=== PATIENT | male | born 1975 | race Caucasian/White ===

== ENCOUNTER 2020-03-25 18:34 | Emergency (ER) | payer MEDICAID, SELFPAY ==
[2020-03-25 21:21] VITALS: BP 144/90; PULSE 66; RESP 18; TEMP 37.2; O2SAT 99; BMI 28.1
== END 2020-03-25 23:00 | disposition left against medical advice (07) ==
PROVIDERS: Emergency Provider Internal Medicine
DX: R21 Rash and other nonspecific skin eruption (principal)
CPT/HCPCS: 99282

== ENCOUNTER 2022-09-20 14:14 | Outpatient (REF) | payer MEDICAID, SELFPAY ==
[2022-09-20 17:44] LABS: Iron 95 mcg/dL (45-160); Percent Iron Saturation 45 % (15-50); Total Iron Binding Capacity 210 mcg/dL (228-428); Unsaturated Iron Binding 115 ug/dL
[2022-09-20 18:01] LABS: Ferritin 1024 ng/mL (20-250)
[2022-09-20 19:37] LABS: Hematocrit 44.3 % (42.0-52.0); Hemoglobin 14.7 g/dl (14.0-18.0); Mean Corpuscular HGB Conc 33.2 g/dl (31.0-36.0); Mean Corpuscular Hemoglobin 30.1 pg (27.0-33.0); Mean Corpuscular Volume 90.8 fL (80.0-98.0); Mean Platelet Volume 11.3 fL (9.4-12.4); Platelet Count 126 X10*3/uL (160-400); Red Blood Count 4.88 X10*6/uL (4.60-5.80); Red Cell Distribution Width 12.8 % (11.0-16.0); White Blood Count 4.8 X10*3/uL (4.8-10.8)
[2022-09-21 04:55] LABS: HBS Num1 6.45 mIU/mL (0-7.99); HBc Num1 9.58 S/CO (0.00-0.79); Hepatitis B Surface Antigen Negative (Negative); ~Hepatitis B Surface Antibody NONREACTIVE (Nonreactive)
[2022-09-21 05:04] LABS: Hepatitis A Antibody IgG REACTIVE (Nonreactive); ~Hepatitis A Antibody IgG 11.49 S/CO (0.00-0.99)
[2022-09-21 05:59] LABS: HBc Num2 9.53 S/CO; HBc Num3 9.76 S/CO; Hepatitis B Core Antibody Reactive (Nonreactive)
[2022-09-22 10:58] LABS: Hepatitis B Core Antibody IgM NON-REACTIVE (NON-REACTIVE)
[2022-09-22 16:24] LABS: Immunoglobulin A 208 mg/dL (47-310)
[2022-09-22 21:54] LABS: Transglutaminase IgA <1.0 U/mL
[2022-09-23 14:58] LABS: HCV Log PCR <1.18 NOT DETECTED Log IU/mL (NOT DETECTED); HepC Viral Load <15 NOT DETECTED IU/mL (NOT DETECTED)
== END 2022-09-20 14:15 | disposition home or self-care (01) ==
LOC: HO.LAB 14:14
PROVIDERS: PCP Internal Medicine Geriatric Medicine; Referring Provider Internal Medicine Geriatric Medicine; Visit Provider Internal Medicine
DX: D64.9 Anemia, unspecified (principal); R76.8 Other specified abnormal immunological findings in serum; R19.5 Other fecal abnormalities
CPT/HCPCS: 36415; 82728; 82784; 83540; 85027; 86364; 86704; 86705; 86706; 86708; 87340; 87522; 99202

== ENCOUNTER 2022-10-20 08:48 | Day surgery (SDC) | payer MEDICAID, SELFPAY ==
[2022-10-18 14:57] VITALS: BMI 28.5
[2022-10-18 15:34] VITALS: BMI 28.8
--- NOTE | 2022-10-19 14:10 | HO.ANESPROP2 ---
Documented by User: Anusha Hammond NP 10/19/22 14:13 HPI - Anesthesia Eval Consult details Narrative: 47yo M for Colonoscopy ESRD on dialysis AV fistula LUE *No IV/BP* Suboxone daily PMFSH Active Problems Active Problems: All Active Problems (Updated 10/18/22 @ 15:45 by Livier Montes, RN) Anemia (Acute) Hepatitis C antibody positive in blood (Acute) Positive colorectal cancer screening using Cologuard test (Acute) Elevated ferritin level (Acute) Past Medical History Medical History A-V fistula ESRD (end stage renal disease) on dialysis HIV (human immunodeficiency virus infection) Hypertension Kidney disease Secondary hyperparathyroidism Surgical History Surgical History (Updated 10/18/22 @ 15:31 by Livier Montes, GRADY) Hx of cardiac catheterization Social History Social History Are you a primary healthcare applications analyst to a significant other at home: No Do you presently have visiting nurse or other home services: Yes (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 If so, by whom?: No Are you DNR?: No Advance Directives: No Advance Directives Information Provided: Yes Advance Directives on File: No Recently lost weight without trying: No Poor oral hygiene: No Meds Allergies Allergy/AdvReac Type Severity Reaction Status Date / Time Penicillins [PENICILLINS] Allergy Severe SWELLING/RA Unverified 09/20/22 14:43 SH/ITCHING Home Medications Medication Instructions Recorded Confirmed Last Taken Type buprenorphine 2 mg-naloxone 0.5 mg 1 film buccal DAILY 09/20/22 10/18/22 Unknown History sublingual film (Suboxone) dolutegravir 50 mg-rilpivirine 25 1 tab PO DAILY 09/20/22 10/18/22 Unknown History mg tablet (Juluca) sevelamer carbonate 800 mg tablet 800 mg PO TID 09/20/22 10/18/22 Unknown History cinacalcet 30 mg tablet 30 mg PO BEDTIME 10/18/22 10/18/22 Unknown History Exam Exam Date and Time: October 19, 2022 1410 Height,Weight and Vital Signs: Height 5 ft 8 in Weight 86 kg Pertinent Lab Results Pertinent Lab Results: Laboratory Tests 09/20/22 15:51 WBC 4.8 Hgb 14.7 Hct 44.3 Plt Count 126 L Assessment and Plan Assessment Anesthesia Assessment: Chart Reviewed Documented by User: Isabella Montano MD 10/20/22 09:44 PMFSH Past Medical History Medical History A-V fistula ESRD (end stage renal disease) on dialysis HIV (human immunodeficiency virus infection) Hypertension Kidney disease Secondary hyperparathyroidism Surgical History Surgical History (Updated 10/18/22 @ 15:31 by Livier Montes RN) Hx of cardiac catheterization Social History Social History Are you a primary healthcare applications analyst to a significant other at home: No Do you presently have visiting nurse or other home services: Yes (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 If so, by whom?: No Are you DNR?: No Advance Directives: No Advance Directives Information Provided: Yes Advance Directives on File: No Recently lost weight without trying: No Poor oral hygiene: No Meds Allergies Allergy/AdvReac Type Severity Reaction Status Date / Time Penicillins [PENICILLINS] Allergy Severe SWELLING/RA Unverified 09/20/22 14:43 SH/ITCHING Home Medications Medication Instructions Recorded Confirmed Last Taken Type buprenorphine 2 mg-naloxone 0.5 mg 1 film buccal DAILY 09/20/22 10/18/22 Unknown History sublingual film (Suboxone) dolutegravir 50 mg-rilpivirine 25 1 tab PO DAILY 09/20/22 10/18/22 Unknown History mg tablet (Juluca) sevelamer carbonate 800 mg tablet 800 mg PO TID 09/20/22 10/18/22 Unknown History cinacalcet 30 mg tablet 30 mg PO BEDTIME 10/18/22 10/18/22 Unknown History Exam Airway Mallampati Class: I TM Dist: >3cm Neck ROM: Full Heart: rr Lungs: cta Other: av fistula left arm
[2022-10-20 08:55] VITALS: BP 112/80; PULSE 99; RESP 18; TEMP 36.9; O2SAT 96
[2022-10-20 09:08] VITALS: BP 112/80; PULSE 99; RESP 20; TEMP 36.9; O2SAT 96; BMI 28.8
[2022-10-20 10:17] LABS: Anion Gap 20 (12-20); Carbon Dioxide 32 mmol/L (22-29); Chloride 93 mmol/L (96-108); Sodium 141 mmol/L (135-145)
--- NOTE | 2022-10-20 10:24 | P.OP_ITS ---
Operative Note Operative Note Date of Service: 10/20/22 Narrative: Operative Information Procedure Description: Colonoscopy Indication: pos cologuard Anesthesia: MAC COLONOSCOPY Instrument: Olympus variable stiffness pediatric scope 190L Colonoscopy Monitoring: Vital signs and clinical assessment, continuous EKG monitoring, Pulse oximetry, Carbon Dioxide monitoring and blood pressure monitoring were done throughout the procedure. Colon withdrawal time was 21 minutes. Procedure: The patient was placed in the left lateral decubitis position and pre-procedure medications were administered. After a digital rectal examination of the ano-rectum, the video colonoscope was inserted into the rectum and advanced through the colon to the cecum/TI. The colonoscope was slowly withdrawn in a retrograde panoramic fashion and the colon mucosa was carefully examined including a retroflexed view of the rectum. Findings and interventions are described below. Procedure Difficulty: moderate due to looping -pressure applied Findings: Terminal Ileum-normal Cecum:normal Ascending Colon: normal Transverse Colon -normal Descending Colon:normal Sigmoid Colon: normal Rectum: Retroflexion with medium sized internal hemorrhoids, grade I, 6-7 mm sessile polyp removed with cold forceps, some erythema noted, bx taken Anorectum - normal Colon preparation: Bennett Bowel Preparation Scale Right colon; 1-2 Transverse colon: 2- Left colon; 1-2 (0 = Unprepared colon segment with mucosa not seen due to solid stool that cannot be cleared. 1 = Portion of mucosa of the colon segment seen, but other areas of the colon segment not well seen due to staining, residual stool and/or opaque liquid. 2 = Minor amount of residual staining, small fragments of stool and/or opaque liquid, but mucosa of colon segment seen well. 3 = Entire mucosa of colon segment seen well with no residual staining, small fragments of stool or opaque liquid) Impression and Post Procedure Diagnosis: rectal polyp internal hemorrhoids tortuous colon Plan: High fiber diet leaflet Avoid straining at stool, epsom salts and sitz bath, anusol supps or cream Repeat Colonoscopy in 1-2 years due to fair prep in some area or earlier if clinically indicated Above findings were reviewed with the patient and relevant handouts were provided if indicated.
--- NOTE | 2022-10-20 10:25 | MHC.SHP ---
Pre-Procedural Eval Section A Date of Service: 10/20/22 Section B Chief Complaint: pos cologuard test Details of Present Illness: pos cologuard Relevant Family History (Specify if Yes): No Relevant Social History: None Present Medications: see Short Stay Collaborative assessment Medical History: Significant History (A-V fistula ESRD (end stage renal disease) on dialysis HIV (human immunodeficiency virus infection) Hypertension Kidney disease Secondary hyperparathyroidism) History of Previous Operations: Relevant previous surgery/procedure and date(s) (Hx of cardiac catheterization) Allergies: Allergies Allergy/AdvReac Type Severity Reaction Status Date / Time Penicillins [PENICILLINS] Allergy Severe SWELLING/RA Verified 10/20/22 10:21 SH/ITCHING Review of Systems Sugical H&P ROS: Negative: Constitution, Cardiovascular, Respiratory, Neurological, Psychiatric, Hem-Onc, Allergic/Immunologic, Gastrointestinal, Genitourinary, Musculoskeletal, Integumentary, Endocrine and Eyes/Ears/Nose/Throat Exam Surgical H&P Exam: Normal: HEENT, Normal: Heart, Normal: Lungs, Normal: Extremities, Normal: Abdomen, Normal: Skin and Normal: Neurological Plan Diagnosis/Plan: Unchanged I have reviewed the history and physical and performed a pertinent physical examination on my patient. No changes have occurred unless specified. Time Spent With Patient Time: Total time managing care of this patient today ____ minutes.
[2022-10-20] MEDS: 0.9 % Sodium Chloride 1,000 ML 100 ML IVCONT (10:26)
[2022-10-20 11:28] VITALS: BP 105/56; PULSE 82; RESP 16; TEMP 36.2; O2SAT 97
[2022-10-20 11:48] VITALS: BP 111/68; PULSE 77; RESP 16; TEMP 36.2; O2SAT 97
== END 2022-10-20 12:59 | disposition home or self-care (01) ==
PROVIDERS: Nurse Practitioner; PCP Internal Medicine Geriatric Medicine; Visit Provider Internal Medicine Gastroenterology
PROC: 0DJD8ZZ Inspection of Lower Intestinal Tract, Via Natural or Artificial Opening Endoscopic (ICD-10-PCS; CPT 45378; principal; 2022-10-20 11:00)
DX: R19.5 Other fecal abnormalities (principal); K62.1 Rectal polyp; K64.0 First degree hemorrhoids; Q43.8 Other specified congenital malformations of intestine; I12.0 Hypertensive chronic kidney disease with stage 5 chronic kidney disease or end stage renal disease; N18.6 End stage renal disease; Z99.2 Dependence on renal dialysis; N25.81 Secondary hyperparathyroidism of renal origin; B20 Human immunodeficiency virus [HIV] disease; Z79.899 Other long term (current) drug therapy; Z88.0 Allergy status to penicillin; Z87.891 Personal history of nicotine dependence
CPT/HCPCS: 45380; 36415; 80051; 88305

== ENCOUNTER 2023-01-26 14:39 | Outpatient (REF) | payer MEDICAID, SELFPAY ==
[2023-01-26 16:22] LABS: MANUAL DIFF FLAG NO
[2023-01-26 17:04] LABS: Alanine Aminotransferase 7 U/L (0-40); Albumin Level 4.7 g/dL (3.5-5.0); Alkaline Phosphatase 74 U/L (39-117); Anion Gap 18 (12-20); Aspartate Amino Transferase 6 U/L (5-37); Bilirubin Total 0.6 mg/dL (0.0-1.0); Blood Urea Nitrogen 41 mg/dL (9-16); Calcium 10.5 mg/dL (8.4-10.2); Carbon Dioxide 30 mmol/L (22-29); Chloride 93 mmol/L (96-108); Estimated Glomerular Filt Rate 5; Glucose Random 78 mg/dL (60-115); Potassium 5.3 mmol/L (3.3-5.1); Sodium 136 mmol/L (135-145); Total Protein 8.7 g/dL (6.5-8.0)
[2023-01-26 18:43] LABS: Basophils Absolute Auto 0.1 X10*3/uL (0.0-0.2); Basophils Percent Auto 0.9 % (0-2); Eosinophils Percent Auto 0.6 % (0-4); Hematocrit 47.5 % (42.0-52.0); Hemoglobin 15.6 g/dl (14.0-18.0); Imm Gran Abs Auto 0.02 X10*3/uL (0.00-0.03); Imm Gran Pct Auto 0.3 % (0.0-0.4); Lymphocytes Absolute Auto 2.3 X10*3/uL (1.2-4.9); Lymphocytes Percent Auto 33.3 % (20-40); Mean Corpuscular HGB Conc 32.8 g/dl (31.0-36.0); Mean Corpuscular Hemoglobin 30.1 pg (27.0-33.0); Mean Corpuscular Volume 91.7 fL (80.0-98.0); Mean Platelet Volume 11.6 fL (9.4-12.4); Monocytes Absolute Auto 0.6 X10*3/uL (0.1-1.2); Monocytes Percent Auto 9.4 % (2-11); Neutrophils Absolute Auto 3.8 x10*3/uL (2.0-8.3); Neutrophils Percent Auto 55.5 % (45-73); Platelet Count 136 X10*3/uL (160-400); Red Blood Count 5.18 X10*6/uL (4.60-5.80); White Blood Count 6.8 X10*3/uL (4.8-10.8)
[2023-01-30 11:28] LABS: Absolute CD3 Count 1935 cells/uL (840-3060); Absolute CD4 Count 702 cells/uL (490-1740); Absolute CD8 Count 1259 cells/uL (180-1170); Absolute Lymphocytes 2460 cells/uL (850-3900); CD4 CD8 Ratio 0.56 (0.86-5.00); Percent CD3 Cells 79 % (57-85); Percent CD4 Cells 29 % (30-61); Percent CD8 Cells 51 % (12-42)
[2023-01-31 15:28] LABS: HIV RNA PCR Qn Copies NOT DETECTED copies/mL (NOT DETECTED); HIV RNA PCR Qn Log Copies NOT DETECTED (NOT DETECTED)
== END 2023-01-26 14:40 | disposition home or self-care (01) ==
LOC: HO.HHCL 14:39
PROVIDERS: Visit Provider Internal Medicine
DX: B20 Human immunodeficiency virus [HIV] disease (principal)
CPT/HCPCS: 80053; 85025; 86359; 86360; 87536; 87900; 87901; 87906

== ENCOUNTER 2023-03-23 16:49 | Outpatient (REF) | payer MEDICAID, SELFPAY | END 2023-03-23 16:50 | disposition home or self-care (01) | LOC: HO.HHCLNP 16:49 | PROVIDERS: Visit Provider Family Medicine | DX: F11.20 Opioid dependence, uncomplicated (principal) | CPT/HCPCS: 80307 ==

== ENCOUNTER 2023-09-27 14:38 | Outpatient (AMB) | payer MEDICAID, SELFPAY ==
[2023-09-27 14:48] VITALS: BP 122/80; PULSE 57; O2SAT 100; BMI 26.2
--- NOTE | 2023-09-27 14:48 | HO.NEPHOV_ITS ---
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 Preoperatively patient was planned for fluconazole for the coccidiomycosis and possibility of reemergence, infectious disease consult was placed for postoperative management. He is CMV positive, EBV positive with a PRA of 0. Donor ID is [id number] MAOB, KDPI 60% with hep C antibody positive, donor serology with CMV positive, EBV positive, toxoplasmosis positive. Patient underwent donor kidney transplant 06/19/2023. Postoperative day 1 patient was started on Prograf 2 twice daily. Patient was also started on his Juluca for HIV, fluconazole for coccidiomycosis, Entecavir for hepatitis C, and home Suboxone film. 06/20/2019 for nuclear medicine scan returned with prompt flow to the kidney. Fluconazole and Entecavir was continued.He has had worsening serum creatinine during his scheduled follow-ups and a duplex study showed concern for renal artery stenosis of the transplanted kidney . So he was directly admitted for an angiogram with IR. Angiogram did not find any renal artery stenosis so no intervention was performed. He underwent a transplant ultrasound which showed no evidence of hydronephrosis. Additional viral testing sent out to determine cause of rising creatinine. He was later re admitted for cellulitis of the left upper extremity near the fistula. ID consulted and recommended 48 hours of IV antibiotics followed by ultrasound which did not show any drainable collections. As his skin appeared significantly thinned along this area of cellulitis and over the most proximal aneurysm, it was concerning for predisposing factor for fistula blowout. Went to OR 09/08 for fistula ligation and resection. He has decreased risk for rejection by Prospera. He has been DSA negative. He is in follow-up. He is compliant with medications. He maintains good hydration. He feels well. [facility] Medical History (Updated 09/28/23 @ 07:56 by Onesimo Ayers MD) Secondary hyperparathyroidism ESRD (end stage renal disease) on dialysis A-V fistula HIV (human immunodeficiency virus infection) Hypertension Kidney disease Surgical History (Updated 09/27/23 @ 15:27 by Onesimo Ayers MD) Hx of cardiac catheterization Social History Are you a primary care transition mgr to a significant other at home: No Do you presently have visiting nurse or other home services: Yes (AVID EDITOR 3 hours daily) Alcohol intake: never Patient Tobacco Use Status: Former Tobacco user Quit Date: 2014 Tobacco use type: Cigarette Substance Use Type: Former Substance User Vital Signs 09/27/23 14:48 Height 5 ft 8 in Weight 172 lb 8 oz BMI 26.2 BP 122/80 Blood Pressure Location Rt brachial Position Sitting Pulse 57 Pulse Source Pulse Oximeter Pulse Oximetry (%) 100 Oxygen Delivery Method Room Air Physical Exam Vital Signs: Last Vital Signs Pulse 57 09/27/23 14:48 BP 122/80 09/27/23 14:48 Pulse Ox 100 09/27/23 14:48 Oxygen Delivery Method Room Air 09/27/23 14:48 BMI result Body Mass Index 26.2 Const General: comfortable and no acute distress Orientation/consciousness: patient oriented x3 HEENT Head: Yes normocephalic Mouth: Normal oral and palatal mucosa present Eyes EOM: EOMs intact bilaterally Neck Neck: Yes supple Resp Auscultation: clear to auscultation bilaterally Cardio Jugular venous distension: no JVD Rate: regular rate GI Palpation (GI): Soft to palpation Auscultation: normal bowel sounds General: Yes no CVA tenderness Back/Spine/Pelvis Back: no CVA tenderness Skin General skin exam: no rashes or lesions noted Neuro General: patient oriented x3 and moves all extremities Extrem General: Yes no pedal edema Assessment & Plan Assessment & Plan (1) Renal transplant recipient: Code(s): Z94.0 - Kidney transplant status (2) HIV (human immunodeficiency virus infection): Code(s): B20 - Human immunodeficiency virus [HIV] disease Qualifiers: HIV symptom status: currently asymptomatic, with history of HIV-related illness Qualified Code(s): B20 - Human immunodeficiency virus [HIV] disease Plan Renal Transplant Induction Agent included Thymo x4 doses ; Had no delayed Draft Function; Did not need dialysis post transplant (Stent Removal date: 07/10/23) CMV: Donor + /Recipient + ; EBV: Donor + /Recipient + HBcAB: Donor - /Recipient + ;HCV: Donor + /OLIVERIO- /Recipient - Polyomavirus Status- BK PCR Quantitative 09/21/23 BK viremia 682 & 07/17/23 BK viruira ; Plan to give therapy (if + BK PCR)by decrease tac lvl & decrease MMF Biopsy or Prospera (Date/Indication/Results): 08/11/23 Biopsy for increasing creat- NEG ACR 09/21/23 Prospera protocol- decreased risk for rejection DSAs (Recent Date/Results): 09/07/23- no DSAs detected Immunosuppression (Drug/Level Recommended/Indication if not monotherapy): Tacro lvl 5-6 & MMF 2-4/thymo induction Prophylaxis Therapy (Drug/Date/Discontinuation Date): Fluconazole- lifelong per HIV protocol, Bactrim d/c date pending CD4 count (see HIV protocol), Valcyte 900mg daily d/c 12/18/23, Entecavir d/c 06/19/24 Genetic Testing (Date & Results): 06/08/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 Immunosupression Currently taking MMF 540/540 and prograft 1/0.5 FK level monitored and adjusted accordingly ? Prophylaxis Currently taking bactrim/valcyte/antifungal ? Infection BK blood PCR positive 78, urine very high 89 million CMV neg 08/24/23 ? Heme Hb 10.1 , Plt 126 , WBC count 1.5, ANC 0.9 - ( H/O severe neutropenia ) ? HTN Blood pressure is at target today Continue current BP meds ? Bone metabolism calcium 1.31 phosphorus 3.5 Mag?2 Tx renal artery stenosis tx renal artery stenosis, angiogram done by IR on 08/23/23 with caliber change/tapering at the distal transplant renal artery as it branched into the segmental renal bed. Unable to get stenting b/c hig risk ; Has an appointment in [facility] for further intervention Follow-up lab work ordered. All questions answered. Follow-up appointment given. Orders: Orders Complete Blood Count Auto Diff 09/27/23 Z94.0 - Kidney transplant status Creatinine 09/27/23 Z94.0 - Kidney transplant status Blood Urea Nitrogen 09/27/23 Z94.0 - Kidney transplant status Parathyroid Hormone Intact 09/27/23 Z94.0 - Kidney transplant status Electrolytes 09/27/23 Z94.0 - Kidney transplant status Calcium 09/27/23 Z94.0 - Kidney transplant status Phosphorus 09/27/23 Z94.0 - Kidney transplant status Magnesium 09/27/23 Z94.0 - Kidney transplant status Vitamin D 25-OH Total 09/27/23 Z94.0 - Kidney transplant status Tacrolimus Prograf 09/27/23 Z94.0 - Kidney transplant status Coding Level of Care Code New Pt Level 5 (75371) Diagnoses Renal transplant recipient Z94.0 Currently asymptomatic HIV infection, with history of HIV-related illness B20 HIV symptom status: currently asymptomatic, with history of HIV-related illness Results Reviewed Nephrology Results: Hgb 15.6 g/dl (14.0-18.0) 01/26/23 WBC 6.8 X10*3/uL (4.8-10.8) 01/26/23 Plt Count 136 X10*3/uL (160-400) L 01/26/23 Sodium 136 mmol/L (135-145) 01/26/23 Potassium 5.3 mmol/L (3.3-5.1) H 01/26/23 Chloride 93 mmol/L (96-108) L 01/26/23 Carbon Dioxide 30 mmol/L (22-29) H 01/26/23 BUN 41 mg/dL (9-16) H 01/26/23 Creatinine 11.03 mg/dL (0.5-1.4) H* 01/26/23 Calcium 10.5 mg/dL (8.4-10.2) H 01/26/23 Phosphorus 4.9 MG/DL (2.7-4.5) H 06/28/19 PTH Intact 512 pg/mL (14-64) H 06/28/19 Urine Protein 2+ (NEG - TRACE) H 06/28/19
== END 2023-09-27 15:30 | disposition home or self-care (01) ==
PROVIDERS: PCP Internal Medicine Geriatric Medicine; Visit Provider Internal Medicine Nephrology
DX: B20 Human immunodeficiency virus [HIV] disease (principal); N18.6 End stage renal disease; Z94.0 Kidney transplant status
CPT/HCPCS: 99205

== ENCOUNTER → 2023-09-27 14:38 | Outpatient (BNVA) | payer MEDICAID, SELFPAY | PROVIDERS: PCP Internal Medicine Geriatric Medicine; Visit Provider Internal Medicine Nephrology | DX: B20 Human immunodeficiency virus [HIV] disease (principal); Z94.0 Kidney transplant status | CPT/HCPCS: 99202 ==

== ENCOUNTER 2023-10-09 08:38 | Outpatient (REF) | payer MEDICAID, SELFPAY ==
[2023-10-09 10:42] LABS: Red Cell Distribution Width 14.1 % (11.0-16.0)
[2023-10-09 10:45] LABS: Hematocrit 34.7 % (42.0-52.0); Hemoglobin 11.2 g/dl (14.0-18.0); Mean Corpuscular HGB Conc 32.3 g/dl (31.0-36.0); Mean Corpuscular Hemoglobin 28.9 pg (27.0-33.0); Mean Corpuscular Volume 89.4 fL (80.0-98.0); Mean Platelet Volume 12.7 fL (9.4-12.4); Platelet Count 116 X10*3/uL (160-400); Red Blood Count 3.88 X10*6/uL (4.60-5.80); White Blood Count 2.9 X10*3/uL (4.8-10.8)
[2023-10-09 10:46] LABS: PLT ABN DIST 1
[2023-10-09 11:19] LABS: Parathyroid Hormone Intact 264.5 pg/mL (8.7-77.1)
[2023-10-09 11:20] LABS: Band Neutrophils Percent 7 % (3-5); Basophils Percent Manual 1 % (0-2); Eosinophils Absolute Manual 0.1 X10*3/uL (0.0-0.4); Eosinophils Percent Manual 5 % (0-4); Lymphocytes Absolute Manual 0.4 X10*3/uL (1.2-4.9); Lymphocytes Percent Manual 13 % (20-40); Monocytes Absolute Manual 0.1 X10*3/uL (0.1-1.2); Monocytes Percent Manual 2 % (2-11); Neutrophils Absolute Manual 2.3 X10*3/uL (2.0-8.3); Neutrophils Percent Manual 72 % (45-73)
[2023-10-09 11:22] LABS: Platelet Estimate DECREASED (NORMAL); RBC Morphology NOTED; Tear Drop Cells 1+ (0-2) /OIF
[2023-10-09 11:23] LABS: Large Platelet PRESENT; Platelet Morphology Comment NOTED
[2023-10-09 11:24] LABS: Spherocytes 1+ (0-2) /OIF
[2023-10-09 11:37] LABS: Vitamin D 25-OH Total 20.1 ng/mL (>30)
[2023-10-09 11:40] LABS: Anion Gap 15 (12-20); Blood Urea Nitrogen 49 mg/dL (9-16); Calcium 10.2 mg/dL (8.4-10.2); Carbon Dioxide 19 mmol/L (22-29); Chloride 110 mmol/L (96-108); Estimated Glomerular Filt Rate 16; Magnesium 1.7 mg/dL (1.6-2.6); Phosphorus 3.1 mg/dL (2.7-4.5); Potassium 4.5 mmol/L (3.3-5.1); Sodium 139 mmol/L (135-145)
[2023-10-10 09:14] LABS: Tacrolimus Prograf 6.5 mcg/L
== END 2023-10-09 08:39 | disposition home or self-care (01) ==
LOC: HO.LAB 08:38
PROVIDERS: PCP Internal Medicine Geriatric Medicine; Visit Provider Internal Medicine Nephrology
DX: Z94.0 Kidney transplant status (principal); Z79.899 Other long term (current) drug therapy
CPT/HCPCS: 36415; 80051; 80197; 82306; 82310; 82565; 83735; 83970; 84100; 84520; 85007; 85025; 85027

== ENCOUNTER 2023-10-11 08:33 | Outpatient (REF) | payer MEDICAID, SELFPAY ==
[2023-10-11 08:55] LABS: MANUAL DIFF FLAG NO
[2023-10-11 09:15] LABS: Basophils Percent Auto 1.4 % (0-2); Eosinophils Absolute Auto 0.1 X10*3/uL (0.0-0.4); Eosinophils Percent Auto 4.4 % (0-4); Hematocrit 36.4 % (42.0-52.0); Hemoglobin 11.8 g/dl (14.0-18.0); Imm Gran Abs Auto 0.11 X10*3/uL (0.00-0.03); Imm Gran Pct Auto 3.7 % (0.0-0.4); Lymphocytes Absolute Auto 0.5 X10*3/uL (1.2-4.9); Lymphocytes Percent Auto 17.6 % (20-40); Mean Corpuscular HGB Conc 32.4 g/dl (31.0-36.0); Mean Corpuscular Hemoglobin 28.7 pg (27.0-33.0); Mean Corpuscular Volume 88.6 fL (80.0-98.0); Mean Platelet Volume 12.2 fL (9.4-12.4); Monocytes Absolute Auto 0.1 X10*3/uL (0.1-1.2); Monocytes Percent Auto 3.4 % (2-11); Neutrophils Absolute Auto 2.1 x10*3/uL (2.0-8.3); Neutrophils Percent Auto 69.5 % (45-73); Platelet Count 123 X10*3/uL (160-400); Red Blood Count 4.11 X10*6/uL (4.60-5.80)
[2023-10-11 09:42] LABS: Alanine Aminotransferase 11 U/L (0-40); Albumin Level 4.4 g/dL (3.5-5.0); Anion Gap 15 (12-20); Aspartate Amino Transferase 16 U/L (5-37); Blood Urea Nitrogen 40 mg/dL (9-16); Calcium 10.3 mg/dL (8.4-10.2); Carbon Dioxide 17 mmol/L (22-29); Chloride 110 mmol/L (96-108); Estimated Glomerular Filt Rate 20; Magnesium 1.8 mg/dL (1.6-2.6); Phosphorus 3.2 mg/dL (2.7-4.5); Potassium 4.6 mmol/L (3.3-5.1); Sodium 137 mmol/L (135-145)
[2023-10-12 10:13] LABS: Tacrolimus Prograf 6.3 mcg/L
== END 2023-10-11 08:34 | disposition home or self-care (01) ==
LOC: HO.LAB 08:33
PROVIDERS: Visit Provider Internal Medicine Nephrology
DX: I10 Essential (primary) hypertension (principal); B34.8 Other viral infections of unspecified site; Z94.0 Kidney transplant status
CPT/HCPCS: 36415; 80051; 80197; 82040; 82310; 82565; 83735; 84100; 84450; 84460; 84520; 85025; 99212

== ENCOUNTER 2023-10-11 14:33 | Outpatient (AMB) | payer MEDICAID, SELFPAY ==
--- NOTE | 2023-10-11 14:59 | HO.NEPHOV_ITS ---
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 Preoperatively patient was planned for fluconazole for the coccidiomycosis and possibility of reemergence, infectious disease consult was placed for postoperative management. He is CMV positive, EBV positive with a PRA of 0. Donor ID is [id number] MAOB, KDPI 60% with hep C antibody positive, donor serology with CMV positive, EBV positive, toxoplasmosis positive. Patient underwent donor kidney tr ansplant 06/19/2023. Postoperative day 1 patient was started on Prograf 2 twice daily. Patient was also started on his Juluca for HIV, fluconazole for coccidiomycosis, Entecavir for hepatitis C, and home Suboxone film. 06/20/2019 for nuclear medicine scan returned with prompt flow to the kidney. Fluconazole and Entecavir was continued.He has had worsening serum creatinine during his scheduled follow-ups and a duplex study showed concern for renal artery stenosis of the transplanted kidney . So he was directly admitted for an angiogram with IR. Angiogram did not find any renal artery stenosis so no intervention was performed. He underwent a transplant ultrasound which showed no evidence of hydronephrosis. Additional viral testing sent out to determine cause of rising creatinine. He was later re admitted for cellulitis of the left upper extremity near the fistula. ID consulted and recommended 48 hours of IV antibiotics followed by ultrasound which did not show any drainable collections. As his skin appeared significantly thinned along this area of cellulitis and over the most proximal aneurysm, it was concerning for predisposing factor for fistula blowout. Went to OR 3/30 for fistula ligation and resection. He has decreased risk for rejection by Prospera. He has been DSA negative. He is in follow-up. He is compliant with medications. He maintains good hydration. He feels well [facility] Medical History (Updated 10/11/23 @ 15:27 by Onesimo Ayers MD) Secondary hyperparathyroidism ESRD (end stage renal disease) on dialysis A-V fistula HIV (human immunodeficiency virus infection) Hypertension Kidney disease Surgical History Hx of cardiac catheterization Social History Are you a primary wound care coordinator to a significant other at home: No Do you presently have visiting nurse or other home services: Yes (TEST PREPARER 3 hours daily) Alcohol intake: never Patient Tobacco Use Status: Former Tobacco user Quit Date: 2014 Tobacco use type: Cigarette Substance Use Type: Former Substance User Physical Exam Vital Signs: Last Vital Signs Pulse 67 10/11/23 15:02 BP 152/90 H 10/11/23 15:02 Pulse Ox 99 10/11/23 15:02 Oxygen Delivery Method Room Air 10/11/23 15:02 BMI result Body Mass Index 26.0 Results Reviewed Nephrology Results: Hgb 11.8 g/dl (14.0-18.0) L 10/11/23 WBC 3.0 X10*3/uL (4.8-10.8) L 10/11/23 Plt Count 123 X10*3/uL (160-400) L 10/11/23 Sodium 137 mmol/L (135-145) 10/11/23 Potassium 4.6 mmol/L (3.3-5.1) 10/11/23 Chloride 110 mmol/L (96-108) H 10/11/23 Carbon Dioxide 17 mmol/L (22-29) L 10/11/23 BUN 40 mg/dL (9-16) H 10/11/23 Creatinine 3.40 mg/dL (0.5-1.4) H 10/11/23 Calcium 10.3 mg/dL (8.4-10.2) H 10/11/23 Phosphorus 3.2 mg/dL (2.7-4.5) 10/11/23 PTH Intact 264.5 pg/mL (8.7-77.1) H 10/09/23 Urine Protein 2+ (NEG - TRACE) H 06/28/19 Assessment & Plan Assessment & Plan (1) Renal transplant recipient: Code(s): Z94.0 - Kidney transplant status Category: Surgical (2) Hypertension: Code(s): I10 - Essential (primary) hypertension Category: Medical (3) BK polyoma viremia: Code(s): B34.8 - Other viral infections of unspecified site Category: Medical Plan Renal Transplant Induction Agent included Thymo x4 doses ; Had no delayed Draft Function; Did not need dialysis post transplant (Stent Removal date: 07/10/23) CMV: Donor + /Recipient + ; EBV: Donor + /Recipient + HBcAB: Donor - /Recipient + ;HCV: Donor + /OLIVERIO- /Recipient - Polyomavirus Status- BK PCR Quantitative 09/21/23 BK viremia 682 & 07/17/23 BK viruira ; Plan to give therapy (if + BK PCR)by decrease tac lvl & decrease MMF Biopsy or Prospera (Date/Indication/Results): 08/11/23 Biopsy for increasing creat- NEG ACR 09/21/23 Prospera protocol- decreased risk for rejection DSAs (Recent Date/Results): 09/07/23- no DSAs detected Immunosuppression (Drug/Level Recommended/Indication if not monotherapy): Tacro lvl 5-6 & MMF 2-4/thymo induction Prophylaxis Therapy (Drug/Date/Discontinuation Date): Fluconazole- lifelong per HIV protocol, Bactrim d/c date pending CD4 count (see HIV protocol), Valcyte 900mg daily d/c 12/18/23, Entecavir d/c 06/19/24 Genetic Testing (Date & Results): 06/08/23- [id number] 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 Immunosupression Currently taking MMF 540/540 and prograft 1/0.5 FK level monitored and adjusted accordingly ? Prophylaxis Currently taking bactrim/valcyte/antifungal ? Infection BK blood PCR positive 78, urine very high 89 million CMV neg 08/24/23 ? Heme Hb 10.1 , Plt 126 , WBC count 1.5, ANC 0.9 - ( H/O severe neutropenia ) ? HTN Blood pressure is at target today Continue current BP meds ? Bone metabolism calcium 1.31 phosphorus 3.5 Mag?2 Tx renal artery stenosis tx renal artery stenosis, angiogram done by IR on 08/23/23 with caliber change/tapering at the distal transplant renal artery as it branched into the segmental renal bed. Unable to get stenting b/c hig risk ; Has an appointment in [facility] for further intervention Follow-up lab work ordered. All questions answered. Follow-up appointment given. Orders: Orders Creatinine Today B34.8 - Other viral infections of unspecified site, I10 - Essential (primary) hypertension, Z94.0 - Kidney transplant status Calcium Today B34.8 - Other viral infections of unspecified site, I10 - Essential (primary) hypertension, Z94.0 - Kidney transplant status Other Ref Test - Misc 1 Week B34.8 - Other viral infections of unspecified site, I10 - Essential (primary) hypertension, Z94.0 - Kidney transplant status Tacrolimus Prograf 1 Week B34.8 - Other viral infections of unspecified site, I10 - Essential (primary) hypertension, Z94.0 - Kidney transplant status Other Ref Test - Misc Today B34.8 - Other viral infections of unspecified site, I10 - Essential (primary) hypertension, Z94.0 - Kidney transplant status Blood Urea Nitrogen Today B34.8 - Other viral infections of unspecified site, I10 - Essential (primary) hypertension, Z94.0 - Kidney transplant status Electrolytes Today B34.8 - Other viral infections of unspecified site, I10 - Essential (primary) hypertension, Z94.0 - Kidney transplant status Phosphorus Today B34.8 - Other viral infections of unspecified site, I10 - Essential (primary) hypertension, Z94.0 - Kidney transplant status Magnesium Today B34.8 - Other viral infections of unspecified site, I10 - Essential (primary) hypertension, Z94.0 - Kidney transplant status Coding Level of Care Code Est Pt Level 5 (33550) Diagnoses Renal transplant recipient Z94.0 Hypertension I10 BK polyoma viremia B34.8
[2023-10-11 15:02] VITALS: BP 140/90; PULSE 67; O2SAT 99; BMI 26.0
== END 2023-10-11 15:33 | disposition home or self-care (01) ==
PROVIDERS: PCP Internal Medicine Geriatric Medicine; Referring Provider Internal Medicine Geriatric Medicine; Visit Provider Internal Medicine Nephrology
DX: I10 Essential (primary) hypertension (principal); T86.13 Kidney transplant infection; B33.8 Other specified viral diseases; Z94.0 Kidney transplant status
CPT/HCPCS: 99215

== ENCOUNTER 2023-10-17 08:41 | Outpatient (REF) | payer MEDICAID, SELFPAY ==
[2023-10-17 10:17] LABS: Anion Gap 15 (12-20); Blood Urea Nitrogen 43 mg/dL (9-16); Calcium 10.6 mg/dL (8.4-10.2); Carbon Dioxide 20 mmol/L (22-29); Chloride 110 mmol/L (96-108); Estimated Glomerular Filt Rate 19; Magnesium 1.7 mg/dL (1.6-2.6); Phosphorus 3.7 mg/dL (2.7-4.5); Potassium 4.5 mmol/L (3.3-5.1); Sodium 140 mmol/L (135-145)
[2023-10-18 14:38] LABS: Tacrolimus Prograf 6.3 mcg/L
== END 2023-10-17 08:42 | disposition home or self-care (01) ==
LOC: HO.LAB 08:41
PROVIDERS: PCP Internal Medicine Geriatric Medicine; Visit Provider Internal Medicine Nephrology
DX: I10 Essential (primary) hypertension (principal); B34.8 Other viral infections of unspecified site; Z94.0 Kidney transplant status
CPT/HCPCS: 36415; 80051; 80197; 82310; 82565; 83735; 84100; 84520; 87798

== ENCOUNTER 2023-10-18 15:13 | Outpatient (AMB) | payer MEDICAID, SELFPAY ==
[2023-10-18 15:15] VITALS: BP 132/90; PULSE 73; O2SAT 100; BMI 25.8
--- NOTE | 2023-10-18 15:15 | HO.NEPHOV_ITS ---
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 Preoperatively patient was planned for fluconazole for the coccidiomycosis and possibility of reemergence, infectious disease consult was placed for postoperative management. He is CMV positive, EBV positive with a PRA of 0. Donor ID is [id number] MAOB, KDPI 60% with hep C antibody positive, donor serology with CMV positive, EBV positive, toxoplasmosis positive. Patient underwent donor kidney transplant 06/19/2023. Postoperative day 1 patient was started on Prograf 2 twice daily. Patient was also started on his Juluca for HIV, fluconazole for coccidiomycosis, Entecavir for hepatitis C, and home Suboxone film. 06/20/2019 for nuclear medicine scan returned with prompt flow to the kidney. Fluconazole and Entecavir was continued.He has had worsening serum creatinine during his scheduled follow-ups and a duplex study showed concern for renal artery stenosis of the transplanted kidney . So he was directly admitted for an angiogram with IR. Angiogram did not find any renal artery stenosis so no intervention was performed. He underwent a transplant ultrasound which showed no evidence of hydronephrosis. Additional viral testing sent out to determine cause of rising creatinine. He was later re admitted for cellulitis of the left upper extremity near the fistula. ID consulted and recommended 48 hours of IV antibiotics followed by ultrasound which did not show any drainable collections. As his skin appeared significantly thinned along this area of cellulitis and over the most proximal aneurysm, it was concerning for predisposing factor for fistula blowout. Went to OR 09/08 for fistula ligation and resection. He has decreased risk for rejection by Prospera. He has been DSA negative. He is in follow-up. He is compliant with medications. He maintains good hydration. He feels well [facility] Medical History (Updated 10/18/23 @ 15:17 by Onesimo Ayers MD) Secondary hyperparathyroidism ESRD (end stage renal disease) on dialysis A-V fistula HIV (human immunodeficiency virus infection) Hypertension Kidney disease Surgical History Hx of cardiac catheterization Social History Are you a primary health care / medical job titles to a significant other at home: No Do you presently have visiting nurse or other home services: Yes (NURSE GENERAL DUTY 3 hours daily) Alcohol intake: never Patient Tobacco Use Status: Former Tobacco user Quit Date: 2014 Tobacco use type: Cigarette Substance Use Type: Former Substance User Physical Exam Const General: comfortable and no acute distress Orientation/consciousness: patient oriented x3 HEENT Head: Yes normocephalic Mouth: Normal oral and palatal mucosa present Eyes EOM: EOMs intact bilaterally Neck Neck: Yes supple Resp Auscultation: clear to auscultation bilaterally Cardio Jugular venous distension: no JVD Rate: regular rate GI Palpation (GI): Soft to palpation Auscultation: normal bowel sounds General: Yes no CVA tenderness Back/Spine/Pelvis Back: no CVA tenderness Skin General skin exam: no rashes or lesions noted Neuro General: patient oriented x3 and moves all extremities Extrem General: Yes no pedal edema Results Reviewed Nephrology Results: Hgb 11.8 g/dl (14.0-18.0) L 10/11/23 WBC 3.0 X10*3/uL (4.8-10.8) L 10/11/23 Plt Count 123 X10*3/uL (160-400) L 10/11/23 Sodium 140 mmol/L (135-145) 10/17/23 Potassium 4.5 mmol/L (3.3-5.1) 10/17/23 Chloride 110 mmol/L (96-108) H 10/17/23 Carbon Dioxide 20 mmol/L (22-29) L 10/17/23 BUN 43 mg/dL (9-16) H 10/17/23 Creatinine 3.54 mg/dL (0.5-1.4) H 10/17/23 Calcium 10.6 mg/dL (8.4-10.2) H 10/17/23 Phosphorus 3.7 mg/dL (2.7-4.5) 10/17/23 PTH Intact 264.5 pg/mL (8.7-77.1) H 10/09/23 Assessment & Plan Assessment & Plan (1) Renal transplant recipient: Code(s): Z94.0 - Kidney transplant status Category: Surgical (2) Hypertension: Code(s): I10 - Essential (primary) hypertension Category: Medical Qualifiers: Hypertension type: secondary to other renal disorders Qualified Code(s): I15.1 - Hypertension secondary to other renal disorders (3) HIV (human immunodeficiency virus infection): Code(s): B20 - Human immunodeficiency virus [HIV] disease Category: Medical Qualifiers: HIV symptom status: currently asymptomatic, with history of HIV-related illness Qualified Code(s): B20 - Human immunodeficiency virus [HIV] disease (4) BK polyoma viremia: Code(s): B34.8 - Other viral infections of unspecified site Category: Medical Plan Renal Transplant Induction Agent included Thymo x4 doses ; Had no delayed Draft Function; Did not need dialysis post transplant (Stent Removal date: 07/10/23) CMV: Donor + /Recipient + ; EBV: Donor + /Recipient + HBcAB: Donor - /Recipient + ;HCV: Donor + /OLIVERIO- /Recipient - Polyomavirus Status- BK PCR Quantitative 09/21/23 BK viremia 682 & 07/17/23 BK viruira ; Plan to give therapy (if + BK PCR)by decrease tac lvl & decrease MMF Biopsy or Prospera (Date/Indication/Results): 08/11/23 Biopsy for increasing creat- NEG ACR 09/21/23 Prospera protocol- decreased risk for rejection DSAs (Recent Date/Results): 09/07/23- no DSAs detected Immunosuppression (Drug/Level Recommended/Indication if not monotherapy): Tacro lvl 5-6 & MMF 2-4/thymo induction Prophylaxis Therapy (Drug/Date/Discontinuation Date): Fluconazole- lifelong per HIV protocol, Bactrim d/c date pending CD4 count (see HIV protocol), Valcyte 900mg daily d/c 12/18/23, Entecavir d/c 1/8/25 Genetic Testing (Date & Results): 06/08/23- [id number] 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 Immunosupression Currently taking MMF 540/540 and prograft 1/0.5 FK level monitored and adjusted accordingly ? Prophylaxis Currently taking bactrim/valcyte/antifungal ? Infection BK blood PCR positive 78, urine very high 89 million CMV neg 08/24/23 ? Heme Hb 11.8 , Plt 123 , WBC count 3, ANC 2.1 - ( H/O severe neutropenia ) ? HTN Blood pressure is at target today Continue current BP meds ? Bone metabolism calcium 10.6 phosphorus 3.7 Mag?1.7 Tx renal artery stenosis tx renal artery stenosis, angiogram done by IR on 08/23/23 with caliber change/tapering at the distal transplant renal artery as it branched into the segmental renal bed. Unable to get stenting b/c hig risk ; Has an appointment in [facility] for further intervention Follow-up lab work ordered. All questions answered. Follow-up appointment given. Orders: Orders Creatinine Today B20 - Human immunodeficiency virus [HIV] disease, B34.8 - Other viral infections of unspecified site, I15.1 - Hypertension secondary to other renal disorders, Z94.0 - Kidney transplant status Electrolytes Today B20 - Human immunodeficiency virus [HIV] disease, B34.8 - Other viral infections of unspecified site, I15.1 - Hypertension secondary to other renal disorders, Z94.0 - Kidney transplant status Calcium Today B20 - Human immunodeficiency virus [HIV] disease, B34.8 - Other viral infections of unspecified site, I15.1 - Hypertension secondary to other renal disorders, Z94.0 - Kidney transplant status Tacrolimus Prograf Today B20 - Human immunodeficiency virus [HIV] disease, B34.8 - Other viral infections of unspecified site, I15.1 - Hypertension secondary to other renal disorders, Z94.0 - Kidney transplant status Blood Urea Nitrogen Today B20 - Human immunodeficiency virus [HIV] disease, B34.8 - Other viral infections of unspecified site, I15.1 - Hypertension secondary to other renal disorders, Z94.0 - Kidney transplant status Coding Level of Care Code Est Pt Level 4 (27646) Diagnoses Renal transplant recipient Z94.0 Hypertension secondary to other renal disorders I15.1 Hypertension type: secondary to other renal disorders Currently asymptomatic HIV infection, with history of HIV-related illness B20 HIV symptom status: currently asymptomatic, with history of HIV-related illness BK polyoma viremia B34.8
== END 2023-10-18 15:33 | disposition home or self-care (01) ==
PROVIDERS: PCP Internal Medicine Geriatric Medicine; Referring Provider Internal Medicine Geriatric Medicine; Visit Provider Internal Medicine Nephrology
DX: Z94.0 Kidney transplant status (principal); I15.1 Hypertension secondary to other renal disorders; B20 Human immunodeficiency virus [HIV] disease; B34.8 Other viral infections of unspecified site
CPT/HCPCS: 99214

== ENCOUNTER → 2023-10-18 15:13 | Outpatient (BNVA) | payer MEDICAID, SELFPAY | PROVIDERS: PCP Internal Medicine Geriatric Medicine; Visit Provider Internal Medicine Nephrology | DX: I15.1 Hypertension secondary to other renal disorders (principal); B34.8 Other viral infections of unspecified site; B20 Human immunodeficiency virus [HIV] disease; Z94.0 Kidney transplant status | CPT/HCPCS: 99212 ==

== ENCOUNTER 2023-11-01 08:49 | Outpatient (REF) | payer MEDICAID, SELFPAY ==
[2023-11-01 10:13] LABS: Anion Gap 15 (12-20); Blood Urea Nitrogen 47 mg/dL (9-16); Calcium 10.3 mg/dL (8.4-10.2); Carbon Dioxide 19 mmol/L (22-29); Chloride 109 mmol/L (96-108); Estimated Glomerular Filt Rate 18; Potassium 4.5 mmol/L (3.3-5.1); Sodium 138 mmol/L (135-145)
[2023-11-02 14:58] LABS: Tacrolimus Prograf 7.8 mcg/L
== END 2023-11-01 08:50 | disposition home or self-care (01) ==
LOC: HO.LAB 08:49
PROVIDERS: PCP Internal Medicine Geriatric Medicine; Visit Provider Internal Medicine Nephrology
DX: B34.8 Other viral infections of unspecified site (principal); I15.1 Hypertension secondary to other renal disorders; B20 Human immunodeficiency virus [HIV] disease; Z79.899 Other long term (current) drug therapy; Z94.0 Kidney transplant status
CPT/HCPCS: 36415; 80051; 80197; 82310; 82565; 84520; 87798; 99212

== ENCOUNTER 2023-11-01 16:10 | Outpatient (AMB) | payer MEDICAID, SELFPAY ==
[2023-11-01 16:12] VITALS: BP 140/90; PULSE 61; O2SAT 100; BMI 26.1
--- NOTE | 2023-11-01 16:12 | HO.NEPHOV_ITS ---
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 Preoperatively patient was planned for fluconazole for the coccidiomycosis and possibility of reemergence, infectious disease consult was placed for postoperative management. He is CMV positive, EBV positive with a PRA of 0. Donor ID is [id number] MAOB, KDPI 60% with hep C antibody positive, donor serology with CMV positive, EBV positive, toxoplasmosis positive. Patient underwent donor kidney transplant 06/19/2023. Postoperative day 1 patient was started on Prograf 2 twice daily. Patient was also started on his Juluca for HIV, fluconazole for coccidiomycosis, Entecavir for hepatitis C, and home Suboxone film. 06/20/2019 for nuclear medicine scan returned with prompt flow to the kidney. Fluconazole and Entecavir was continued.He has had worsening serum creatinine during his scheduled follow-ups and a duplex study showed concern for renal artery stenosis of the transplanted kidney . So he was directly admitted for an angiogram with IR. Angiogram did not find any renal artery stenosis so no intervention was performed. He underwent a transplant ultrasound which showed no evidence of hydronephrosis. Additional viral testing sent out to determine cause of rising creatinine. He was later re admitted for cellulitis of the left upper extremity near the fistula. ID consulted and recommended 48 hours of IV antibiotics followed by ultrasound which did not show any drainable collections. As his skin appeared significantly thinned along this area of cellulitis and over the most proximal aneurysm, it was concerning for predisposing factor for fistula blowout. Went to OR 09/08 for fistula ligation and resection. He has decreased risk for rejection by Prospera. He has been DSA negative. He is in follow-up. He is compliant with medications. He maintains good hydration. He feels well. 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) Alcohol intake: never Patient Tobacco Use Status: Former Tobacco user Quit Date: 2014 Tobacco use type: Cigarette Substance Use Type: Former Substance User Physical Exam Const General: comfortable and no acute distress Orientation/consciousness: patient oriented x3 HEENT Head: Yes normocephalic Mouth: Normal oral and palatal mucosa present Eyes EOM: EOMs intact bilaterally Neck Neck: Yes supple Resp Auscultation: clear to auscultation bilaterally Cardio Jugular venous distension: no JVD Rate: regular rate GI Palpation (GI): Soft to palpation Auscultation: normal bowel sounds General: Yes no CVA tenderness Back/Spine/Pelvis Back: no CVA tenderness Skin General skin exam: no rashes or lesions noted Neuro General: patient oriented x3 and moves all extremities Extrem General: Yes no pedal edema Results Reviewed Nephrology Results: Hgb 11.8 g/dl (14.0-18.0) L 10/11/23 WBC 3.0 X10*3/uL (4.8-10.8) L 10/11/23 Plt Count 123 X10*3/uL (160-400) L 10/11/23 Sodium 138 mmol/L (135-145) 11/01/23 Potassium 4.5 mmol/L (3.3-5.1) 11/01/23 Chloride 109 mmol/L (96-108) H 11/01/23 Carbon Dioxide 19 mmol/L (22-29) L 11/01/23 BUN 47 mg/dL (9-16) H 11/01/23 Creatinine 3.66 mg/dL (0.5-1.4) H 11/01/23 Calcium 10.3 mg/dL (8.4-10.2) H 11/01/23 Phosphorus 3.7 mg/dL (2.7-4.5) 10/17/23 PTH Intact 264.5 pg/mL (8.7-77.1) H 10/09/23 Assessment & Plan Assessment & Plan (1) BK polyoma viremia: Code(s): B34.8 - Other viral infections of unspecified site Category: Medical (2) Hypertension: Code(s): I10 - Essential (primary) hypertension Category: Medical Qualifiers: Hypertension type: secondary to other renal disorders Qualified Code(s): I15.1 - Hypertension secondary to other renal disorders (3) HIV (human immunodeficiency virus infection): Code(s): B20 - Human immunodeficiency virus [HIV] disease Category: Medical Qualifiers: HIV symptom status: currently asymptomatic, with history of HIV-related illness Qualified Code(s): B20 - Human immunodeficiency virus [HIV] disease (4) Renal transplant recipient: Code(s): Z94.0 - Kidney transplant status Category: Surgical Plan Renal Transplant Induction Agent included Thymo x4 doses ; Had no delayed Draft Function; Did not need dialysis post transplant (Stent Removal date: 07/10/23) CMV: Donor + /Recipient + ; EBV: Donor + /Recipient + HBcAB: Donor - /Recipient + ;HCV: Donor + /OLIVERIO- /Recipient - Polyomavirus Status- BK PCR Quantitative 09/21/23 BK viremia 682 & 07/17/23 BK viruira ; Plan to give therapy (if + BK PCR)by decrease tac lvl & decrease MMF Biopsy or Prospera (Date/Indication/Results): 08/11/23 Biopsy for increasing creat- NEG ACR 09/21/23 Prospera protocol- decreased risk for rejection DSAs (Recent Date/Results): 09/07/23- no DSAs detected Immunosuppression (Drug/Level Recommended/Indication if not monotherapy): Tacro lvl 5-6 & MMF 2-4/thymo induction Prophylaxis Therapy (Drug/Date/Discontinuation Date): Fluconazole- lifelong per HIV protocol, Bactrim d/c date pending CD4 count (see HIV protocol), Valcyte 900mg daily d/c 12/18/23, Entecavir d/c 06/19/24 Genetic Testing (Date & Results): 06/08/23- [id number] 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 Immunosupression Currently taking MMF 540/540 and prograft 1/0.5 FK level monitored and adjusted accordingly ? Prophylaxis Currently taking bactrim/valcyte/antifungal ? Infection BK blood PCR positive 78, urine very high 89 million- being followed CMV neg 08/24/23 ? Heme Hb 11.8 , Plt 123 , WBC count 3 ( H/O severe neutropenia ) ? HTN Blood pressure has been at target at home Continue current BP meds ? Bone metabolism calcium 10.3 phosphorus 3.7 Mag?1.7 Tx renal artery stenosis tx renal artery stenosis, angiogram done by IR on 08/23/23 with caliber change/tapering at the distal transplant renal artery as it branched into the segmental renal bed. Unable to get stenting b/c hig risk ; D/W Dr Rodriguez- he's going to take care of this Follow-up lab work ordered. All questions answered. Follow-up appointment given. Orders: Orders Complete Blood Count Auto Diff Today B20 - Human immunodeficiency virus [HIV] disease, B34.8 - Other viral infections of unspecified site, I15.1 - Hypertension secondary to other renal disorders, Z94.0 - Kidney transplant status Creatinine Today B20 - Human immunodeficiency virus [HIV] disease, B34.8 - Other viral infections of unspecified site, I15.1 - Hypertension secondary to other renal disorders, Z94.0 - Kidney transplant status Blood Urea Nitrogen Today B20 - Human immunodeficiency virus [HIV] disease, B34.8 - Other viral infections of unspecified site, I15.1 - Hypertension secondary to other renal disorders, Z94.0 - Kidney transplant status Electrolytes Today B20 - Human immunodeficiency virus [HIV] disease, B34.8 - Other viral infections of unspecified site, I15.1 - Hypertension secondary to other renal disorders, Z94.0 - Kidney transplant status Tacrolimus Prograf 2 Weeks B20 - Human immunodeficiency virus [HIV] disease, B34.8 - Other viral infections of unspecified site, I15.1 - Hypertension secondary to other renal disorders, Z94.0 - Kidney transplant status Medications: New sodium zirconium cyclosilicate (Lokelma) 5 grams PO DAILY 30 ea 3RF Coding Level of Care Code Est Pt Level 4 (58514) Diagnoses BK polyoma viremia B34.8 Hypertension secondary to other renal disorders I15.1 Hypertension type: secondary to other renal disorders Currently asymptomatic HIV infection, with history of HIV-related illness B20 HIV symptom status: currently asymptomatic, with history of HIV-related illness Renal transplant recipient Z94.0
== END 2023-11-01 17:12 | disposition home or self-care (01) ==
LOC: HO.HKA 16:10
PROVIDERS: PCP Internal Medicine Geriatric Medicine; Referring Provider Internal Medicine Geriatric Medicine; Visit Provider Internal Medicine Nephrology
DX: B34.8 Other viral infections of unspecified site (principal); I15.1 Hypertension secondary to other renal disorders; B20 Human immunodeficiency virus [HIV] disease; Z94.0 Kidney transplant status
CPT/HCPCS: 99214

== ENCOUNTER 2023-11-14 07:57 | Outpatient (REF) | payer MEDICAID, SELFPAY ==
[2023-11-14 08:05] LABS: MANUAL DIFF FLAG NO
[2023-11-14 08:56] LABS: Basophils Absolute Auto 0.1 X10*3/uL (0.0-0.2); Basophils Percent Auto 1.3 % (0-2); Eosinophils Absolute Auto 0.1 X10*3/uL (0.0-0.4); Eosinophils Percent Auto 2.3 % (0-4); Hematocrit 38.2 % (42.0-52.0); Hemoglobin 12.6 g/dl (14.0-18.0); Imm Gran Abs Auto 0.08 X10*3/uL (0.00-0.03); Lymphocytes Percent Auto 25.2 % (20-40); Mean Corpuscular Hemoglobin 29.2 pg (27.0-33.0); Mean Corpuscular Volume 88.4 fL (80.0-98.0); Mean Platelet Volume 12.4 fL (9.4-12.4); Monocytes Absolute Auto 0.3 X10*3/uL (0.1-1.2); Monocytes Percent Auto 8.3 % (2-11); Neutrophils Absolute Auto 2.4 x10*3/uL (2.0-8.3); Neutrophils Percent Auto 60.9 % (45-73); Platelet Count 164 X10*3/uL (160-400); Red Blood Count 4.32 X10*6/uL (4.60-5.80); Red Cell Distribution Width 14.2 % (11.0-16.0)
[2023-11-14 09:35] LABS: Anion Gap 16 (12-20); Blood Urea Nitrogen 38 mg/dL (9-16); Carbon Dioxide 21 mmol/L (22-29); Chloride 107 mmol/L (96-108); Estimated Glomerular Filt Rate 17; Potassium 4.5 mmol/L (3.3-5.1); Sodium 139 mmol/L (135-145)
[2023-11-16 08:33] LABS: Tacrolimus Prograf 7.7 mcg/L
== END 2023-11-14 07:58 | disposition home or self-care (01) ==
LOC: HO.LAB 07:57
PROVIDERS: Visit Provider Internal Medicine Nephrology
DX: I15.1 Hypertension secondary to other renal disorders (principal); B34.8 Other viral infections of unspecified site; B20 Human immunodeficiency virus [HIV] disease; Z94.0 Kidney transplant status
CPT/HCPCS: 36415; 80051; 80197; 82565; 84520; 85025

== ENCOUNTER 2023-11-15 15:17 | Outpatient (AMB) | payer MEDICAID, SELFPAY ==
--- NOTE | 2023-11-15 15:40 | HO.NEPHOV_ITS ---
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 Preoperatively patient was planned for fluconazole for the coccidiomycosis and possibility of reemergence, infectious disease consult was placed for postoperative management. He is CMV positive, EBV positive with a PRA of 0. Donor ID is [id number] MAOB, KDPI 60% with hep C antibody positive, donor serology with CMV positive, EBV positive, toxoplasmosis positive. Patient underwent donor kidney transplant 06/19/2023. Postoperative day 1 patient was started on Prograf 2 twice daily. Patient was also started on his Juluca for HIV, fluconazole for coccidiomycosis, Entecavir for hepatitis C, and home Suboxone film. 06/20/2019 for nuclear medicine scan returned with prompt flow to the kidney. Fluconazole and Entecavir was continued.He has had worsening serum creatinine during his scheduled follow-ups and a duplex study showed concern for renal artery stenosis of the transplanted kidney . So he was directly admitted for an angiogram with IR. Angiogram did not find any renal artery stenosis so no intervention was performed. He underwent a transplant ultrasound which showed no evidence of hydronephrosis. Additional viral testing sent out to determine cause of rising creatinine. He was later re admitted for cellulitis of the left upper extremity near the fistula. ID consulted and recommended 48 hours of IV antibiotics followed by ultrasound which did not show any drainable collections. As his skin appeared significantly thinned along this area of cellulitis and over the most proximal aneurysm, it was concerning for predisposing factor for fistula blowout. Went to OR 09/08 for fistula ligation and resection. He has decreased risk for rejection by Prospera. He has been DSA negative. He is in follow-up. He is compliant with medications. He maintains good hydration. He feels well. 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) Alcohol intake: never Patient Tobacco Use Status: Former Tobacco user Tobacco use type: Cigarette Substance Use Type: Former Substance User Physical Exam Vital Signs: Last Vital Signs Pulse 60 11/15/23 15:41 BP 110/70 11/15/23 15:41 Pulse Ox 99 11/15/23 15:41 Oxygen Delivery Method Room Air 11/15/23 15:41 BMI result Body Mass Index 25.8 Const General: comfortable and no acute distress Orientation/consciousness: patient oriented x3 HEENT Head: Yes normocephalic Mouth: Normal oral and palatal mucosa present Eyes EOM: EOMs intact bilaterally Neck Neck: Yes supple Resp Auscultation: clear to auscultation bilaterally Cardio Jugular venous distension: no JVD Rate: regular rate GI Palpation (GI): Soft to palpation Auscultation: normal bowel sounds General: Yes no CVA tenderness Back/Spine/Pelvis Back: no CVA tenderness Skin General skin exam: no rashes or lesions noted Neuro General: patient oriented x3 and moves all extremities Extrem General: Yes no pedal edema Results Reviewed Nephrology Results: Hgb 12.6 g/dl (14.0-18.0) L 11/14/23 WBC 4.0 X10*3/uL (4.8-10.8) L 11/14/23 Plt Count 164 X10*3/uL (160-400) 11/14/23 Sodium 139 mmol/L (135-145) 11/14/23 Potassium 4.5 mmol/L (3.3-5.1) 11/14/23 Chloride 107 mmol/L (96-108) 11/14/23 Carbon Dioxide 21 mmol/L (22-29) L 11/14/23 BUN 38 mg/dL (9-16) H 11/14/23 Creatinine 3.82 mg/dL (0.5-1.4) H 11/14/23 Calcium 10.3 mg/dL (8.4-10.2) H 11/01/23 Phosphorus 3.7 mg/dL (2.7-4.5) 10/17/23 PTH Intact 264.5 pg/mL (8.7-77.1) H 10/09/23 Assessment & Plan Assessment & Plan (1) Hypertension: Code(s): I10 - Essential (primary) hypertension Category: Medical Qualifiers: Hypertension type: secondary to other renal disorders Qualified Code(s): I15.1 - Hypertension secondary to other renal disorders (2) Renal transplant recipient: Code(s): Z94.0 - Kidney transplant status Category: Surgical (3) BK polyoma viremia: Code(s): B34.8 - Other viral infections of unspecified site Category: Medical Plan Renal Transplant Induction Agent included Thymo x4 doses ; Had no delayed Draft Function; Did not need dialysis post transplant (Stent Removal date: 07/10/23) CMV: Donor + /Recipient + ; EBV: Donor + /Recipient + HBcAB: Donor - /Recipient + ;HCV: Donor + /OLIVERIO- /Recipient - Polyomavirus Status- BK PCR Quantitative 09/21/23 BK viremia 682 & 07/17/23 BK viruira ; Plan to give therapy (if + BK PCR)by decrease tac lvl & decrease MMF Biopsy or Prospera (Date/Indication/Results): 08/11/23 Biopsy for increasing creat- NEG ACR 09/21/23 Prospera protocol- decreased risk for rejection DSAs (Recent Date/Results): 09/07/23- no DSAs detected Immunosuppression (Drug/Level Recommended/Indication if not monotherapy): Tacro lvl 5-6 & MMF 2-4/thymo induction Prophylaxis Therapy (Drug/Date/Discontinuation Date): Fluconazole- lifelong per HIV protocol, Bactrim d/c date pending CD4 count (see HIV protocol), Valcyte 900mg daily d/c 12/18/23, Entecavir d/c 06/19/24 Genetic Testing (Date & Results): 06/08/23- 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 Immunosupression Currently taking MMF 540/540 and prograft 0.5/0.5 FK level monitored and adjusted accordingly ? Prophylaxis Currently taking bactrim/valcyte/antifungal ? Infection BK blood PCR positive -being followed CMV neg 08/24/23 ? Heme- Labs stable ? HTN Blood pressure has been at target at home Continue current BP meds ? Bone metabolism Likely will need Sensipar Tx renal artery stenosis tx renal artery stenosis, angiogram done by IR on 08/23/23 with caliber change/tapering at the distal transplant renal artery as it branched into the segmental renal bed. Unable to get stenting b/c hig risk ; D/W Dr Rodriguez- he's going to take care of this Follow-up lab work ordered. All questions answered. Follow-up appointment given. Orders: Orders Blood Urea Nitrogen 11/15/23 B34.8 - Other viral infections of unspecified site, I15.1 - Hypertension secondary to other renal disorders, Z94.0 - Kidney transplant status Electrolytes 11/15/23 B34.8 - Other viral infections of unspecified site, I15.1 - Hypertension secondary to other renal disorders, Z94.0 - Kidney transplant status Other Ref Test - Misc 11/15/23 B34.8 - Other viral infections of unspecified site, I15.1 - Hypertension secondary to other renal disorders, Z94.0 - Kidney transplant status Other Ref Test - Misc 1 Week B34.8 - Other viral infections of unspecified site, Z94.0 - Kidney transplant status Tacrolimus Prograf 11/15/23 B34.8 - Other viral infections of unspecified site, I15.1 - Hypertension secondary to other renal disorders, Z94.0 - Kidney transplant status Creatinine 11/15/23 B34.8 - Other viral infections of unspecified site, I15.1 - Hypertension secondary to other renal disorders, Z94.0 - Kidney transplant status Calcium 11/15/23 B34.8 - Other viral infections of unspecified site, I15.1 - Hypertension secondary to other renal disorders, Z94.0 - Kidney transplant status US renal BI 11/15/23 B34.8 - Other viral infections of unspecified site, I15.1 - Hypertension secondary to other renal disorders, Z94.0 - Kidney transplant status Coding Level of Care Code Est Pt Level 4 (21535) Diagnoses Hypertension secondary to other renal disorders I15.1 Hypertension type: secondary to other renal disorders Renal transplant recipient Z94.0 BK polyoma viremia B34.8
[2023-11-15 15:41] VITALS: BP 110/70; PULSE 60; O2SAT 99; BMI 25.8
== END 2023-11-15 16:00 | disposition home or self-care (01) ==
PROVIDERS: PCP Internal Medicine Geriatric Medicine; Visit Provider Internal Medicine Nephrology
DX: I15.1 Hypertension secondary to other renal disorders (principal); Z94.0 Kidney transplant status; B34.8 Other viral infections of unspecified site
CPT/HCPCS: 99214

== ENCOUNTER → 2023-11-15 15:17 | Outpatient (BNVA) | payer MEDICAID, SELFPAY | PROVIDERS: PCP Internal Medicine Geriatric Medicine; Visit Provider Internal Medicine Nephrology | DX: I15.1 Hypertension secondary to other renal disorders (principal); B34.8 Other viral infections of unspecified site; Z94.0 Kidney transplant status | CPT/HCPCS: 99212 ==

== ENCOUNTER 2023-12-01 14:51 | Outpatient (REF) | payer MEDICAID, SELFPAY ==
--- NOTE | ~2023-12-01 | US_ITS ---
EXAMINATION: US RETROPERITONEAL LIMITED (RENAL ONLY) CLINICAL INFORMATION: Kidney transplant. High creatinine. Rule out hydronephrosis.. COMPARISON: Abdominal ultrasound March 2015 TECHNIQUE: Grayscale and color imaging of the [place] kidneys and renal transplant in the right lower quadrant. FINDINGS: [place] kidneys are atrophic with bilateral renal cortical thinning and increased echogenicity. Right [place] kidney measures 6.6 x 3.7 x 3 cm and left [place] kidney measures 7.9 x 3.7 x 2.8 cm. No renal stone, mass or hydronephrosis appreciated. Transplant kidney in the right lower quadrant is normal in size and contour measuring 9.9 x 3.5 x 5.1 cm in dimension. Cortical thickness and echogenicity is normal. No renal stone mass or hydronephrosis. No perinephric collection. Doppler evaluation of transplant kidney not performed. US/US renal BI IMPRESSION: Normal-appearing transplant kidney in the right lower quadrant. Atrophic [place] kidneys..
== END 2023-12-01 14:52 | disposition home or self-care (01) ==
LOC: HO.US 14:51
PROVIDERS: PCP Internal Medicine Geriatric Medicine; Visit Provider Internal Medicine Nephrology
DX: I15.1 Hypertension secondary to other renal disorders (principal); B34.8 Other viral infections of unspecified site; Z94.0 Kidney transplant status
CPT/HCPCS: 76775

== ENCOUNTER 2023-12-05 08:02 | Outpatient (REF) | payer MEDICAID, SELFPAY ==
[2023-12-05 09:32] LABS: Anion Gap 12 (12-20); Blood Urea Nitrogen 38 mg/dL (9-16); Calcium 10.3 mg/dL (8.4-10.2); Carbon Dioxide 23 mmol/L (22-29); Chloride 109 mmol/L (96-108); Estimated Glomerular Filt Rate 20; Potassium 4.8 mmol/L (3.3-5.1); Sodium 139 mmol/L (135-145)
[2023-12-06 21:19] LABS: Tacrolimus Prograf 5.3 mcg/L
[2023-12-07 23:48] LABS: BK Virus DNA QN PCR Serum 3.68 Log cps/mL; BK Virus DNA QN PCR Serum 4834 copies/mL
[2023-12-09 06:29] LABS: BK Virus DNA QL Urine Detected (Not Detected)
== END 2023-12-05 08:03 | disposition home or self-care (01) ==
LOC: HO.LAB 08:02
PROVIDERS: Visit Provider Internal Medicine Nephrology
DX: I15.1 Hypertension secondary to other renal disorders (principal); B34.8 Other viral infections of unspecified site; Z94.0 Kidney transplant status
CPT/HCPCS: 36415; 80051; 80197; 82310; 82565; 84520; 87798; 87799

== ENCOUNTER 2023-12-06 12:13 | Outpatient (AMB) | payer MEDICAID, SELFPAY ==
--- NOTE | 2023-12-06 12:14 | HO.NEPHOV_ITS ---
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 Preoperatively patient was planned for fluconazole for the coccidiomycosis and possibility of reemergence, infectious disease consult was placed for postoperative management. He is CMV positive, EBV positive with a PRA of 0. Donor ID is [id number] MAOB, KDPI 60% with hep C antibody positive, donor serology with CMV positive, EBV positive, toxoplasmosis positive. Patient underwent donor kidney transplant 06/19/2023. Postoperative day 1 patient was started on Prograf 2 twice daily. Patient was also started on his Juluca for HIV, fluconazole for coccidiomycosis, Entecavir for hepatitis C, and home Suboxone film. 06/20/2019 for nuclear medicine scan returned with prompt flow to the kidney. Fluconazole and Entecavir was continued.He has had worsening serum creatinine during his scheduled follow-ups and a duplex study showed concern for renal artery stenosis of the transplanted kidney . So he was directly admitted for an angiogram with IR. Angiogram did not find any renal artery stenosis so no intervention was performed. He underwent a transplant ultrasound which showed no evidence of hydronephrosis. Additional viral testing sent out to determine cause of rising creatinine. He was later re admitted for cellulitis of the left upper extremity near the fistula. ID consulted and recommended 48 hours of IV antibiotics followed by ultrasound which did not show any drainable collections. As his skin appeared significantly thinned along this area of cellulitis and over the most proximal aneurysm, it was concerning for predisposing factor for fistula blowout. Went to OR 09/08 for fistula ligation and resection. He has decreased risk for rejection by Prospera. He has been DSA negative. He is in follow-up. He is compliant with medications. He maintains good hydration. He feels well. He is awaiting his transplant renal artery issues to be addressed [facility] Medical History (Updated 10/18/23 @ 15:17 by Onesimo Ayers MD) Secondary hyperparathyroidism ESRD (end stage renal disease) on dialysis A-V fistula HIV (human immunodeficiency virus infection) Hypertension Kidney disease Surgical History Hx of cardiac catheterization Social History Are you a primary group care worker to a significant other at home: No Do you presently have visiting nurse or other home services: Yes (MANA[employer] 3 hours daily) Alcohol intake: never Patient Tobacco Use Status: Former Tobacco user Tobacco use type: Cigarette Substance Use Type: Former Substance User Review of Systems Const All systems reviewed & are unremarkable except as noted in HPI and below Physical Exam Vital Signs: Last Vital Signs Pulse 49 L 12/06/23 12:16 BP 138/80 12/06/23 12:16 Pulse Ox 100 12/06/23 12:16 Oxygen Delivery Method Room Air 12/06/23 12:16 BMI result Body Mass Index 26.5 Const General: comfortable and no acute distress Orientation/consciousness: patient oriented x3 HEENT Head: Yes normocephalic Mouth: Normal oral and palatal mucosa present Eyes EOM: EOMs intact bilaterally Neck Neck: Yes supple Resp Auscultation: clear to auscultation bilaterally Cardio Jugular venous distension: no JVD Rate: regular rate GI Palpation (GI): Soft to palpation Auscultation: normal bowel sounds General: Yes no CVA tenderness Back/Spine/Pelvis Back: no CVA tenderness Skin General skin exam: no rashes or lesions noted Neuro General: patient oriented x3 and moves all extremities Extrem General: Yes no pedal edema Results Reviewed Nephrology Results: Hgb 12.6 g/dl (14.0-18.0) L 11/14/23 WBC 4.0 X10*3/uL (4.8-10.8) L 11/14/23 Plt Count 164 X10*3/uL (160-400) 11/14/23 Sodium 139 mmol/L (135-145) 12/05/23 Potassium 4.8 mmol/L (3.3-5.1) 12/05/23 Chloride 109 mmol/L (96-108) H 12/05/23 Carbon Dioxide 23 mmol/L (22-29) 12/05/23 BUN 38 mg/dL (9-16) H 12/05/23 Creatinine 3.31 mg/dL (0.5-1.4) H 12/05/23 Calcium 10.3 mg/dL (8.4-10.2) H 12/05/23 Phosphorus 3.7 mg/dL (2.7-4.5) 10/17/23 PTH Intact 264.5 pg/mL (8.7-77.1) H 10/09/23 Renal US 12/01/23 Assessment & Plan Assessment & Plan (1) Renal transplant recipient: Code(s): Z94.0 - Kidney transplant status Category: Surgical (2) BK polyoma viremia: Code(s): B34.8 - Other viral infections of unspecified site Category: Medical (3) HIV (human immunodeficiency virus infection): Code(s): B20 - Human immunodeficiency virus [HIV] disease Category: Medical Qualifiers: HIV symptom status: currently asymptomatic, with history of HIV-related illness Qualified Code(s): B20 - Human immunodeficiency virus [HIV] disease (4) Hypertension: Code(s): I10 - Essential (primary) hypertension Category: Medical Qualifiers: Hypertension type: secondary to other renal disorders Qualified Code(s): I15.1 - Hypertension secondary to other renal disorders Plan Renal Transplant Induction Agent included Thymo x4 doses ; Had no delayed Draft Function; Did not need dialysis post transplant (Stent Removal date: 07/10/23) CMV: Donor + /Recipient + ; EBV: Donor + /Recipient + HBcAB: Donor - /Recipient + ;HCV: Donor + /OILVERIO- /Recipient - Polyomavirus Status- BK PCR Quantitative 09/21/23 BK viremia 682 & 07/17/23 BK viruira ; Plan to give therapy (if + BK PCR)by decrease tac lvl & decrease MMF Biopsy or Prospera (Date/Indication/Results): 08/11/23 Biopsy for increasing creat- NEG ACR 09/21/23 Prospera protocol- decreased risk for rejection DSAs (Recent Date/Results): 09/07/23- no DSAs detected Immunosuppression (Drug/Level Recommended/Indication if not monotherapy): Tacro lvl 5-6 & MMF 2-4/thymo induction Prophylaxis Therapy (Drug/Date/Discontinuation Date): Fluconazole- lifelong per HIV protocol, Bactrim d/c date pending CD4 count (see HIV protocol), Valcyte 900mg daily d/c 12/18/23, Entecavir d/c 06/19/24 Genetic Testing (Date & Results): 06/08/23- [id number] [place] Syndrome/ Autosomal Dominant & Autosomal Recessive ?? Needs F/U stenting of distal renal artery for caliber change/tapering on IR Angiogram 08/23/23 Neutropenia- 09/21/23 Valcyte decreased to 450mg QOD vs protocol dose of 900mg daily Graft function Scr improved , jung low was 2.8 DSA - neg 07/17/23 ? Immunosupression Currently taking MMF 540/540 and prograf FK level monitored and adjusted accordingly ? Prophylaxis Currently taking bactrim/valcyte/antifungal ? Infection BK blood PCR positive -being followed CMV neg 08/24/23 ? Heme- Labs stable ? HTN Blood pressure has been at target at home Continue current BP meds ? Bone metabolism Likely will need Sensipar Tx renal artery stenosis tx renal artery stenosis, angiogram done by IR on 08/23/23 with caliber ch maia/tapering at the distal transplant renal artery as it branched into the segmental renal bed. Unable to get stenting b/c hig risk ; D/W Dr Rodriguez- he's going to take care of this ( Duplex/MRA before renal angio) Time spent included 47 minutes( care and co ordination of care) Follow-up lab work ordered. All questions answered. Follow-up appointment given. Orders: Orders Creatinine Today Z94.0 - Kidney transplant status Blood Urea Nitrogen Today Z94.0 - Kidney transplant status Electrolytes Today Z94.0 - Kidney transplant status Tacrolimus Prograf Today Z94.0 - Kidney transplant status Coding Level of Care Code Est Pt Level 5 (37558) Diagnoses Renal transplant recipient Z94.0 BK polyoma viremia B34.8 Currently asymptomatic HIV infection, with history of HIV-related illness B20 HIV symptom status: currently asymptomatic, with history of HIV-related illness Hypertension secondary to other renal disorders I15.1 Hypertension type: secondary to other renal disorders
[2023-12-06 12:16] VITALS: BP 138/80; PULSE 49; O2SAT 100; BMI 26.5
== END 2023-12-06 13:36 | disposition home or self-care (01) ==
PROVIDERS: PCP Internal Medicine Geriatric Medicine; Referring Provider Internal Medicine Geriatric Medicine; Visit Provider Internal Medicine Nephrology
DX: Z94.0 Kidney transplant status (principal); B34.8 Other viral infections of unspecified site; B20 Human immunodeficiency virus [HIV] disease; I15.1 Hypertension secondary to other renal disorders
CPT/HCPCS: 99215

== ENCOUNTER → 2023-12-06 12:13 | Outpatient (BNVA) | payer MEDICAID, SELFPAY | PROVIDERS: PCP Internal Medicine Geriatric Medicine; Visit Provider Internal Medicine Nephrology | DX: I15.0 Renovascular hypertension (principal); B34.8 Other viral infections of unspecified site; B20 Human immunodeficiency virus [HIV] disease; B19.20 Unspecified viral hepatitis C without hepatic coma; Z94.0 Kidney transplant status | CPT/HCPCS: 99212 ==

== ENCOUNTER 2023-12-26 07:56 | Outpatient (REF) | payer MEDICAID, SELFPAY ==
[2023-12-26 09:08] LABS: Anion Gap 15 (12-20); Blood Urea Nitrogen 41 mg/dL (9-16); Carbon Dioxide 20 mmol/L (22-29); Chloride 108 mmol/L (96-108); Estimated Glomerular Filt Rate 19; Potassium 4.2 mmol/L (3.3-5.1); Sodium 139 mmol/L (135-145)
[2023-12-27 08:34] LABS: Tacrolimus Prograf 7.1 mcg/L
[2023-12-29 14:33] LABS: BK Virus DNA QN PCR Serum 3.84 Log cps/mL; BK Virus DNA QN PCR Serum 6886 copies/mL
[2023-12-30 15:29] LABS: BK Virus DNA QL Urine Detected (Not Detected)
== END 2023-12-26 07:57 | disposition home or self-care (01) ==
LOC: HO.LAB 07:56
PROVIDERS: PCP Internal Medicine Geriatric Medicine; Visit Provider Internal Medicine Nephrology
DX: Z94.0 Kidney transplant status (principal)
CPT/HCPCS: 36415; 80051; 80197; 82565; 84520; 87798; 87799

== ENCOUNTER 2023-12-27 14:22 | Outpatient (AMB) | payer MEDICAID, SELFPAY ==
--- NOTE | 2023-12-27 14:24 | HO.NEPHOV_ITS ---
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 Preoperatively patient was planned for fluconazole for the coccidiomycosis and possibility of reemergence, infectious disease consult was placed for postoperative management. He is CMV positive, EBV positive with a PRA of 0. Donor ID is [id number] MAOB, KDPI 60% with hep C antibody positive, donor serology with CMV positive, EBV positive, toxoplasmosis positive. Patient underwent donor kidney transplant 06/19/2023. Postoperative day 1 patient was started on Prograf 2 twice daily. Patient was also started on his Juluca for HIV, fluconazole for coccidiomycosis, Entecavir for hepatitis C, and home Suboxone film. 06/20/2019 for nuclear medicine scan returned with prompt flow to the kidney. Fluconazole and Entecavir was continued.He has had worsening serum creatinine during his scheduled follow-ups and a duplex study showed concern for renal artery stenosis of the transplanted kidney . So he was directly admitted for an angiogram with IR. Angiogram did not find any renal artery stenosis so no intervention was performed. He underwent a transplant ultrasound which showed no evidence of hydronephrosis. Additional viral testing sent out to determine cause of rising creatinine. He was later re admitted for cellulitis of the left upper extremity near the fistula. ID consulted and recommended 48 hours of IV antibiotics followed by ultrasound which did not show any drainable collections. As his skin appeared significantly thinned along this area of cellulitis and over the most proximal aneurysm, it was concerning for predisposing factor for fistula blowout. Went to OR 09/08 for fistula ligation and resection. He has decreased risk for rejection by Prospera. He has been DSA negative. He is in follow-up. He is compliant with medications. He maintains good hydration. He feels well. He is awaiting his transplant renal artery MR by Dr Rodriguez [facility] Medical History (Updated 10/18/23 @ 15:17 by Onesimo Ayers MD) Secondary hyperparathyroidism ESRD (end stage renal disease) on dialysis A-V fistula HIV (human immunodeficiency virus infection) Hypertension Kidney disease Surgical History Hx of cardiac catheterization Social History Are you a primary career coach to a significant other at home: No Do you presently have visiting nurse or other home services: Yes ([employer] MANA[employer] 3 hours daily) Alcohol intake: never Patient Tobacco Use Status: Former Tobacco user Tobacco use type: Cigarette Substance Use Type: Former Substance User Physical Exam Const General: comfortable and no acute distress Orientation/consciousness: patient oriented x3 HEENT Head: Yes normocephalic Mouth: Normal oral and palatal mucosa present Eyes EOM: EOMs intact bilaterally Neck Neck: Yes supple Resp Auscultation: clear to auscultation bilaterally Cardio Jugular venous distension: no JVD Rate: regular rate GI Palpation (GI): Soft to palpation Auscultation: normal bowel sounds General: Yes no CVA tenderness Back/Spine/Pelvis Back: no CVA tenderness Skin General skin exam: no rashes or lesions noted Neuro General: patient oriented x3 and moves all extremities Extrem General: Yes no pedal edema Results Reviewed Nephrology Results: Hgb 12.6 g/dl (14.0-18.0) L 11/14/23 WBC 4.0 X10*3/uL (4.8-10.8) L 11/14/23 Plt Count 164 X10*3/uL (160-400) 11/14/23 Sodium 139 mmol/L (135-145) 12/26/23 Potassium 4.2 mmol/L (3.3-5.1) 12/26/23 Chloride 108 mmol/L (96-108) 12/26/23 Carbon Dioxide 20 mmol/L (22-29) L 12/26/23 BUN 41 mg/dL (9-16) H 12/26/23 Creatinine 3.51 mg/dL (0.5-1.4) H 12/26/23 Calcium 10.3 mg/dL (8.4-10.2) H 12/05/23 Phosphorus 3.7 mg/dL (2.7-4.5) 10/17/23 Renal US 12/01/23 Assessment & Plan Assessment & Plan (1) HIV (human immunodeficiency virus infection): Code(s): B20 - Human immunodeficiency virus [HIV] disease Category: Medical Qualifiers: HIV symptom status: currently asymptomatic, with history of HIV-related illness Qualified Code(s): B20 - Human immunodeficiency virus [HIV] disease (2) Renal transplant recipient: Code(s): Z94.0 - Kidney transplant status Category: Surgical (3) Hypertension: Code(s): I10 - Essential (primary) hypertension Category: Medical Qualifiers: Hypertension type: secondary to other renal disorders Qualified Code(s): I15.1 - Hypertension secondary to other renal disorders (4) BK polyoma viremia: Code(s): B34.8 - Other viral infections of unspecified site Category: Medical Plan Renal Transplant Induction Agent included Thymo x4 doses ; Had no delayed Draft Function; Did not need dialysis post transplant (Stent Removal date: 07/10/23) CMV: Donor + /Recipient + ; EBV: Donor + /Recipient + HBcAB: Donor - /Recipient + ;HCV: Donor + /OLIVERIO- /Recipient - Polyomavirus Status- BK PCR Quantitative 09/21/23 BK viremia 682 & 07/17/23 BK viruira ; Plan to give therapy (if + BK PCR)by decrease tac lvl & decrease MMF Biopsy or Prospera (Date/Indication/Results): 08/11/23 Biopsy for increasing creat- NEG ACR 09/21/23 Prospera protocol- decreased risk for rejection DSAs (Recent Date/Results): 09/07/23- no DSAs detected Immunosuppression (Drug/Level Recommended/Indication if not monotherapy): Tacro lvl 5-6 & MMF 2-4/thymo induction Prophylaxis Therapy (Drug/Date/Discontinuation Date): Fluconazole- lifelong per HIV protocol, Bactrim d/c date pending CD4 count (see HIV protocol). I discontinued Valcyte 900mg daily d/c 12/18/23. He should be on Entecavir d/c 06/19 Genetic Testing (Date & Results): 06/08/23- [id number] [place] Syndrome/ Autosomal Dominant & Autosomal Recessive ?? Needs F/U stenting of distal renal artery for caliber change/tapering on IR Angiogram 08/23/23 Neutropenia- 09/21/23 Valcyte decreased to 450mg QOD vs protocol dose of 900mg daily Graft function Scr improved , jung low was 2.8 DSA - neg 07/17/23 ? Immunosupression Currently taking MMF 540/540 and prograf FK level monitored and adjusted accordingly ? Prophylaxis Currently taking bactrim/antifungal ? Infection BK blood PCR positive -being followed CMV neg 08/24/23 ? Heme- Labs stable ? HTN Blood pressure has been at target at home Increased Amlodipine to 5 mg daily ? Bone metabolism Likely will need Sensipar Tx renal artery stenosis tx renal artery stenosis, angiogram done by IR on 08/23/23 with caliber change/tapering at the distal transplant renal artery as it branched into the segmental renal bed. Unable to get stenting b/c hig risk ; D/W Dr Rodriguez- he's going to take care of this ( Duplex/MRA before renal angio) Orders: Orders Tacrolimus Prograf Today B20 - Human immunodeficiency virus [HIV] disease, B34.8 - Other viral infections of unspecified site, I15.1 - Hypertension secondary to other renal disorders, Z94.0 - Kidney transplant status Electrolytes Today B20 - Human immunodeficiency virus [HIV] disease, B34.8 - Other viral infections of unspecified site, I15.1 - Hypertension secondary to other renal disorders, Z94.0 - Kidney transplant status Calcium Today B20 - Human immunodeficiency virus [HIV] disease, B34.8 - Other viral infections of unspecified site, I15.1 - Hypertension secondary to other renal disorders, Z94.0 - Kidney transplant status Phosphorus Today B20 - Human immunodeficiency virus [HIV] disease, B34.8 - Other viral infections of unspecified site, I15.1 - Hypertension secondary to other renal disorders, Z94.0 - Kidney transplant status Other Ref Test - Misc Today B20 - Human immunodeficiency virus [HIV] disease, B34.8 - Other viral infections of unspecified site, I15.1 - Hypertension secondary to other renal disorders, Z94.0 - Kidney transplant status Other Ref Test - Misc 1 Month B20 - Human immunodeficiency virus [HIV] disease, B34.8 - Other viral infections of unspecified site, I15.1 - Hypertension secondary to other renal disorders, Z94.0 - Kidney transplant status Creatinine Today B20 - Human immunodeficiency virus [HIV] disease, B34.8 - Other viral infections of unspecified site, I15.1 - Hypertension secondary to other renal disorders, Z94.0 - Kidney transplant status Blood Urea Nitrogen Today B20 - Human immunodeficiency virus [HIV] disease, B34.8 - Other viral infections of unspecified site, I15.1 - Hypertension secondary to other renal disorders, Z94.0 - Kidney transplant status Magnesium Today B20 - Human immunodeficiency virus [HIV] disease, B34.8 - Other viral infections of unspecified site, I15.1 - Hypertension secondary to other renal disorders, Z94.0 - Kidney transplant status Coding Level of Care Code Est Pt Level 4 (83010) Diagnoses Currently asymptomatic HIV infection, with history of HIV-related illness B20 HIV symptom status: currently asymptomatic, with history of HIV-related illness Renal transplant recipient Z94.0 Hypertension secondary to other renal disorders I15.1 Hypertension type: secondary to other renal disorders BK polyoma viremia B34.8
[2023-12-27 14:25] VITALS: BP 138/92; PULSE 65; O2SAT 99; BMI 26.6
== END 2023-12-27 14:45 | disposition home or self-care (01) ==
PROVIDERS: PCP Internal Medicine Geriatric Medicine; Visit Provider Internal Medicine Nephrology
DX: B20 Human immunodeficiency virus [HIV] disease (principal); Z94.0 Kidney transplant status; I15.1 Hypertension secondary to other renal disorders; B34.8 Other viral infections of unspecified site
CPT/HCPCS: 99214

== ENCOUNTER → 2023-12-27 14:22 | Outpatient (BNVA) | payer MEDICAID, SELFPAY | PROVIDERS: PCP Internal Medicine Geriatric Medicine; Visit Provider Internal Medicine Nephrology | DX: B20 Human immunodeficiency virus [HIV] disease (principal); I10 Essential (primary) hypertension; B34.8 Other viral infections of unspecified site; Z79.899 Other long term (current) drug therapy; Z94.0 Kidney transplant status | CPT/HCPCS: 99212 ==

== ENCOUNTER 2024-01-25 08:24 | Outpatient (REF) | payer MEDICAID, SELFPAY ==
[2024-01-25 09:49] LABS: Anion Gap 10 (12-20); Blood Urea Nitrogen 33 mg/dL (9-16); Calcium 9.7 mg/dL (8.4-10.2); Carbon Dioxide 23 mmol/L (22-29); Chloride 109 mmol/L (96-108); Estimated Glomerular Filt Rate 22; Magnesium 1.7 mg/dL (1.6-2.6); Phosphorus 3.1 mg/dL (2.7-4.5); Potassium 4.2 mmol/L (3.3-5.1); Sodium 138 mmol/L (135-145)
[2024-01-26 18:58] LABS: Tacrolimus Prograf 6.2 mcg/L
[2024-01-28 13:44] LABS: BK Virus DNA QL Urine Detected (Not Detected)
[2024-01-28 20:18] LABS: BK Virus DNA QN PCR Serum 13016 copies/mL; BK Virus DNA QN PCR Serum 4.11 Log cps/mL
== END 2024-01-25 08:25 | disposition home or self-care (01) ==
LOC: HO.LAB 08:24
PROVIDERS: PCP Internal Medicine Geriatric Medicine; Visit Provider Internal Medicine Nephrology
DX: I15.1 Hypertension secondary to other renal disorders (principal); B34.8 Other viral infections of unspecified site; B20 Human immunodeficiency virus [HIV] disease; Z94.0 Kidney transplant status
CPT/HCPCS: 36415; 80051; 80197; 82310; 82565; 83735; 84100; 84520; 87798; 87799

== ENCOUNTER 2024-01-26 11:18 | Outpatient (AMB) | payer MEDICAID, SELFPAY ==
--- NOTE | 2024-01-26 11:44 | HO.NEPHOV ---
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 Preoperatively patient was planned for fluconazole for the coccidiomycosis and possibility of reemergence, infectious disease consult was placed for postoperative management. He is CMV positive, EBV positive with a PRA of 0. Donor ID is [id number] MAOB, KDPI 60% with hep C antibody positive, donor serology with CMV positive, EBV positive, toxoplasmosis positive. Patient underwent donor kidney transplant 06/19/2023. Postoperative day 1 patient was started on Prograf 2 twice daily. Patient was also started on his Juluca for HIV, fluconazole for coccidiomycosis, Entecavir for hepatitis C, and home Suboxone film. 06/20/2019 for nuclear medicine scan returned with prompt flow to the kidney. Fluconazole and Entecavir was continued.He has had worsening serum creatinine during his scheduled follow-ups and a duplex study showed concern for renal artery stenosis of the transplanted kidney . So he was directly admitted for an angiogram with IR. Angiogram did not find any renal artery stenosis so no intervention was performed. He underwent a transplant ultrasound which showed no evidence of hydronephrosis. Additional viral testing sent out to determine cause of rising creatinine. He was later re admitted for cellulitis of the left upper extremity near the fistula. ID consulted and recommended 48 hours of IV antibiotics followed by ultrasound which did not show any drainable collections. As his skin appeared significantly thinned along this area of cellulitis and over the most proximal aneurysm, it was concerning for predisposing factor for fistula blowout. Went to OR 09/08 for fistula ligation and resection. He has decreased risk for rejection by Prospera. He has been DSA negative. He is in follow-up. He is compliant with medications. He maintains good hydration. He feels well. 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) Alcohol intake: never Patient Tobacco Use Status: Former Tobacco user Tobacco use type: Cigarette Substance Use Type: Former Substance User Review of Systems Const All systems reviewed & are unremarkable except as noted in HPI and below Physical Exam Vital Signs: Last Vital Signs Pulse 68 01/26/24 11:45 BP 140/100 H 01/26/24 11:45 Pulse Ox 99 01/26/24 11:45 Oxygen Delivery Method Room Air 01/26/24 11:45 BMI result Body Mass Index 27.2 Const General: comfortable and no acute distress Orientation/consciousness: patient oriented x3 HEENT Head: Yes normocephalic Mouth: Normal oral and palatal mucosa present Eyes EOM: EOMs intact bilaterally Neck Neck: Yes supple Resp Auscultation: clear to auscultation bilaterally Cardio Jugular venous distension: no JVD Rate: regular rate GI Palpation (GI): Soft to palpation Auscultation: normal bowel sounds General: Yes no CVA tenderness Back/Spine/Pelvis Back: no CVA tenderness Skin General skin exam: no rashes or lesions noted Neuro General: patient oriented x3 and moves all extremities Extrem General: Yes no pedal edema Results Reviewed Nephrology Results: Hgb 12.6 g/dl (14.0-18.0) L 11/14/23 WBC 4.0 X10*3/uL (4.8-10.8) L 11/14/23 Plt Count 164 X10*3/uL (160-400) 11/14/23 Sodium 138 mmol/L (135-145) 01/25/24 Potassium 4.2 mmol/L (3.3-5.1) 01/25/24 Chloride 109 mmol/L (96-108) H 01/25/24 Carbon Dioxide 23 mmol/L (22-29) 01/25/24 BUN 33 mg/dL (9-16) H 01/25/24 Creatinine 3.13 mg/dL (0.5-1.4) H 01/25/24 Calcium 9.7 mg/dL (8.4-10.2) 01/25/24 Phosphorus 3.1 mg/dL (2.7-4.5) 01/25/24 Renal US 12/01/23 Assessment & Plan Assessment & Plan (1) BK polyoma viremia: Code(s): B34.8 - Other viral infections of unspecified site Category: Medical (2) Hypertension: Code(s): I10 - Essential (primary) hypertension Category: Medical Qualifiers: Hypertension type: secondary to other renal disorders Qualified Code(s): I15.1 - Hypertension secondary to other renal disorders (3) Renal transplant recipient: Code(s): Z94.0 - Kidney transplant status Category: Surgical (4) HIV (human immunodeficiency virus infection): Code(s): B20 - Human immunodeficiency virus [HIV] disease Category: Medical Qualifiers: HIV symptom status: currently asymptomatic, with history of HIV-related illness Qualified Code(s): B20 - Human immunodeficiency virus [HIV] disease (5) Renal artery stenosis, transplant: Code(s): T86.19 - Other complication of kidney transplant; I70.1 - Atherosclerosis of renal artery Category: Medical Plan Renal Transplant Induction Agent included Thymo x4 doses ; Had no delayed Draft Function; Did not need dialysis post transplant (Stent Removal date: 07/10/23) CMV: Donor + /Recipient + ; EBV: Donor + /Recipient + HBcAB: Donor - /Recipient + ;HCV: Donor + /OLIVERIO- /Recipient - Polyomavirus Status- BK PCR Quantitative 09/21/23 BK viremia 682 & 07/17/23 BK viruira ; Plan to give therapy (if + BK PCR)by decrease tac lvl & decrease MMF Biopsy or Prospera (Date/Indication/Results): 08/11/23 Biopsy for increasing creat- NEG ACR 09/21/23 Prospera protocol- decreased risk for rejection DSAs (Recent Date/Results): 09/07/23- no DSAs detected Immunosuppression (Drug/Level Recommended/Indication if not monotherapy): Tacro lvl 5-6 & MMF 2-4/thymo induction Prophylaxis Therapy (Drug/Date/Discontinuation Date): Fluconazole- lifelong per HIV protocol, Bactrim d/c date pending CD4 count (see HIV protocol). I discontinued Valcyte 900mg daily d/c 12/18/23. 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 Needs F/U stenting of distal renal artery for caliber change/tapering on IR Angiogram 08/23/23- Repeat Doppler tx renal artery stenosis Graft function Scr improved , jung low was 2.8 DSA - neg 07/17/23 ? Immunosupression Currently taking MMF and prograf FK level monitored and adjusted accordingly ? Infection BK blood PCR positive -being followed CMV neg 08/24/23 ? Heme- Labs stable ? HTN Blood pressure has been at target at home ? Bone metabolism Likely will need Sensipar Tx renal artery stenosis tx renal artery stenosis, angiogram done by IR on 08/23/23 with caliber change/tapering at the distal transplant renal artery as it branched into the segmental renal bed. Unable to get stenting b/c hig risk ; D/W Dr Rodriguez- he's going to take care of this ( Duplex showed tx renal artery stenosis; Likely will need MRA before renal angio) Orders: Orders Tacrolimus Prograf 1 Month B20 - Human immunodeficiency virus [HIV] disease, B34.8 - Other viral infections of unspecified site, I15.1 - Hypertension secondary to other renal disorders, I70.1 - Atherosclerosis of renal artery, T86.19 - Other complication of kidney transplant, Z94.0 - Kidney transplant status Complete Blood Count Auto Diff 1 Month B20 - Human immunodeficiency virus [HIV] disease, B34.8 - Other viral infections of unspecified site, I15.1 - Hypertension secondary to other renal disorders, I70.1 - Atherosclerosis of renal artery, T86.19 - Other complication of kidney transplant, Z94.0 - Kidney transplant status Other Ref Test - Misc 1 Month B20 - Human immunodeficiency virus [HIV] disease, B34.8 - Other viral infections of unspecified site, I15.1 - Hypertension secondary to other renal disorders, I70.1 - Atherosclerosis of renal artery, T86.19 - Other complication of kidney transplant, Z94.0 - Kidney transplant status Other Ref Test - Misc 3 Weeks B20 - Human immunodeficiency virus [HIV] disease, B34.8 - Other viral infections of unspecified site, I15.1 - Hypertension secondary to other renal disorders, I70.1 - Atherosclerosis of renal artery, T86.19 - Other complication of kidney transplant, Z94.0 - Kidney transplant status Creatinine 1 Month B20 - Human immunodeficiency virus [HIV] disease, B34.8 - Other viral infections of unspecified site, I15.1 - Hypertension secondary to other renal disorders, I70.1 - Atherosclerosis of renal artery, T86.19 - Other complication of kidney transplant, Z94.0 - Kidney transplant status Blood Urea Nitrogen 1 Month B20 - Human immunodeficiency virus [HIV] disease, B34.8 - Other viral infections of unspecified site, I15.1 - Hypertension secondary to other renal disorders, I70.1 - Atherosclerosis of renal artery, T86.19 - Other complication of kidney transplant, Z94.0 - Kidney transplant status Electrolytes 1 Month B20 - Human immunodeficiency virus [HIV] disease, B34.8 - Other viral infections of unspecified site, I15.1 - Hypertension secondary to other renal disorders, I70.1 - Atherosclerosis of renal artery, T86.19 - Other complication of kidney transplant, Z94.0 - Kidney transplant status Calcium 1 Month B20 - Human immunodeficiency virus [HIV] disease, B34.8 - Other viral infections of unspecified site, I15.1 - Hypertension secondary to other renal disorders, I70.1 - Atherosclerosis of renal artery, T86.19 - Other complication of kidney transplant, Z94.0 - Kidney transplant status Phosphorus 1 Month B20 - Human immunodeficiency virus [HIV] disease, B34.8 - Other viral infections of unspecified site, I15.1 - Hypertension secondary to other renal disorders, I70.1 - Atherosclerosis of renal artery, T86.19 - Other complication of kidney transplant, Z94.0 - Kidney transplant status Magnesium 1 Month B20 - Human immunodeficiency virus [HIV] disease, B34.8 - Other viral infections of unspecified site, I15.1 - Hypertension secondary to other renal disorders, I70.1 - Atherosclerosis of renal artery, T86.19 - Other complication of kidney transplant, Z94.0 - Kidney transplant status Medications: New carvedilol must administer with a meal/food 6.25 mg PO BID 30 days 60 tabs 4RF Coding Level of Care Code Est Pt Level 4 (87070) Diagnoses BK polyoma viremia B34.8 Hypertension secondary to other renal disorders I15.1 Hypertension type: secondary to other renal disorders Renal transplant recipient Z94.0 Currently asymptomatic HIV infection, with history of HIV-related illness B20 HIV symptom status: currently asymptomatic, with history of HIV-related illness Renal artery stenosis, transplant T86.19; I70.1
[2024-01-26 11:45] VITALS: BP 140/100; PULSE 68; O2SAT 99; BMI 27.2
== END 2024-01-26 12:08 | disposition home or self-care (01) ==
PROVIDERS: PCP Internal Medicine Geriatric Medicine; Visit Provider Internal Medicine Nephrology
DX: B34.8 Other viral infections of unspecified site (principal); I15.1 Hypertension secondary to other renal disorders; Z94.0 Kidney transplant status; B20 Human immunodeficiency virus [HIV] disease; T86.19 Other complication of kidney transplant; I70.1 Atherosclerosis of renal artery
CPT/HCPCS: 99214

== ENCOUNTER → 2024-01-26 11:18 | Outpatient (BNVA) | payer MEDICAID, SELFPAY | PROVIDERS: PCP Internal Medicine Geriatric Medicine; Visit Provider Internal Medicine Nephrology | DX: I15.1 Hypertension secondary to other renal disorders (principal); B34.8 Other viral infections of unspecified site; B20 Human immunodeficiency virus [HIV] disease; T86.19 Other complication of kidney transplant; I70.1 Atherosclerosis of renal artery; Z94.0 Kidney transplant status | CPT/HCPCS: 99212 ==

== ENCOUNTER 2024-02-22 08:03 | Outpatient (REF) | payer MEDICAID, SELFPAY ==
[2024-02-22 08:51] LABS: Hematocrit 42.8 % (42.0-52.0); Hemoglobin 14.1 g/dl (14.0-18.0); Mean Corpuscular HGB Conc 32.9 g/dl (31.0-36.0); Mean Corpuscular Hemoglobin 28.9 pg (27.0-33.0); Mean Corpuscular Volume 87.7 fL (80.0-98.0); Platelet Count 145 X10*3/uL (160-400); Red Blood Count 4.88 X10*6/uL (4.60-5.80); Red Cell Distribution Width 13.6 % (11.0-16.0); White Blood Count 3.8 X10*3/uL (4.8-10.8)
[2024-02-22 09:20] LABS: Anion Gap 14 (12-20); Blood Urea Nitrogen 42 mg/dL (9-16); Calcium 10.3 mg/dL (8.4-10.2); Carbon Dioxide 23 mmol/L (22-29); Chloride 107 mmol/L (96-108); Estimated Glomerular Filt Rate 19; Magnesium 2.1 mg/dL (1.6-2.6); Phosphorus 3.9 mg/dL (2.7-4.5); Potassium 4.5 mmol/L (3.3-5.1); Sodium 139 mmol/L (135-145)
[2024-02-22 10:09] LABS: Band Neutrophils Percent 4 % (3-5); Basophils Abs Manual 0.1 X10*3/uL (0.0-0.2); Basophils Percent Manual 2 % (0-2); Eosinophils Absolute Manual 0.2 X10*3/uL (0.0-0.4); Eosinophils Percent Manual 4 % (0-4); Lymphocytes Absolute Manual 0.6 X10*3/uL (1.2-4.9); Lymphocytes Percent Manual 15 % (20-40); Monocytes Absolute Manual 0.1 X10*3/uL (0.1-1.2); Monocytes Percent Manual 2 % (2-11); Neutrophils Absolute Manual 2.9 X10*3/uL (2.0-8.3); Neutrophils Percent Manual 73 % (45-73); Platelet Estimate SLIGHTLY DECREASED (NORMAL); Platelet Morphology Comment NORMAL; RBC Morphology NORMAL
[2024-02-24 06:49] LABS: Tacrolimus Prograf 5.3 mcg/L
[2024-02-26 17:43] LABS: BK Virus DNA QN PCR Whole Bld 10527 copies/mL; BK Virus DNA QN PCR Whole Bld 4.02 Log cps/mL
== END 2024-02-22 08:04 | disposition home or self-care (01) ==
LOC: HO.LAB 08:03
PROVIDERS: PCP Internal Medicine Geriatric Medicine; Visit Provider Internal Medicine Nephrology
DX: T86.19 Other complication of kidney transplant (principal); I70.1 Atherosclerosis of renal artery; I15.1 Hypertension secondary to other renal disorders; B34.8 Other viral infections of unspecified site; B20 Human immunodeficiency virus [HIV] disease; Z94.0 Kidney transplant status
CPT/HCPCS: 36415; 80051; 80197; 82310; 82565; 83735; 84100; 84520; 85007; 85027; 87799

== ENCOUNTER 2024-02-23 11:39 | Outpatient (AMB) | payer MEDICAID, SELFPAY ==
--- NOTE | 2024-02-23 11:40 | HO.NEPHOV_ITS ---
Vital Signs 02/23/24 11:41 Height 5 ft 8 in Weight 182 lb 6 oz BMI 27.7 BP 130/88 Blood Pressure Location Rt brachial Position Sitting Pulse 71 Pulse Source Pulse Oximeter Pulse Oximetry (%) 98 Oxygen Delivery Method Room Air Intake Visit Reasons: BK polyoma viremia- Conf Livestock Slaughterer Required: Yes Livestock Slaughterer Services: Livestock Slaughterer Offered & Declined (Livestock Slaughterer services refused, refusal form signed and scanned into chart.) Accompanied by: Self / Same As Patient Allergies Penicillins [PENICILLINS] Allergy (Severe, Verified 02/23/24 11:45) SWELLING/RASH/ITCHING HPI Comments Details: 48-year-old male with 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 Preoperatively patient was planned for fluconazole for the coccidiomycosis and possibility of reemergence, infectious disease consult was placed for postoperative management. He is CMV positive, EBV positive with a PRA of 0. Donor ID is [id number] MAOB, KDPI 60% with hep C antibody positive, donor serology with CMV positive, EBV positive, toxoplasmosis positive. Patient underwent donor kidney transplant 06/19/2023. Postoperative day 1 patient was started on Prograf 2 twice daily. Patient was also started on his Juluca for HIV, fluconazole for coccidiomycosis, Entecavir for hepatitis C, and home Suboxone film. 06/20/2019 for nuclear medicine scan returned with prompt flow to the kidney. Fluconazole and Entecavir was continued.He has had worsening serum creatinine during his scheduled follow-ups and a duplex study showed concern for renal artery stenosis of the transplanted kidney . So he was directly admitted for an angiogram with IR. Angiogram did not find any renal artery stenosis so no intervention was performed. He underwent a transplant ultrasound which showed no evidence of hydronephrosis. Additional viral testing sent out to determine cause of rising creatinine. He was later re admitted for cellulitis of the left upper extremity near the fistula. ID consulted and recommended 48 hours of IV antibiotics followed by ultrasound which did not show any drainable collections. As his skin appeared significantly thinned along this area of cellulitis and over the most proximal aneurysm, it was concerning for predisposing factor for fistula blowout. Went to OR 09/08 for fistula ligation and resection. He has decreased risk for rejection by Prospera. He has been DSA negative. He is in follow-up. He is compliant with medications. He maintains good hydration. He feels well. 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) Alcohol intake: never Patient Tobacco Use Status: Former Tobacco user Tobacco use type: Cigarette Substance Use Type: Former Substance User Review of Systems Const All systems reviewed & are unremarkable except as noted in HPI and below Physical Exam Vital Signs: Last Vital Signs Pulse 71 02/23/24 11:41 BP 130/88 02/23/24 11:41 Pulse Ox 98 02/23/24 11:41 Oxygen Delivery Method Room Air 02/23/24 11:41 BMI result Body Mass Index 27.7 Const General: comfortable and no acute distress Orientation/consciousness: patient oriented x3 HEENT Head: Yes normocephalic Mouth: Normal oral and palatal mucosa present Eyes EOM: EOMs intact bilaterally Neck Neck: Yes supple Resp Auscultation: clear to auscultation bilaterally Cardio Jugular venous distension: no JVD Rate: regular rate GI Palpation (GI): Soft to palpation Auscultation: normal bowel sounds General: Yes no CVA tenderness Back/Spine/Pelvis Back: no CVA tenderness Skin General skin exam: no rashes or lesions noted Neuro General: patient oriented x3 and moves all extremities Extrem General: Yes no pedal edema Results Reviewed Nephrology Results: Hgb 14.1 g/dl (14.0-18.0) 02/22/24 WBC 3.8 X10*3/uL (4.8-10.8) L 02/22/24 Plt Count 145 X10*3/uL (160-400) L 02/22/24 Sodium 139 mmol/L (135-145) 02/22/24 Potassium 4.5 mmol/L (3.3-5.1) 02/22/24 Chloride 107 mmol/L (96-108) 02/22/24 Carbon Dioxide 23 mmol/L (22-29) 02/22/24 BUN 42 mg/dL (9-16) H 02/22/24 Creatinine 3.46 mg/dL (0.5-1.4) H 02/22/24 Calcium 10.3 mg/dL (8.4-10.2) H 02/22/24 Phosphorus 3.9 mg/dL (2.7-4.5) 02/22/24 Renal US 12/01/23 Assessment & Plan Assessment & Plan (1) Renal artery stenosis, transplant: Code(s): T86.19 - Other complication of kidney transplant; I70.1 - Atherosclerosis of renal artery Category: Medical (2) Hypertension: Code(s): I10 - Essential (primary) hypertension Category: Medical Qualifiers: Hypertension type: secondary to other renal disorders Qualified Code(s): I15.1 - Hypertension secondary to other renal disorders (3) BK polyoma viremia: Code(s): B34.8 - Other viral infections of unspecified site Category: Medical (4) Renal transplant recipient: Code(s): Z94.0 - Kidney transplant status Category: Surgical Plan Renal Transplant Induction Agent included Thymo x4 doses ; Had no delayed Draft Function; Did not need dialysis post transplant (Stent Removal date: 07/10/23) CMV: Donor + /Recipient + ; EBV: Donor + /Recipient + HBcAB: Donor - /Recipient + ;HCV: Donor + /OLIVERIO- /Recipient - Polyomavirus Status- BK PCR Quantitative 09/21/23 BK viremia 682 & 07/17/23 BK viruira ; Plan to give therapy (if + BK PCR)by decrease tac lvl & decrease MMF Biopsy or Prospera (Date/Indication/Results): 08/11/23 Biopsy for increasing creat- NEG ACR 09/21/23 Prospera protocol- decreased risk for rejection DSAs (Recent Date/Results): 09/07/23- no DSAs detected Immunosuppression (Drug/Level Recommended/Indication if not monotherapy): Tacro lvl 5-6 & MMF 2-4/thymo induction Prophylaxis Therapy (Drug/Date/Discontinuation Date): Fluconazole- lifelong per HIV protocol, Bactrim d/c date pending CD4 count (see HIV protocol)- need it for one year. He is on Valcyte- needs to discuss with ID. He should be on Entecavir d/c 06/19/24 Genetic Testing (Date & Results): 06/08/23- [id number] Alport Syndrome/ Autosomal Dominant & Autosomal Recessive ?? Needs F/U stenting of distal renal artery for caliber change/tapering on IR Angiogram 08/23/23- Repeat Doppler tx renal artery stenosis Graft function Scr improved , jung low was 2.8 DSA - neg 07/17/23 ? Immunosupression Currently taking MMF and prograf FK level monitored and adjusted accordingly ? Infection BK blood PCR positive -being followed CMV neg 08/24/23 ? Heme- Labs stable ? HTN Blood pressure has been at target at home ? Bone metabolism Likely will need Sensipar Tx renal artery stenosis tx renal artery stenosis, angiogram done by IR on 08/23/23 with caliber change/tapering at the distal transplant renal artery as it branched into the segmental renal bed. Unable to get stenting b/c hig risk ; D/W Dr Rodriguez- he's going to take care of this ( Duplex showed tx renal artery stenosis; Likely will need MRA before renal angio) Orders: Orders Phosphorus 1 Month B34.8 - Other viral infections of unspecified site, Z94.0 - Kidney transplant status Tacrolimus Prograf 1 Month B34.8 - Other viral infections of unspecified site, Z94.0 - Kidney transplant status Other Ref Test - Misc 1 Month B34.8 - Other viral infections of unspecified site, Z94.0 - Kidney transplant status Complete Blood Count Auto Diff 1 Month B34.8 - Other viral infections of unspecified site, Z94.0 - Kidney transplant status Creatinine 1 Month B34.8 - Other viral infections of unspecified site, Z94.0 - Kidney transplant status Blood Urea Nitrogen 1 Month B34.8 - Other viral infections of unspecified site, Z94.0 - Kidney transplant status Electrolytes 1 Month B34.8 - Other viral infections of unspecified site, Z94.0 - Kidney transplant status Calcium 1 Month B34.8 - Other viral infections of unspecified site, Z94.0 - Kidney transplant status Magnesium 1 Month B34.8 - Other viral infections of unspecified site, Z94.0 - Kidney transplant status Coding Level of Care Code Est Pt Level 4 (78820) Diagnoses Renal artery stenosis, transplant T86.19; I70.1 Hypertension secondary to other renal disorders I15.1 Hypertension type: secondary to other renal disorders BK polyoma viremia B34.8 Renal transplant recipient Z94.0
[2024-02-23 11:41] VITALS: BP 130/88; PULSE 71; O2SAT 98; BMI 27.7
== END 2024-02-23 12:02 | disposition home or self-care (01) ==
PROVIDERS: PCP Internal Medicine Geriatric Medicine; Visit Provider Internal Medicine Nephrology
DX: T86.13 Kidney transplant infection (principal); B33.8 Other specified viral diseases; T86.19 Other complication of kidney transplant; I70.1 Atherosclerosis of renal artery; I15.1 Hypertension secondary to other renal disorders; Z94.0 Kidney transplant status
CPT/HCPCS: 99214

== ENCOUNTER → 2024-02-23 11:39 | Outpatient (BNVA) | payer MEDICAID, SELFPAY | PROVIDERS: PCP Internal Medicine Geriatric Medicine; Visit Provider Internal Medicine Nephrology | DX: I70.1 Atherosclerosis of renal artery (principal); I15.1 Hypertension secondary to other renal disorders; T86.19 Other complication of kidney transplant; B20 Human immunodeficiency virus [HIV] disease; B34.8 Other viral infections of unspecified site; Z94.0 Kidney transplant status | CPT/HCPCS: 99212 ==

== ENCOUNTER 2024-03-20 08:12 | Outpatient (REF) | payer MEDICAID, SELFPAY ==
[2024-03-20 08:45] LABS: Hematocrit 39.7 % (42.0-52.0); Hemoglobin 13.3 g/dl (14.0-18.0); Mean Corpuscular HGB Conc 33.5 g/dl (31.0-36.0); Mean Corpuscular Hemoglobin 29.4 pg (27.0-33.0); Mean Corpuscular Volume 87.6 fL (80.0-98.0); Mean Platelet Volume 11.8 fL (9.4-12.4); Platelet Count 138 X10*3/uL (160-400); Red Blood Count 4.53 X10*6/uL (4.60-5.80); Red Cell Distribution Width 13.5 % (11.0-16.0); White Blood Count 3.3 X10*3/uL (4.8-10.8)
[2024-03-20 09:00] LABS: Anion Gap 12 (12-20); Blood Urea Nitrogen 40 mg/dL (9-16); Calcium 9.8 mg/dL (8.4-10.2); Carbon Dioxide 21 mmol/L (22-29); Chloride 110 mmol/L (96-108); Estimated Glomerular Filt Rate 21; Phosphorus 3.4 mg/dL (2.7-4.5); Potassium 4.3 mmol/L (3.3-5.1); Sodium 139 mmol/L (135-145)
[2024-03-20 09:53] LABS: Band Neutrophils Percent 8 % (3-5); Basophils Abs Manual 0.1 X10*3/uL (0.0-0.2); Basophils Percent Manual 2 % (0-2); Eosinophils Absolute Manual 0.1 X10*3/uL (0.0-0.4); Eosinophils Percent Manual 2 % (0-4); Lymphocytes Absolute Manual 0.4 X10*3/uL (1.2-4.9); Lymphocytes Percent Manual 11 % (20-40); Monocytes Absolute Manual 0.1 X10*3/uL (0.1-1.2); Monocytes Percent Manual 3 % (2-11); Neutrophils Absolute Manual 2.7 X10*3/uL (2.0-8.3); Neutrophils Percent Manual 74 % (45-73); RBC Morphology NORMAL
[2024-03-20 09:54] LABS: Platelet Estimate SLIGHTLY DECREASED (NORMAL); Platelet Morphology Comment NORMAL
[2024-03-23 17:39] LABS: BK Virus DNA QN PCR Whole Bld 21358 copies/mL; BK Virus DNA QN PCR Whole Bld 4.33 Log cps/mL
== END 2024-03-20 08:13 | disposition home or self-care (01) ==
LOC: HO.LAB 08:12
PROVIDERS: PCP Internal Medicine Geriatric Medicine; Visit Provider Internal Medicine Nephrology
DX: B20 Human immunodeficiency virus [HIV] disease (principal); B38.9 Coccidioidomycosis, unspecified; T86.19 Other complication of kidney transplant; I70.1 Atherosclerosis of renal artery; I15.1 Hypertension secondary to other renal disorders; B18.2 Chronic viral hepatitis C; Z79.899 Other long term (current) drug therapy; Z79.620 Long term (current) use of immunosuppressive biologic; Z79.621 Long term (current) use of calcineurin inhibitor
CPT/HCPCS: 36415; 80051; 80197; 82310; 82565; 83735; 84100; 84520; 85007; 85027; 87799; 99212

== ENCOUNTER 2024-03-20 13:29 | Outpatient (AMB) | payer MEDICAID, SELFPAY ==
--- NOTE | 2024-03-20 13:34 | HO.NEPHOV ---
Vital Signs 03/20/24 13:35 Height 5 ft 8 in Weight 183 lb 8 oz BMI 27.9 BP 122/90 H Blood Pressure Location Rt brachial Position Sitting Pulse 65 Pulse Source Pulse Oximeter Pulse Oximetry (%) 99 Oxygen Delivery Method Room Air Intake Visit Reasons: 1 mon follow up- Conf Homeopathic Doctor Required: Yes Homeopathic Doctor Language: Lump Receiver Services: Homeopathic Doctor Offered & Declined ([facility] prototype machine operator services refused. 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 Preoperatively patient was planned for fluconazole for the coccidiomycosis and possibility of reemergence, infectious disease consult was placed for postoperative management. He is CMV positive, EBV positive with a PRA of 0. Donor ID is [id number] MAOB, KDPI 60% with hep C antibody positive, donor serology with CMV positive, EBV positive, toxoplasmosis positive. Patient underwent donor kidney transplant 06/19/2023. Postoperative day 1 patient was started on Prograf 2 twice daily. Patient was also started on his Juluca for HIV, fluconazole for coccidiomycosis, Entecavir for hepatitis C, and home Suboxone film. 06/20/2019 for nuclear medicine scan returned with prompt flow to the kidney. Fluconazole and Entecavir was continued.He has had worsening serum creatinine during his scheduled follow-ups and a duplex study showed concern for renal artery stenosis of the transplanted kidney . So he was directly admitted for an angiogram with IR. Angiogram did not find any renal artery stenosis so no intervention was performed. He underwent a transplant ultrasound which showed no evidence of hydronephrosis. Additional viral testing sent out to determine cause of rising creatinine. He was later re admitted for cellulitis of the left upper extremity near the fistula. ID consulted and recommended 48 hours of IV antibiotics followed by ultrasound which did not show any drainable collections. As his skin appeared significantly thinned along this area of cellulitis and over the most proximal aneurysm, it was concerning for predisposing factor for fistula blowout. Went to OR 09/08 for fistula ligation and resection. He has decreased risk for rejection by Prospera. He has been DSA negative. He is in follow-up. He is compliant with medications. He maintains good hydration. He feels well. He is awaiting his transplant renal artery stenosis fixing by Dr Rodriguez/ IR [facility] Medical History (Updated 01/26/24 @ 12:01 by Onesimo Ayers MD) Secondary hyperparathyroidism ESRD (end stage renal disease) on dialysis A-V fistula HIV (human immunodeficiency virus infection) Hypertension Kidney disease Surgical History Hx of cardiac catheterization Social History Are you a primary respiratory care practitioner to a significant other at home: No Do you presently have visiting nurse or other home services: Yes ([employer] 3 hours daily) Alcohol intake: never Patient Tobacco Use Status: Former Tobacco user Tobacco use type: Cigarette Substance Use Type: Former Substance User Review of Systems Const All systems reviewed & are unremarkable except as noted in HPI and below Physical Exam Vital Signs: Last Vital Signs Pulse 65 03/20/24 13:35 BP 122/90 H 03/20/24 13:35 Pulse Ox 99 03/20/24 13:35 Oxygen Delivery Method Room Air 03/20/24 13:35 BMI result Body Mass Index 27.9 Const General: comfortable and no acute distress Orientation/consciousness: patient oriented x3 HEENT Head: Yes normocephalic Mouth: Normal oral and palatal mucosa present Eyes EOM: EOMs intact bilaterally Neck Neck: Yes supple Resp Auscultation: clear to auscultation bilaterally Cardio Jugular venous distension: no JVD Rate: regular rate GI Palpation (GI): Soft to palpation Auscultation: normal bowel sounds General: Yes no CVA tenderness Back/Spine/Pelvis Back: no CVA tenderness Skin General skin exam: no rashes or lesions noted Neuro General: patient oriented x3 and moves all extremities Extrem General: Yes no pedal edema Results Reviewed Nephrology Results: Hgb 13.3 g/dl (14.0-18.0) L 03/20/24 WBC 3.3 X10*3/uL (4.8-10.8) L 03/20/24 Plt Count 138 X10*3/uL (160-400) L 03/20/24 Sodium 139 mmol/L (135-145) 03/20/24 Potassium 4.3 mmol/L (3.3-5.1) 03/20/24 Chloride 110 mmol/L (96-108) H 03/20/24 Carbon Dioxide 21 mmol/L (22-29) L 03/20/24 BUN 40 mg/dL (9-16) H 03/20/24 Creatinine 3.25 mg/dL (0.5-1.4) H 03/20/24 Calcium 9.8 mg/dL (8.4-10.2) 03/20/24 Phosphorus 3.4 mg/dL (2.7-4.5) 03/20/24 Renal US 12/01/23 Assessment & Plan Assessment & Plan (1) Renal artery stenosis, transplant: Code(s): T86.19 - Other complication of kidney transplant; I70.1 - Atherosclerosis of renal artery Category: Medical (2) Hypertension: Code(s): I10 - Essential (primary) hypertension Category: Medical Qualifiers: Hypertension type: secondary to other renal disorders Qualified Code(s): I15.1 - Hypertension secondary to other renal disorders (3) BK polyoma viremia: Code(s): B34.8 - Other viral infections of unspecified site Category: Medical (4) Renal transplant recipient: Code(s): Z94.0 - Kidney transplant status Category: Surgical Plan Renal Transplant Induction Agent included Thymo x4 doses ; Had no delayed Draft Function; Did not need dialysis post transplant (Stent Removal date: 07/10/23) CMV: Donor + /Recipient + ; EBV: Donor + /Recipient + HBcAB: Donor - /Recipient + ;HCV: Donor + /OLIVERIO- /Recipient - Polyomavirus Status- BK PCR Quantitative 09/21/23 BK viremia 682 & 07/17/23 BK viruira ; Plan to give therapy (if + BK PCR)by decrease tac lvl & decrease MMF Biopsy or Prospera (Date/Indication/Results): 08/11/23 Biopsy for increasing creat- NEG ACR 09/21/23 Prospera protocol- decreased risk for rejection DSAs (Recent Date/Results): 09/07/23- no DSAs detected Immunosuppression (Drug/Level Recommended/Indication if not monotherapy): Tacro lvl 5-6 & MMF 2-4/thymo induction Prophylaxis Therapy (Drug/Date/Discontinuation Date): Fluconazole- lifelong per HIV protocol, Bactrim d/c date pending CD4 count (see HIV protocol)- need it for one year. He is on Valcyte- needs to discuss with ID. 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 Needs F/U stenting of distal renal artery for caliber change/tapering on IR Angiogram 08/23/23- Repeat Doppler tx renal artery stenosis Graft function Scr improved , jung low was 2.8 DSA - neg 07/17/23 ? Immunosupression Currently taking MMF and prograf FK level monitored and adjusted accordingly ? Infection BK blood PCR positive -being followed CMV neg 08/24/23 ? Heme- Labs stable ? HTN Blood pressure has been at target at home ? Bone metabolism Likely will need Sensipar Tx renal artery stenosis tx renal artery stenosis, angiogram done by IR on 08/23/23 with caliber change/tapering at the distal transplant renal artery as it branched into the segmental renal bed. Unable to get stenting b/c hig risk ; D/W Dr Rodriguez- he's going to take care of this ( Duplex showed tx renal artery stenosis; Had MRA before renal angio- awaiting results) Orders: Orders Complete Blood Count Auto Diff 6 Weeks B34.8 - Other viral infections of unspecified site, I15.1 - Hypertension secondary to other renal disorders, I70.1 - Atherosclerosis of renal artery, T86.19 - Other complication of kidney transplant, Z94.0 - Kidney transplant status Other Ref Test - Misc 7 Weeks B34.8 - Other viral infections of unspecified site, I15.1 - Hypertension secondary to other renal disorders, I70.1 - Atherosclerosis of renal artery, T86.19 - Other complication of kidney transplant, Z94.0 - Kidney transplant status Parathyroid Hormone Intact 6 Weeks B34.8 - Other viral infections of unspecified site, I15.1 - Hypertension secondary to other renal disorders, I70.1 - Atherosclerosis of renal artery, T86.19 - Other complication of kidney transplant, Z94.0 - Kidney transplant status Phosphorus 6 Weeks B34.8 - Other viral infections of unspecified site, I15.1 - Hypertension secondary to other renal disorders, I70.1 - Atherosclerosis of renal artery, T86.19 - Other complication of kidney transplant, Z94.0 - Kidney transplant status Creatinine 6 Weeks B34.8 - Other viral infections of unspecified site, I15.1 - Hypertension secondary to other renal disorders, I70.1 - Atherosclerosis of renal artery, T86.19 - Other complication of kidney transplant, Z94.0 - Kidney transplant status Blood Urea Nitrogen 6 Weeks B34.8 - Other viral infections of unspecified site, I15.1 - Hypertension secondary to other renal disorders, I70.1 - Atherosclerosis of renal artery, T86.19 - Other complication of kidney transplant, Z94.0 - Kidney transplant status Electrolytes 6 Weeks B34.8 - Other viral infections of unspecified site, I15.1 - Hypertension secondary to other renal disorders, I70.1 - Atherosclerosis of renal artery, T86.19 - Other complication of kidney transplant, Z94.0 - Kidney transplant status Calcium 6 Weeks B34.8 - Other viral infections of unspecified site, I15.1 - Hypertension secondary to other renal disorders, I70.1 - Atherosclerosis of renal artery, T86.19 - Other complication of kidney transplant, Z94.0 - Kidney transplant status Other Ref Test - Misc 6 Weeks B34.8 - Other viral infections of unspecified site, I15.1 - Hypertension secondary to other renal disorders, I70.1 - Atherosclerosis of renal artery, T86.19 - Other complication of kidney transplant, Z94.0 - Kidney transplant status Medications: Changed From carvedilol must administer with a meal/food 6.25 mg PO BID 30 days 60 tabs 4RF To carvedilol must administer with a meal/food 6.25 mg PO BID 90 days 180 tabs 4RF Refilled amlodipine 5 mg PO DAILY 90 tabs 4RF carvedilol 12.5 mg PO BID 180 tabs 3RF Coding Level of Care Code Est Pt Level 4 (10966) Diagnoses Renal artery stenosis, transplant T86.19; I70.1 Hypertension secondary to other renal disorders I15.1 Hypertension type: secondary to other renal disorders BK polyoma viremia B34.8 Renal transplant recipient Z94.0
[2024-03-20 13:35] VITALS: BP 122/90; PULSE 65; O2SAT 99; BMI 27.9
== END 2024-03-20 14:08 | disposition home or self-care (01) ==
PROVIDERS: PCP Internal Medicine Geriatric Medicine; Visit Provider Internal Medicine Nephrology
DX: T86.19 Other complication of kidney transplant (principal); I70.1 Atherosclerosis of renal artery; I15.1 Hypertension secondary to other renal disorders; B34.8 Other viral infections of unspecified site; Z94.0 Kidney transplant status
CPT/HCPCS: 99214

== ENCOUNTER 2024-05-22 07:48 | Outpatient (REF) | payer MEDICAID, SELFPAY ==
[2024-05-22 08:51] LABS: Hematocrit 38.9 % (42.0-52.0); Hemoglobin 12.5 g/dl (14.0-18.0); Mean Corpuscular HGB Conc 32.1 g/dl (31.0-36.0); Mean Corpuscular Hemoglobin 28.2 pg (27.0-33.0); Mean Corpuscular Volume 87.8 fL (80.0-98.0); Mean Platelet Volume 12.4 fL (9.4-12.4); Platelet Count 150 X10*3/uL (160-400); Red Blood Count 4.43 X10*6/uL (4.60-5.80); Red Cell Distribution Width 13.4 % (11.0-16.0)
[2024-05-22 08:52] LABS: WBC ABN SCTR FOR CBC 1; White Blood Count 2.1 X10*3/uL (4.8-10.8)
[2024-05-22 09:12] LABS: Anion Gap 12 (12-20); Blood Urea Nitrogen 38 mg/dL (9-16); Calcium 10.5 mg/dL (8.4-10.2); Carbon Dioxide 22 mmol/L (22-29); Chloride 110 mmol/L (96-108); Estimated Glomerular Filt Rate 17; Phosphorus 3.7 mg/dL (2.7-4.5); Potassium 4.8 mmol/L (3.3-5.1); Sodium 139 mmol/L (135-145)
[2024-05-22 10:11] LABS: Parathyroid Hormone Intact 497.5 pg/mL (8.7-77.1)
[2024-05-22 10:42] LABS: Atypical Lymphs Percent Manual 1 % (0-6); Band Neutrophils Percent 7 % (3-5); Basophils Abs Manual 0.1 X10*3/uL (0.0-0.2); Basophils Percent Manual 3 % (0-2); Eosinophils Percent Manual 2 % (0-4); Lymphocytes Absolute Manual 0.6 X10*3/uL (1.2-4.9); Lymphocytes Percent Manual 30 % (20-40); Metamyelocytes Percent 1 %; Monocytes Percent Manual 2 % (2-11); Neutrophils Absolute Manual 1.3 X10*3/uL (2.0-8.3); Neutrophils Percent Manual 54 % (45-73); Nucleated Red Blood Cells 1 /100WBC (0-0)
[2024-05-22 10:44] LABS: Ovalocytes 1+ (5-14) /OIF; RBC Morphology NOTED; Schistocytes 1+ (0-2) /OIF
[2024-05-22 10:45] LABS: Platelet Estimate NORMAL (NORMAL); Platelet Morphology Comment NORMAL
[2024-05-26 02:19] LABS: BK Virus DNA QL Urine Detected (Not Detected); BK Virus DNA QN PCR Whole Bld 125230 copies/mL
== END 2024-05-22 07:49 | disposition home or self-care (01) ==
LOC: HO.LAB 07:48
PROVIDERS: PCP Internal Medicine Geriatric Medicine; Visit Provider Internal Medicine Nephrology
DX: B20 Human immunodeficiency virus [HIV] disease (principal); B34.8 Other viral infections of unspecified site; Z94.0 Kidney transplant status; T86.19 Other complication of kidney transplant; I70.1 Atherosclerosis of renal artery; I15.1 Hypertension secondary to other renal disorders; Z79.899 Other long term (current) drug therapy
CPT/HCPCS: 36415; 80051; 82310; 82565; 83970; 84100; 84520; 85007; 85027; 87798; 87799; 99212

== ENCOUNTER 2024-05-22 14:32 | Outpatient (AMB) | payer MEDICAID, SELFPAY ==
--- NOTE | 2024-05-22 14:54 | HO.NEPHOV_ITS ---
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 Preoperatively patient was planned for fluconazole for the coccidiomycosis and possibility of reemergence, infectious disease consult was placed for postoperative management. He is CMV positive, EBV positive with a PRA of 0. Donor ID is [id number] MAOB, KDPI 60% with hep C antibody positive, donor serology with CMV positive, EBV positive, toxoplasmosis positive. Patient underwent donor kidney transplant 06/19/2023. Postoperative day 1 patient was started on Prograf 2 twice daily. Patient was also started on his Juluca for HIV, fluconazole for coccidiomycosis, Entecavir for hepatitis C, and home Suboxone film. 06/20/2019 for nuclear medicine scan returned with prompt flow to the kidney. Fluconazole and Entecavir was continued.He has had worsening serum creatinine during his scheduled follow-ups and a duplex study showed concern for renal artery stenosis of the transplanted kidney . So he was directly admitted for an angiogram with IR. Angiogram did not find any renal artery stenosis so no intervention was performed. He underwent a transplant ultrasound which showed no evidence of hydronephrosis. Additional viral testing sent out to determine cause of rising creatinine. He was later re admitted for cellulitis of the left upper extremity near the fistula. ID consulted and recommended 48 hours of IV antibiotics followed by ultrasound which did not show any drainable collections. As his skin appeared significantly thinned along this area of cellulitis and over the most proximal aneurysm, it was concerning for predisposing factor for fistula blowout. Went to OR 09/08 for fistula ligation and resection. He has decreased risk for rejection by Prospera. He has been DSA negative. He is in follow-up. He is compliant with medications. He maintains good hydration. He feels well. COUNT INCLUDES [facility] Medical History (Updated 05/22/24 @ 15:09 by Onesimo Ayers MD) Secondary hyperparathyroidism ESRD (end stage renal disease) on dialysis A-V fistula HIV (human immunodeficiency virus infection) Hypertension Kidney disease Surgical History Hx of cardiac catheterization Social History Are you a primary manager respiratory care to a significant other at home: No Do you presently have visiting nurse or other home services: Yes ([employer] 3 hours daily) Alcohol intake: never Patient Tobacco Use Status: Former Tobacco user Tobacco use type: Cigarette Substance Use Type: Former Substance User Review of Systems Const All systems reviewed & are unremarkable except as noted in HPI and below Physical Exam Vital Signs: Last Vital Signs BP 140/90 H 05/22/24 14:55 BMI result Body Mass Index 28.3 Const General: comfortable and no acute distress Orientation/consciousness: patient oriented x3 HEENT Head: Yes normocephalic Mouth: Normal oral and palatal mucosa present Eyes EOM: EOMs intact bilaterally Neck Neck: Yes supple Resp Auscultation: clear to auscultation bilaterally Cardio Jugular venous distension: no JVD Rate: regular rate GI Palpation (GI): Soft to palpation Auscultation: normal bowel sounds General: Yes no CVA tenderness Back/Spine/Pelvis Back: no CVA tenderness Skin General skin exam: no rashes or lesions noted Neuro General: patient oriented x3 and moves all extremities Extrem General: Yes no pedal edema Results Reviewed Nephrology Results: Hgb 12.5 g/dl (14.0-18.0) L 05/22/24 WBC 2.1 X10*3/uL (4.8-10.8) L 05/22/24 Plt Count 150 X10*3/uL (160-400) L 05/22/24 Sodium 139 mmol/L (135-145) 05/22/24 Potassium 4.8 mmol/L (3.3-5.1) 05/22/24 Chloride 110 mmol/L (96-108) H 05/22/24 Carbon Dioxide 22 mmol/L (22-29) 05/22/24 BUN 38 mg/dL (9-16) H 05/22/24 Creatinine 3.91 mg/dL (0.5-1.4) H 05/22/24 Calcium 10.5 mg/dL (8.4-10.2) H 05/22/24 Phosphorus 3.7 mg/dL (2.7-4.5) 05/22/24 PTH Intact 497.5 pg/mL (8.7-77.1) H 05/22/24 Assessment & Plan Assessment & Plan (1) Hypertension: Code(s): I10 - Essential (primary) hypertension Category: Medical Qualifiers: Hypertension type: secondary to other renal disorders Qualified Code(s): I15.1 - Hypertension secondary to other renal disorders (2) BK polyoma viremia: Code(s): B34.8 - Other viral infections of unspecified site Category: Medical (3) Renal transplant recipient: Code(s): Z94.0 - Kidney transplant status Category: Surgical (4) Secondary hyperparathyroidism (of renal origin): Code(s): N25.81 - Secondary hyperparathyroidism of renal origin Category: Medical Plan Renal Transplant Induction Agent included Thymo x4 doses ; Had no delayed Draft Function; Did not need dialysis post transplant (Stent Removal date: 07/10/23) CMV: Donor + /Recipient + ; EBV: Donor + /Recipient + HBcAB: Donor - /Recipient + ;HCV: Donor + /OLIVERIO- /Recipient - Polyomavirus Status- BK PCR Quantitative 09/21/23 BK viremia 682 & 07/17/23 BK viruira ; Plan to give therapy (if + BK PCR)by decrease tac lvl & decrease MMF Biopsy or Prospera (Date/Indication/Results): 08/11/23 Biopsy for increasing creat- NEG ACR 09/21/23 Prospera protocol- decreased risk for rejection DSAs (Recent Date/Results): 09/07/23- no DSAs detected Immunosuppression (Drug/Level Recommended/Indication if not monotherapy): Tacro lvl 5-6 & MMF 2-4/thymo induction Prophylaxis Therapy (Drug/Date/Discontinuation Date): Fluconazole- lifelong per HIV protocol, Bactrim d/c date pending CD4 count (see HIV protocol)- need it for one year. He is on Valcyte- needs to discuss with ID. 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 Immunosupression Currently taking MMF and prograf FK level monitored and adjusted accordingly ? Infection BK blood PCR positive -being followed CMV neg 08/24/23 ? Heme- Labs stable ? HTN Blood pressure has been at target at home ? Bone metabolism Started PO Sensipar Orders: Orders Prothrombin Time INR 1 Month B34.8 - Other viral infections of unspecified site, I15.1 - Hypertension secondary to other renal disorders, N25.81 - Secondary hyperparathyroidism of renal origin, Z94.0 - Kidney transplant status Calcium 1 Month B34.8 - Other viral infections of unspecified site, I15.1 - Hypertension secondary to other renal disorders, N25.81 - Secondary hyperparat hyroidism of renal origin, Z94.0 - Kidney transplant status Creatinine 1 Month B34.8 - Other viral infections of unspecified site, I15.1 - Hypertension secondary to other renal disorders, N25.81 - Secondary hyperparathyroidism of renal origin, Z94.0 - Kidney transplant status Blood Urea Nitrogen 1 Month B34.8 - Other viral infections of unspecified site, I15.1 - Hypertension secondary to other renal disorders, N25.81 - Secondary hyperparathyroidism of renal origin, Z94.0 - Kidney transplant status Electrolytes 1 Month B34.8 - Other viral infections of unspecified site, I15.1 - Hypertension secondary to other renal disorders, N25.81 - Secondary hyperparathyroidism of renal origin, Z94.0 - Kidney transplant status Complete Blood Count Auto Diff 1 Month B34.8 - Other viral infections of unspecified site, I15.1 - Hypertension secondary to other renal disorders, N25.81 - Secondary hyperparathyroidism of renal origin, Z94.0 - Kidney transplant status Tacrolimus Prograf 1 Month B34.8 - Other viral infections of unspecified site, I15.1 - Hypertension secondary to other renal disorders, N25.81 - Secondary hyperparathyroidism of renal origin, Z94.0 - Kidney transplant status Medications: New cinacalcet 30 mg PO .three times a week 3 months 40 tabs 3RF Coding Level of Care Code Est Pt Level 4 (78369) Diagnoses Hypertension secondary to other renal disorders I15.1 Hypertension type: secondary to other renal disorders BK polyoma viremia B34.8 Renal transplant recipient Z94.0 Secondary hyperparathyroidism (of renal origin) N25.81
[2024-05-22 14:55] VITALS: BP 140/90; BMI 28.3
== END 2024-05-22 15:15 | disposition home or self-care (01) ==
PROVIDERS: PCP Internal Medicine Geriatric Medicine; Visit Provider Internal Medicine Nephrology
DX: I15.1 Hypertension secondary to other renal disorders (principal); B34.8 Other viral infections of unspecified site; Z94.0 Kidney transplant status; N25.81 Secondary hyperparathyroidism of renal origin
CPT/HCPCS: 99214

== ENCOUNTER 2024-07-17 08:23 | Outpatient (REF) | payer MEDICAID, SELFPAY ==
--- OUTSIDE RECORDS SUMMARY | 2024-07-17 08:27 | XMS_ITS | Clinical Summary ---
Author Organization [facility], Address [address] [place] [address] Phone Care Team Providers Care Vice President Network Development Name Role Phone Zina Onofre NP Primary Care Provider Unava ilable Allergies Active Allergy Reactions Criticality Noted Date Comments Penicillins Rash High 09/21/2023 Medications cinacalcet (SENSIPAR) 30 MG tablet TAKE 1 TABLET BY MOUTH EVERY DAY ON 6 DAYS PER WEEK (MONDAY TO MONDAY) 30 tablet 6 3 Active acetaminophen (TYLENOL) 325 MG tablet 4 Active amLODIPine (NORVASC) 2.5 MG tablet Take 2.5 mg by mouth 1 (one) time each day 4 Active Suboxone 8-2 MG per SL film DISSOLVE 2 FILMS UNDER THE TONGUE BY MOUTH EVERY DAY IN THE MORNING Active Calcium Acetate, Phos Binder, 667 MG capsule See Instructions, HOLDING as of 06/23/23, 0 Refills, Maintenance, 06/08/23 11:01:00 EST, Capsule, Partial fill upon patient request if the prescription is for a schedule II opioid drug. 3 Active calcium carbonate (Tums Ultra 1000) 1000 MG chewable tablet Chew 2 tablets in the morning and 2 tablets in the evening and 2 tablets before bedtime. 1 Active carvedilol (COREG) 12.5 MG tablet 4 Active carvedilol (COREG) 3.125 MG tablet Take 3.125 mg by mouth 4 Active clotrimazole (LOTRIMIN) 1 % cream APPLY TOPICALLY TO AFFECTED AREA TWO TIMES A DAY TO RASH ON INNER THIGH 4 Active darunavir-cobic istat (Prezcobix) 800-150 MG per tablet Comments: Filled Date: Nov 07 2018 12:00AM Patient Notes: TAKE 1 TABLET AT BEDTIME Duration: 30 8 Active Docusate Sodium (DSS) 100 MG capsule Take 100 mg by mouth 4 Active dolutegravir (Tivicay) 50 MG tablet Comments: Filled Date: Nov 07 2018 12:00AM Patient Notes: TAKE 1 TABLET AT BEDTIME Duration: 30 8 Active Juluca 50-25 MG tablet Take 1 tablet by mouth 1 (one) time each day with breakfast Active doxycycline (VIBRAMYCIN) 100 MG capsule DANIS 1 CAPSULA POR LA BOCA DOS VECES AL KELSEY POR ZUNIGA 5 ZUNIGA 4 Active entecavir (BARACLUDE) 0.5 MG tablet Take 0.5 mg by mouth 4 Active ergocalciferol 1.25 MG (96123 UT) capsule TAKE 1 CAPSULE BY MOUTH ONCE PER MONTH 4 Active fluconazole (DIFLUCAN) 100 MG tablet 4 Active mycophenolate (MYFORTIC) 180 MG EC tablet Take 540 mg by mouth 4 Active NIFEdipine CC (ADALAT CC) 30 MG 24 hr tablet 4 Active oxyCODONE (ROXICODONE) 5 MG immediate release tablet Take 5 mg by mouth every 6 (six) hours if needed 4 Active propranolol (INDERAL) 80 MG tablet Take 1 tablet by mouth at bed time Active rilpivirine (Edurant) 25 MG tablet Take 1 tablet by mouth 1 (one) time each day Active Senna-Time 8.6 MG tablet 4 Active sevelamer carbonate (RENVELA) 800 MG tablet Take 4,000 mg by mouth in the morning and 4,000 mg at noon and 4,000 mg in the evening. Take with meals. Active Lokelma 5 g pack 4 Active sulfamethoxazol e-trimethoprim (BACTRIM,SEPTRA ) 400-80 MG per tablet 4 Active valGANciclovir (VALCYTE) 450 MG tablet 4 Active torsemide (DEMADEX) 5 MG tablet 4 Active tacrolimus (PROGRAF) 0.5 MG capsule 4 Active Prograf 1 MG capsule See Instructions, 3 mg in AM and 2 mg in PM as of 06/23/23, # 240 capsule, 0 Refills, Maintenance, 06/22/23 10:24:00 EST, [facility], Partial fill upon patient request if the prescription is for a schedule II opioid drug., 174, cm, ... 4 Active Lokelma 10 g pack TAKE 1 PACKET BY MOUTH EVERY DAY. DO NOT TAKE WITHIN 2 HOURS OF OTHER MEDICATIONS. 4 Active Family History Medical History Relation Comments Hypertension Father Diabetes Mother Hypertension Mother Kidney disease Mother Relation Status Comments Father Alive Mother Alive Social History Tobacco Use Types Packs/Day Years Used Date Smoking Tobacco: Never Alcohol Use Standard Drinks/Week Comments No 0 (1 standard drink = 0.6 oz pur e alcohol) Sex and Gender Information Value Date Recorded Sex Assigned at Not on file Legal Sex Male 5:04 PM EST Gender Identity Not on file Sexual Orientation Not on file Last Filed Vital Signs Vital Sign Reading Time Taken Comments Blood Pressure 163/90 09/22/2023 10:49 AM EDT Pulse 69 09/22/2023 10:49 AM EDT Temperature 36.7 ??C (98.1 ??F) 09/22/2023 10:49 AM E DT Respiratory Rate - - Oxygen Saturation 100% 09/22/2023 10:49 AM EDT Inhaled Oxygen Concentration - - Weight 78 kg (171 lb 15.3 oz) 09/22/2023 10:49 A M EDT Height 172.7 cm (5' 8 ) 09/22/2023 10:49 AM EDT Body Mass Index 26.15 09/22/2023 10:49 AM EDT Plan of Treatment Health Maintenance Due Date Last Done Comments Pneumococcal Vaccine: Pediat rics (0 to 5 Years) and At-Risk Patients (6 to 64 Years) (1 of 2 - PCV) 1983 Hepatitis B Vaccine (1 of 3 - 19+ 3-dose series) 02/03 Influenza Vaccine (#1) 2024 [place] Care Teams Vice President Network Development Relationship Specialty Start Date End Date Zina Onofre NP PCP - General 06/22/20
[2024-07-17 18:31] LABS: Basophils Absolute Auto 0.1 X10*3/uL (0.0-0.2); Basophils Percent Auto 2.1 % (0-2); Eosinophils Absolute Auto 0.1 X10*3/uL (0.0-0.4); Hematocrit 40.9 % (42.0-52.0); Hemoglobin 12.8 g/dl (14.0-18.0); Imm Gran Abs Auto 0.03 X10*3/uL (0.00-0.03); Imm Gran Pct Auto 1.3 % (0.0-0.4); Lymphocytes Absolute Auto 0.7 X10*3/uL (1.2-4.9); Lymphocytes Percent Auto 28.4 % (20-40); MANUAL DIFF FLAG SCAN; Mean Corpuscular HGB Conc 31.3 g/dl (31.0-36.0); Mean Corpuscular Hemoglobin 28.4 pg (27.0-33.0); Mean Corpuscular Volume 90.7 fL (80.0-98.0); Mean Platelet Volume 12.7 fL (9.4-12.4); Monocytes Absolute Auto 0.1 X10*3/uL (0.1-1.2); Monocytes Percent Auto 5.9 % (2-11); Neutrophils Absolute Auto 1.4 x10*3/uL (2.0-8.3); Neutrophils Percent Auto 59.3 % (45-73); Platelet Count 149 X10*3/uL (160-400); Red Blood Count 4.51 X10*6/uL (4.60-5.80); Red Cell Distribution Width 14.7 % (11.0-16.0); SCAN SMEAR FLAG 1
[2024-07-17 18:38] LABS: INTERNATIONAL NORM RATIO 0.9 (0.9-1.1); Prothrombin Time 10.9 SEC (10.9-12.4)
[2024-07-17 18:51] LABS: NRBC Pct Auto 1.3 /100WBC (0.0-0.2); White Blood Count 2.4 X10*3/uL (4.8-10.8)
[2024-07-17 18:52] LABS: Anion Gap 12 (12-20); Blood Urea Nitrogen 42 mg/dL (9-16); Calcium 9.4 mg/dL (8.4-10.2); Carbon Dioxide 19 mmol/L (22-29); Chloride 110 mmol/L (96-108); Estimated Glomerular Filt Rate 17; Potassium 4.3 mmol/L (3.3-5.1); Sodium 137 mmol/L (135-145)
[2024-07-17 21:57] LABS: SLIDE REVIEW VERIFIED
== END 2024-07-17 08:24 | disposition home or self-care (01) ==
LOC: HO.HKASLDS 08:23
PROVIDERS: Visit Provider Internal Medicine Nephrology
DX: N25.81 Secondary hyperparathyroidism of renal origin (principal); I15.1 Hypertension secondary to other renal disorders; B34.8 Other viral infections of unspecified site; Z94.0 Kidney transplant status
CPT/HCPCS: 36415; 80051; 80197; 82310; 82565; 84520; 85025; 85610

== ENCOUNTER 2024-07-18 09:38 | Outpatient (AMB) | payer MEDICAID, SELFPAY ==
--- OUTSIDE RECORDS SUMMARY | 2024-07-18 09:40 | XMS_ITS | Clinical Summary ---
Author Organization [facility], Address [address] [place] [address] Phone Care Team Providers Care Dental Mold Maker Name Role Phone Zina Onofre NP Primary [...] by mouth 4 Active ergocalciferol 1.25 MG (27653 UT) capsule TAKE 1 CAPSULE BY MOUTH [...] capsule, 0 Refills, Maintenance, 06/22/23 10:24:00 EST, [facility], Partial fill upon patient [...] 02/03 Influenza Vaccine (#1) 2024 [place] Care Teams Dental Mold Maker Relationship Specialty Start Date End Date Zina Onofre NP PCP - General 06/22/20
--- NOTE | 2024-07-18 09:42 | HO.NEPHOV ---
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 Preoperatively patient was planned for fluconazole for the coccidiomycosis and possibility of reemergence, infectious disease consult was placed for postoperative management. He is CMV positive, EBV positive with a PRA of 0. Donor ID is [id number] MAOB, KDPI 60% with hep C antibody positive, donor serology with CMV positive, EBV positive, toxoplasmosis positive. Patient underwent donor kidney transplant 06/19/2023. Postoperative day 1 patient was started on Prograf 2 twice daily. Patient was also started on his Juluca for HIV, fluconazole for coccidiomycosis, Entecavir for hepatitis C, and home Suboxone film. 06/20/2019 for nuclear medicine scan returned with prompt flow to the kidney. Fluconazole and Entecavir was continued.He has had worsening serum creatinine during his scheduled follow-ups and a duplex study showed concern for renal artery stenosis of the transplanted kidney . So he was directly admitted for an angiogram with IR. Angiogram did not find any renal artery stenosis so no intervention was performed. He underwent a transplant ultrasound which showed no evidence of hydronephrosis. Additional viral testing sent out to determine cause of rising creatinine. He was later re admitted for cellulitis of the left upper extremity near the fistula. ID consulted and recommended 48 hours of IV antibiotics followed by ultrasound which did not show any drainable collections. As his skin appeared significantly thinned along this area of cellulitis and over the most proximal aneurysm, it was concerning for predisposing factor for fistula blowout. Went to OR 09/08 for fistula ligation and resection. He has decreased risk for rejection by Prospera. He has been DSA negative. He is in follow-up. He is compliant with medications. He maintains good hydration. He feels well. [facility] Medical History (Updated 05/22/24 @ 15:09 by Onesimo Ayers MD) Secondary hyperparathyroidism ESRD (end stage renal disease) on dialysis A-V fistula HIV (human immunodeficiency virus infection) Hypertension Kidney disease Surgical History Hx of cardiac catheterization Social History Are you a primary care coordination manager to a significant other at home: No Do you presently have visiting nurse or other home services: Yes ([employer] 3 hours daily) Alcohol intake: never Patient Tobacco Use Status: Former Tobacco user Tobacco use type: Cigarette Substance Use Type: Former Substance User Review of Systems Const All systems reviewed & are unremarkable except as noted in HPI and below Physical Exam Vital Signs: Last Vital Signs Pulse 62 07/18/24 09:48 BP 130/100 H 07/18/24 09:48 Pulse Ox 98 07/18/24 09:48 Oxygen Delivery Method Room Air 07/18/24 09:48 BMI result Body Mass Index 28.2 Const General: comfortable and no acute distress Orientation/consciousness: patient oriented x3 HEENT Head: Yes normocephalic Mouth: Normal oral and palatal mucosa present Eyes EOM: EOMs intact bilaterally Neck Neck: Yes supple Resp Auscultation: clear to auscultation bilaterally Cardio Jugular venous distension: no JVD Rate: regular rate GI Palpation (GI): Soft to palpation Auscultation: normal bowel sounds General: Yes no CVA tenderness Back/Spine/Pelvis Back: no CVA tenderness Skin General skin exam: no rashes or lesions noted Neuro General: patient oriented x3 and moves all extremities Extrem General: Yes no pedal edema Results Reviewed Nephrology Results: Hgb 12.8 g/dl (14.0-18.0) L 07/17/24 WBC 2.4 X10*3/uL (4.8-10.8) L 07/17/24 Plt Count 149 X10*3/uL (160-400) L 07/17/24 Sodium 137 mmol/L (135-145) 07/17/24 Potassium 4.3 mmol/L (3.3-5.1) 07/17/24 Chloride 110 mmol/L (96-108) H 07/17/24 Carbon Dioxide 19 mmol/L (22-29) L 07/17/24 BUN 42 mg/dL (9-16) H 07/17/24 Creatinine 3.83 mg/dL (0.5-1.4) H 07/17/24 Calcium 9.4 mg/dL (8.4-10.2) 07/17/24 Phosphorus 3.7 mg/dL (2.7-4.5) 05/22/24 PTH Intact 497.5 pg/mL (8.7-77.1) H 05/22/24 Assessment & Plan Assessment & Plan (1) Secondary hyperparathyroidism (of renal origin): Code(s): N25.81 - Secondary hyperparathyroidism of renal origin Category: Medical (2) Hypertension: Code(s): I10 - Essential (primary) hypertension Category: Medical Qualifiers: Hypertension type: secondary to other renal disorders Qualified Code(s): I15.1 - Hypertension secondary to other renal disorders (3) BK polyoma viremia: Code(s): B34.8 - Other viral infections of unspecified site Category: Medical (4) Renal transplant recipient: Code(s): Z94.0 - Kidney transplant status Category: Surgical Plan Renal Transplant Induction Agent included Thymo x4 doses ; Had no delayed Draft Function; Did not need dialysis post transplant (Stent Removal date: 07/10/23) CMV: Donor + /Recipient + ; EBV: Donor + /Recipient + HBcAB: Donor - /Recipient + ;HCV: Donor + /OLIVERIO- /Recipient - Polyomavirus Status- BK PCR Quantitative 09/21/23 BK viremia 682 & 07/17/23 BK viruira ; Plan to give therapy (if + BK PCR)by decrease tac lvl & decrease MMF Biopsy or Prospera (Date/Indication/Results): 08/11/23 Biopsy for increasing creat- NEG ACR 09/21/23 Prospera protocol- decreased risk for rejection DSAs (Recent Date/Results): 09/07/23- no DSAs detected Immunosuppression (Drug/Level Recommended/Indication if not monotherapy): Tacro lvl 5-6 & MMF 2-4/thymo induction Prophylaxis Therapy (Drug/Date/Discontinuation Date): Fluconazole- lifelong per HIV protocol, Bactrim d/c date pending CD4 count (see HIV protocol)- need it for one year. He is on Valcyte- needs to discuss with ID. He should be on Entecavir d/c 06/19/24 Genetic Testing (Date & Results): 06/08/23- [id number] Alport Syndrome/ Autosomal Dominant & Autosomal Recessive Graft function Scr worse , jung low was 2.8 DSA - neg 07/17/23 Hold biopsy for now ? Immunosupression Currently taking MMF and prograf FK level monitored and adjusted accordingly MMF dose is currently 180 mg bid given BK ? Infection BK blood PCR positive -being followed CMV neg 08/24/23 ? Heme- Labs stable ? HTN Blood pressure is not at target at home Increased Amlodipine to 7.5 mg daily ? Bone metabolism Started PO Sensipar 30 mg daily Orders: Orders Complete Blood Count Auto Diff 2 Months B34.8 - Other viral infections of unspecified site, I15.1 - Hypertension secondary to other renal disorders, Z94.0 - Kidney transplant status Blood Urea Nitrogen 2 Months B34.8 - Other viral infections of unspecified site, I15.1 - Hypertension secondary to other renal disorders, Z94.0 - Kidney transplant status Electrolytes 2 Months B34.8 - Other viral infections of unspecified site, I15.1 - Hypertension secondary to other renal disorders, Z94.0 - Kidney transplant status Phosphorus 2 Months B34.8 - Other viral infections of unspecified site, I15.1 - Hypertension secondary to other renal disorders, Z94.0 - Kidney transplant status Alanine Aminotransferase 2 Months B34.8 - Other viral infections of unspecified site, I15.1 - Hypertension secondary to other renal disorders, Z94.0 - Kidney transplant status Other Ref Test - Misc 2 Months B34.8 - Other viral infections of unspecified site, I15.1 - Hypertension secondary to other renal disorders, Z94.0 - Kidney transplant status Other Ref Test - Misc 8 Weeks B34.8 - Other viral infections of unspecified site, I15.1 - Hypertension secondary to other renal disorders, Z94.0 - Kidney transplant status Tacrolimus Prograf 2 Months B34.8 - Other viral infections of unspecified site, I15.1 - Hypertension secondary to other renal disorders, Z94.0 - Kidney transplant status Creatinine 2 Months B34.8 - Other viral infections of unspecified site, I15.1 - Hypertension secondary to other renal disorders, Z94.0 - Kidney transplant status Calcium 2 Months B34.8 - Other viral infections of unspecified site, I15.1 - Hypertension secondary to other renal disorders, Z94.0 - Kidney transplant status Magnesium 2 Months B34.8 - Other viral infections of unspecified site, I15.1 - Hypertension secondary to other renal disorders, Z94.0 - Kidney transplant status Aspartate Amino Transferase 2 Months B34.8 - Other viral infections of unspecified site, I15.1 - Hypertension secondary to other renal disorders, Z94.0 - Kidney transplant status Medications: Changed From cinacalcet 30 mg PO .three times a week 3 months 40 tabs 3RF To cinacalcet 30 mg PO DAILY 3 months 90 tabs 3RF From amlodipine 5 mg PO DAILY 90 tabs 4RF To amlodipine 7.5 mg (1.5 x 5 mg) PO DAILY 90 days 135 tabs 4RF Coding Level of Care Code Est Pt Level 4 (77262) Diagnoses Secondary hyperparathyroidism (of renal origin) N25.81 Hypertension secondary to other renal disorders I15.1 Hypertension type: secondary to other renal disorders BK polyoma viremia B34.8 Renal transplant recipient Z94.0
[2024-07-18 09:48] VITALS: BP 130/100; PULSE 62; O2SAT 98; BMI 28.2
== END 2024-07-18 15:53 | disposition home or self-care (01) ==
LOC: HO.HKAS 09:38
PROVIDERS: PCP Internal Medicine Geriatric Medicine; Visit Provider Internal Medicine Nephrology
DX: N25.81 Secondary hyperparathyroidism of renal origin (principal); I15.1 Hypertension secondary to other renal disorders; B34.8 Other viral infections of unspecified site; Z94.0 Kidney transplant status
CPT/HCPCS: 99214

== ENCOUNTER → 2024-07-18 09:38 | Outpatient (BNVA) | payer MEDICAID, SELFPAY | PROVIDERS: PCP Internal Medicine Geriatric Medicine; Visit Provider Internal Medicine Nephrology | DX: N18.6 End stage renal disease (principal); B20 Human immunodeficiency virus [HIV] disease; B34.8 Other viral infections of unspecified site; N25.81 Secondary hyperparathyroidism of renal origin; I15.1 Hypertension secondary to other renal disorders; Z94.0 Kidney transplant status | CPT/HCPCS: 99212 ==

== ENCOUNTER 2024-09-25 08:37 | Outpatient (REF) | payer MEDICAID, SELFPAY ==
--- OUTSIDE RECORDS SUMMARY | 2024-09-25 08:58 | XMS_ITS | Clinical Summary ---
Author Organization [facility], Address [address] [place] [address] Phone Care Team Providers Care Seat Nailer Name Role Phone Zina Onofre NP Primary [...] by mouth 4 Active ergocalciferol 1.25 MG (02852 UT) capsule TAKE 1 CAPSULE BY MOUTH [...] capsule, 0 Refills, Maintenance, 06/22/23 10:24:00 EST, [facility], Partial fill upon patient [...] Health Maintenance Due Date Last Done Comments Hepatitis B Vaccine (1 of 3 - 19+ 3-dose series) 02/03 Pneumococcal Vaccine: Peds ( 0 to 5 Years) and At-Risk Patients (6 to 49 Years) (1 of 2 - PCV) 02/04/1996 Influenza Vaccine (Season Ended) 2025 [place] Care Teams Seat Nailer Relationship Specialty Start Date End Date Zina Onofre NP PCP - General 06/22/20
[2024-09-25 09:30] LABS: Hematocrit 38.4 % (42.0-52.0); Hemoglobin 12.8 g/dl (14.0-18.0); Mean Corpuscular HGB Conc 33.3 g/dl (31.0-36.0); Mean Corpuscular Hemoglobin 28.6 pg (27.0-33.0); Mean Corpuscular Volume 85.7 fL (80.0-98.0); Mean Platelet Volume 12.2 fL (9.4-12.4); Platelet Count 230 X10*3/uL (160-400); Red Blood Count 4.48 X10*6/uL (4.60-5.80); Red Cell Distribution Width 12.7 % (11.0-16.0)
[2024-09-25 09:31] LABS: WBC ABN SCTR FOR CBC 1
[2024-09-25 10:52] LABS: Alanine Aminotransferase 15 U/L (0-40); Anion Gap 18 (12-20); Aspartate Amino Transferase 40 U/L (5-37); Blood Urea Nitrogen 61 mg/dL (9-16); Calcium 7.7 mg/dL (8.4-10.2); Carbon Dioxide 19 mmol/L (22-29); Chloride 106 mmol/L (96-108); Estimated Glomerular Filt Rate 11; Magnesium 1.8 mg/dL (1.6-2.6); Phosphorus 4.9 mg/dL (2.7-4.5); Potassium 4.5 mmol/L (3.3-5.1); Sodium 138 mmol/L (135-145)
[2024-09-25 11:07] LABS: Band Neutrophils Percent 2 % (3-5); Eosinophils Percent Manual 2 % (0-4); Lymphocytes Absolute Manual 0.7 X10*3/uL (1.2-4.9); Lymphocytes Percent Manual 33 % (20-40); Metamyelocytes Percent 1 %; Monocytes Absolute Manual 0.2 X10*3/uL (0.1-1.2); Monocytes Percent Manual 11 % (2-11); Neutrophils Absolute Manual 1.1 X10*3/uL (2.0-8.3); Neutrophils Percent Manual 51 % (45-73)
[2024-09-25 11:09] LABS: Platelet Estimate NORMAL (NORMAL); Platelet Morphology Comment NORMAL; RBC Morphology NORMAL
[2024-09-26 09:53] LABS: Tacrolimus Prograf 9.3 mcg/L
[2024-09-26 13:33] LABS: BK DNA QN RT PCR, UR >100000000 IU/mL (NOT DETECTED); BK DNA QN RT PCR, UR >8.00 Log IU/mL (NOT DETECTED)
[2024-09-28 16:59] LABS: BK Virus DNA QN PCR Serum 116676 copies/mL; BK Virus DNA QN PCR Serum 5.07 Log cps/mL
== END 2024-09-25 08:38 | disposition home or self-care (01) ==
LOC: HO.LAB 08:37
PROVIDERS: PCP Internal Medicine Geriatric Medicine; Visit Provider Internal Medicine Nephrology
DX: B34.8 Other viral infections of unspecified site (principal); Z94.0 Kidney transplant status; I15.1 Hypertension secondary to other renal disorders
CPT/HCPCS: 36415; 80051; 80197; 82310; 82565; 83735; 84100; 84450; 84460; 84520; 85007; 85027; 87799

== ENCOUNTER → 2024-09-26 12:11 | Outpatient (AMB) | payer MEDICAID, SELFPAY ==
--- NOTE | 2024-09-26 12:20 | HO.NEPHOV ---
Vital Signs 09/26/24 12:22 Height 5 ft 8 in Weight 176 lb 8 oz BMI 26.8 BP 110/80 Blood Pressure Location Rt brachial Position Sitting Pulse 72 Pulse Source Pulse Oximeter Pulse Oximetry (%) 100 Oxygen Delivery Method Room Air Intake Visit Reasons: R/s from 09/19/24-Conf Sales Account Manager Required: Yes Sales Account Manager Language: Caul Puller Services: Sales Account Manager Offered & Declined ([facility] refused ) Accompanied by: Self / Same As Patient Allergies Penicillins [PENICILLINS] Allergy (Severe, Verified 09/26/24 12:21) SWELLING/RASH/ITCHING HPI Comments Details: 49-year-old male with 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 Preoperatively patient was planned for fluconazole for the coccidiomycosis and possibility of reemergence, infectious disease consult was placed for postoperative management. He is CMV positive, EBV positive with a PRA of 0. Donor ID is [id number] MAOB, KDPI 60% with hep C antibody positive, donor serology with CMV positive, EBV positive, toxoplasmosis positive. Patient underwent donor kidney transplant 06/19/2023. Postoperative day 1 patient was started on Prograf 2 twice daily. Patient was also started on his Juluca for HIV, fluconazole for coccidiomycosis, Entecavir for hepatitis C, and home Suboxone film. 06/20/2019 for nuclear medicine scan returned with prompt flow to the kidney. Fluconazole and Entecavir was continued.He has had worsening serum creatinine during his scheduled follow-ups and a duplex study showed concern for renal artery stenosis of the transplanted kidney . So he was directly admitted for an angiogram with IR. Angiogram did not find any renal artery stenosis so no intervention was performed. He underwent a transplant ultrasound which showed no evidence of hydronephrosis. Additional viral testing sent out to determine cause of rising creatinine. He was later re admitted for cellulitis of the left upper extremity near the fistula. ID consulted and recommended 48 hours of IV antibiotics followed by ultrasound which did not show any drainable collections. As his skin appeared significantly thinned along this area of cellulitis and over the most proximal aneurysm, it was concerning for predisposing factor for fistula blowout. Went to OR 09/08 for fistula ligation and resection. He has decreased risk for rejection by Prospera. He has been DSA negative. He is seen in follow-up. He is compliant with medications. He maintains good hydration. He feels well but his renal function has gotten worse and is concerned about it. [facility] Medical History (Updated 09/26/24 @ 12:50 by Onesimo Ayers MD) Secondary hyperparathyroidism ESRD (end stage renal disease) on dialysis A-V fistula HIV (human immunodeficiency virus infection) Hypertension Kidney disease Surgical History Hx of cardiac catheterization Social History Are you a primary career services assistant to a significant other at home: No Do you presently have visiting nurse or other home services: Yes ([employer]UNTER 3 hours daily) Alcohol intake: never Patient Tobacco Use Status: Former Tobacco user Tobacco use type: Cigarette Substance Use Type: Former Substance User Review of Systems Const All systems reviewed & are unremarkable except as noted in HPI and below Physical Exam Vital Signs: Last Vital Signs Pulse 72 09/26/24 12:22 BP 110/80 09/26/24 12:22 Pulse Ox 100 09/26/24 12:22 Oxygen Delivery Method Room Air 09/26/24 12:22 BMI result Body Mass Index 26.8 Const General: comfortable and no acute distress Orientation/consciousness: patient oriented x3 HEENT Head: Yes normocephalic Mouth: Normal oral and palatal mucosa present Eyes EOM: EOMs intact bilaterally Neck Neck: Yes supple Resp Auscultation: clear to auscultation bilaterally Cardio Jugular venous distension: no JVD Rate: regular rate GI Palpation (GI): Soft to palpation Auscultation: normal bowel sounds General: Yes no CVA tenderness Back/Spine/Pelvis Back: no CVA tenderness Skin General skin exam: no rashes or lesions noted Neuro General: patient oriented x3 and moves all extremities Extrem General: Yes no pedal edema Results Reviewed Nephrology Results: Hgb 12.8 g/dl (14.0-18.0) L 09/25/24 WBC 2.0 X10*3/uL (4.8-10.8) L 09/25/24 Plt Count 230 X10*3/uL (160-400) 09/25/24 Sodium 138 mmol/L (135-145) 09/25/24 Potassium 4.5 mmol/L (3.3-5.1) 09/25/24 Chloride 106 mmol/L (96-108) 09/25/24 Carbon Dioxide 19 mmol/L (22-29) L 09/25/24 BUN 61 mg/dL (9-16) H 09/25/24 Creatinine 5.38 mg/dL (0.5-1.4) H* 09/25/24 Calcium 7.7 mg/dL (8.4-10.2) L 09/25/24 Phosphorus 4.9 mg/dL (2.7-4.5) H 09/25/24 PTH Intact 497.5 pg/mL (8.7-77.1) H 05/22/24 Assessment & Plan Assessment & Plan (1) Hypertension: Code(s): I10 - Essential (primary) hypertension Category: Medical Qualifiers: Hypertension type: secondary to other renal disorders Qualified Code(s): I15.1 - Hypertension secondary to other renal disorders (2) BK polyoma viremia: Code(s): B34.8 - Other viral infections of unspecified site Category: Medical (3) EZEQUIEL (acute kidney injury): Code(s): N17.9 - Acute kidney failure, unspecified Category: Medical (4) Renal transplant recipient: Code(s): Z94.0 - Kidney transplant status Category: Surgical Plan Renal Transplant Induction Agent included Thymo x4 doses ; Had no delayed Draft Function; Did not need dialysis post transplant (Stent Removal date: 07/10/23) CMV: Donor + /Recipient + ; EBV: Donor + /Recipient + HBcAB: Donor - /Recipient + ;HCV: Donor + /OLIVERIO- /Recipient - Polyomavirus Status- BK PCR Quantitative 09/21/23 BK viremia 682 & 07/17/23 BK viruira ; Plan to give therapy (if + BK PCR)by decrease tac lvl & decrease MMF Biopsy or Prospera (Date/Indication/Results): 08/11/23 Biopsy for increasing creat- NEG ACR 09/21/23 Prospera protocol- decreased risk for rejection DSAs (Recent Date/Results): 09/07/23- no DSAs detected Immunosuppression (Drug/Level Recommended/Indication if not monotherapy): Tacro lvl 5-6 & MMF 2-4/thymo induction Prophylaxis Therapy (Drug/Date/Discontinuation Date): Fluconazole- lifelong per HIV protocol, Bactrim d/c date pending CD4 count (see HIV protocol)- need it for one year. He is on Valcyte- needs to discuss with ID. He should be on Entecavir d/c 06/19/24 Genetic Testing (Date & Results): 06/08/23- [id number] Alport Syndrome/ Autosomal Dominant & Autosomal Recessive Graft function Scr worse , jung low was 2.8 DSA - neg 07/17/23 Needs biopsy now- patient wants to wait ? Immunosupression Currently taking MMF and prograf FK level monitored and adjusted accordingly MMF dose reduced to 180 mg bid given worsening BK ? 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 Heme- Labs stable ? HTN Blood pressure on target at home C/W current current medications ? Bone metabolism C/W PO Sensipar 30 mg daily Orders: Orders Calcium 4 Weeks Z94.0 - Kidney transplant status Blood Urea Nitrogen 4 Weeks Z94.0 - Kidney transplant status Creatinine 4 Weeks Z94.0 - Kidney transplant status Tacrolimus Prograf 4 Weeks Z94.0 - Kidney transplant status Creatinine 2 Weeks B34.8 - Other viral infections of unspecified site, I15.1 - Hypertension secondary to other renal disorders, N17.9 - Acute kidney failure, unspecified Blood Urea Nitrogen 2 Weeks B34.8 - Other viral infections of unspecified site, I15.1 - Hypertension secondary to other renal disorders, N17.9 - Acute kidney failure, unspecified Electrolytes 2 Weeks B34.8 - Other viral infections of unspecified site, I15.1 - Hypertension secondary to other renal disorders, N17.9 - Acute kidney failure, unspecified Tacrolimus Prograf 2 Weeks B34.8 - Other viral infections of unspecified site, I15.1 - Hypertension secondary to other renal disorders, N17.9 - Acute kidney failure, unspecified Electrolytes 4 Weeks Z94.0 - Kidney transplant status Phosphorus 4 Weeks Z94.0 - Kidney transplant status Medications: Changed From mycophenolate sodium 180 mg PO BID To mycophenolate sodium 180 mg PO BID 90 days 180 tabs 3RF Coding Level of Care Code Est Pt Level 4 (00902) Diagnoses Hypertension secondary to other renal disorders I15.1 Hypertension type: secondary to other renal disorders BK polyoma viremia B34.8 EZEQUIEL (acute kidney injury) N17.9 Renal transplant recipient Z94.0
[2024-09-26 12:22] VITALS: BP 110/80; PULSE 72; O2SAT 100; BMI 26.8
--- OUTSIDE RECORDS SUMMARY | 2024-09-26 15:04 | XMS_ITS | Clinical Summary ---
Author Organization [facility], Address [address] [place] [address] Phone Care Team Providers Care Rolled Seat Trimmer Name Role Phone Zina Onofre NP Primary [...] by mouth 4 Active ergocalciferol 1.25 MG (95988 UT) capsule TAKE 1 CAPSULE BY MOUTH [...] capsule, 0 Refills, Maintenance, 06/22/23 10:24:00 EST, [facility], Partial fill upon patient [...] Influenza Vaccine (Season Ended) 2025 Insurance Medicaid [place] Medicaid [place] Care Teams Rolled Seat Trimmer Relationship Specialty Start Date End Date Zina Onofre NP PCP - General 06/22/20
== END ==
LOC: HO.HKAS 12:12
PROVIDERS: PCP Internal Medicine Geriatric Medicine; Visit Provider Internal Medicine Nephrology
DX: I15.1 Hypertension secondary to other renal disorders (principal); B34.8 Other viral infections of unspecified site; N17.9 Acute kidney failure, unspecified; Z94.0 Kidney transplant status
CPT/HCPCS: 99214

== ENCOUNTER → 2024-09-26 12:11 | Outpatient (BNVA) | payer MEDICAID, SELFPAY | PROVIDERS: PCP Internal Medicine Geriatric Medicine; Visit Provider Internal Medicine Nephrology | DX: I15.1 Hypertension secondary to other renal disorders (principal); N17.9 Acute kidney failure, unspecified; B34.8 Other viral infections of unspecified site; Z94.0 Kidney transplant status | CPT/HCPCS: 99212 ==

== ENCOUNTER 2024-12-03 14:27 | Outpatient (AMB) | payer MEDICAID, SELFPAY ==
[2024-12-03 14:33] VITALS: BP 139/80; PULSE 102; O2SAT 98; BMI 26.2
--- NOTE | 2024-12-03 14:33 | HO.NEPHOV ---
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 Preoperatively patient was planned for fluconazole for the coccidiomycosis and possibility of reemergence, infectious disease consult was placed for postoperative management. He is CMV positive, EBV positive with a PRA of 0. Donor ID is [id number] MAOB, KDPI 60% with hep C antibody positive, donor serology with CMV positive, EBV positive, toxoplasmosis positive. Patient underwent donor kidney transplant 06/19/2023. Angiogram did not find any renal artery stenosis so no intervention was performed. Went to OR 09/08 for fistula ligation and resection. He has decreased risk for rejection by Prospera. He has been DSA negative. He recently had proctitis as well as sepsis . He needed ICU admission and was on 2 pressors. He had EZEQUIEL at that time with serum creatinine went up to 9.0 which has improved to 5.0 prior to discharge. HeHe maintains good hydration. His renal function has gotten worse and is concerned about it. [facility] Medical History Secondary hyperparathyroidism ESRD (end stage renal disease) on dialysis A-V fistula HIV (human immunodeficiency virus infection) Hypertension Kidney disease Surgical History Hx of cardiac catheterization Social History Are you a primary director critical care to a significant other at home: No Do you presently have visiting nurse or other home services: Yes (PREVENTIVE MEDICINE PHYSICIAN 3 hours daily) Alcohol intake: never Patient Tobacco Use Status: Former Tobacco user Tobacco use type: Cigarette Substance Use Type: Former Substance User Review of Systems Const All systems reviewed & are unremarkable except as noted in HPI and below Physical Exam Vital Signs: BMI result Body Mass Index 26.2 Const General: comfortable and no acute distress Orientation/consciousness: patient oriented x3 HEENT Head: Yes normocephalic Mouth: Normal oral and palatal mucosa present Eyes EOM: EOMs intact bilaterally Neck Neck: Yes supple Resp Auscultation: clear to auscultation bilaterally Cardio Jugular venous distension: no JVD Rate: regular rate GI Palpation (GI): Soft to palpation Auscultation: normal bowel sounds General: Yes no CVA tenderness Back/Spine/Pelvis Back: no CVA tenderness Skin General skin exam: no rashes or lesions noted Neuro General: patient oriented x3 and moves all extremities Extrem General: Yes no pedal edema Results Reviewed Nephrology Results: Hgb, (14.0-18.0) 12.8 g/dl L 09/25/24 WBC, (4.8-10.8) 2.0 X10*3/uL L 09/25/24 Plt Count, (160-400) 230 X10*3/uL Δ 09/25/24 Sodium, (135-145) 138 mmol/L 09/25/24 Potassium, (3.3-5.1) 4.5 mmol/L 09/25/24 Chloride, (96-108) 106 mmol/L 09/25/24 Carbon Dioxide, (22-29) 19 mmol/L L 09/25/24 BUN, (9-16) 61 mg/dL H 09/25/24 Creatinine, (0.5-1.4) 5.38 mg/dL H* 09/25/24 Calcium, (8.4-10.2) 7.7 mg/dL L Δ 09/25/24 Phosphorus, (2.7-4.5) 4.9 mg/dL H 09/25/24 PTH Intact, (8.7-77.1) 497.5 pg/mL H 05/22/24 Renal US 12/01/23 Assessment & Plan Assessment & Plan (1) EZEQUIEL (acute kidney injury): Code(s): N17.9 - Acute kidney failure, unspecified Category: Medical (2) Hypertension: Code(s): I10 - Essential (primary) hypertension Category: Medical Qualifiers: Hypertension type: secondary to other renal disorders Qualified Code(s): I15.1 - Hypertension secondary to other renal disorders (3) Secondary hyperparathyroidism (of renal origin): Code(s): N25.81 - Secondary hyperparathyroidism of renal origin Category: Medical (4) Renal transplant recipient: Code(s): Z94.0 - Kidney transplant status Category: Surgical (5) BK polyoma viremia: Code(s): B34.8 - Other viral infections of unspecified site Category: Medical Plan Renal Transplant Induction Agent included Thymo x4 doses ; Had no delayed Draft Function; Did not need dialysis post transplant (Stent Removal date: 07/10/23) CMV: Donor + /Recipient + ; EBV: Donor + /Recipient + HBcAB: Donor - /Recipient + ;HCV: Donor + /OLIVERIO- /Recipient - Polyomavirus Status- BK PCR Quantitative 09/21/23 BK viremia 682 & 07/17/23 BK viruira ; Plan to give therapy (if + BK PCR)by decrease tac lvl & decrease MMF Biopsy or Prospera (Date/Indication/Results): 08/11/23 Biopsy for increasing creat- NEG ACR 09/21/23 Prospera protocol- decreased risk for rejection DSAs (Recent Date/Results): 09/07/23- no DSAs detected Immunosuppression (Drug/Level Recommended/Indication if not monotherapy): Tacro lvl 5-6 & MMF 2-4/thymo induction Prophylaxis Therapy (Drug/Date/Discontinuation Date): Fluconazole- lifelong per HIV protocol, Bactrim d/c date pending CD4 count (see HIV protocol)- need it for one year. He is on Valcyte- needs to discuss with ID. He should be on Entecavir d/c 06/19/24 Genetic Testing (Date & Results): 06/08/23- [id number] [place] Syndrome/ Autosomal Dominant & Autosomal Recessive Graft function worse with EZEQUIEL from [facility]. 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 Will consider IVIG/other trts after biopsy Blood pressure on target at home C/W current current medications No indication for renal replacement now Orders: Orders Blood Urea Nitrogen 2 Weeks B34.8 - Other viral infections of unspecified site, I15.1 - Hypertension secondary to other renal disorders, N17.9 - Acute kidney failure, unspecified, N25.81 - Secondary hyperparathyroidism of renal origin, Z94.0 - Kidney transplant status Phosphorus 2 Weeks B34.8 - Other viral infections of unspecified site, I15.1 - Hypertension secondary to other renal disorders, N17.9 - Acute kidney failure, unspecified, N25.81 - Secondary hyperparathyroidism of renal origin, Z94.0 - Kidney transplant status Parathyroid Hormone Intact 2 Weeks B34.8 - Other viral infections of unspecified site, I15.1 - Hypertension secondary to other renal disorders, N17.9 - Acute kidney failure, unspecified, N25.81 - Secondary hyperparathyroidism of renal origin, Z94.0 - Kidney transplant status Tacrolimus Prograf 2 Weeks B34.8 - Other viral infections of unspecified site, I15.1 - Hypertension secondary to other renal disorders, N17.9 - Acute kidney failure, unspecified, N25.81 - Secondary hyperparathyroidism of renal origin, Z94.0 - Kidney transplant status Complete Blood Count Auto Diff 2 Weeks B34.8 - Other viral infections of unspecified site, I15.1 - Hypertension secondary to other renal disorders, N17.9 - Acute kidney failure, unspecified, N25.81 - Secondary hyperparathyroidism of renal origin, Z94.0 - Kidney transplant status Electrolytes 2 Weeks B34.8 - Other viral infections of unspecified site, I15.1 - Hypertension secondary to other renal disorders, N17.9 - Acute kidney failure, unspecified, N25.81 - Secondary hyperparathyroidism of renal origin, Z94.0 - Kidney transplant status Calcium 2 Weeks B34.8 - Other viral infections of unspecified site, I15.1 - Hypertension secondary to other renal disorders, N17.9 - Acute kidney failure, unspecified, N25.81 - Secondary hyperparathyroidism of renal origin, Z94.0 - Kidney transplant status Creatinine 2 Weeks B34.8 - Other viral infections of unspecified site, I15.1 - Hypertension secondary to other renal disorders, N17.9 - Acute kidney failure, unspecified, N25.81 - Secondary hyperparathyroidism of renal origin, Z94.0 - Kidney transplant status Coding Level of Care Code Est Pt Level 4 (57056) Diagnoses EZEQUIEL (acute kidney injury) N17.9 Hypertension secondary to other renal disorders I15.1 Hypertension type: secondary to other renal disorders Secondary hyperparathyroidism (of renal origin) N25.81 Renal transplant recipient Z94.0 BK polyoma viremia B34.8
--- OUTSIDE RECORDS SUMMARY | 2024-12-03 17:40 | XMS_ITS | Clinical Summary ---
Author Organization [facility], Address [address] [place] [address] Phone Care Team Providers Care Carpenter Maintenance Name Role Phone Zina Onofre NP Primary [...] by mouth 4 Active ergocalciferol 1.25 MG (91477 UT) capsule TAKE 1 CAPSULE BY MOUTH [...] capsule, 0 Refills, Maintenance, 06/22/23 10:24:00 EST, [facility], Partial fill upon patient [...] 69 09/22/2023 10:49 AM EDT Temperature 36.7 C (98.1 F) 09/22/2023 10:49 AM EDT Respiratory Rate - - Oxygen Saturation 100% [...] Influenza Vaccine (Season Ended) 2025 [place] Medicaid [place] Care Teams Carpenter Maintenance Relationship Specialty Start Date End Date Zina Onofre NP PCP - General 06/22/20
== END 2024-12-03 15:04 | disposition home or self-care (01) ==
LOC: HO.HKAS 14:28
PROVIDERS: PCP Internal Medicine Geriatric Medicine; Visit Provider Internal Medicine Nephrology
DX: N17.9 Acute kidney failure, unspecified (principal); I15.1 Hypertension secondary to other renal disorders; N25.81 Secondary hyperparathyroidism of renal origin; Z94.0 Kidney transplant status; B34.8 Other viral infections of unspecified site
CPT/HCPCS: 99214

== ENCOUNTER → 2024-12-03 14:27 | Outpatient (BNVA) | payer MEDICAID, SELFPAY | PROVIDERS: PCP Internal Medicine Geriatric Medicine; Visit Provider Internal Medicine Nephrology | DX: Z94.0 Kidney transplant status (principal); N17.9 Acute kidney failure, unspecified; I15.1 Hypertension secondary to other renal disorders; N25.81 Secondary hyperparathyroidism of renal origin; B34.8 Other viral infections of unspecified site | CPT/HCPCS: 99212 ==

== ENCOUNTER 2024-12-06 10:59 | Outpatient (REF) | payer MEDICAID, SELFPAY ==
[2024-12-06 13:08] LABS: Appearance Urine Clear; Color Urine Yellow; Glucose Urine UA Negative (Negative); Leukocyte Esterase Urine Negative (Negative); Nitrite Urine Negative (Negative); UMIC TRIGGER UACC YES; Urine Blood Negative (Negative); Urine Ketones Negative (Negative); Urine Protein 100 (2+) mg/dL (Neg-Trace)
[2024-12-06 13:14] LABS: Bacteria Urine None Seen (None Seen); Hyaline Casts Urine 0-2 /LPF (0-2); RBC Urine 0-2 /HPF (0-2); Squamous Epithelial Cell Urine 0-2 /HPF (0-2); WBC Urine 0-5 /HPF (0-5)
== END 2024-12-06 11:00 | disposition home or self-care (01) ==
LOC: HO.HHCL 10:59
PROVIDERS: PCP Internal Medicine Geriatric Medicine; Visit Provider Internal Medicine Geriatric Medicine
DX: R30.0 Dysuria (principal)
CPT/HCPCS: 81001

== ENCOUNTER 2024-12-19 14:42 | Outpatient (REF) | payer MEDICAID, SELFPAY ==
--- OUTSIDE RECORDS SUMMARY | 2024-12-19 14:45 | XMS_ITS | Clinical Summary ---
Author Organization [facility], Address [address] [place] [address] Phone Care Team Providers Care Rcp Name Role Phone Zina Onofre NP Primary [...] by mouth 4 Active ergocalciferol 1.25 MG (57290 UT) capsule TAKE 1 CAPSULE BY MOUTH [...] capsule, 0 Refills, Maintenance, 06/22/23 10:24:00 EST, [facility], Partial fill upon [...] of 2 - PCV) 02/04/1996 Influenza Vaccine (#1) 2025 Insurance Medicaid [place] Care Teams Rcp Relationship Specialty Start Date End Date Zina Onofre NP PCP - General 06/22/20
[2024-12-19 17:58] LABS: Anion Gap 17 (12-20); Blood Urea Nitrogen 69 mg/dL (9-16); Calcium 9.4 mg/dL (8.4-10.2); Carbon Dioxide 15 mmol/L (22-29); Chloride 111 mmol/L (96-108); Potassium 5.8 mmol/L (3.3-5.1); Sodium 137 mmol/L (135-145)
[2024-12-19 18:03] LABS: Hematocrit 29.3 % (42.0-52.0); Hemoglobin 9.3 g/dl (14.0-18.0); Mean Corpuscular HGB Conc 31.7 g/dl (31.0-36.0); Mean Corpuscular Hemoglobin 29.3 pg (27.0-33.0); Mean Corpuscular Volume 92.4 fL (80.0-98.0); NRBC Abs Auto 0.000 X10*3/uL (0.0-0.012); NRBC Pct Auto 0.0 /100WBC (0.0-0.2); Platelet Count 233 X10*3/uL (160-400); Red Blood Count 3.17 X10*6/uL (4.60-5.80); White Blood Count 3.8 X10*3/uL (4.8-10.8)
[2024-12-19 18:11] LABS: Parathyroid Hormone Intact 639.2 pg/mL (8.7-77.1)
[2024-12-19 19:04] LABS: Estimated Glomerular Filt Rate 8
[2024-12-19 22:19] LABS: Band Neutrophils Percent 1 % (3-5); Basophils Abs Manual 0.1 X10*3/uL (0.0-0.2); Basophils Percent Manual 2 % (0-2); Eosinophils Percent Manual 1 % (0-4); Lymphocytes Absolute Manual 0.4 X10*3/uL (1.2-4.9); Lymphocytes Percent Manual 11 % (20-40); Monocytes Absolute Manual 0.2 X10*3/uL (0.1-1.2); Monocytes Percent Manual 6 % (2-11); Neutrophils Absolute Manual 3.0 X10*3/uL (2.0-8.3); Neutrophils Percent Manual 79 % (45-73); RBC Morphology NOTED; Toxic Vacuolation PRESENT
[2024-12-20 12:28] LABS: Tacrolimus Prograf 1.8 mcg/L
== END 2024-12-19 14:43 | disposition home or self-care (01) ==
LOC: HO.HKASLDS 14:42
PROVIDERS: Visit Provider Internal Medicine Nephrology
DX: I15.1 Hypertension secondary to other renal disorders (principal); N25.81 Secondary hyperparathyroidism of renal origin; Z94.0 Kidney transplant status; N17.9 Acute kidney failure, unspecified; B34.8 Other viral infections of unspecified site
CPT/HCPCS: 36415; 80051; 80197; 82310; 82565; 83970; 84100; 84520; 85007; 85025; 85027

== ENCOUNTER 2024-12-24 09:45 | Outpatient (AMB) | payer MEDICAID, SELFPAY ==
--- NOTE | 2024-12-24 09:50 | HO.NEPHOV_ITS ---
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 Preoperatively patient was planned for fluconazole for the coccidiomycosis and possibility of reemergence, infectious disease consult was placed for postoperative management. He is CMV positive, EBV positive with a PRA of 0. Donor ID is [id number] MAOB, KDPI 60% with hep C antibody positive, donor serology with CMV positive, EBV positive, toxoplasmosis positive. Patient underwent donor kidney transplant 06/19/2023. Angiogram did not find any renal artery stenosis so no intervention was performed. Went to OR 09/08 for fistula ligation and resection. He has decreased risk for rejection by Prospera. He has been DSA negative. He recently had proctitis as well as sepsis . He needed ICU admission and was on 2 pressors. He had EZEQUIEL at that time with serum creatinine went up to 9.0 which has improved to 5.0 prior to discharge. HeHe maintains good hydration. His renal function has gotten worse [facility] Medical History Secondary hyperparathyroidism ESRD (end stage renal disease) on dialysis A-V fistula HIV (human immunodeficiency virus infection) Hypertension Kidney disease Surgical History Hx of cardiac catheterization Social History Are you a primary floor care specialist to a significant other at home: No Do you presently have visiting nurse or other home services: Yes (ADMINISTRATIVE MANAGER 3 hours daily) Alcohol intake: never Patient Tobacco Use Status: Former Tobacco user Tobacco use type: Cigarette Substance Use Type: Former Substance User Review of Systems Const All systems reviewed & are unremarkable except as noted in HPI and below Physical Exam Vital Signs: Last Vital Signs BP 120/60 12/24/24 09:54 BMI result Body Mass Index 24.8 Const General: comfortable and no acute distress Orientation/consciousness: patient oriented x3 HEENT Head: Yes normocephalic Mouth: Normal oral and palatal mucosa present Eyes EOM: EOMs intact bilaterally Neck Neck: Yes supple Resp Auscultation: clear to auscultation bilaterally Cardio Jugular venous distension: no JVD Rate: regular rate GI Palpation (GI): Soft to palpation Auscultation: normal bowel sounds General: Yes no CVA tenderness Back/Spine/Pelvis Back: no CVA tenderness Skin General skin exam: no rashes or lesions noted Neuro General: patient oriented x3 and moves all extremities Extrem General: Yes no pedal edema Results Reviewed Nephrology Results: Hgb, (14.0-18.0) 9.3 g/dl L Δ 12/19/24 WBC, (4.8-10.8) 3.8 X10*3/uL L 12/19/24 Plt Count, (160-400) 233 X10*3/uL 12/19/24 Sodium, (135-145) 137 mmol/L 12/19/24 Potassium, (3.3-5.1) 5.8 mmol/L H Δ 12/19/24 Chloride, (96-108) 111 mmol/L H 12/19/24 Carbon Dioxide, (22-29) 15 mmol/L L 12/19/24 BUN, (9-16) 69 mg/dL H 12/19/24 Creatinine, (0.5-1.4) 7.69 mg/dL H* 12/19/24 Calcium, (8.4-10.2) 9.4 mg/dL Δ 12/19/24 Phosphorus, (2.7-4.5) 5.1 mg/dL H 12/19/24 PTH Intact, (8.7-77.1) 639.2 pg/mL H 12/19/24 Urine Protein, (Neg-Trace) 100 (2+) mg/dL H 12/06/24 Renal US 12/01/23 Assessment & Plan Assessment & Plan (1) CKD (chronic kidney disease) stage 5, GFR less than 15 ml/min: Code(s): N18.5 - Chronic kidney disease, stage 5 Category: Medical (2) Hypertension: Code(s): I10 - Essential (primary) hypertension Category: Medical Qualifiers: Hypertension type: secondary to other renal disorders Qualified Code(s): I15.1 - Hypertension secondary to other renal disorders (3) Secondary hyperparathyroidism (of renal origin): Code(s): N25.81 - Secondary hyperparathyroidism of renal origin Category: Medical (4) Renal transplant recipient: Code(s): Z94.0 - Kidney transplant status Category: Surgical (5) Hyperkalemia: Code(s): E87.5 - Hyperkalemia Category: Medical (6) Metabolic acidosis: Code(s): E87.20 - Acidosis, unspecified Category: Medical Plan Graft function worse Currently taking MMF and prograf 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 08/24/23 Blood pressure on target at home C/W current current medications No indication for renal replacement now Referred for AVF and transplant eval Orders: Orders Complete Blood Count Auto Diff 2 Weeks N18.5 - Chronic kidney disease, stage 5 Electrolytes 2 Weeks N18.5 - Chronic kidney disease, stage 5 Blood Urea Nitrogen 2 Weeks N18.5 - Chronic kidney disease, stage 5 Creatinine 2 Weeks N18.5 - Chronic kidney disease, stage 5 Referrals Transplant Surgery Referral N18.5 - Chronic kidney disease, stage 5 Vascular Surgery Referral N18.5 - Chronic kidney disease, stage 5 Coding Level of Care Code Est Pt Level 4 (76689) Diagnoses CKD (chronic kidney disease) stage 5, GFR less than 15 ml/min N18.5 Hypertension secondary to other renal disorders I15.1 Hypertension type: secondary to other renal disorders Secondary hyperparathyroidism (of renal origin) N25.81 Renal transplant recipient Z94.0 Hyperkalemia E87.5 Metabolic acidosis E87.20
[2024-12-24 09:54] VITALS: BP 120/60; BMI 24.8
--- OUTSIDE RECORDS SUMMARY | 2024-12-24 10:28 | XMS_ITS | Clinical Summary ---
Author Organization [facility], Address [address] [place] [address] Phone Care Team Providers Care Fermentation Engineer Name Role Phone Zina Onofre NP Primary [...] by mouth 4 Active ergocalciferol 1.25 MG (38916 UT) capsule TAKE 1 CAPSULE BY MOUTH [...] capsule, 0 Refills, Maintenance, 06/22/23 10:24:00 EST, [facility], Partial fill upon patient request [...] 02/04/1996 Influenza Vaccine (#1) 2025 Insurance Medicaid [place] Medicaid [place] Care Teams Fermentation Engineer Relationship Specialty Start Date End Date Zina Onofre NP PCP - General 06/22/20
== END 2024-12-24 10:27 | disposition home or self-care (01) ==
LOC: HO.HKAS 09:46
PROVIDERS: PCP Internal Medicine Geriatric Medicine; Visit Provider Internal Medicine Nephrology
DX: N18.5 Chronic kidney disease, stage 5 (principal); I15.1 Hypertension secondary to other renal disorders; N25.81 Secondary hyperparathyroidism of renal origin; Z94.0 Kidney transplant status; E87.5 Hyperkalemia; E87.20 Acidosis, unspecified
CPT/HCPCS: 99214

== ENCOUNTER → 2024-12-24 09:45 | Outpatient (BNVA) | payer MEDICAID, SELFPAY | PROVIDERS: PCP Internal Medicine Geriatric Medicine; Visit Provider Internal Medicine Nephrology | DX: N18.5 Chronic kidney disease, stage 5 (principal); I15.1 Hypertension secondary to other renal disorders; N25.81 Secondary hyperparathyroidism of renal origin; Z94.0 Kidney transplant status; E78.5 Hyperlipidemia, unspecified; E87.20 Acidosis, unspecified | CPT/HCPCS: 99212 ==

== ENCOUNTER 2025-01-07 08:25 | Outpatient (REF) | payer MEDICAID, SELFPAY ==
--- OUTSIDE RECORDS SUMMARY | 2025-01-07 08:39 | XMS_ITS | Clinical Summary ---
Author Organization [facility], Address [address] [place] [address] Phone Care Team Providers Care Electrifier Operator Name Role Phone Zina Onofre NP Primary [...] by mouth 4 Active ergocalciferol 1.25 MG (37503 UT) capsule TAKE 1 CAPSULE BY MOUTH [...] capsule, 0 Refills, Maintenance, 06/22/23 10:24:00 EST, [facility], Partial fill upon patient request [...] 02/04/1996 Influenza Vaccine (#1) 2025 Insurance Medicaid [place] Care Teams Electrifier Operator Relationship Specialty Start Date End Date Zina Onofre NP PCP - General 06/22/20
[2025-01-07 08:48] LABS: Hematocrit 28.1 % (42.0-52.0); Hemoglobin 9.3 g/dl (14.0-18.0); Mean Corpuscular HGB Conc 33.1 g/dl (31.0-36.0); Mean Corpuscular Hemoglobin 29.8 pg (27.0-33.0); Mean Corpuscular Volume 90.1 fL (80.0-98.0); NRBC Abs Auto 0.000 X10*3/uL (0.0-0.012); NRBC Pct Auto 0.0 /100WBC (0.0-0.2); Platelet Count 152 X10*3/uL (160-400); Red Blood Count 3.12 X10*6/uL (4.60-5.80)
[2025-01-07 08:50] LABS: WBC ABN SCTR FOR CBC 1
[2025-01-07 09:45] LABS: Anion Gap 15 (12-20); Blood Urea Nitrogen 64 mg/dL (9-16); Calcium 7.3 mg/dL (8.4-10.2); Carbon Dioxide 16 mmol/L (22-29); Chloride 109 mmol/L (96-108); Estimated Glomerular Filt Rate 8; Potassium 4.3 mmol/L (3.3-5.1); Sodium 136 mmol/L (135-145)
[2025-01-07 10:17] LABS: Atypical Lymphs Percent Manual 2 % (0-6); Band Neutrophils Percent 6 % (3-5); Basophils Percent Manual 3 % (0-2); Eosinophils Percent Manual 2 % (0-4); Lymphocytes Percent Manual 38 % (20-40); Metamyelocytes Percent 4 %; Monocytes Percent Manual 3 % (2-11); Neutrophils Percent Manual 42 % (45-73)
[2025-01-07 10:20] LABS: Burr Cells 1+ (0-2) /OIF; Large Platelet PRESENT; Microcytosis 1+ (5-14) /OIF; Ovalocytes 1+ (5-14) /OIF; RBC Morphology NORMAL
[2025-01-07 11:09] LABS: Lymphocytes Absolute Manual 0.5 X10*3/uL (1.2-4.9); Metamyelocytes Absolute 0.1 X10*3/uL; Neutrophils Absolute Manual 0.6 X10*3/uL (2.0-8.3); White Blood Count 1.3 X10*3/uL (4.8-10.8)
[2025-01-08 10:34] LABS: Tacrolimus Prograf 1.2 mcg/L
== END 2025-01-07 08:26 | disposition home or self-care (01) ==
LOC: HO.LAB 08:25
PROVIDERS: Visit Provider Internal Medicine Nephrology
DX: I13.11 Hypertensive heart and chronic kidney disease without heart failure, with stage 5 chronic kidney disease, or end stage renal disease (principal); N18.5 Chronic kidney disease, stage 5; I15.1 Hypertension secondary to other renal disorders; N17.9 Acute kidney failure, unspecified; B34.8 Other viral infections of unspecified site; E87.20 Acidosis, unspecified; B20 Human immunodeficiency virus [HIV] disease; Z79.621 Long term (current) use of calcineurin inhibitor; Z94.0 Kidney transplant status; N25.81 Secondary hyperparathyroidism of renal origin; Z79.624 Long term (current) use of inhibitors of nucleotide synthesis
CPT/HCPCS: 36415; 80051; 80197; 82310; 82565; 84100; 84520; 85007; 85027; 99212

== ENCOUNTER 2025-01-07 14:40 | Outpatient (AMB) | payer MEDICAID, SELFPAY ==
--- NOTE | 2025-01-07 15:03 | HO.NEPHOV ---
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 Preoperatively patient was planned for fluconazole for the coccidiomycosis and possibility of reemergence, infectious disease consult was placed for postoperative management. He is CMV positive, EBV positive with a PRA of 0. Donor ID is [id number] MAOB, KDPI 60% with hep C antibody positive, donor serology with CMV positive, EBV positive, toxoplasmosis positive. Patient underwent donor kidney transplant 06/19/2023. Angiogram did not find any renal artery stenosis so no intervention was performed. Went to OR 09/08 for fistula ligation and resection. He has decreased risk for rejection by Prospera. He has been DSA negative. He recently had proctitis as well as sepsis . He needed ICU admission and was on 2 pressors. He had EZEQUIEL at that time with serum creatinine went up to 9.0 which has improved to 5.0 prior to discharge. HeHe maintains good hydration. His renal function has gotten worse but stable [facility] Medical History Secondary hyperparathyroidism ESRD (end stage renal disease) on dialysis A-V fistula HIV (human immunodeficiency virus infection) Hypertension Kidney disease Surgical History Hx of cardiac catheterization Social History Are you a primary health care attorney to a significant other at home: No Do you presently have visiting nurse or other home services: Yes (OILER BANDER 3 hours daily) Alcohol intake: never Patient Tobacco Use Status: Former Tobacco user Tobacco use type: Cigarette Substance Use Type: Former Substance User Review of Systems Const All systems reviewed & are unremarkable except as noted in HPI and below Physical Exam Vital Signs: Last Vital Signs Pulse 81 01/07/25 15:04 BP 130/88 01/07/25 15:04 Pulse Ox 98 01/07/25 15:04 Oxygen Delivery Method Room Air 01/07/25 15:04 BMI result Body Mass Index 24.8 Const General: comfortable and no acute distress Orientation/consciousness: patient oriented x3 HEENT Head: Yes normocephalic Mouth: Normal oral and palatal mucosa present Eyes EOM: EOMs intact bilaterally Neck Neck: Yes supple Resp Auscultation: clear to auscultation bilaterally Cardio Jugular venous distension: no JVD Rate: regular rate GI Palpation (GI): Soft to palpation Auscultation: normal bowel sounds General: Yes no CVA tenderness Back/Spine/Pelvis Back: no CVA tenderness Skin General skin exam: no rashes or lesions noted Neuro General: patient oriented x3 and moves all extremities Extrem General: Yes no pedal edema Results Reviewed Nephrology Results: Hgb, (14.0-18.0) 9.3 g/dl L Today WBC, (4.8-10.8) 1.3 X10*3/uL L Today Plt Count, (160-400) 152 X10*3/uL L Δ Today Sodium, (135-145) 136 mmol/L Today Potassium, (3.3-5.1) 4.3 mmol/L Δ Today Chloride, (96-108) 109 mmol/L H Today Carbon Dioxide, (22-29) 16 mmol/L L Today BUN, (9-16) 64 mg/dL H Today Creatinine, (0.5-1.4) 7.65 mg/dL H* Today Calcium, (8.4-10.2) 7.3 mg/dL L Δ Today Phosphorus, (2.7-4.5) 6.0 mg/dL H Today PTH Intact, (8.7-77.1) 639.2 pg/mL H 12/19/24 Urine Protein, (Neg-Trace) 100 (2+) mg/dL H 12/06/24 Renal US 12/01/23 Assessment & Plan Assessment & Plan (1) Hypertension: Code(s): I10 - Essential (primary) hypertension Category: Medical Qualifiers: Hypertension type: secondary to other renal disorders Qualified Code(s): I15.1 - Hypertension secondary to other renal disorders (2) Secondary hyperparathyroidism (of renal origin): Code(s): N25.81 - Secondary hyperparathyroidism of renal origin Category: Medical (3) CKD (chronic kidney disease) stage 5, GFR less than 15 ml/min: Code(s): N18.5 - Chronic kidney disease, stage 5 Category: Medical (4) Metabolic acidosis: Code(s): E87.20 - Acidosis, unspecified Category: Medical Plan Graft function worse but stable Currently taking MMF and prograf Reduced MMF to 180 mg bid 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 08/24/23 Blood pressure on target at home Increased NaHCO3 PO to 1300 mg bid Started Ca acetate 667 mg PO bid C/W rest of current current medications No indication for renal replacement now Referred for AVF and transplant eval Orders: Orders Calcium 1 Month E87.20 - Acidosis, unspecified, I15.1 - Hypertension secondary to other renal disorders, N18.5 - Chronic kidney disease, stage 5, N25.81 - Secondary hyperparathyroidism of renal origin Blood Urea Nitrogen 1 Month E87.20 - Acidosis, unspecified, I15.1 - Hypertension secondary to other renal disorders, N18.5 - Chronic kidney disease, stage 5, N25.81 - Secondary hyperparathyroidism of renal origin Phosphorus 1 Month E87.20 - Acidosis, unspecified, I15.1 - Hypertension secondary to other renal disorders, N18.5 - Chronic kidney disease, stage 5, N25.81 - Secondary hyperparathyroidism of renal origin Complete Blood Count Auto Diff 1 Month E87.20 - Acidosis, unspecified, I15.1 - Hypertension secondary to other renal disorders, N18.5 - Chronic kidney disease, stage 5, N25.81 - Secondary hyperparathyroidism of renal origin Electrolytes 1 Month E87.20 - Acidosis, unspecified, I15.1 - Hypertension secondary to other renal disorders, N18.5 - Chronic kidney disease, stage 5, N25.81 - Secondary hyperparathyroidism of renal origin Creatinine 1 Month E87.20 - Acidosis, unspecified, I15.1 - Hypertension secondary to other renal disorders, N18.5 - Chronic kidney disease, stage 5, N25.81 - Secondary hyperparathyroidism of renal origin Medications: New calcium acetate 667 mg PO BID 180 tabs 3RF 90 days Coding Level of Care Code Est Pt Level 4 (18354) Diagnoses Hypertension secondary to other renal disorders I15.1 Hypertension type: secondary to other renal disorders Secondary hyperparathyroidism (of renal origin) N25.81 CKD (chronic kidney disease) stage 5, GFR less than 15 ml/min N18.5 Metabolic acidosis E87.20
[2025-01-07 15:04] VITALS: BP 130/88; PULSE 81; O2SAT 98; BMI 24.8
== END 2025-01-07 15:22 | disposition home or self-care (01) ==
LOC: HO.HKAS 14:41
PROVIDERS: PCP Internal Medicine Geriatric Medicine; Visit Provider Internal Medicine Nephrology
DX: I15.1 Hypertension secondary to other renal disorders (principal); N25.81 Secondary hyperparathyroidism of renal origin; N18.5 Chronic kidney disease, stage 5; E87.20 Acidosis, unspecified
CPT/HCPCS: 99214

== ENCOUNTER 2025-02-20 08:39 | Outpatient (REF) | payer MEDICAID, SELFPAY ==
--- OUTSIDE RECORDS SUMMARY | 2025-02-14 23:58 | XMS_ITS | Encounter Summary ---
Author Organization [facility] Address [address] [place] [address] Care Team Providers Care Collar Turner Operator Name Role Phone Name, Horacio ARORA Primary Care Provider [phone] Reason for Referral * Home Health (Routine) - Closed Specialty Diagnoses / Procedures Referred By Rae treadwell Referred To Contact Home Health Services Diagnoses CKD (chronic kidney disease) stage 5, GFR less than 15 ml/min (CMS/HCC V24, CMS/HCC V28) Severe neutropenia (CMS/HCC V24) Emanuel Moran MD [address] [place] [phone] Phone: tel: fax: [facility] [address] [facility] [address] [place] [address] Phone: tel: fax: Referral ID Status Reason Start Date Expiration Date V isits Requested Visits Authorized [id number] Closed Consult and Treat 02/18/2025 02/18/2026 1 1 Reason for Visit * Reason Comments Cellulitis Pt comes in with L t oe infection that occurred 3 days ago after cutting nails . Non diabetic. * Auth/Cert (Routine) Specialty Diagnoses / Procedures Referred By Rae treadwell Referred To Contact Diagnoses Hypomagnesemia Cellulitis Neutropenic fever ([facility]/HCC V24) Cellulitis of great toe of left foot Anemia, unspecified type Leukopenia, unspecified type Chronic kidney disease, unspecified CKD stage Sepsis without acute organ dysfunction, due to unspecified organism (CMS/HCC V24, CMS/[facility] V28) Procedures . Beka Boyd MD [address] [place] [id number] Phone: tel: fax: [facility] [address] [place] [phone] Phone: tel: Referral ID Status Reason Start Date Expiration Date Visits Re quested Visits Authorized [id number] 1 1 Encounter Details Date Type Department Care Team (Latest Contact Info) Description 02/14/2025 11:58 PM EDT - 02/18/2025 6:16 PM EDT Hospital Encounter [facility] [address] [place] [phone] Saad Pimentel MD [address] [place] [address] [phone] Belia Morel MD [address] [place] [address] [phone] Beka Boyd MD [address] [place] [phone] Jung Dinero MD [address] [facility] [address] [place] [address] Naveen Zhu MD [address] [place] [address] [phone] Nakul Woodward MD [address] [place] [phone] Emanuel Moran MD [address] [place] [phone] Leukopenia, unspecified type (Primary Dx); Anemia, unspecified type; Chronic kidney disease, unspecified CKD stage; Cellulitis of great toe of left foot; Hypomagnesemia; Sepsis without acute organ dysfunction, due to unspecified organism ([facility] [place]24, [facility] V28); Neutropenic fever ([facility] V24); Cellulitis of lower extremity, unspecified laterality; CKD (chronic kidney disease) stage 5, GFR less than 15 ml/min ([facility] V24, [facility] V28); Severe neutropenia ([facility] V24); EZEQUIEL (acute kidney injury) ([facility] V24) Discharge Disposition: Home-Health Care c Social History Tobacco Use Types Packs/Day Years Used Date Smoking Tobacco: Former Cigarettes Smokeless Tobacco: Never Food Risk Answer Date Recorded Within the past 12 months we worried whether our food would run out before we got money to buy more. Never true 02/17/2025 Within the past 12 months th e food we bought just didn't last and we didn't have money to get more. Never true 02/17/2025 Interpersonal Safety Answer Date Record ed Physical Abuse 02/15/2025 Verbal Abuse 02/15/2025 Sex and Gender Information Value Date Recorded Sex Assigned at Male 12/31/2024 2:47 PM EDT Legal Sex Male 3:56 PM EDT Gender Identity Not on file Sexual Orientation Not on file documented as of this encounter Last Filed Vital Signs Vital Sign Reading Time Taken Comments Blood Pressure 131/89 02/18/2025 2:27 PM EDT Pulse 70 02/18/2025 2:27 PM EDT Temperature 36.6 C (97.9 F) 02/18/2025 2:27 PM EDT Respiratory Rate 15 02/18/2025 2:27 PM EDT Oxygen Saturation 100% 02/18/2025 2:27 PM EDT Inhaled Oxygen Concentration - - Weight 71.9 kg (158 lb 9.6 oz) 02/15/2025 6:29 A M EDT Height 172.7 cm (5' 8 ) 02/14/2025 9:04 PM EDT Body Mass Index 24.12 02/14/2025 9:04 PM EDT documented in this encounter Discharge Summaries * Emanuel Moran MD - 02/18/2025 6:16 PM EDT Images from the original note were not included. ASHLEY DISCHARGE SUMMARY Patient Information Doroteo Rock : 1975 [50 y.o.] Admitting Provider Beka Boyd MD Discharge Provider Shon Lakhani MD, No att. providers found Primary Care Physician Horacio Cerna MD Admission Date 02/14/2025 Discharge Date 02/18/2025 Summary of Hospital Problems Primary Discharge Diagnosis: Great toe cellulitis Pancytopenia Metabolic acidosis Secondary Discharge Diagnosis: HIV infection HTN HIV infection ESRD , failed renal transplant Discharge Destination: Home, health services. Code Status at Discharge: Full code. Hospital Course Summary As taken from the history and physical: Mr. Suleman Rock is a 50-year-old Bahamian speaking male with medical history significant for hypertension, HIV, secondary hyperparathyroidism, PVD, ESRD s/p kidney transplantation June 2023 subsequently failure. He presented to the emergency department with chief complaints of left hallux swelling and redness after clipping his nails. In the ED, vital signs was remarkable for temp 38.2 and mildly elevated BP 148/89. Lab work revealed sodium 131, CO2 14, random glucose 116, creatinine 8.92, GFR 7, phosphorus 5.2, alkaline phosphatase 122, magnesium 1, white cell count 1.2, hemoglobin 9.2, hematocrit 28.5, absolute neutrophil count 0.35. X- ray left foot does not show any foreign bodies or any gas. Official radiology read is pending. ED gave vancomycin IV and cefepime. Patient transferred to [place]. ED initially plan to transfer patient to [facility] but patient decided to get admitted here at [facility]. The patient was accompanied by his brother, Brooke, who assisted with interpretation. Patient is primarily Bahamian-speaking but able to express himself in [place]ib[place]ian. Patient has had left great toe swelling and erythema for the past 3 days. Symptoms started after he clip his toenails. Per brother, patient occasionally gets growth in the paronychial folds of the left great toe which patient attempts totreat himself. The patient has removed the medial half of the left great toenail. He has since has a wound with some purulent drainage post removal. He tried to treat this himself with topical antibiotics but has not improved. Reports chills but denies any subjective fevers. Per patient and his brother that is a chronic problem that patient has tried to treat all by himself. He is not followed bypodiatrist. Regarding patient's renal transplant status, he states that he underwent a renal transplant at [facility] in June 2023. He has had transplant failure and plan is to resume hemodialysis. He is currently on tacrolimus and mycophenolate. He is followed by circular knitter helper at [facility]. He had his left dialysis catheter removed. It appears patient was seen by Dr. Rodriguez for creation of right arm fistula and possible insertion left arm loop AV graft. Functional status prior to presentation: independent The patient was then admitted to medicine for further evaluation and treatment. 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 Patient came in with left foot pain,/left hallux swelling discharge after hetried to clip the toenail himself. Patient was taken to the OR and I&D was done on 11/15/2024 by podiatry Patient also has been seen by nephrology he is usually followed by Dr. Terrell outpatient, he was seen by Dr. Manning. Left foot cellulitis left big toe cellulitis Patient is immunocompromised but there is no evidence of sepsis, seen by podiatry, underwent bilaterl great toe I and D, improved edema and pain, left toenail remove, much improved, he is doing his own dressing. Got IV Vancomycin on admission and followed by Cefepime. He continues to improve, no cultures obtained. Patient discussed with ID, can discontinue Cefepime, given a dose of Dalvabancin, this will complete his antibiotic treatment . He will follow with podiatry as outpatient. End-stage renal disease status post renal transplant not on dialysis He has a left arm AV fistula which is not working, he is followed by Dr. Armen conti Plan is for outpatient dialysis to be started in the near future, transplanted kidney has failed. Nephrology was consulted here he was seen by Dr. Manning Patient was treated with IV bicarb for metabolic acidosis, metabolic acidosis has improved, currently has been transitioned to p.o. bicarb. Stopped CellCept and continue with tacrolimus levels are currently pending Nephrology also recommended hematology consultation as patient would benefit from Neupogen. 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 Secondary hyperparathyroid, renal will follow as outpatient. Patient had good urinary output and appears euvolemic. Severe neutropenia. Discussed with hematology, patient has pancytopenia, most likely secondary to medications and ongoing infection. ANC trending down, started Granix and got third dose this morning,continue to monitor, CellCept stopped on admission as this seems to be playing a role. Serologies for EBV, CMV and Parvovirus ordered, EBV IgG positive, IgM negative, Parvo and CMV pending. ANC stilltrending down, patient overall improving medically, I spoke to Dr. Lovett, patient stable for discharge his office will arrange FU for him, will repeat counts in 2 days at the cancer center. Patientgiven a handout for neutropenia precautions. Metabolic acidosis secondary to advanced kidney disease, got IV bicarbonate drip, started p.o. bicarbonate . HTN. On amlodipine, carvedilol HIV. On Juluca and Entecavir, has not received it since admission, discussed with pharmacy, can resume Juluca components without modifications, resume Entecavir every 72 hours based on current renal function. Opiate dependence. On Suboxone, no evidence of opioid withdrawal. Hypomagnesemia. Got IV replacement with improving,trending down, will give po replacement on discharge, will repeat labs in 2 days. Providers consulted: Mayito Chavarria MD, Nephrology Lonnie Lovett MD, Hematology Lance Elena DPM, Sales Clerk Food Ilda Breen MD, ID Procedures done: XR Foot 3+ Views Left Final Result No specific radiographic evidence of osteomyelitis. More sensitive assessment could be performed with MRI. -------- FINAL REPORT -------- Dictated By: Yassine Aggarwal Dictated Date: 02/15/2025 09:01 ET Assigned Physician: Yassine Aggarwal Reviewed and Electronically Signed By: Yassine Aggarwal Signed Date: 02/15/2025 09:04 ET Workstation ID: [id number] Transcribed By: Self Edit Transcribed Date: 02/15/2025 09:01 ET Condition upon discharge Patient alert, resting comfortable. Pain controlled, erythema and edema of toes improving, he changed dressing, does not allow nursing or me to remove dressing. NO chest pain, SOB, palpitations, f/c/c voiding freely. Visit Vitals BP 131/89 (BP Location: Left arm) Pulse 70 Temp 36.6 ??C (97.9 ??F) (Temporal) Resp 15 Temp (24hrs), Av.6 ??C (97.9 ??F), Min:36.6 ??C (97.9 ??F), Max:36.7 ??C (98 ??F) Gen: Well-developed male, NAD CV -RRR no MGR Lungs -CTAB Abd - Soft, non-tender, non-distended Extremities - No LE edema, bilateral Band-Aids intact great toes, no significant edema, no crepitus, no streaking. LUE failed fistula Neuro - AO x3 . Body mass index is 24.12 kg/m??. No results found for: PTWT , PTHT 45 Minutes were spent in patient care including uydx-md-qtre time, chart review, discussion with providers, documentation, security orderly.Moderate complexity medical decision making. Follow-Up Instructions and Recommendations [facility] [address] [address] [facility] [address] [address] Primary care provider (PCP) Horacio Cerna MD 230 [facility] [address] Onesimo Ayers MD 575 [facility] [phone] Call office to arrange followup Lonnie Lovett MD [address] [facility] [phone] Call the office to arrange followup of bone marrow supression. Lance Elena DPM [address] [address] Call office to arrange postoperative followup Discharge Procedure Orders Basic metabolic panel Standing Status: Future Standing Exp. Date: 02/18/26 Order Specific Question Answer Comments Release to patient Immediate [1] CBC and differential Standing Status: Future Standing Exp. Date: 02/18/26 Order Specific Question Answer Comments Release to patient Immediate [1] Magnesium Standing Status: Future Standing Exp. Date: 02/18/26 Order Specific Question Answer Comments Release to patient Immediate [1] Ambulatory referral to Home Health Standing Status: Future Referral Priority: Routine Referral Type: Home Health Referral Reason: Consult and Treat Referral Location: [facility] Requested Specialty: Home Health Services Number of Visits Requested: 1 Discharge Diet: Return to previous diet Order Specific Question Answer Comments General Instructions for your diet at home Return to previous diet Restrict your activities and rest today, may resume normal activity tomorrow Wound/Incision Care for patient instructions Order Comments: Daily dressing change on the toes as directed. Primary care provider (PCP) Order Specific Question Answer Comments Follow-Up Within: 7 Follow-Up in: Days Provider: Order Specific Question Answer Comments Instructions for follow-up: Call office to arrange followup Provider: Order Specific Question Answer Comments Instructions for follow-up: Call the office to arrange followup of bone marrow supression. Provider: Order Specific Question Answer Comments Instructions for follow-up: Call office to arrange postoperative followup There are no outpatient Patient Instructions on file for this admission. Discharge Medications Your medication list START taking these medications Instructions Last Dose Given Next Dose Due magnesium oxide 400 mg (241.3 elemental magnesium) tablet Commonly known as: MAG-OX Start taking on: February 19, 2025 Take 1 tablet (400 mg total) by mouth 1 (one) time each day for 7 doses. senna 8.6 mg tablet Commonly known as: SENOKOT Take 2 tablets (17.2 mg total) by mouth at bedtime as needed for constipation. Hold for diarrhea sodium bicarbonate 650 mg tablet [place] catarina tableta (650 mg en total) por v??a oral 3 (sarai) veces al d??a. (Take 1 tablet (650 mg total) by mouth 3 (three) times a day.) CHANGE how you take these medications Instructions Last Dose Given Next Dose Due entecavir 0.5 mg tablet Commonly known as: BARACLUDE What changed: when to take this Take 1 tablet (0.5 mg total) by mouth every 3rd (third) day. CONTINUE taking these medications Instructions Last Dose Given Next Dose Due acetaminophen 500 mg tablet Commonly known as: TYLENOL TAKE 1 TABLET BY MOUTH EVERY 8 HOURS NEEDED FOR PAIN MODERATE amLODIPine 5 mg tablet Commonly known as: NORVASC Take 1 tablet (5 mg total) by mouth. atovaquone 750 mg/5 mL suspension Commonly known as: MEPRON Take 10 mL (1,500 mg total) by mouth. carvediloL 6.25 mg tablet Commonly known as: COREG Take 1 tablet (6.25 mg total) by mouth. cinacalcet 30 mg tablet Commonly known as: SENSIPAR folic acid 1 mg tablet Commonly known as: FOLVITE Take 1 tablet (1 mg total) by mouth. furosemide 40 mg tablet Commonly known as: LASIX Juluca 50-25 mg tablet Generic drug: dolutegravir-rilpivirine Take 1 tablet (25 mg total) by mouth. Suboxone 8-2 mg per SL film Generic drug: buprenorphine-naloxone DISSOLVE 2 FILMS UNDER THE TONGUE EVERY DAY tacrolimus 0.5 mg capsule Commonly known as: PROGRAF Take 2 capsules (1 mg total) by mouth 1 (one) time each day in the evening. tacrolimus 0.5 mg capsule Commonly known as: PROGRAF Take 1 capsule (0.5 mg total) by mouth 1 (one) time each day. STOP taking these medications mycophenolate 180 mg EC tablet Commonly known as: MYFORTIC Where to Get Your Medications These medications were sent to [facility] [place] [address] magnesium oxide 400 mg (241.3 elemental magnesium) tablet senna 8.6 mg tablet sodium bicarbonate 650 mg tablet Information about where to get these medications is not yet available Ask your nurse or doctor about these medications entecavir 0.5 mg tablet documented in this encounter Discharge Instructions * Discharge Instructions* Emanuel Moran MD - 02/18/2025 5:27 PM EDT Follow with PCP within a week form discharge. Call the podiatry office to arrange postoperative followup. Call the office of Dr. Rafael Ayers to arrange follow up of transplant failure, discontinue use of Mycophenolate Mofetil due to suspected bone marrow supression. Call the office of Dr. Sherman Lovett from hematology to monitor your blood counts, Note the changes made on your medications. Read carefully handout provided. * Attachments The following attachments cannot be sent through Care Everywhere. * Neutropenia (Bahamian) * Cellulitis (Bahamian) * Renal Disease: End Stage (Bahamian) documented in this encounter Medications at Time of Discharge acetaminophen (TYLENOL) 500 mg tablet TAKE 1 TABLET BY MOUTH EVERY 8 HOURS NEEDED FOR PAIN MODERATE 12/06/2024 amLODIPine (NORVASC) 5 mg tablet Take 1 tablet (5 mg total) by mouth. 12/20/2024 atovaquone (MEPRON) 750 mg/5 mL suspension Take 10 mL (1,500 mg total) by mouth. 11/28/2024 carvediloL (COREG) 6.25 mg tablet Take 1 tablet (6.25 mg total) by mouth. 09/11/2023 cinacalcet (SENSIPAR) 30 mg tablet 10/30/2024 entecavir (BARACLUDE) 0.5 mg tablet Take 1 tablet (0.5 mg total) by mouth every 3rd (third) day. 02/18/2025 folic acid (FOLVITE) 1 mg tablet Take 1 tablet (1 mg total) by mouth. 11/28/2024 furosemide (LASIX) 40 mg tablet 11/29/2024 Juluca 50-25 mg tablet Take 1 tablet (25 mg total) by mouth. 12/02/2024 magnesium oxide (MAG-OX) 400 mg (241.3 elemental magnesium) tablet Take 1 tablet (400 mg total) by mouth 1 (one) time each day for 7 doses. 7 each 02/19/2025 5 senna (SENOKOT) 8.6 mg tablet Take 2 tablets (17.2 mg total) by mouth at bedtime as needed for constipation. Hold for diarrhea 60 tablet 02/18/2025 sodium bicarbonate 650 mg tablet Take 1 tablet (650 mg total) by mouth 3 (three) times a day. 90 each 02/18/2025 5 Suboxone 8-2 mg per SL film DISSOLVE 2 FILMS UNDER THE TONGUE EVERY DAY tacrolimus (PROGRAF) 0.5 mg capsule Take 2 capsules (1 mg total) by mouth 1 (one) time each day in the evening. 11/28/2024 tacrolimus (PROGRAF) 0.5 mg capsule Take 1 capsule (0.5 mg total) by mouth 1 (one) time each day. 12/26/2024 documented as of this encounter Ordered Prescriptions Prescription Sig Dispense Quantity Refills Last Filled Start Date End Date sodium bicarbonate 650 mg tablet Take 1 tablet (650 mg total) by mouth 3 (three) times a day. 90 each 02/18/2025 5 senna (SENOKOT) 8.6 mg tablet Take 2 tablets (17.2 mg total) by mouth at bedtime as needed for constipation. Hold for diarrhea 60 tablet 02/18/2025 magnesium oxide (MAG-OX) 400 mg (241.3 elemental magnesium) tablet Take 1 tablet (400 mg total) by mouth 1 (one) time each day for 7 doses. 7 each 02/19/2025 5 entecavir (BARACLUDE) 0.5 mg tablet Take 1 tablet (0.5 mg total) by mouth every 3rd (third) day. 02/18/2025 documented in this encounter Discharge Disposition Disposition Code Departure Means Destination Home-Health Care [facility] documented in this encounter Progress Notes * Leelee Sheppard RN - 02/18/2025 6:04 PM EDT ..Discharge packet dicussed at bedside. All medications, follow up appointments and post dc instructions reviewed and understood with patient. All questions answered and necessary teaching done. * Vahid Contreras MD - 02/18/2025 11:21 AM EDT Progress Note CHIEF COMPLAINT F/u re: CKD 5 failing DDKTx pateint SUBJECTIVE Patient seen and examined, events noted White count continues to be on the low side MEDICAL HISTORY Past Medical History: Diagnosis Date Chronic kidney disease ESRD (end stage renal disease) ([facility] V24, [facility] V28) HIV (human immunodeficiency virus infection) ([facility] V24, [facility] V28) Hypertension Secondary hyperparathyroidism ([facility] V24) MEDICATIONS acetaminophen, 1,000 mg, oral, q8h amLODIPine, 5 mg, oral, Daily buprenorphine-naloxone, 1 tablet, sublingual, BID carvediloL, 6.25 mg, oral, BID with meals cefepime, 1 g, intravenous, q24h dolutegravir, 50 mg, oral, Daily with dinner entecavir, 0.5 mg, oral, q72h folic acid, 1 mg, oral, Daily heparin (porcine), 5,000 Units, subcutaneous, q12h ESTEFANI rilpivirine, 25 mg, oral, Daily with dinner sodium bicarbonate, 650 mg, oral, TID tacrolimus, 0.5 mg, oral, Daily tacrolimus, 1 mg, oral, q PM tbo-filgrastim, 300 mcg, subcutaneous, Daily PRN medications: HYDROmorphone, senna lactated Ringer's, 75 mL/hr, Last Rate: 75 mL/hr (02/17/25 1648) OBJECTIVE Vital signs in last 24 hours: Visit Vitals BP (!) 137/91 (BP Location: Left arm) Pulse 71 Temp 36.7 ??C (98 ??F) (Temporal) Resp 15 Intake/Output last 24 hours: Intake/Output Summary (Last 24 hours) at 02/18/2025 1121 Last data filed at 02/18/2025 0600 Gross per 24 hour Intake 910 ml Output -- Net 910 ml Weights: Admission Weight: Weight: 73.9 kg (163 lb) Wt Readings from Last 3 Encounters: 02/15/25 71.9 kg (158 lb 9.6 oz) 12/31/24 74.2 kg (163 lb 9.6 oz) Physical Exam: General: No acute distress HEENT: Normocephalic, atraumatic, anicteric Cardiovascular: S1 S2 normal Respiratory: unlabored Gl: soft non-distended Extremities: No cyanosis Neurological: Alert Integumentary: no rash Psych: Calm, cooperative Foot lesions noted LABS Results from last 7 days Lab Units 02/18/25 0657 02/17/25 0614 02/16/25 0606 WBC AUTO K/mcL 1.2* 1.3* 1.3* HEMOGLOBIN g/dL 7.6* 8.1* 8.3* HEMATOCRIT % 23.2* 24.4* 24.9* MCV FL 86.6 86.8 85.6 PLATELETS K/mcL 115* 83* 115* Results from last 7 days Lab Units 02/18/25 0657 02/17/25 0614 02/16/25 0606 CREATININE mg/dL 6.86* 7.34* 7.98* BUN mg/dL 74* 84* 94* SODIUM mmol/L 140 137 136 POTASSIUM mmol/L 3.7 3.8 3.9 CHLORIDE mmol/L 109 108 107 CO2 mmol/L 22 19* 18* Phosphorus Date Value Ref Range Status 02/18/2025 4.2 2.5 - 4.5 mg/dL Final 02/15/2025 5.2 (H) 2.5 - 4.5 mg/dL Final 02/15/2025 5.2 (H) 2.5 - 4.5 mg/dL Final PTH Date Value Ref Range Status 02/15/2025 658.3 (H) 18.5 - 88.0 pcg/mL Final No results found for: IRON , TIBC , FERRITIN No results found for: COLORUA , CLARITYUA , SPECGRAVUA , PHUA , PROTUA , GLUCOSEUA , KETONESUA , BILIRUBINUA , BLOODUA , UROBILINOGUA , NITRITEUA IMPRESSION and PLAN DDTx 2023 failing bsed on Scr 7.5 ( 12/2024) with recurrent EZEQUIEL and adv kdienuy dysfun in Graft noted in [facility] records, its unclear whether he had Bx of Xplant at some point but Dr Ayers rec mention that his DSA and cf DNA ( prospera) were negative Unfortantely it appears his failure in the xpalnt kidney is irreversible and a Bx would have no impact at this time 2. IS: he was on tacro/MMF the latter has been d/c d/t severe leukopenia and Neutropenia as ntoed 3. NAGMA : mutlifavct with adv CKD and ques underlying RTA; he denies diarrhea, Lac level normal 4. Leukopenia: multifact; on Nupogen given ongoing cellultiis; Seen by hematology Needs CMV pcr as this infection can cause BM supp and Nutropenia 5. Cellulitis: on Abx and getting ID input 6. Anemia: may need EPO/Fe if decr furhter 7. MBD of CKD: need ot check PTH/Phos 8. Hemoaccess: refer for AVF once infection resolved; schedule Pcath for Monday. H/O HIV mentioned in rec but details unclear to me at this time REC: Off MMF and will keep him off MMF Tacro level is not available. Continue same dose of tacro for now Patient is not hyperkalemic or acidotic at the present time. His volume status is acceptable. No immediate need for renal replacement therapy. Creatinine is also dropped but GFR not very much different Patient does not want to initiate dialysis during this admission with a permacath and wants to get a fistula Continue sodium bicarbonate 650 mg 3 times a day. Will continue same dose as outpatient I discussed with Dr. Ayers yesterday He agreed with the decision to discharge him and close follow-up as outpatient Follow-up serological workup ordered including CMV-quantitative studies pending Follow-up parvo viral EBV IgM antibody negative IgG positive Hematology follow-up discussed with the medical team Vahid Contreras MD * Francia Haas RN - 02/18/2025 4:30 AM EDT Goals: Identify possible barriers to meeting goals/advancing plan of care: IV abx, pain management Stability of the patient: Moderately Stable - Low risk of patient condition declining or worsening End of Shift Summary: Pt calm and cooperative during care. Pt reports 5-7/10 L foot pain, prn pain medication administered per MAR with relief. VSS. Independent to BR. Pt in bed at lowest locked position with call greene within reach, rings appropriately. Care continues. * Emanuel Moran MD - 02/17/2025 8:16 PM EDT [facility] Provider Response Note PATIENT: DOROTEO PARSON : 1975 ADMIT DATE: 02/15/2025 5:37 AM DISCH DATE: RESPONDING PROVIDER #: [id number] PROVIDER RESPONSE TEXT: Mr. Suleman Rock has HIV positive/Asymptomatic HIV infection status. QUERY TEXT: HIV (Human immunodeficiency virus) is documented in the medical record. Please specify the type such as: Also please include any associated conditions, if applicable. Progress Notes 02/16/2025 (1) Dr. 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 Thank you for your attention to this matter. Margie Meraz RN, c [phone] The patient's clinical indicators include: Options provided: -- HIV with current or previous HIV-related condition -- HIV positive/Asymptomatic HIV infection status -- Other - I will add my own diagnosis -- Disagree - Not applicable / Not valid Query created by: Margie Meraz on 02/17/2025 1:58 PM Electronically signed by: EMANUEL MORAN MD 02/17/2025 8:15 PM * Emanuel Moran MD - 02/17/2025 6:13 PM EDT Events: No events overnight Chief complaint upon arrival: Foot pain and swelling Past medical history: End-stage renal disease status post kidney transplantation with failure, secondary hyperparathyroid, HIV, history of opiate use disorder on Suboxone. Subjective: Patient states she is feeling much better, swelling and pain in his toes is greatly improved, he did change the dressing as instructed by podiatry, patient refuses to allow removal of dressing for examination, he states he is feeling much better. No cough, chest pain or shortness of breath, no nausea vomiting, appetite is good, no urinary symptoms, he claims he continues to make good urinary output. No skin rashes. No fever since the day of admission. The patient states she has [id number] compliant with his HIV medication Juluca every day as well as Entecavir 0.5 mg every other day. Objective: Vitals: 02/16/25 1947 02/17/25 0229 02/17/25 0745 02/17/25 1405 BP: 131/83 (!) 144/90 (!) 142/99 (!) 136/94 BP Location: Left arm Left arm Left arm Left arm Patient Position: Lying Lying Pulse: 83 78 80 79 Resp: 16 16 15 15 Temp: 36.5 ??C (97.7 ??F) 36.7 ??C (98.1 ??F) 36.7 ??C (98.1 ??F) 36.6 ??C (97.9 ??F) TempSrc: Oral Oral Temporal Temporal SpO2: 100% 100% 100% 99% Weight: Height: PHYSICAL EXAM: Gen: Well-developed male, NAD CV -RRR no MGR Lungs -CTAB Abd - Soft, non-tender, non-distended Extremities - No LE edema, bilateral Band-Aids intact great toes, no significant edema, no crepitus, no streaking. Neuro - AO x3 LABS : HEMATOLOGY Lab Results Component Value Date WBC 1.3 (LL) 02/17/2025 HGB 8.1 (L) 02/17/2025 HCT 24.4 (L) 02/17/2025 MCV 86.8 02/17/2025 PLT 83 (L) 02/17/2025 CHEMISTRY Lab Results Component Value Date GLUCOSE 98 02/17/2025 NA 137 02/17/2025 K 3.8 02/17/2025 CO2 19 (L) 02/17/2025 CL 108 02/17/2025 BUN 84 (H) 02/17/2025 CREATININE 7.34 (H) 02/17/2025 EGFR 8 (L) 02/17/2025 CALCIUM 8.6 02/17/2025 MG 2.0 02/15/2025 PHOS 5.2 (H) 02/15/2025 ANIONGAP 10 02/17/2025 Glucose. Results from last 7 days Lab Units 02/17/25 0614 02/16/25 0606 02/15/25 0638 02/15/25 0052 GLUCOSE mg/dL 98 114* 101* 116* Imaging: XR Foot 3+ Views Left Final Result No specific radiographic evidence of osteomyelitis. More sensitive assessment could be performed with MRI. -------- FINAL REPORT -------- Dictated By: Yassine Aggarwal Dictated Date: 02/15/2025 09:01 ET Assigned Physician: Yassine Aggarwal Reviewed and Electronically Signed By: Yassine Aggarwal Signed Date: 02/15/2025 09:04 ET Workstation ID: [id number] Transcribed By: Self Edit Transcribed Date: 02/15/2025 09:01 ET Scheduled Medications PRN Medications IV Medications acetaminophen, 1,000 mg, q8h amLODIPine, 5 mg, Daily buprenorphine-naloxone, 1 tablet, BID carvediloL, 6.25 mg, BID with meals cefepime, 1 g, q24h dolutegravir, 50 mg, Daily with dinner entecavir, 0.5 mg, q72h folic acid, 1 mg, Daily heparin (porcine), 5,000 Units, q12h ESTEFANI rilpivirine, 25 mg, Daily with dinner sodium bicarbonate, 650 mg, TID tacrolimus, 0.5 mg, Daily tacrolimus, 1 mg, q PM tbo-filgrastim, 300 mcg, Daily HYDROmorphone, 2 mg, q4h PRN senna, 2 tablet, Nightly PRN lactated Ringer's, Last Rate: 75 mL/hr (02/17/25 1648) Problem list, assessment and plan: 50-year-old Bahamian speaking male who can speak [place]ian as well with medical history significant for hypertension, HIV, secondary hyperparathyroidism, PVD, 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 Patient came in with left foot pain,/left hallux swelling discharge after hetried to clip the toenail himself. Patient was taken to the OR and I&D was done on 11/15/2024 by podiatry Patient also has been seen by nephrology he is usually followed by Dr. Terrell outpatient, he was seen by Dr. Manning. Left foot cellulitis left big toe cellulitis patient is immunocompromise but there is no evidence of sepsis He is leukopenic and has history of HIV Currently afebrile Continue with cefepime 1 g every 24 hours renally dosed. MRSA screen negative. Patient was given vancomycin at admission. I did review micro studies and there is no evidence of wound culture. Given his immunosuppression will continue cefepime for now. Fever on arrival but afebrile since admission blood cultures are pending no evidence of sepsis. End-stage renal disease status post renal transplant not on dialysis He has a left arm AV fistula which is not working, he is followed by Dr. Armen conti Plan is for outpatient dialysis to be started in the near future, transplanted kidney has failed. Nephrology was consulted here he was seen by Dr. Manning Patient was treated with IV bicarb for metabolic acidosis, metabolic acidosis has improved, currently has been transition to p.o. bicarb. Stopped CellCept and continue with tacrolimus levels are currently pending Nephrology also recommended hematology consultation as patient would benefit from Neupogen. 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 Patient had good urinary output and appears euvolemic. Severe neutropenia. Discussed with hematology, most likely secondary to medications and ongoing infection. ANC trending down, started Granix yesterday, second dose this morning, continue to monitor, CellCept. On admission as this seems to be playing a role. Recheck numbers tomorrow. If stable patient can be discharged . Metabolic acidosis secondary to advanced kidney disease, start p.o. bicarbonate today. HTN. On amlodipine, carvedilol HIV. On Juluca and Entecavir, has not received it since admission, discussed with pharmacy, can resume Juluca components without modifications, resume Entecavir every 72 hours based on current renal function. Opiate dependence. On Suboxone, no evidence of opioid withdrawal. VTE Prophylaxis: heparin 5000 s/q tid Full Code - Default Disposition/patient need hospital stay because : Left foot cellulitis neutropenia renal failure Health care proxy with phone number : MARCUS BRISCOE (Relative) * Thea Morales RN - 02/17/2025 12:12 PM EDT CM Progress Note JANETTE: 02/19 Barriers: wound care, renal/hematology consult, IV ABT, critical WBC,? new dialysis Plan: [facility] [place] [facility] * Vahid Contreras MD - 02/17/2025 11:36 AM EDT Images from the original note were not included. Progress Note CHIEF COMPLAINT F/u re: CKD 5 failing DDKTx pateint SUBJECTIVE Patient seen and examined, events noted MEDICAL HISTORY Past Medical History: Diagnosis Date Chronic kidney disease ESRD (end stage renal disease) ([facility] V24, [facility]28) [place] virus infection[place] [place] [facility] V28) Hypertension Secondary hyperparathyroidism ([facility] V24) MEDICATIONS acetaminophen, 1,000 mg, oral, q8h amLODIPine, 5 mg, oral, Daily buprenorphine-naloxone, 1 tablet, sublingual, BID carvediloL, 6.25 mg, oral, BID with meals cefepime, 1 g, intravenous, q24h dolutegravir, 50 mg, oral, Daily with dinner entecavir, 0.5 mg, oral, q72h folic acid, 1 mg, oral, Daily heparin (porcine), 5,000 Units, subcutaneous, q12h ESTEFANI rilpivirine, 25 mg, oral, Daily with dinner tacrolimus, 0.5 mg, oral, Daily tacrolimus, 1 mg, oral, q PM tbo-filgrastim, 300 mcg, subcutaneous, Daily PRN medications: HYDROmorphone, senna lactated Ringer's, 75 mL/hr, Last Rate: 75 mL/hr (02/16/25 1516) OBJECTIVE Vital signs in last 24 hours: Visit Vitals BP (!) 142/99 (BP Location: Left arm) Pulse 80 Temp 36.7 ??C (98.1 ??F) (Temporal) Resp 15 Intake/Output last 24 hours: Intake/Output Summary (Last 24 hours) at 02/17/2025 1136 Last data filed at 02/17/2025 0600 Gross per 24 hour Intake 910 ml Output 700 ml Net 210 ml Weights: Admission Weight: Weight: 73.9 kg (163 lb) Wt Readings from Last 3 Encounters: 02/15/25 71.9 kg (158 lb 9.6 oz) 12/31/24 74.2 kg (163 lb 9.6 oz) Physical Exam: General: No acute distress HEENT: Normocephalic, atraumatic, anicteric Cardiovascular: S1 S2 normal Respiratory: unlabored Gl: soft non-distended Extremities: No cyanosis Neurological: Alert Integumentary: no rash Psych: Calm, cooperative LABS Results from last 7 days Lab Units 02/17/25 0614 02/16/25 0602/15/25 0638 WBC AUTO K/mcL 1.3* 1.3* 1.5* HEMOGLOBIN g/dL 8.1* 8.3* 9.4* HEMATOCRIT % 24.4* 24.9* 28.8* MCV FL 86.8 85.6 87.8 PLATELETS K/mcL 83* 115* 124* Results from last 7 days Lab Units 02/17/25 0614 02/16/25 0602/15/25 0638 CREATININE mg/dL 7.34* 7.98* 8.58* BUN mg/dL 84* 94* 93* SODIUM mmol/L 137 136 131* POTASSIUM mmol/L 3.8 3.9 4.5 CHLORIDE mmol/L 108 107 106 CO2 mmol/L 19* 18* 10* Phosphorus Date Value Ref Range Status 02/15/2025 5.2 (H) 2.5 - 4.5 mg/dL Final 02/15/2025 5.2 (H) 2.5 - 4.5 mg/dL Final PTH Date Value Ref Range Status 02/15/2025 658.3 (H) 18.5 - 88.0 pcg/mL Final No results found for: IRON , TIBC , FERRITIN No results found for: COLORUA , CLARITYUA , SPECGRAVUA , PHUA , PROTUA , GLUCOSEUA , KETONESUA , BILIRUBINUA , BLOODUA , UROBILINOGUA , NITRITEUA IMPRESSION and PLAN DDTx 2023 failing bsed on Scr 7.5 ( 12/2024) with recurrent EZEQUIEL and adv kdienuy dysfun in Graft noted in [facility] records, its unclear whether he had Bx of Xplant at some point but Dr Ayers rec mention that his DSA and cf DNA ( prospera) were negative Unfortantely it appears his failure in the xpalnt kidney is irreversible and a Bx would have no impact at this time 2. IS: he was on tacro/MMF the latter has been d/c d/t severe leukopenia and Neutropenia as ntoed 3. NAGMA improved with IV NaHCO3: mutlifavct with adv CKD and ques underlying RTA; he denies diarrhea, Lac level normal and no signif AG resolved now 4. Leukopenia: multifact; may need Nupogen given ongoing cellultiis; now improved Seen by hematology Needs CMV pcr as this infection can cause BM supp and Nutropenia 5. Cellulitis: on Abx and getting ID input 6. Anemia: may need EPO/Fe if decr furhter 7. MBD of CKD: need ot check PTH/Phos 8. Hemoaccess: refer for AVF once infection resolved; schedule Pcath for Monday 9. H/O HIV mentioned in rec but details unclear to me at this time REC: Off MMF and will keep him off MMF Tacro level is not available. Continue same dose of tacro for now Patient is not hyperkalemic or acidotic at the present time. His volume status is acceptable. No immediate need for renal replacement therapy. Creatinine is also dropped but GFR not very much different Patient does not want to initiate dialysis during this admission with a permacath and wants to get a fistula Started patient on sodium bicarbonate 650 mg 3 times a day. Will continue same dose as outpatient I discussed with Dr. Ayers He agreed with the decision to discharge him and close follow-up as outpatient Follow-up serological workup ordered including CMV, parvo viral and other titers Hematology follow-up discussed with the medical team Vahid Contreras MD * Meghan Aguilera RN - 02/17/2025 11:27 AM EDT Goals: Problem: Sensory: Acute Pain Goal: Pain level will improve or be tolerable Outcome: Progressing Identify possible barriers to meeting goals/advancing plan of care: None Stability of the patient: Moderately Stable - Low risk of patient condition declining or worsening End of Shift Summary: Patient VSS. Understanding and cooperative with care today. Care on going. * Tabatha Dutta - 02/17/2025 10:43 AM EDT SPIRITUAL CARE Date/Time:02/17/25 at 10:43 AM EDT Type of Visit: Initial Visit and Mental Health Program Director Rounding Reason for Visit: Spiritual/Emotional Support Time Spent: 10 Minutes Location: [address] [place] [address] Sacramental Encounters: Spiritual Distress Assessment: Spiritual Assessment/Distress Spiritual Care Assessment: Assessment: Doroteo, was awake, alert, lying down in bed resting at the time of visit. His cousin was sleeping in the chair. Doroteo is Bahamian speaking, raised no concern except wish and desire to get better. Happy with the support from cousin and others. Voiced appreciation for the visit and support. Intervention: NE Spiritual Care Interventions : provided support and explored hope Outcomes: expressed gratitude Plan of Care: Visit as needed *Reference: Spiritual Distress Assessment Tool: The SDAT is a clinical tool used by chaplains to identify unmet spiritual and emotional needs that can impact Goals of Care in the following categories: Spiritual Distress Assessment Legend Spiritual Needs Related Questions Meaning Are you having difficulties coping with what is happening to your now? Does your hospitalization have any repercussions on the way you live usually? Transcendence Do you have a particular confucianism, coy, or spirituality? Is your confucianism/spirituality/coy challenged by what is happening to you now? Values Do you think that the health professionals caring for you know you well enough? Do you feel that you are participating in the decisions made about your care? Psycho-Social Identity Do you have any worries or difficulties regarding your family or other persons close to you? Do you feel lonely? Do you have links to your coy community? SCALE 0= no evidence of unmet spiritual needs 1= some evidence of unmet spiritual needs 2= substantial evidence of unmet spiritual needs 3= evidence of severe unmet spiritual needs * Francia Haas RN - 02/17/2025 3:40 AM EDT Goals: Identify possible barriers to meeting goals/advancing plan of care: pain management, dialysis/permacath placement Stability of the patient: Moderately Stable - Low risk of patient condition declining or worsening End of Shift Summary: Pt calm and cooperative during care. Pt reports multiple episodes of pain, pain medication administered per MAR with relief. Pt SBA to BR. Pt in bed at lowest locked position with call greene within reach. Care continues. * Bonilla Dong RN - 02/16/2025 5:54 PM EDT Problem: Sensory: Acute Pain Goal: Pain level will improve or be tolerable Outcome: Progressing Goal: Ability to develop a pain control plan will improve Outcome: Progressing Problem: Cognitive: Acute Pain Goal: Expressions of feelings of enhanced comfort will increase Outcome: Progressing Problem: Patient Specific Problem: Acute Pain Goal: Patient Specific Outcome Outcome: Progressing Problem: Cognitive: Riddle Ayaz Fall Risk Goal: Last Known Fall Outcome: Progressing Goal: Mobility requiring assistance of person or device Outcome: Progressing Goal: Dizziness Outcome: Progressing Goal: Medications Outcome: Progressing Goal: Mental Status/LOC/Awareness Outcome: Progressing Goal: Toileting Needs Outcome: Progressing Goal: Volume and Electrolyte Status Outcome: Progressing Goal: Communication/Sensory Outcome: Progressing Goal: Behavior Outcome: Progressing Problem: Skin Integrity: Pressure Injury Actual or Risk of Goal: Will not develop new pressure injury Outcome: Progressing Goal: Skin integrity will improve Outcome: Progressing Goal: Risk for impaired skin integrity will decrease Outcome: Progressing Problem: Activity:Pressure Injury Actual or Risk of Goal: Mobility will improve Outcome: Progressing Problem: Nutritional:Pressure Injury Actual or Risk of Goal: Nutritional status will improve Outcome: Progressing Problem: Patient Specific Problem: Pressure Injury Actual or Risk of Goal: Patient Specific Outcome Outcome: Progressing Goals: Identify possible barriers to meeting goals/advancing plan of care: Labs, ? Dialysis/permacath placement Stability of the patient: Moderately Stable - Low risk of patient condition declining or worsening End of Shift Summary: Pt calm and cooperative w/ care this shift. Pain reported throughout shift, pain medications adjusted, effective at this time. POD #1 I&D, no post-op complications noted this shift. Care ongoing at this time. * Curtis Manning MD - 02/16/2025 2:50 PM EDT Images from the original note were not included. Progress Note CHIEF COMPLAINT F/u re: CKD 5 failing DDKTx pateint SUBJECTIVE Patient seen and examined, events noted MEDICAL HISTORY Past Medical History: Diagnosis Date Chronic kidney disease [place] stage renal disease[place] [place] [facility] [place] HIV (human immunodeficiency virus infection[place] [place] [facility] [place] Hypertension Secondary hyperparathyroidism [place] [place] MEDICATIONS acetaminophen, 1,000 mg, oral, q8h amLODIPine, 5 mg, oral, Daily buprenorphine-naloxone, 1 tablet, sublingual, BID carvediloL, 6.25 mg, oral, BID with meals cefepime, 1 g, intravenous, q24h folic acid, 1 mg, oral, Daily heparin (porcine), 5,000 Units, subcutaneous, q12h ESTEFANI tacrolimus, 0.5 mg, oral, Daily tacrolimus, 1 mg, oral, q PM [START ON 02/17/2025] tbo-filgrastim, 300 mcg, subcutaneous, Daily PRN medications: HYDROmorphone sodium bicarbonate, 150 mEq, Last Rate: 150 mEq (02/15/25 1059) OBJECTIVE Vital signs in last 24 hours: Visit Vitals BP (!) 144/89 (BP Location: Left arm, Patient Position: Lying) Pulse 72 Temp 36.5 ??C (97.7 ??F) (Temporal) Resp 18 Intake/Output last 24 hours: Intake/Output Summary (Last 24 hours) at 02/16/2025 1450 Last data filed at 02/16/2025 1400 Gross per 24 hour Intake 910 ml Output 1700 ml Net -790 ml Weights: Admission Weight: Weight: 73.9 kg (163 lb) Wt Readings from Last 3 Encounters: 02/15/25 71.9 kg (158 lb 9.6 oz) 12/31/24 74.2 kg (163 lb 9.6 oz) Physical Exam: General: No acute distress HEENT: Normocephalic, atraumatic, anicteric Cardiovascular: S1 S2 normal Respiratory: unlabored Gl: soft non-distended Extremities: No cyanosis Neurological: Alert Integumentary: no rash Psych: Calm, cooperative LABS Results from last 7 days Lab Units 02/16/25 0606 02/15/25 0638 02/15/25 0051 WBC AUTO K/mcL 1.3* 1.5* 1.2* HEMOGLOBIN g/dL 8.3* 9.4* 9.2* HEMATOCRIT % 24.9* 28.8* 28.5* MCV FL 85.6 87.8 88.2 PLATELETS K/mcL 115* 124* 131 Results from last 7 days Lab Units 02/16/25 0602/15/25 0638 02/15/25 005 CREATININE mg/dL 7.98* 8.58* 8.92* BUN mg/dL 94* 93* 92* SODIUM mmol/L 136 131* 131* POTASSIUM mmol/L 3.9 4.5 4.8 CHLORIDE mmol/L 107 106 106 CO2 mmol/L 18* 10* 14* Phosphorus Date Value Ref Range Status 02/15/2025 5.2 (H) 2.5 - 4.5 mg/dL Final 02/15/2025 5.2 (H) 2.5 - 4.5 mg/dL Final PTH Date Value Ref Range Status 02/15/2025 658.3 (H) 18.5 - 88.0 pcg/mL Final No results found for: IRON , TIBC , FERRITIN No results found for: COLORUA , CLARITYUA , SPECGRAVUA , PHUA , PROTUA , GLUCOSEUA , KETONESUA , BILIRUBINUA , BLOODUA , UROBILINOGUA , NITRITEUA IMPRESSION and PLAN DDTx 2023 failing bsed on Scr 7.5 ( 12/2024) with recurrent EZEQUIEL and adv kdienuy dysfun in Graft noted in [facility] records, its unclear whether he had Bx of Xplant at some point but Dr Ayers rec mention that his DSA and cf DNA ( prospera) were negative Unfortantely it appears his failure in the xpalnt kidney is irreversible and a Bx would have no impact at this time Instead we need to move quicky with transitioning him back on to HD this hospitilization most likely 2. IS: he was on tacro/MMF the latter has been d/c d/t severe leukopenia and Neutropenia as ntoed 3. NAGMA improved with IV NaHCO3: mutlifavct with adv CKD and ques underlying RTA; he denies diarrhea, Lac level normal and no signif AG 4. Leukopenia: multifact; may need Nupogen given ongoing cellultiis; usu start if ANC < 0.5 but would rec getting both Heme and ID input Needs CMV pcr as this infection can cause BM supp and Nutropenia 5. Cellulitis: on Abx and getting ID input 6. Anemia: may need EPO/Fe if decr furhter 7. MBD of CKD: need ot check PTH/Phos 8. Hemoaccess: refer for AVF once infection resolved; schedule Pcath for Monday 9. H/O HIV mentioned in rec but details unclear to me at this time REC: d/c MMF, check tacro level and look to decr dose furhter now that he appears at ESRD ( he wantDr Ayers to make that decsion), consult ID and Heme, , check CMV pcr, parvo titer, Hep B sero, Pcath for Monday and start HD next week ( again he wants to hold off on this and check with Dr Ayers),follow WBC and ANC closely and get heme input re whether he needs Nupogen I have communicated by rec as noted leroye to Dr Rosette Manning MD * Lance Elena DPM - 02/16/2025 10:32 AM EDT IDENTIFIER: Suleman Rock is a 50 y.o. year old male who presents for consultation. CC: Bilateral foot wound HPI: 50-year-old male seen at bedside resting comfortably with the dressings clean dry and intact to thebilateral great toes. Patient underwent incision and drainage 1 day ago and notes his pain has beenincreased to the left toe but controlled with pain medication. Patient has no other complaints ROS: GENERAL: Pt denies nausea, fever, vomiting, chills, or shortness of breath. Pt in NAD. CARDIOLOGY: pt denies chest pain, palpitations LUNGS: pt denies shortness of breath MUSCULOSKELETAL: See HPI, otherwise no joint pain or swelling, back pain, or muscle pain. SKIN: see HPI, otherwise no lesions, rash or itching NEURO: No persistent headache, weakness or numbness The remainder of the review of systems is noncontributory PAST MEDICAL HISTORY: Patient Active Problem List Diagnosis CKD (chronic kidney disease) stage 5, GFR less than 15 ml/min ([facility] V24, [facility] V28) Cellulitis SOCIAL HISTORY: Social History Tobacco Use Smoking status: Former Types: Cigarettes Smokeless tobacco: Never Substance Use Topics Alcohol use: Not on file ACTIVE MEDICATIONS: Outpatient Medications Marked as Taking for the 02/14/25 encounter (Hospital Encounter) Medication Sig Dispense Refill tacrolimus (PROGRAF) 0.5 mg capsule Take 2 capsules (1 mg total) by mouth 1 (one) time each day in the evening. tacrolimus (PROGRAF) 0.5 mg capsule Take 1 capsule (0.5 mg total) by mouth 1 (one) time each day. ALLERGIES: Penicillins PHYSICAL EXAM: Blood pressure (!) 158/95, pulse 91, temperature 36.3 ??C (97.3 ??F), temperature source Temporal, resp. rate 18, height 1.727 m (68 ), weight 71.9 kg (158 lb 9.6 oz), SpO2 100%. PODIATRIC EXAMINATION: GENERAL: Patient appears well nourished, with NAD. VASCULAR: Dorsalis pedis pulses are 2/4 bilaterally and Posterior tibial pulses are 2/4 bilaterally. Capillary filling time within normal limits the digits. No pallor on elevation or rubor on dependency. Positive hair growth. No varicosities. Denies rest pain or claudication pain. NEUROLOGICAL: Sharp/dull sensation intact, protective sensation intact 10/10 with 5.07 semmes clyde bilaterally, vibratory sensation with tuning fork intact to the tibial tuberosity. ORTHOPEDIC: Good muscle strength 5/5 of all flexors and extensors. Dorsi flexion of ankle ,10 degrees, plantar flexion WNL. No muscle atrophy. DERMATOLOGICAL:.Open wound to the left great toe status post incision and drainage with fibrogranular base. Drainage is decreased and erythema is decreasing since 1 day ago Wound to the lateral portion of the right great toe shows a granular eschar and no further signs ofinfection without drainage. BIOMECHANICS: STJ ROM wnl, MTJ ROM wnl, 1st MPJ ROM wnl. IMPRESSION: 1. Leukopenia, unspecified type 2. Anemia, unspecified type 3. Chronic kidney disease, unspecified CKD stage 4. Cellulitis of great toe of left foot 5. Hypomagnesemia 6. Sepsis without acute organ dysfunction, due to unspecified organism ([facility] V24, [facility] V28) 7. Neutropenic fever ([facility] V24) PLAN: Pt was seen and examined, history reviewed. Patient was evaluated at bedside and shown to be healing normally after incision and drainage to the left great toe and right great toe. Patient instructed to continue with dressings over the area. Xeroform and a dry sterile dressing was placed. Patient instructed to keep dressing in place until completely healed which will take 2 to 4 weeks. Patient most likely will require visit in the office in 2 to 3 weeks after discharge to be evaluated but given the improvement over the last 24 hours since the offending nail particle and fluid collection was removed his prognosis is excellent Dressing order was placed for bilateral great toes. Lance Elena DPM * Jung Dinero MD - 02/16/2025 10:18 AM EDT Images from the original note were not included. ASHLEY PROGRESS NOTE Date: 02/16/2025 Author: Jung Dinero MD Patient ID: Doroteo Rock is a 50 y.o. male : 1975 MR#: [id number] SUBJECTIVE Complaining of left foot pain, reviewed lab work with the patient discussed about worsening renal failure, dialysis, he is aware and would like to talk to Dr. Terrell. He is agreeable if he needed in-house hemodialysis we will proceed with that. Current Medications: acetaminophen, 1,000 mg, oral, q8h amLODIPine, 5 mg, oral, Daily buprenorphine-naloxone, 1 tablet, sublingual, BID carvediloL, 6.25 mg, oral, BID with meals cefepime, 1 g, intravenous, q24h folic acid, 1 mg, oral, Daily heparin (porcine), 5,000 Units, subcutaneous, q12h ESTEFANI tacrolimus, 0.5 mg, oral, Daily tacrolimus, 1 mg, oral, q PM sodium bicarbonate, 150 mEq, Last Rate: 150 mEq (02/15/25 1059) PRN medications: HYDROmorphone OBJECTIVE Last Recorded Vitals: Vitals: 02/15/25 1935 02/16/25 0031 02/16/25 0325 02/16/25 0800 BP: 121/74 137/86 125/74 (!) 158/95 BP Location: Left arm Right arm Left arm Left arm Patient Position: Lying Lying Lying Sitting Pulse: 67 82 78 91 Resp: 20 18 20 18 Temp: 36.7 ??C (98.1 ??F) 36.8 ??C (98.2 ??F) 37.1 ??C (98.8 ??F) 36.3 ??C (97.3 ??F) TempSrc: Oral Oral Oral Temporal SpO2: 100% 100% 100% 100% Weight: Height: patient happy Lab Results: Admission on 02/14/2025 Component Date Value WBC 02/15/2025 1.2 (LL) RBC 02/15/2025 3.20 (L) Hemoglobin 02/15/2025 9.2 (L) Hematocrit 02/15/2025 28.5 (L) MCV 02/15/2025 88.2 MCH 02/15/2025 28.5 MCHC 02/15/2025 32.3 RDW 02/15/2025 14.5 Platelets 02/15/2025 131 MPV 02/15/2025 12.7 (H) NRBC 02/15/2025 0.0 NRBC Absolute 02/15/2025 0.00 Sodium 02/15/2025 131 (L) Potassium 02/15/2025 4.8 Chloride 02/15/2025 106 CO2 02/15/2025 14 (LL) Anion Gap 02/15/2025 11 Glucose 02/15/2025 116 (H) BUN 02/15/2025 92 (H) Creatinine 02/15/2025 8.92 (H) eGFR 02/15/2025 7 (L) BUN/Creatinine Ratio 02/15/2025 10.3 Calcium 02/15/2025 8.5 AST (SGOT) 02/15/2025 14 ALT (SGPT) 02/15/2025 9 (L) Alkaline Phosphatase 02/15/2025 122 (H) Total Protein 02/15/2025 7.4 Albumin 02/15/2025 3.7 Total Bilirubin 02/15/2025 0.3 Magnesium 02/15/2025 1.0 (L) Phosphorus 02/15/2025 5.2 (H) Protime 02/15/2025 14.3 (H) INR 02/15/2025 1.1 aPTT 02/15/2025 30.5 Culture, Blood 02/15/2025 No growth at 24 hours Culture, Blood 02/15/2025 No growth at 24 hours LACTIC ACID 02/15/2025 1.2 Neutrophils % 02/15/2025 29.0 Bands % 02/15/2025 1.0 Lymphocytes % 02/15/2025 31.0 Monocytes % 02/15/2025 12.0 Eosinophils % 02/15/2025 3.0 Basophils % 02/15/2025 1.0 Metamyelocytes % 02/15/2025 18.0 (H) Myelocytes % 02/15/2025 4.0 (H) Other Cells % By Manual * 02/15/2025 3.0 (H) Neutrophils Absolute Man* 02/15/2025 0.35 (L) Bands Absolute Manual 02/15/2025 0.01 (H) Lymphocytes Absolute 02/15/2025 0.37 (L) Monocytes Absolute Manual 02/15/2025 0.14 (L) Eosinophils Absolute Man* 02/15/2025 0.04 Basophils Absolute Manual 02/15/2025 0.01 Metamyelocytes Absolute * 02/15/2025 0.22 (H) Myelocytes Absolute Manu* 02/15/2025 0.05 (H) Other Cells ABS 02/15/2025 0.04 (H) Rbc Morphology 02/15/2025 See comment (A) Platelet Morphology - [facility] 02/15/2025 See Note (A) C-Reactive Protein 02/15/2025 16.40 (H) MRSA Screen PCR 02/15/2025 Not Detected Sodium 02/15/2025 131 (L) Potassium 02/15/2025 4.5 Chloride 02/15/2025 106 CO2 02/15/2025 10 (LL) Anion Gap 02/15/2025 15 (H) Glucose 02/15/2025 101 (H) BUN 02/15/2025 93 (H) Creatinine 02/15/2025 8.58 (H) eGFR 02/15/2025 7 (L) BUN/Creatinine Ratio 02/15/2025 10.8 Calcium 02/15/2025 8.9 WBC 02/15/2025 1.5 (LL) RBC 02/15/2025 3.30 (L) Hemoglobin 02/15/2025 9.4 (L) Hematocrit 02/15/2025 28.8 (L) MCV 02/15/2025 87.8 MCH 02/15/2025 28.7 MCHC 02/15/2025 32.6 RDW 02/15/2025 14.1 Platelets 02/15/2025 124 (L) MPV 02/15/2025 12.5 (H) NRBC 02/15/2025 0.0 NRBC Absolute 02/15/2025 0.00 Amphetamine Screen, Ur 02/15/2025 Negative Barbiturate Screen, Ur 02/15/2025 Negative Benzodiazepine Screen, Ur 02/15/2025 Negative Cocaine Screen, Ur 02/15/2025 Negative Opiate Screen, Ur 02/15/2025 Positive (A) Cannabinoid (THC) Screen* 02/15/2025 Negative Oxycodone Screen, Ur 02/15/2025 Negative Fentanyl, Ur 02/15/2025 Negative Magnesium 02/15/2025 2.0 Neutrophils % 02/15/2025 45.0 Bands % 02/15/2025 4.0 Lymphocytes % 02/15/2025 23.0 Monocytes % 02/15/2025 21.0 Eosinophils % 02/15/2025 2.0 Basophils % 02/15/2025 1.0 Metamyelocytes % 02/15/2025 5.0 (H) Neutrophils Absolute Man* 02/15/2025 0.68 (L) Bands Absolute Manual 02/15/2025 0.06 (H) Lymphocytes Absolute 02/15/2025 0.35 (L) Monocytes Absolute Manual 02/15/2025 0.32 Eosinophils Absolute Man* 02/15/2025 0.03 Basophils Absolute Manual 02/15/2025 0.02 Metamyelocytes Absolute * 02/15/2025 0.08 (H) Hepatitis B Surface Ag 02/15/2025 Negative Hep B Core Total Ab 02/15/2025 Positive (A) Hepatitis B Surface Ab 02/15/2025 Negative PTH 02/15/2025 658.3 (H) Phosphorus 02/15/2025 5.2 (H) Hep B Core IgM 02/15/2025 Negative ALT (SGPT) 02/15/2025 9 (L) AST (SGOT) 02/15/2025 14 Total Bilirubin 02/15/2025 0.3 Sodium 02/16/2025 136 Potassium 02/16/2025 3.9 Chloride 02/16/2025 107 CO2 02/16/2025 18 (L) Anion Gap 02/16/2025 11 Glucose 02/16/2025 114 (H) BUN 02/16/2025 94 (H) Creatinine 02/16/2025 7.98 (H) eGFR 02/16/2025 8 (L) BUN/Creatinine Ratio 02/16/2025 11.8 Calcium 02/16/2025 8.8 AST (SGOT) 02/16/2025 12 ALT (SGPT) 02/16/2025 9 (L) Alkaline Phosphatase 02/16/2025 106 Total Protein 02/16/2025 6.1 Albumin 02/16/2025 2.9 (L) Total Bilirubin 02/16/2025 0.2 WBC 02/16/2025 1.3 (LL) RBC 02/16/2025 2.90 (L) Hemoglobin 02/16/2025 8.3 (L) Hematocrit 02/16/2025 24.9 (L) MCV 02/16/2025 85.6 MCH 02/16/2025 28.5 MCHC 02/16/2025 33.3 RDW 02/16/2025 13.9 Platelets 02/16/2025 115 (L) MPV 02/16/2025 13.3 (H) NRBC 02/16/2025 0.0 NRBC Absolute 02/16/2025 0.00 Neutrophils % 02/16/2025 34.0 Lymphocytes % 02/16/2025 29.0 Monocytes % 02/16/2025 14.0 Eosinophils % 02/16/2025 13.0 Basophils % 02/16/2025 9.0 Metamyelocytes % 02/16/2025 1.0 (H) Neutrophils Absolute Man* 02/16/2025 0.44 (L) Lymphocytes Absolute 02/16/2025 0.38 (L) Monocytes Absolute Manual 02/16/2025 0.18 (L) Eosinophils Absolute Man* 02/16/2025 0.17 Basophils Absolute Manual 02/16/2025 0.12 Metamyelocytes Absolute * 02/16/2025 0.01 (H) Rbc Morphology 02/16/2025 Consistent with indices Platelet Morphology - [facility] 02/16/2025 See Note (A) Imaging: XR Foot 3+ Views Left Narrative: PROCEDURE: Radiographs of the left foot. HISTORY: hallux infection. COMPARISON: None. FINDINGS: 3 views of the left foot. Bones appear demineralized. No fracture or malalignment. No bony erosion or periosteal reaction. Small plantar calcaneal spur. Impression: No specific radiographic evidence of osteomyelitis. More sensitive assessment could be performed with MRI. 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 Patient came in with left foot pain,/left hallux swelling discharge after hetried to clip the toenail himself. Patient was taken to the OR and I&D was done on 11/15/2024 by podiatry Patient also has been seen by nephrology he is usually followed by Dr. Terrell outpatient, he was seen by Dr. Manning. Left foot cellulitis left big toe cellulitis patient is immunocompromise but there is no evidence of sepsis He is leukopenic and has history of HIV Currently afebrile Continue with cefepime 1 g every 24 hours renally dosed Follow-up on wound culture End-stage renal disease status post renal transplant not on dialysis He has a left arm AV fistula which is not working, he is followed by Dr. Armen conti Plan is for outpatient dialysis to be started at some point. Nephrology was consulted here he was seen by Dr. Manning Labs were reviewed from his previous admission at [facility] which Nephrology has been consulted Agrees with continuing IV bicarb and to follow-up on lab work Hold CellCept and continue with tacrolimus levels are currently pending Nephrology also recommended hematology consultation as patient would benefit from Neupogen. We will give 1 dose of Neupogen 300 mg today as patient is severely leukopenic/neutropenic Will follow-up on hematology recommendation Repeat lab work tomorrow Fever on arrival but afebrile since admission blood cultures are pending no evidence of sepsis. Continue with antibiotics Metabolic acidosis secondary to advanced kidney disease, bicarb's are improved, 18 today, discussedwith nephrology continue with IV infusion repeat lab work tomorrow Will need bicarb tablets in the next 24 24 hourshours HTN On amlodipine, carvedilol HIV On Juluca Opiate dependence On Suboxone VTE Prophylaxis: heparin 5000 s/q tid Full Code - Default Disposition/patient need hospital stay because : Left foot cellulitis neutropenia renal failure Health care proxy with phone number : * Francia Haas RN - 02/16/2025 4:53 AM EDT Goals: Problem: Sensory: Acute Pain Goal: Pain level will improve or be tolerable Outcome: Not Progressing Goal: Ability to develop a pain control plan will improve Outcome: Not Progressing Problem: Cognitive: Acute Pain Goal: Expressions of feelings of enhanced comfort will increase Outcome: Not Progressing Problem: Activity:Pressure Injury Actual or Risk of Goal: Mobility will improve Outcome: Not Progressing Identify possible barriers to meeting goals/advancing plan of care: pain management Stability of the patient: Moderately Unstable - Medium risk of patient condition declining or worsening End of Shift Summary: Pt calm and cooperative during care. Pt expresses multiple instances of 10/10L foot pain r/t great toe, pain medications administered per MAR with minimal relief. VSS. Pt in bed at lowest locked position with call greene within reach, rings appropriately. Care continues. * Bonilla Dong RN - 02/15/2025 5:54 PM EDT Problem: Sensory: Acute Pain Goal: Pain level will improve or be tolerable Outcome: Progressing Goal: Ability to develop a pain control plan will improve Outcome: Progressing Problem: Cognitive: Acute Pain Goal: Expressions of feelings of enhanced comfort will increase Outcome: Progressing Problem: Patient Specific Problem: Acute Pain Goal: Patient Specific Outcome Outcome: Progressing Problem: Cognitive: Riddle Ayaz Fall Risk Goal: Last Known Fall Outcome: Progressing Goal: Mobility requiring assistance of person or device Outcome: Progressing Goal: Dizziness Outcome: Progressing Goal: Medications Outcome: Progressing Goal: Mental Status/LOC/Awareness Outcome: Progressing Goal: Toileting Needs Outcome: Progressing Goal: Volume and Electrolyte Status Outcome: Progressing Goal: Communication/Sensory Outcome: Progressing Goal: Behavior Outcome: Progressing Problem: Skin Integrity: Pressure Injury Actual or Risk of Goal: Will not develop new pressure injury Outcome: Progressing Goal: Skin integrity will improve Outcome: Progressing Goal: Risk for impaired skin integrity will decrease Outcome: Progressing Problem: Activity:Pressure Injury Actual or Risk of Goal: Mobility will improve Outcome: Progressing Problem: Nutritional:Pressure Injury Actual or Risk of Goal: Nutritional status will improve Outcome: Progressing Problem: Patient Specific Problem: Pressure Injury Actual or Risk of Goal: Patient Specific Outcome Outcome: Progressing Goals: Identify possible barriers to meeting goals/advancing plan of care: POD #0 Stability of the patient: Moderately Stable - Low risk of patient condition declining or worsening End of Shift Summary: Pt calm and cooperative w/ care this shift. POD #0 s/p I&D, care ongoing at this time. 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 Yes Discharge Barriers Barriers to Discharge Plan Medically complex placement (wound care, renal consult, IV ABT) Transportation Transportation at discharge Family JANETTE: 02/17/25 Confirmed patient's demographics and plan. States he will be moving into a first floor apartment atthe end of the month. * Jung Dinero MD - 02/15/2025 8:51 AM EDT Images from the original note were not included. ASHLEY PROGRESS NOTE Date: 02/15/2025 Author: Jung Dinero MD Patient ID: Doroteo Rock is a 50 y.o. male : 1975 MR#: [id number] SUBJECTIVE Complaining of left foot pain Current Medications: amLODIPine, 5 mg, oral, Daily buprenorphine-naloxone, 2 tablet, sublingual, Daily carvediloL, 6.25 mg, oral, BID with meals [START ON 02/16/2025] cefepime, 1 g, intravenous, q24h folic acid, 1 mg, oral, Daily heparin (porcine), 5,000 Units, subcutaneous, q12h ESTEFANI mycophenolate, 180 mg, oral, BID tacrolimus, 0.5 mg, oral, Daily tacrolimus, 1 mg, oral, q PM sodium bicarbonate, 150 mEq PRN medications: acetaminophen OBJECTIVE Last Recorded Vitals: Vitals: 02/14/25 2104 02/15/25 0119 02/15/25 0629 02/15/25 0800 BP: (!) 148/89 132/87 125/84 129/78 BP Location: Right arm Right arm Right arm Patient Position: Sitting Lying Lying Pulse: 93 98 100 85 Resp: 18 18 18 16 Temp: 36.8 ??C (98.2 ??F) (!) 38.2 ??C (100.8 ??F) 37.6 ??C (99.7 ??F) 36.9 ??C (98.4 ??F) TempSrc: Oral Oral Oral Oral SpO2: 100% 99% 100% 100% Weight: 73.9 kg (163 lb) 71.9 kg (158 lb 9.6 oz) Height: 1.727 m (68 ) Physical Exam Constitutional: Appearance: Normal appearance. HENT: Head: Normocephalic and atraumatic. Mouth/Throat: Mouth: Mucous membranes are moist. Pharynx: Oropharynx is clear. Eyes: Extraocular Movements: Extraocular movements intact. Pupils: Pupils are equal, round, and reactive to light. Cardiovascular: Rate and Rhythm: Normal rate and regular rhythm. Pulses: Normal pulses. Heart sounds: Normal heart sounds. Pulmonary: Effort: Pulmonary effort is normal. Breath sounds: Normal breath sounds. Abdominal: General: Abdomen is flat. Bowel sounds are normal. There is no distension. Palpations: Abdomen is soft. Tenderness: There is no abdominal tenderness. Musculoskeletal: General: Swelling present. Normal range of motion. Cervical back: Normal range of motion and neck supple. Right lower leg: No edema. Left lower leg: Edema present. Skin: Capillary Refill: Capillary refill takes less than 2 seconds. Comments: Left hallux is erythematous boggy and has area of necrotic tissue Neurological: General: No focal deficit present. Mental Status: He is alert and oriented to person, place, and time. Mental status is at baseline. Motor: No weakness. Gait: Gait normal. Psychiatric: Mood and Affect: Mood normal. Behavior: Behavior normal. Lab Results: Admission on 02/14/2025 Component Date Value WBC 02/15/2025 1.2 (LL) RBC 02/15/2025 3.20 (L) Hemoglobin 02/15/2025 9.2 (L) Hematocrit 02/15/2025 28.5 (L) MCV 02/15/2025 88.2 MCH 02/15/2025 28.5 MCHC 02/15/2025 32.3 RDW 02/15/2025 14.5 Platelets 02/15/2025 131 MPV 02/15/2025 12.7 (H) NRBC 02/15/2025 0.0 NRBC Absolute 02/15/2025 0.00 Sodium 02/15/2025 131 (L) Potassium 02/15/2025 4.8 Chloride 02/15/2025 106 CO2 02/15/2025 14 (LL) Anion Gap 02/15/2025 11 Glucose 02/15/2025 116 (H) BUN 02/15/2025 92 (H) Creatinine 02/15/2025 8.92 (H) eGFR 02/15/2025 7 (L) BUN/Creatinine Ratio 02/15/2025 10.3 Calcium 02/15/2025 8.5 AST (SGOT) 02/15/2025 14 ALT (SGPT) 02/15/2025 9 (L) Alkaline Phosphatase 02/15/2025 122 (H) Total Protein 02/15/2025 7.4 Albumin 02/15/2025 3.7 Total Bilirubin 02/15/2025 0.3 Magnesium 02/15/2025 1.0 (L) Phosphorus 02/15/2025 5.2 (H) Protime 02/15/2025 14.3 (H) INR 02/15/2025 1.1 aPTT 02/15/2025 30.5 Culture, Blood 02/15/2025 Culture in progress Culture, Blood 02/15/2025 Culture in progress LACTIC ACID 02/15/2025 1.2 Neutrophils % 02/15/2025 29.0 Bands % 02/15/2025 1.0 Lymphocytes % 02/15/2025 31.0 Monocytes % 02/15/2025 12.0 Eosinophils % 02/15/2025 3.0 Basophils % 02/15/2025 1.0 Metamyelocytes % 02/15/2025 18.0 (H) Myelocytes % 02/15/2025 4.0 (H) Other Cells % By Manual * 02/15/2025 3.0 (H) Neutrophils Absolute Man* 02/15/2025 0.35 (L) Bands Absolute Manual 02/15/2025 0.01 (H) Lymphocytes Absolute 02/15/2025 0.37 (L) Monocytes Absolute Manual 02/15/2025 0.14 (L) Eosinophils Absolute Man* 02/15/2025 0.04 Basophils Absolute Manual 02/15/2025 0.01 Metamyelocytes Absolute * 02/15/2025 0.22 (H) Myelocytes Absolute Manu* 02/15/2025 0.05 (H) Other Cells ABS 02/15/2025 0.04 (H) Rbc Morphology 02/15/2025 See comment (A) Platelet Morphology - [facility] 02/15/2025 See Note (A) C-Reactive Protein 02/15/2025 16.40 (H) MRSA Screen PCR 02/15/2025 Not Detected Sodium 02/15/2025 131 (L) Potassium 02/15/2025 4.5 Chloride 02/15/2025 106 CO2 02/15/2025 10 (LL) Anion Gap 02/15/2025 15 (H) Glucose 02/15/2025 101 (H) BUN 02/15/2025 93 (H) Creatinine 02/15/2025 8.58 (H) eGFR 02/15/2025 7 (L) BUN/Creatinine Ratio 02/15/2025 10.8 Calcium 02/15/2025 8.9 WBC 02/15/2025 1.5 (LL) RBC 02/15/2025 3.30 (L) Hemoglobin 02/15/2025 9.4 (L) Hematocrit 02/15/2025 28.8 (L) MCV 02/15/2025 87.8 MCH 02/15/2025 28.7 MCHC 02/15/2025 32.6 RDW 02/15/2025 14.1 Platelets 02/15/2025 124 (L) MPV 02/15/2025 12.5 (H) NRBC 02/15/2025 0.0 NRBC Absolute 02/15/2025 0.00 Amphetamine Screen, Ur 02/15/2025 Negative Barbiturate Screen, Ur 02/15/2025 Negative Benzodiazepine Screen, Ur 02/15/2025 Negative Cocaine Screen, Ur 02/15/2025 Negative Opiate Screen, Ur 02/15/2025 Positive (A) Cannabinoid (THC) Screen* 02/15/2025 Negative Oxycodone Screen, Ur 02/15/2025 Negative Fentanyl, Ur 02/15/2025 Negative Magnesium 02/15/2025 2.0 Neutrophils % 02/15/2025 45.0 Bands % 02/15/2025 4.0 Lymphocytes % 02/15/2025 23.0 Monocytes % 02/15/2025 21.0 Eosinophils % 02/15/2025 2.0 Basophils % 02/15/2025 1.0 Metamyelocytes % 02/15/2025 5.0 (H) Neutrophils Absolute Man* 02/15/2025 0.68 (L) Bands Absolute Manual 02/15/2025 0.06 (H) Lymphocytes Absolute 02/15/2025 0.35 (L) Monocytes Absolute Manual 02/15/2025 0.32 Eosinophils Absolute Man* 02/15/2025 0.03 Basophils Absolute Manual 02/15/2025 0.02 Metamyelocytes Absolute * 02/15/2025 0.08 (H) Imaging: No image results found. ASSESSMENT & PLAN Principal Problem: Cellulitis 50-year-old Bahamian speaking male who can speak [place]ib[place]ian as well with medical history significant for hypertension, HIV, secondary hyperparathyroidism, PVD, ESRD s/p kidney transplantation June 2023 subsequently failure. Came in with left foot pain,/left hallux swelling discharge after he tried to clip the toenail himself. Left foot cellulitis left big toe cellulitis patient is immunocompromise there is no evidence of sepsis He is leukopenic and has history of HIV Currently afebrile Continue with cefepime 1 g every 24 hours renally dosed Seen by podiatry and plan for incision and drainage today follow cultures End-stage renal disease status post renal transplant not on dialysis Has an AV fistula. Nephrology has been consulted Continue with home medications tacrolimus and mycophenolate Fever on arrival but afebrile since admission blood cultures are pending no evidence of sepsis. Continue with antibiotics will follow-up Metabolic acidosis secondary to advanced kidney disease, bicarb's are 15, will give IV infusion 150mg. Will follow-up with nephrology recommendations repeat labs HTN On amlodipine, carvedilol HIV On Juluca Opiate dependence On Suboxone VTE Prophylaxis: heparin 5000 s/q tid Full Code - Default Disposition/patient need hospital stay because : podiatry consult , foot wound, renal consult Health care proxy with phone number : * Sohail Washington RN - 02/15/2025 2:05 AM EDT ED RN HANDOFF (All [place] Below Must Be Completed) Reason/Diagnosis for Admission: Infection of the right big toe / neutropenic fever / CKD Type of Admission: [] Medsurg, [] Telemetry Already in a Hospital Bed: [] Yes / [x] No Room Considerations/Precautions (ex: fever, diarrhea, or any infectious concerns): [x] Yes / [] No Neutropenic Link Assembler: [] Yes / [] No If YES, Cardiac Rhythm: [] NSR, [] SB, [] ST, [] A-FIB, [] A-Flutter, [] Pacemaker, [] 1st Degree HB, [] 2nd Degree HB, [] 3rd Degree HB Reason for Link Assembler: VS: Visit Vitals BP 132/87 (BP Location: Right arm, Patient Position: Sitting) Pulse 98 Temp (!) 38.2 ??C (100.8 ??F) (Oral) Resp 18 Ht 1.727 m (68 ) Wt 73.9 kg (163 lb) SpO2 99% BMI 24.78 kg/m?? Smoking Status Former BSA 1.87 m?? Current Mental Status: A/O x [x]4, []3, []2, []1 Current Ambulation Status: Non-ambulatory IV Access: [x] Yes / [] No Field IV present: [] Yes / [x] No Hx of Violence: [] Yes / [x] No / [] Unknown Fall Risk:[] Yes / [x] No Yellow Bracelet Applied [] Yes / [] No Yellow Socks Applied [] Yes / [] No Patient Belongings inventoried and BL completed: [x] Yes / [] No Patient belongings stored in the security closet: [] Yes (If Yes please supply Security bag #): [x] No Patient Medications stored in Pharmacy: [] Yes (If Yes please supply Medication Security bag #): [x] No ED Summary of Care: Patient presented with L big toe infection that occurred 3 days ago after cutting nails. Not diabetic. Patient has been unable to ambulate since infection of toe. Ultrasound IV inthe right AC. Patient found to be neutropenic upon blood work with WBC of 1.2. Patient has had a kidney transplant and it is supposedly failing. Patient received two doses of antibiotics with morphine and dilaudid for pain. Patient alert and oriented. Patient has also received magnesium for his maglevel of 1.0. VSS but slight fever. Cousin Brooke at bedside and requesting to stay with patient overnight. Submitted by and Phone Extension: [phone] * Vivienne Onofre RN - 02/14/2025 9:03 PM EDT LT BIG TOE INFECTION AFTER TRYING TO CLIP TOE NAILS. RIPPED SCAR OFF AND NOW TOE IS BLEEDING & PAINFUL. * Saad Pimentel MD - 02/14/2025 9:00 PM EDT Images from the original note were not included. HPI Chief Complaint Patient presents with Cellulitis Pt comes in with L toe infection that occurred 3 days ago after cutting nails . Non diabetic. Patient is a 50-year-old male with history of HIV, hypertension, ESRD status post transplant which has failed now with CKD but likely needs to be restarted on dialysis who is presenting to the ER with left foot swelling and redness. States several days ago he was cutting his nail. Since then he hasdeveloped pain, redness and swelling to the left toe. No fevers, vomiting/diarrhea. He states he recently had a stomach infection earlier this summer and his creatinine increased from around 3-5 and then has been around 7-7.5 recently. Patient states that they will probably need to start dialysis again soon and they plan to put him back on the transplant list. He is unsure of his CD4 count but reports compliance with his HIV regimen. Dumas Coma Scale Score: 15 Patient History Past Medical History: Diagnosis Date Chronic kidney disease ESRD (end stage renal disease) ([facility] V24, [facility] V28) HIV (human immunodeficiency virus infection) ([facility] V24[facility] V28) Hypertension Secondary hyperparathyroidism ([facility] V24) Past Surgical History: Procedure Laterality Date TRANSPLANT, KIDNEY, ROBOT-ASSISTED No family history on file. Social History Tobacco Use Smoking status: Former Types: Cigarettes Smokeless tobacco: Never Substance Use Topics Alcohol use: Not on file Drug use: Not on file Review of Systems Review of Systems Constitutional: Negative for chills and fever. Gastrointestinal: Negative for diarrhea and vomiting. Musculoskeletal: Positive for joint swelling. Skin: Positive for rash and wound. Neurological: Negative for weakness and numbness. Physical Exam ED Triage Vitals [02/14/252103] Temp Heart Rate Resp BP 36.8 ??C (98.2 ??F) 93 18 (!) 148/89 SpO2 Temp Source Heart Rate Source Patient Position 100 % Oral Monitor -- BP Location FiO2 (%) -- -- Physical Exam Vitals and nursing note reviewed. Constitutional: General: He is not in acute distress. Appearance: He is not ill-appearing, toxic-appearing or diaphoretic. HENT: Head: Normocephalic and atraumatic. Right Ear: External ear normal. Left Ear: External ear normal. Nose: Nose normal. No rhinorrhea. Mouth/Throat: Mouth: Mucous membranes are moist. Eyes: General: No scleral icterus. Extraocular Movements: Extraocular movements intact. Conjunctiva/sclera: Conjunctivae normal. Cardiovascular: Rate and Rhythm: Normal rate and regular rhythm. Comments: Well-perfused Pulmonary: Effort: Pulmonary effort is normal. No respiratory distress. Breath sounds: No stridor. Abdominal: General: Abdomen is flat. There is no distension. Musculoskeletal: General: No deformity. Normal range of motion. Cervical back: Normal range of motion and neck supple. No rigidity. Feet: Comments: Left hallux erythematous, significantly tender and swollen with streaking erythema up thefoot to the ankle Skin: General: Skin is dry. Capillary Refill: Capillary refill takes less than 2 seconds. Coloration: Skin is not jaundiced or pale. Neurological: General: No focal deficit present. Mental Status: He is alert and oriented to person, place, and time. Mental status is at baseline. Coordination: Coordination normal. Psychiatric: Mood and Affect: Mood normal. Behavior: Behavior normal. Thought Content: Thought content normal. Judgment: Judgment normal. ED Course & MDM ED Course as of 02/15/25 1616 Sat Feb 15, 2025 005 18 gauge angiocath was placed by Dr. Pimentel in the left upper arm using ultrasound guidance. IV was placed after one attempt. There was good blood return and IV flushed freely. The patient tolerated the procedure well. US guided IV placement was required because RN was unable to obtain IV access due to difficult anatomy and physician skill was required. [CL] 0112 INR: 1.1 [CL] 0125 Auto WBC(!!): 1.2 Significant leukopenia [CL] 0125 Hemoglobin(!): 9.2 Anemic, unclear baseline [CL] 0125 Temp(!): 38.2 ??C (100.8 ??F) Received tylenol [CL] 0126 Phosphorus(!): 5.2 [CL] 0126 Magnesium(!): 1.0 Will replete [CL] 0138 Creatinine(!): 8.92 [CL] 0138 Potassium: 4.8 [CL] 0138 Sodium(!): 131 [CL] 0155 Lactate, Whole Blood: 1.2 [CL] 0156 Patient does meet sepsis criteria as well as neutropenic. Will place on precautions. Patient receiving broad-spectrum antibiotics. His lactate is normal and his blood pressure is normal and thuswe will hold off on fluids unless clinically indicated. Patient also with worsening renal function consistent with EZEQUIEL on CKD with a creatinine of 8.92. Patient will require admission for his sepsis,neutropenia and left foot infection. [CL] 0201 XR Foot 3+ Views Left No evidence of bony destruction and/or or subcutaneous gas as interpreted by ED provider [CL] 0205 Signed out to at this time. [CL] ED Course User Index [CL] Saad Pimentel MD Clinical Impressions as of 02/15/25 1616 Leukopenia, unspecified type Anemia, unspecified type Chronic kidney disease, unspecified CKD stage Cellulitis of great toe of left foot Hypomagnesemia Sepsis without acute organ dysfunction, due to unspecified organism ([facility] V24, [facility] V28) Neutropenic fever ([facility] V24) Medical Decision Making Patient with a history of HIV and ESRD status post transplant now with failing transplant and worsening CKD who is presenting to the ER with left foot swelling, erythema and pain after attempting to cut his nail at home several days ago. He does have significant swelling, erythema of the left hallux with streaking erythema and lymphangitis of the ankle. Concern is for significant cellulitis with possible underlying abscess of the left great hallux in the setting of an immunocompromise patient with failed transplant and history of HIV. Plan to obtain sepsis workup with lactate, blood cultures and basic labs. Will obtain a x-ray to assess for gas although low concern for necrotizing infectionand to assess for bony destruction to suggest osteomyelitis. We will obtain a BMP to assess his renal function and electrolytes given his worsening CKD, patient states his baseline creatinine lately has been around 7. I will start patient on broad-spectrum antibiotics given his immunosuppression with vancomycin and cefepime. Saad Pimentel MD 02/15/25 0022 Saad Pimentel MD 02/15/25 0202 Saad Pimentel MD 02/15/25 1616 documented in this encounter H&P Notes * RIAN Fraga - 02/15/2025 2:31 AM EDT Images from the original note were not included. [facility] Please contact author [RIAN Fraga] via [email or web address]. Patient: Doroteo Rock Admission Date/Time: 02/14/2025 11:58 PM : 1975 [50 y.o.] Patient's PCP: Horcaio Cerna MD Attending Provider: Belia Morel MD CHIEF COMPLAINT 50-year-old male presents with left foot pain and swelling HISTORY OF PRESENT ILLNESS Mr. Suleman Rock is a 50-year-old Bahamian speaking male with medical history significant for hypertension, HIV, secondary hyperparathyroidism, PVD, ESRD s/p kidney transplantation June 2023 subsequently failure. He presented to the emergency department with chief complaints of left hallux swelling and redness after clipping his nails. In the ED, vital signs was remarkable for temp 38.2 and mildly elevated BP 148/89. Lab work revealed sodium 131, CO2 14, random glucose 116, creatinine 8.92, GFR 7, phosphorus 5.2, alkaline phosphatase 122, magnesium 1, white cell count 1.2, hemoglobin 9.2, hematocrit 28.5, absolute neutrophil count 0.35. X- ray left foot does not show any foreign bodies or any gas. Official radiology read is pending. ED gave vancomycin IV and cefepime. Patient transferred to [place]. ED initially plan to transfer patient to [facility] but patient decided to get admitted here at [facility]. The patient was accompanied by his brother, Brooke, who assisted with interpretation. Patient is primarily Bahamian-speaking but able to express himself in [place]ib[place]ian. Patient has had left great toe swelling and erythema for the past 3 days. Symptoms started after he clip his toenails. Per brother, patient occasionally gets growth in the paronychial folds of the left great toe which patient attempts totreat himself. The patient has removed the medial half of the left great toenail. He has since has a wound with some purulent drainage post removal. He tried to treat this himself with topical antibiotics but has not improved. Reports chills but denies any subjective fevers. Per patient and his brother that is a chronic problem that patient has tried to treat all by himself. He is not followed bypodiatrist. Regarding patient's renal transplant status, he states that he underwent a renal transplant at [facility] in June 2023. He has had transplant failure and plan is to resume hemodialysis. He is currently on tacrolimus and mycophenolate. He is followed by circular knitter helper at [facility]. He had his left dialysis catheter removed. It appears patient was seen by Dr. Rodriguez for creation of right arm fistula and possible insertion left arm loop AV graft. Functional status prior to presentation: independent Review of Systems Review of Systems Constitutional: Negative for chills and fever. Respiratory: Negative for chest tightness and shortness of breath. Cardiovascular: Negative for chest pain and leg swelling. Gastrointestinal: Negative for abdominal pain and diarrhea. Musculoskeletal: Positive for joint swelling (left foot). MEDICAL HISTORY Past Medical History Past Medical History: Diagnosis Date Chronic kidney disease ESRD (end stage renal disease) ([facility] V24, [facility] V28) HIV (human immunodeficiency virus infection) ([facility] V24, [facility] V28) Hypertension Secondary hyperparathyroidism ([facility] V24) Past Surgical History No past surgical history on file. Social History reports that he has quit smoking. His smoking use included cigarettes. He has never used smokeless tobacco. Family History family history is not on file. Allergies is allergic to penicillins. Home Medications Current Outpatient Medications on File Prior to Encounter Medication Sig Dispense Refill acetaminophen (TYLENOL) 500 mg tablet TAKE 1 TABLET BY MOUTH EVERY 8 HOURS NEEDED FOR PAIN MODERATE amLODIPine (NORVASC) 5 mg tablet Take 1 tablet (5 mg total) by mouth. atovaquone (MEPRON) 750 mg/5 mL suspension Take 10 mL (1,500 mg total) by mouth. carvediloL (COREG) 6.25 mg tablet Take 1 tablet (6.25 mg total) by mouth. cinacalcet (SENSIPAR) 30 mg tablet entecavir (BARACLUDE) 0.5 mg tablet Take 1 tablet (0.5 mg total) by mouth. folic acid (FOLVITE) 1 mg tablet Take 1 tablet (1 mg total) by mouth. furosemide (LASIX) 40 mg tablet Juluca 50-25 mg tablet Take 1 tablet (25 mg total) by mouth. mycophenolate (MYFORTIC) 180 mg EC tablet Take 2 tablets (360 mg total) by mouth. Suboxone 8-2 mg per SL film DISSOLVE 2 FILMS UNDER THE TONGUE EVERY DAY OBJECTIVE Vitals Visit Vitals BP 132/87 (BP Location: Right arm, Patient Position: Sitting) Pulse 98 Temp (!) 38.2 ??C (100.8 ??F) (Oral) Resp 18 Temp (24hrs), Av.5 ??C (99.5 ??F), Min:36.8 ??C (98.2 ??F), Max:38.2 ??C (100.8 ??F) Body mass index is 24.78 kg/m??. No results found for: PTWT , PTHT Physical Examination Physical Exam Constitutional: Appearance: Normal appearance. Cardiovascular: Rate and Rhythm: Normal rate and regular rhythm. Pulses: Normal pulses. Pulmonary: Effort: Pulmonary effort is normal. Breath sounds: Normal breath sounds. Musculoskeletal: Comments: Left great toe erythema with medial toenail removed. Toe is tender to palpation Skin: Capillary Refill: Capillary refill takes less than 2 seconds. Neurological: General: No focal deficit present. Mental Status: He is alert and oriented to person, place, and time. ECG: Was ECG Performed? No. Sinus Rhythm? No. Signs of acute ischemia? No Further Interpretation: N/A LAB RESULTS (most recent) HEMATOLOGY Lab Results Component Value Date WBC 1.2 (LL) 02/15/2025 HGB 9.2 (L) 02/15/2025 HCT 28.5 (L) 02/15/2025 MCV 88.2 02/15/2025 PLT 131 02/15/2025 CHEMISTRY Lab Results Component Value Date GLUCOSE 116 (H) 02/15/2025 NA 131 (L) 02/15/2025 K 4.8 02/15/2025 CO2 14 (LL) 02/15/2025 CL 106 02/15/2025 BUN 92 (H) 02/15/2025 CREATININE 8.92 (H) 02/15/2025 EGFR 7 (L) 02/15/2025 CALCIUM 8.5 02/15/2025 MG 1.0 (L) 02/15/2025 PHOS 5.2 (H) 02/15/2025 ANIONGAP 11 02/15/2025 Radiology XR Foot 3+ Views Left (Results Pending) ASSESSMENT & PLAN Left great toe cellulitis 50-year-old male with history of HTN, HIV on Juluca, ESRD status post transplant, who presents withleft great toe pain and swelling which started after he clipped his nails. He met sepsis criteria given leukopenia, and great toe cellulitis. No lactic acidosis. Admit to medicine Cefepime (renally dosed) Antipyretics as needed Podiatry consult MRSA screen CBC, BMP Hypomagnesemia Replace and recheck Neutropenic fever Pt is on immunosuppressants following renal transplant Cefepime as above Neutropenic precautions. Neutropenic diet. ESRD S/p renal transplant (06/2023)with subsequent failure. Creatinine 8.9 compared to baseline around 7-7.5. Nephrology consult Elevated anion gap Likely due to chronic renal insufficiency HTN On amlodipine, carvedilol HIV On Juluca Opiate dependence On Suboxone Admission checklist [x] Code status: Ful code [x] VTE Prophylaxis: Heparin subq [x] Diet order on admission: [x] Lines, tubes, drains: peripheral IV [x] Medication reconciliation Health Care proxy with Phone number- marcus is relative. Phone number is [phone] Cosigned by Beka Boyd MD at 02/15/2025 6:30 AM EDT Associated attestation - Beka Boyd MD - 02/15/2025 6:30 AM EDT I have personally seen and examined the patient with the resident/PA/PHYSICIAN RECRUITER and solis elements of all parts of the encounter were performed by me. Patient was reassessed on more than one occasion when required. I reviewed the interval history, interpreted all available radiographic, laboratory and physiological data at the time of service. I agree with the assessment and plan as documented by the resident/PA/PHYSICIAN RECRUITER with additions. 50-year-old male being admitted to the hospital for left great toe cellulitis. Patient stated that he started noticing pain and swelling after he clipped his nails on the left foot big toe. Patient has leukopenia and has history of renal transplant so at increasing risk of infection because of being immunocompromised. On physical exam, the patient's left foot big toe has erythema, swollen and tender to touch. Will start the patient on broad-spectrum vancomycin and cefepime. Tylenol for pain andfever. Podiatry consult in the morning. Will consult nephrology for history of renal transplant. Patient is not on dialysis. Beka Boyd MD [facility] Hospitalist, 7am-5pm Available thru EpicChat After 5pm, please EpicChat cross coverage 02/15/2025 6:30 AM EDT documented in this encounter Procedure Notes * Lance Elena DPM - 02/15/2025 9:16 AM EDT INCISION DRAINAGE BILATERAL HALLUX (B) OPERATIVE NOTE Date: 02/14/2025 - 02/15/2025 Location: [facility] OR Name: Doroteo Rock, : 1975, Diagnosis * No Diagnosis Codes entered * Post-op Diagnosis * Abscess of great toe, right [L02.611] * Abscess of left great toe [L02.612] Procedures * INCISION DRAINAGE BILATERAL HALLUX Additional Procedures Indications: Doroteo Rock is an 50 y.o. male who is having surgery for abscess left and right great toe Surgeon(s) & Irrigation Tax Assessor Collector(s) * Lance Elena DPM - Primary Anesthesia: Anesthesia type not filed in the log. ASA: IV Estimated Blood Loss: Minimal Drains: * No LDAs found * Specimen: None Procedure Details: Patient was consented marked in preoperative area. All risks and benefits were discussed in detail adequate time was given for patient to ask questions and express concerns which were all appropriately answered. Patient was then appropriately consented by the anesthesia team for all risks and benefits for monitored anesthesia required for this case. Patient was then brought back to the operating room sedated after preoperative protocols were completed in concordance with [facility] protocol. Once patient was sedated he was placed in a supine position all bony prominences were appropriately padded and offloaded. Patient was given a block around the base o f the great toes bilaterally using 10 cc of 0.5% Marcaine plain. Patient's right and left foot was scrubbed prepped and draped in usual aseptic manner. All proper timeout protocol was followed Attention was directed to the left great toe where severe cellulitis and fluid collection were noted to the medial border. A [place] elevator was used to separate the soft tissue from the underlying offending nail particle. There were multiple small abscesses to the medial border which were incised and drained using a #15 blade. Copious irrigation was used to irrigate the toe and no further necrotic or deep tracking was noted. Attention was directed to the right great toe at the lateral border where there was offending nail particle causing paronychia and small abscess. The granulation tissue was sharply removed using a 15blade and a nail nipper to expose underlying purulent drainage. Necrotic tissue was sharply dissected away. The lateral nail border was removed using a double-action bone cutter. Particle of the nailwas passed on the operating table and area was inspected for any further underlying nail portion. Copious irrigation was used to the opening. Xeroform was placed over the openings to the bilateral great toes. Coverage of wounds with 4 x 4 gauze Kerlix and Sd bandage was utilized. Patient tolerated procedure well with no complications and was transferred from the OR to PACU with all vital signs stable. Findings: Multiple abscesses within bilateral toes with offending nail particle and granulation tissue Complications: None; patient tolerated the procedure well. Disposition: PACU - hemodynamically stable. Condition: stable documented in this encounter Consult Notes * Ilda Breen MD - 02/18/2025 1:13 PM EDTAssociated Order(s): IP CONSULT TO INFECTIOUS DISEASES Infectious Diseases Consult 02/18/25 No ref. provider found Horacio Cerna MD Reason for Consultation: HIV, cellulitis Source of history: chart review and the patient Consult placed by: Emanuel Menendez History Of Present Illness (includes Chief Complaint): Doroteo Rock is a 50 y.o. male who has a past medical history of Chronic kidney disease, ESRD (end stage renal disease) ([facility] V24, [facility] V28), HIV (human immunodeficiency virus infection) ([facility] V24, [facility] V28), Hypertension, and Secondary hyperparathyroidism ([facility] V24).. The patient was admitted to the hospital on 02/14/2025 for bilateral toe infections. He has HIV which was diagnosed several years ago and follows at [facility] and takes Juluca. He also is on Entecavir for HepB suppression since he is a renal transplant recepient and on immunosuppression. His graft appears to be failing and he has worsening renal failure and leukopenia, thought to be due to infeciton by he matology. He had I and D of b/l paronychia over the weekend by Podiatry, no C/S taken. He was on Cefepime. He feels well and denies any complaints. 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 The ID service has been consulted for management during this patient's hospital stay. Past Medical History: Past Medical History: Diagnosis Date Chronic kidney disease ESRD (end stage renal disease) ([facility] V24, [facility] V28) HIV (human immunodeficiency virus infection) ([facility] V24[facility] V28) Hypertension Secondary hyperparathyroidism ([facility] V24) Surgical History: Past Surgical History: Procedure Laterality Date TRANSPLANT, KIDNEY, ROBOT-ASSISTED Family History: No family history on file. Social History: Social History Tobacco Use Smoking status: Former Types: Cigarettes Smokeless tobacco: Never Allergies: Penicillins Home Medications: Prior to Admission medications Medication Sig Start Date End Date Taking? Authorizing Provider tacrolimus (PROGRAF) 0.5 mg capsule Take 2 capsules (1 mg total) by mouth 1 (one) time each day in the evening. 11/28/24 Yes Historical Provider, tacrolimus (PROGRAF) 0.5 mg capsule Take 1 capsule (0.5 mg total) by mouth 1 (one) time each day. 12/26/24 Yes Historical Provider, acetaminophen (TYLENOL) 500 mg tablet TAKE 1 TABLET BY MOUTH EVERY 8 HOURS NEEDED FOR PAIN MODERATE 12/06/24 Historical Provider, amLODIPine (NORVASC) 5 mg tablet Take 1 tablet (5 mg total) by mouth. 12/20/24 Historical Provider, atovaquone (MEPRON) 750 mg/5 mL suspension Take 10 mL (1,500 mg total) by mouth. 11/28/24 HistoricalProviderMD carvediloL (COREG) 6.25 mg tablet Take 1 tablet (6.25 mg total) by mouth. 09/11/23 Historical Provider, cinacalcet (SENSIPAR) 30 mg tablet 10/30/24 Historical Provider, entecavir (BARACLUDE) 0.5 mg tablet Take 1 tablet (0.5 mg total) by mouth. 07/07/23 Historical Provider, folic acid (FOLVITE) 1 mg tablet Take 1 tablet (1 mg total) by mouth. 11/28/24 Historical Provider, furosemide (LASIX) 40 mg tablet 11/29/24 Historical Provider, Juluca 50-25 mg tablet Take 1 tablet (25 mg total) by mouth. 12/02/24 Historical Provider, mycophenolate (MYFORTIC) 180 mg EC tablet Take 2 tablets (360 mg total) by mouth. 08/18/23 HistoricalProviderMD Suboxone 8-2 mg per SL film DISSOLVE 2 FILMS UNDER THE TONGUE EVERY DAY Historical Provider, Current Medications: Current Facility-Administered Medications: acetaminophen (TYLENOL) tablet 1,000 mg, 1,000 mg, oral, q8h, RIAN Montelongo, 1,000 mg at 02/18/25 0519 amLODIPine (NORVASC) tablet 5 mg, 5 mg, oral, Daily, RIAN Fraga, 5 mg at 02/18/25 0854 buprenorphine-naloxone (SUBOXONE) 8-2 mg per SL tablet 1 tablet, 1 tablet, sublingual, BID, Jung Dinero MD, 1 tablet at 02/18/25 0853 carvediloL (COREG) tablet 6.25 mg, 6.25 mg, oral, BID with meals, RIAN Fraga, 6.25 mg at 02/18/25 0853 DAPTOmycin (CUBICIN) 450 mg in sodium chloride 0.9 % 50 mL IVPB, 6 mg/kg, intravenous, q48h, MD Topher dolutegravir (TIVICAY) tablet 50 mg, 50 mg, oral, Daily with dinner, Emanuel Moran MD, 50mg at 02/17/25 1647 entecavir (BARACLUDE) tablet 0.5 mg, 0.5 mg, oral, q72h, Emanuel Moran MD, 0.5 mg at 02/17/25 1325 folic acid (FOLVITE) tablet 1 mg, 1 mg, oral, Daily, RIAN Fraga, 1 mg at 02/18/25 0853 heparin (UFH) injection 5,000 Units, 5,000 Units, subcutaneous, q12h ESTEFANI, RIAN Fraga, 5,000Units at 02/18/25 0854 HYDROmorphone (DILAUDID) tablet 2 mg, 2 mg, oral, q4h PRN, Jung Dinero MD, 2 mg at 02/17/252044 lactated Ringer's infusion, 75 mL/hr, intravenous, Continuous, Jung Dinero MD, Last Rate: 75 mL/hrat 02/17/251647, 75 mL/hr at 02/17/25 164 magnesium oxide (MAG-OX) tablet 400 mg, 400 mg, oral, Daily, Emanuel Menendez MD magnesium sulfate 2 gram/50 mL (4 %) IVPB 2 g, 2 g, intravenous, Once, Emanuel Moran MD rilpivirine (EDURANT) tablet 25 mg, 25 mg, oral, Daily with dinner, Emanuel Moran MD, 25 mg at 02/17/25 164 senna (SENOKOT) tablet 17.2 mg, 2 tablet, oral, Nightly PRN, Jung Dinero MD, 17.2 mg at 02/16/25 211 sodium bicarbonate tablet 650 mg, 650 mg, oral, TID, Vahid Contreras MD, 650 mg at 02/18/25 0854 tacrolimus (PROGRAF) capsule 0.5 mg, 0.5 mg, oral, Daily, RIAN Fraga, 0.5 mg at 02/18/25 0853 tacrolimus (PROGRAF) capsule 1 mg, 1 mg, oral, q PM, RIAN Fraga, 1 mg at 02/17/25 1648 tbo-filgrastim (GRANIX) syringe 300 mcg, 300 mcg, subcutaneous, Daily, Jung Dinero MD, 300 mcg at 02/18/25 0858 PRN medications: HYDROmorphone, senna ROS: Review of Systems Constitutional: Negative. HENT: Negative. Respiratory: Negative. Cardiovascular: Negative. Gastrointestinal: Negative. Genitourinary: Negative. Musculoskeletal: Negative. Skin: Negative. Neurological: Negative. Vital signs for last 24 hours: Temp: 36.7 ??C (98 ??F) (02/19 752) Heart Rate: 71 (02/19 752) Resp: 15 (02/19 752) BP: 137/91 (02/19 752) Intake/Output this shift: No intake/output data recorded. Physicial Exam Physical Exam Vitals reviewed. Constitutional: Appearance: Normal appearance. HENT: Head: Normocephalic and atraumatic. Eyes: General: No scleral icterus. Cardiovascular: Rate and Rhythm: Normal rate and regular rhythm. Heart sounds: No murmur heard. No friction rub. Pulmonary: Effort: No respiratory distress. Breath sounds: No stridor. No wheezing, rhonchi or rales. Chest: Chest wall: No tenderness. Abdominal: General: There is no distension. Palpations: There is no mass. Tenderness: There is no abdominal tenderness. There is no guarding or rebound. Hernia: No hernia is present. Musculoskeletal: General: Signs of injury present. Skin: Coloration: Skin is not jaundiced or pale. Neurological: General: No focal deficit present. Mental Status: He is alert and oriented to person, place, and time. Results: Lab No results displayed because visit has over 200 results. Lab Results Component Value Date BLOODCX No growth at 2 days 02/15/2025 BLOODCX No growth at 2 days 02/15/2025 MRSA Not Detected 02/15/2025 Recent Results (from the past week) Blood Culture, Peripheral #2 Collection Time: 02/15/25 12:51 AM Specimen: Blood, Venous Result Value Ref Range Culture, Blood No growth at 2 days Blood Culture, Peripheral #1 Collection Time: 02/15/25 1:15 AM Specimen: Blood, Venous Result Value Ref Range Culture, Blood No growth at 2 days MRSA molecular study Collection Time: 02/15/25 5:30 AM Specimen: Nasopharynx; Swab Result Value Ref Range MRSA Screen PCR Not Detected Not Detected Radiology: XR Foot 3+ Views Left Narrative: PROCEDURE: Radiographs of the left foot. HISTORY: hallux infection. COMPARISON: None. FINDINGS: 3 views of the left foot. Bones appear demineralized. No fracture or malalignment. No bony erosion or periosteal reaction. Small plantar calcaneal spur. Impression: No specific radiographic evidence of osteomyelitis. More sensitive assessment could be performed with MRI. -------- FINAL REPORT -------- Dictated By: Yassine Aggarwal Dictated Date: 02/15/2025 09:01 ET Assigned Physician: Yassine Aggarwal Reviewed and Electronically Signed By: Yassine Aggarwal Signed Date: 02/15/2025 09:04 ET Workstation ID: [id number] Transcribed By: Self Edit Transcribed Date: 02/15/2025 09:01 ET Assessment/Plan Doroteo Rock is a 50 y.o. male who has a past medical history of Chronic kidney disease, ESRD (end stage renal disease) ([facility] V24, [facility] V28), HIV (human immunodeficiency virus infection) ([facility] V24, [facility] V28), Hypertension, and Secondary hyperparathyroidism ([facility] V24).. The patient was admitted to the hospital on 02/14/2025 for bilateral toe infections. He has HIV which was diagnosed several years ago and follows at [facility] and takes Juluca. He also is on Entecavir for HepB suppression since he is a renal transplant recepient and on immunosuppression. His graft appears to be failing and he has worsening renal failure and leukopenia, thought to be due to infeciton by he matology. He had I and D of b/l paronychia over the weekend by Podiatry, no C/S taken. He was on Cefepime. He feels well and denies any complaints. 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 The ID service has been consulted for management during this patient's hospital stay. B/l big toe cellulitis with Paronychia s/p I and D HIV on Tx Renal transplant recipient Graft rejection Leukopenia Hep B suppression Acute renal failure Will treat with 1 time dose of Dalbavancin to cover SSTI 750 mg based on renal function D/w pharmacy they will approve CMV ordered per nephrology To follow with Hem and Nephro as OP Can continue home juluca for HIV and Entecavir for Hep B suppression Recommendations: Will give 1 time dose of Dalbavancin 750 mg per renal function to cover SSTI as pt has to be discharged today, ordered as non formularoy, discussed with pharmacy Continue the pt's Juluca and Entecavir CD4 and VL ordered CMV PCR ordered per nephro I personally spent 57 minutes in this encounter. This included performing a detailed chart review, reviewing and independently interpreting labs and other tests ordered by other providers, performinga history and physical, counseling the patient/family, discussing the case with primary team and pharmacy, performing complex medical decision making, coordinating his/her/their plan of care and placing orders, Isolation: none Communication: Thank you for the consult. Please do not hesitate to contact me via EpicChat with issues or questions Ilda Breen MD * Manju Afshan, SWAPNIL - 02/17/2025 11:01 AM EDTAssociated Order(s): IP CONSULT TO NUTRITION SERVICES 02/17/2025 @ 11:06 AM EDT Nutrition Consult Note/Nutrition Assessment Hat Parts Cutter Machine Services: Language: Activity Coordinator services not used, pt speaks Djiboutian fairly well Reason for RD Intervention: Assessment Type: RN Consult Reason for Assessment: High MST Score Anthropometrics: Height: 172.7 cm (68 ) Weight: 71.9 kg (158 lb 9.6 oz) Weight Method: Actual BMI (Calculated): 24.1 BMI Class: Normal IBW (lbs): 150 UBW (lbs): 165 Recent Weight Change: Yes (Pt reports likley loss of a few lbs due to pain affecting appetite) Current Diet and Supplements: Dietary Orders (From admission, onward) Start Ordered 02/17/25 1052 Adult diet [facility]; General; Regular; Self-Select Meals Dieteffective now Question Answer Comment Location [facility] Diet Type (req) General General Diet Regular Is the patient able to participate in meal ordering? Self-Select Meals 02/17/25 1052 History of presenting illness: Patient is a 50 y.o. male with a history of Past Medical History: Diagnosis Date Chronic kidney disease [place]end stage renal disease[place] [place] [facility] [place] HIV (human immunodeficiency virus infection) [place] [place] [facility] [place] Hypertension Secondary hyperparathyroidism [place] [place] Past Surgical History: Procedure Laterality Date TRANSPLANT, KIDNEY, ROBOT-ASSISTED admitted 02/14/2025 with Cellulitis. Food/Nutrition History: Previous Diet / Nutrition Education / Counseling: Pt reports he avoids salty foods at home and tries not to eat too much protein given ESRD. Typically eats 2 meals a day, maybe a snack inbetween. He prepares his own meals and prefers to eat homecooked meals. No reported food allergies. Appetite HORSERADISH MAKER: Good Intake HORSERADISH MAKER: Stable Vitamins/Minerals/Herbs: Pt does not take any supplements Location: Home Social Influencers of Health & Nutrition - Hunger Vital Signs: Within the past 12 months we worried whether our food would run out before we got money to buy more: Never true Within the past 12 months the food we bought just didn't last and we didn't have money to get more: Never true Who obtained answers? Hunger vital signs completed by RD. Assistance: No assistance needed at this time Weight History: Wt Readings from Last 10 Encounters: 02/15/25 71.9 kg (158 lb 9.6 oz) 12/31/24 74.2 kg (163 lb 9.6 oz) Subjective Assessment: Pt seen for consult. Pt here for cellulitis of L great toe, s/p I&D on 02/15. Pt had renal transplant in June 2023. Pt will likely start HD outpatient, currently not on dialysis. Pt denies nausea/vomiting, denies diarrhea/constipation. Last +BM Wednesday 02/14. Pt reports he has likely lost a few pounds due to poor appetite from pain in his foot, but weights otherwise stable. Pt reports no changes in his appetite other than pain. Pt with ensure on bedside table, notes he brought it in and asking about receiving them here. Informed pt of oral nutrition supplement more appropriate for renal disease; pt willing to try. Weight from 12/31 stated. Nutrition-Related Lab Values: Results from last 7 days Lab Units 02/17/25 0614 02/16/25 0606 02/15/25 0638 SODIUM mmol/L 137 < > 131* POTASSIUM mmol/L 3.8 < > 4.5 PHOSPHORUS mg/dL -- -- 5.2* MAGNESIUM mg/dL -- -- 2.0 CHLORIDE mmol/L 108 < > 106 CO2 mmol/L 19* < > 10* BUN mg/dL 84* < > 93* CREATININE mg/dL 7.34* < > 8.58* EGFR mL/min/1.73m2 8* < > 7* CALCIUM mg/dL 8.6 < > 8.9 BILIRUBIN TOTAL mg/dL 0.3 < > 0.3 ALK PHOS unit/L 101 < > -- ALT unit/L 12 < > 9* AST unit/L 15 < > 14 GLUCOSE mg/dL 98 < > 101* WBC AUTO K/mcL 1.3* < > 1.5* < > = values in this interval not displayed. No results found for: LIPASE Medications: acetaminophen, 1,000 mg, oral, q8h amLODIPine, 5 mg, oral, Daily buprenorphine-naloxone, 1 tablet, sublingual, BID carvediloL, 6.25 mg, oral, BID with meals cefepime, 1 g, intravenous, q24h dolutegravir, 50 mg, oral, Daily entecavir, 0.5 mg, oral, q72h folic acid, 1 mg, oral, Daily heparin (porcine), 5,000 Units, subcutaneous, q12h ESTEFANI rilpivirine, 25 mg, oral, Daily with dinner tacrolimus, 0.5 mg, oral, Daily tacrolimus, 1 mg, oral, q PM tbo-filgrastim, 300 mcg, subcutaneous, Daily CONTINUOUS: lactated Ringer's, 75 mL/hr, Last Rate: 75 mL/hr (02/16/25 1516) PRN medications: HYDROmorphone, senna Energy Needs: kcal, gm protein, mL fluid per day. Total Energy Estimated Needs: Based on actual BW: 1800 - 2160 kcal/day (25 - 30kcal/kg), 39 - 43g protein/day (0.55 - 0.6g/kg ESRD), 1ml/kcal fluid Height: 172.7 cm (68 ) Temp: 36.7 ??C (98.1 ??F) Food/Nutrition-Current Status: Intake Type: Other (Comment) (NPO) Current Diet Status: Other (Comment) (awaiting diet advancement) Appetite: Good Intake Amount (%): Unable to Assess (NPO) Intake Assessment: Inadequate (NPO) Pain related to Intake: Pt reports some pain in toe affecting his appetite Main IVF: LR Main IVF Rate (mL/hr): 75 Nutrition Focused Physical Findings: Overall Appearance: Pt sitting up in bed, appears nourished. No visual findings of muscle or fat loss noted Digestive System (Mouth to Rectum): Appetite change Nerves and Cognition: Alert, Oriented Skin: bilateral toe wounds Nutrition Diagnosis: Code Type: None Identified Status: New Diagnosis: Increased Nutrient Needs Etiology: Increased demand for nutrient Symptoms: Moderate increased need for protein and calories in the setting of bilateral toe wounds to L and R great toes. Nutrition Interventions: Diet Order, Meals/Snacks, Medical Food Supplement Will start Nepro given inadequate intake; adjust as needed on follow up. Medical Food Supplement(s): Nepro Nepro Frequency: Daily Monitor lytes and need for renal diet; pt currently on regular diet, last phos elevated Diet Order: Other (Comment) (recommend renal diet if lytes abnormal) Nutrition Education Education not provided at this time. Goals: Patient will tolerate diet progression. , Patient will initially consume at least 50% of meals. , Patient will consume ONS., Improvement in renal labs., Electrolytes within normal range., Maintain weight., Stooling appropriately., Maintain skin integrity., and Wound healing progress. Coordination of Patient Care: Verbal discussion with RN. and Care plan discussed with patient/family. Monitoring/Evaluation: Fluid/Beverage Intake, Food Intake, Medical Food Supp/Oral Nutrition Supp, Renal/Electrolyte Profile, Diet Order Follow Up: Nutrition Priority Level: Moderate RD remains available and will continue to follow. Signature: Manju Cavanaugh RD * Lonnie Lovett MD - 02/16/2025 2:00 PM EDTAssociated Order(s): IP CONSULT TO HEMATOLOGY Identifying data: The patient is a 50-year-old gentleman with HIV and end-stage renal disease who presented with a left toe wound infection and cellulitis and an evolving neutropenia. History of present illness: The patient is a 50-year-old gentleman with HIV and end-stage renal disease currently on dialysis who presented to [facility] on 02/14/2025 with left first toe swelling and erythema after clipping his nails. He remains on immunosuppressive therapy with mycophenolate for a past history of renal transplant.He has a past history of intravenous drug use several years ago and remains on Suboxone. He was evaluated by podiatry yesterday and abscesses were appreciated in both first toes. He underwent incision and drainage of both abscesses. He remains on cefepime. The patient has remained afebrile throughout his hospital course. He denies fevers, chills, or sweats. A CBC on 02/15/2025 showed WBC 1.2 with ANC 0.4, hemoglobin 9.2 with MCV 88, and platelet count 131,000. A hepatitis B core antibody on 02/15/2025 was positive. A hepatitis B IgM core antibody was negative.A hepatitis B surface antigen was negative. A hepatitis B surface antibody was negative. A CBC on 02/16/2025 showed WBC 1.3 with ANC 0.4, hemoglobin 8.3 with MCV 86, and platelet count 115,000. Medical history: End-stage renal disease, HIV, hypertension, secondary hyperparathyroidism. Medications on admission: Acetaminophen, amlodipine, atovaquone, carvedilol, Sensipar, Baraclude, folic acid, furosemide, Juluca, mycophenolate, Suboxone. Allergies: Penicillin. Physical examination: General: The patient is alert, oriented x 3, nondiaphoretic, no respiratory distress. Extremities: Both first toes are bandaged without evidence of spreading erythema. Impression/recommendation: The patient is a 50-year-old gentleman with HIV and end-stage renal disease who is maintained on mycophenolate who developed a severe neutropenia. The following neutropenia is likely related to active bacterial infection and current antibiotic therapy. I recommended continuing the current antibiotic therapy. I recommended adding G-CSF support 300 mcg subcutaneously daily x 3. The G-CSF can be held as the ANC approaches 1.0. * Curtis Manning MD - 02/15/2025 4:12 PM EDT Images from the original note were not included. CONSULT Date of Service: 02/15/25 Chief Complaint Evaluation and management of CKD 5 d/t failing kidney Xplant in setting of L foot pain with foot infection History Of Present Illness RTANE consulted to manage Kidney Xpalnt which has been failing severely and will likely neeed to r/s Dialysis this hospitilzation and also assit in management of his IS PT is normally followed by Dr Ayers and I have access to his last two notes from December 2024 which shows adv kidney dysfun and Neutriopenia. He was encourage to get a new AVF and decr his MMF from 360bid to 180 bid 12/2024 Scr 7.65, HCO3 16 WBC 1.3 and ANC 0.6 I am unable to get an updated med list from the [facility] EHR In summary he is a 50-year-old Bahamian speaking male who can speak Djiboutian as well with medical history significant for hypertension, HIV, secondary hyperparathyroidism, PVD, ESRD s/p DDTx June 2023 maintained on Tacro/MMF and now severe failure if his Xpalnt He was adm 02/14 with left foot pain,/left hallux swelling discharge after he tried to clip the toenail himself. He underwent foot surg by Podiatry 02/14 with I and D Past Medical History Past Medical History: Diagnosis Date Chronic kidney disease ESRD (end stage renal disease) ([facility] V24, [facility] V28) HIV (human immunodeficiency virus infection) ([facility] V24, [facility] V28) Hypertension Secondary hyperparathyroidism ([facility] V24) Surgical History Past Surgical History: Procedure Laterality Date TRANSPLANT, KIDNEY, ROBOT-ASSISTED Family History No family history on file. Social History Social History Tobacco Use Smoking status: Former Types: Cigarettes Smokeless tobacco: Never Allergies Penicillins Medications amLODIPine, 5 mg, oral, Daily buprenorphine-naloxone, 1 tablet, sublingual, BID carvediloL, 6.25 mg, oral, BID with meals [START ON 02/16/2025] cefepime, 1 g, intravenous, q24h folic acid, 1 mg, oral, Daily heparin (porcine), 5,000 Units, subcutaneous, q12h ESTEFANI tacrolimus, 0.5 mg, oral, Daily tacrolimus, 1 mg, oral, q PM PRN medications: acetaminophen, HYDROmorphone sodium bicarbonate, 150 mEq, Last Rate: 150 mEq (02/15/25 1059) Current medications reviewed. Review of Systems 10 points review of system negative except for pertinent in HPI Last Recorded Vitals: Visit Vitals BP 114/71 Pulse 84 Temp 36.7 ??C (98.1 ??F) (Oral) Resp 16 Wt Readings from Last 3 Encounters: 02/15/25 71.9 kg (158 lb 9.6 oz) 12/31/24 74.2 kg (163 lb 9.6 oz) Intake/Output last 3 shifts: Intake/Output Summary (Last 24 hours) at 02/15/2025 1612 Last data filed at 02/15/2025 0926 Gross per 24 hour Intake 150 ml Output -- Net 150 ml Physical Exam General: No acute distress HEENT: Normocephalic, atraumatic, anicteric Respiratory: unlabored Cardiovascular: S1 S2 normal Gl: Soft no tenderness Extremities: No cyanosis Neurological: Alert Integumentary: no rashes Psych: Calm, cooperative Results Review Results from last 7 days Lab Units 02/15/25 0638 02/15/25 0051 WBC AUTO K/mcL 1.5* 1.2* HEMOGLOBIN g/dL 9.4* 9.2* HEMATOCRIT % 28.8* 28.5* MCV FL 87.8 88.2 PLATELETS K/mcL 124* 131 Results from last 7 days Lab Units 02/15/25 0638 02/15/25 0052 CREATININE mg/dL 8.58* 8.92* BUN mg/dL 93* 92* SODIUM mmol/L 131* 131* POTASSIUM mmol/L 4.5 4.8 CHLORIDE mmol/L 106 106 CO2 mmol/L 10* 14* Phosphorus Date Value Ref Range Status 02/15/2025 5.2 (H) 2.5 - 4.5 mg/dL Final No results found for: IRON , TIBC , FERRITIN No results found for: COLORUA , CLARITYUA , SPECGRAVUA , PHUA , PROTUA , GLUCOSEUA , KETONESUA , BILIRUBINUA , BLOODUA , UROBILINOGUA , NITRITEUA Impression & Plan DDTx 2023 failing absed on Scr 7.5 ( 12/2024) with recurrent EZEQUIEL and adv kdienuy dysfun in Graft noted in osp records, its unclear whether he had Bx of Xplant at some point but Dr Ayers rec ention that his DSA and cf DNA ( prospera) were negative Unfortantely it appears his failure in the xpalnt kidney is irreversible and a Bx would have no impact Instead we need to move quicky with transitioning him back on to HD this hospitilization 2. IS: he was on tacro/MMF the latter has been d/c d/t severe leukopenia and Neutropenia as ntoed 3. NAGMA mutlifavct with adv CKD and ques underlying RTA; he denies diarrhea, Lac level normal and no signif AG Currently on IV NaHCO3 4. Leukopenia: multifact; may need Nupogen given ongoing cellultiis; usu start if ANC < 0.5 but would rec getting bith Heme and ID input Needs CMV pcr as this ind=fection can cause BM supp and Nutropenia 5. Cellulitis: on Abx and getting ID input 6. Anemia: may need EPO/Fe if decr furhter 7. MBD of CKD: need ot check PTH/Phos 8. Hemoaccess: refer for AVF once infection resolved; schedule Pcath for Monday 9. H/O HIV mentioned in rec but details unclear to me at this time REC: d/c MMF, check tacro level and look to decr dose furhter now that he appears at ESRD ( he wantDr Ayers to make that decsion), consult ID and Heme, cont IV NaHCO3, check CMV pcr, parvo titer, Hep B sero, Pcath for Monday and start HD next week ( again he wants to hold off on this and check with Dr Ayers), follow WBC and ANC closely and get heme input re whether he needs Nupogen I have communicated by rec as noted abvoe to Dr Rosette Manning MD documented in this encounter Plan of Treatment Upcoming Encounters Date Type Department Care Team (Late st Contact Info) Description 02/24/2025 11:15 AM EDT Office Visit [facility] Hematology Oncology [address] [place] [address] Lonnie Lovett MD [address] [place] [address] Pending Results Name Type Priority Associated Diagnoses Date /Time Parvovirus B19 antibodies, IgM Lab Routine 02/17/2025 6:15 AM EDT HIV 1 drug resistance, quantitative phenotype, genotype plus integrase Lab Routine 02/19/20 1:24 PM EDT Lymphocyte T-cell panel Lab Routine 0 02/18/2025 1:24 PM EDT Scheduled Orders Name Type Priority Associated Diagnoses Orde r Schedule Parvovirus B19 antibodies, IgM Lab Routine AM Draw for 1 Occurrences starting 02/17/2025 until 02/17/2025 HIV 1 drug resistance, quantitative phenotype, genotype plus integrase Lab Routine Once for 1 Occurrences starting 02/18/2025 until 02/18/2025 Lymphocyte T-cell panel Lab Routine O nce for 1 Occurrences starting 02/18/2025 until 02/18/2025 Basic metabolic panel Lab Routine Hypomagnesemia EZEQUIEL (acute kidney injury) ([facility] V24) Expected: 02/20/2025, Expires: 02/18/2026 CBC and differential Lab Routine Severe neutropenia ([facility] V24) Expected: 02/20/2025, Expires: 02/18/2026 Magnesium Lab Routine Hypomagnesemia Expected: 02/20/2025, Expires: 02/18/2026 Scheduled Procedures Name Priority Associated Diagnoses Date/Ti me CREATION FISTULA AV UPPER EXTREMITY CKD (chronic kidney disease) stage 5, GFR less than 15 ml/min ([facility] V24, [facility] V28) Scheduled Referrals Name Type Priority Associated Diagnoses Order Schedule Ambulatory referral to Home Health Outpatient Referral Routine CKD (chronic kidney disease) stage 5, GFR less than 15 ml/min ([facility] V24, CMS/HCC V28) Severe neutropenia (CMS/HCC V24) 1 Occurrences starting 02/18/2025 until 02/18/2026 documented as of this encounter Procedures Procedure Name Priority Date/Time Associated Diagnosis Comments HIV 1 MOLECULAR STUDY QUANTITATIVE Routine 02/18/2025 1:24 PM EDT MANUAL DIFFERENTIAL - SYSMEX WAM Routine 02/18/2025 6:57 AM EDT CBC WITH AUTO DIFFERENTIAL Routine 02/18/2025 6:57 AM EDT CBC AND DIFFERENTIAL Routine 02/18/2025 6:57 AM EDT PHOSPHORUS Routine 02/18/2025 6:57 AM EDT MAGNESIUM Routine 02/18/2025 6:57 AM EDT BASIC METABOLIC PANEL Routine 02/18/2025 6:57 AM EDT AFSHAN HODGE VIRUS IGG, IGM, NUCLEAR AND EARLY ANTIBODIES Routine 02/17/2025 7:04 AM EDT CYTOMEGALOVIRUS PCR QUANTITATIVE Routine 02/17/2025 7:03 AM EDT MANUAL DIFFERENTIAL - SYSMEX WAM Routine 02/17/2025 6:14 AM EDT CBC WITH AUTO DIFFERENTIAL Routine 02/17/2025 6:14 AM EDT CBC AND DIFFERENTIAL Routine 02/17/2025 6:14 AM EDT COMPREHENSIVE METABOLIC PANEL Routine 02/17/2025 6:14 AM EDT TACROLIMUS LEVEL Timed 02/16/2025 7:28 AM EDT MANUAL DIFFERENTIAL - SYSMEX WAM Routine 02/16/2025 6:06 AM EDT CBC WITH AUTO DIFFERENTIAL Routine 02/16/2025 6:06 AM EDT CBC AND DIFFERENTIAL Routine 02/16/2025 6:06 AM EDT COMPREHENSIVE METABOLIC PANEL Routine 02/16/2025 6:06 AM EDT INCISION DRAINAGE EXTREMITY LOWER 02/15/2025 9:03 AM EDT Abscess of great toe, right Abscess of left great toe AST, ALT, BILIRUBIN ELR STATE REPORTABLES Routine 02/15/2025 6:38 AM EDT MANUAL DIFFERENTIAL - SYSMEX WAM Routine 02/15/2025 6:38 AM EDT PATHOLOGIST REVIEW BLOOD SMEAR Routine 02/15/2025 6:38 AM EDT HEPATITIS B SCREENING PANEL Routine 02/15/2025 6:38 AM EDT CBC WITH AUTO DIFFERENTIAL Routine 02/15/2025 6:38 AM EDT HEPATITIS B CORE ANTIBODY IGM Routine 02/15/2025 6:38 AM EDT CBC AND DIFFERENTIAL Routine 02/15/2025 6:38 AM EDT PHOSPHORUS Routine 02/15/2025 6:38 AM EDT PARATHYROID HORMONE INTACT Routine 02/15/2025 6:38 AM EDT MAGNESIUM Routine 02/15/2025 6:38 AM EDT BASIC METABOLIC PANEL Routine 02/15/2025 6:38 AM EDT DRUG ABUSE SCREEN 8A PANEL, URINE STAT 02/15/2025 5:30 AM EDT MRSA PCR Routine 02/15/2025 5:30 AM EDT XR FOOT 3+ VIEWS LEFT STAT 02/15/2025 1:25 AM EDT CULTURE BLOOD STAT 02/15/2025 1:15 AM EDT LACTATE, WITH REFLEX STAT 02/15/2025 12:54 AM EDT C-REACTIVE PROTEIN Add-On 02/15/2025 12 :52 AM EDT PHOSPHORUS STAT 02/15/2025 12:52 AM EDT MAGNESIUM STAT 02/15/2025 12:52 AM EDT COMPREHENSIVE METABOLIC PANEL STAT 02/15/2025 12:52 AM EDT MANUAL DIFFERENTIAL - SYSMEX WAM STAT 02/15/2025 12:51 AM EDT CBC WITH AUTO DIFFERENTIAL STAT 02/15/2025 12:51 AM EDT CULTURE BLOOD STAT 02/15/2025 12:51 AM EDT ACTIVATED PARTIAL THROMBOPLASTIN TIME STAT 02/15/2025 12:51 AM EDT PROTHROMBIN TIME WITH INR STAT 02/15/2025 12:51 AM EDT CBC AND DIFFERENTIAL STAT 02/15/2025 12:51 AM EDT documented in this encounter Results * HIV 1 molecular study quantitative (02/18/2025 1:24 PM EDT) HIV-1 RNA Interpretation Not Detected Not Detected LAB MOLECULAR DIAGNOSTICS METHOD 02/18/2025 4:24 PM EDT [facility] Comment:HIV RNA not detected , unable to report quantitative results. Blood Venous blood specimen / Unknown Venipuncture / Unknown 02/18/2025 1:24 PM EDT 02/18/2025 1:32 PM EDT us Ilda Breen MD LAB BLOOD ORDERABLES Final Resul t [facility] [address] [place] [address], * (ABNORMAL) Manual differential (02/18/2025 6:57 AM EDT) Neutrophils % 14.0 % LAB HEMETOLOGY METHOD 02/18/2025 8:15 AM EDT [facility] Lymphocytes % 39.0 % LAB HEMETOLOGY METHOD 02/18/2025 8:15 AM EDT [facility] Monocytes % 25.0 % LAB HEMETOLOGY METHOD 02/18/2025 8:15 AM EDT [facility] Eosinophils % 11.0 % LAB HEMETOLOGY METHOD 02/18/2025 8:15 AM EDT [facility] Basophils % 6.0 % LAB HEMETOLOGY METHOD 02/18/2025 8:15 AM EDT [facility] Metamyelocytes % 6.0(H) % LAB HEMETOLOGY METHOD 02/18/2025 8:15 AM EDT [facility] Neutrophils Absolute Manual 0.17(L) 1.50 - 7.00 K/mcL LAB HEMETOLOGY METHOD 02/18/2025 8:15 AM EDT [facility] Lymphocytes Absolute 0.47(L) 1.00 - 5.00 K/mcL LAB HEMETOLOGY METHOD 02/18/2025 8:15 AM EDT [facility] Monocytes Absolute Manual 0.30 0.20 - 1.00 K/mcL LAB HEMETOLOGY METHOD 02/18/2025 8:[facility] Eosinophils Absolute Manual 0.13 0.00 - 0.50 K/mcL LAB HEMETOLOGY METHOD 02/18/2025 8:15 AM EDT [facility] Basophils Absolute Manual 0.07 0.00 - 0.20 K/mcL LAB HEMETOLOGY METHOD 02/18/2025 8:15 AM EDT [facility] Metamyelocytes Absolute Manual 0.07(H) 0.00 - 0.00 K/mcL LAB HEMETOLOGY METHOD 02/18/2025 8:15 AM EDT [facility] Rbc Morphology Present(A) Consistent with indices, Normal for LAB HEMETOLOGY METHOD 02/18/2025 8:15 AM EDT [facility] Comment:This is an appended report. These results have been appended to a previously final verified report. Platelet Morphology - WAM Large Platelets Seen(A) Normal LAB HEMETOLOGY METHOD 02/18/2025 8:15 AM EDT [facility] Comment:This is an appended report. These results have been appended to a previously final verified report. Polychromasia Present Present(A) (none) LAB HEMETOLOGY METHOD 02/18/2025 8:15 AM EDT [facility] Comment:This is an appended report. These results have been appended to a previously final verified report. Dohle Body Present Present(A) (none) LAB HEMETOLOGY METHOD 02/18/2025 8:15 AM EDT [facility] Comment:This is an appended report. These results have been appended to a previously final verified report. Blood Venous blood specimen / Unknown Venipuncture / Unknown 02/18/2025 6:57 AM EDT 02/18/2025 7:16 AM EDT us Emanuel Moran MD LAB BLOOD ORDERABLES E dited Result - Final [facility] [address] [place] [address], [place] [phone] * (ABNORMAL) CBC auto differential (02/18/2025 6:57 AM EDT) WBC 1.2(LL) 4.8 - 10.8 K/mcL LAB HEMETOLOGY METHOD 02/18/2025 8:07 AM [facility] RBC 2.70(L) 4.50 - 5.50 M/mcL LAB HEMETOLOGY METHOD 02/18/2025 8:07 AM [facility] Hemoglobin 7.6(L) 13.5 - 17.5 g/dL LAB HEMETOLOGY METHOD 02/18/2025 8:07 AM [facility] Hematocrit 23.2(L) 42.0 - 54.0 % LAB HEMETOLOGY METHOD 02/18/2025 8:07 AM [facility] MCV 86.6 79.0 - 98.0 FL LAB HEMETOLOGY METHOD 02/18/2025 8:07 AM [facility] MCH 28.4 27.0 - 32.0 pcg LAB HEMETOLOGY METHOD 02/18/2025 8:07 AM [facility] MCHC 32.8 32.0 - 37.0 g/dL LAB HEMETOLOGY METHOD 02/18/2025 8:07 AM [facility] RDW 14.3 11.0 - 15.0 % LAB HEMETOLOGY METHOD 02/18/2025 8:07 AM [facility] Platelets 115(L) 130 - 400 K/mcL LAB HEMETOLOGY METHOD 02/18/2025 8:07 AM [facility] MPV 11.8(H) 7.0 - 11.0 FL LAB HEMETOLOGY METHOD 02/18/2025 8:07 AM [facility] NRBC 0.0 <1.0 % LAB HEMETOLOGY METHOD 02/18/2025 8:07 AM [facility] NRBC Absolute 0.00 <0.10 K/mcL LAB HEMETOLOGY METHOD 02/18/2025 8:07 AM EDT [facility] Blood Venous blood specimen / Unknown Venipuncture / Unknown 02/18/2025 6:57 AM EDT 02/18/2025 7:16 AM EDT us Emanuel Moran MD LAB BLOOD ORDERABLES F inal Result Performing Organization Address City/[facility]/ZIP Co de Phone Number [facility] [address] [place] [address], [place] [phone] * Phosphorus (02/18/2025 6:57 AM EDT) Phosphorus 4.2 2.5 - 4.5 mg/dL LAB CHEMISTRY METHOD 02/18/2025 7:58 AM EDT [facility] Blood Venous blood specimen / Unknown Venipuncture / Unknown 02/18/2025 6:57 AM EDT 02/18/2025 7:16 AM EDT us Emanuel Moran MD LAB BLOOD ORDERABLES F inal Result Performing Organization Address [facility] Co de Phone Number [facility] [address] [place] [address], [place] [phone] * (ABNORMAL) Magnesium (02/18/2025 6:57 AM EDT) Magnesium 1.3(L) 1.9 - 2.6 mg/dL LAB CHEMISTRY METHOD 02/18/2025 7:58 AM EDT [facility] Blood Venous blood specimen / Unknown Venipuncture / Unknown 02/18/2025 6:57 AM EDT 02/18/2025 7:16 AM EDT us Emanuel Moran MD LAB BLOOD ORDERABLES F inal Result Performing Organization Address City/[facility]/ZIP Co de Phone Number [facility] [address] [place] [address], [place] [phone] * (ABNORMAL) Basic metabolic panel (02/18/2025 6:57 AM EDT) Sodium 140 133 - 145 mmol/L LAB CHEMISTRY METHOD 02/18/2025 7:58 AM [facility] Potassium 3.7 3.5 - 5.5 mmol/L LAB CHEMISTRY METHOD 02/18/2025 7:58 AM [facility] Chloride 109 96 - 110 mmol/L LAB CHEMISTRY METHOD 02/18/2025 7:58 AM [facility] CO2 22 21 - 32 mmol/L LAB CHEMISTRY METHOD 02/18/2025 7:58 AM [facility] Anion Gap 9 3 - 11 LAB CHEMISTRY METHOD 02/18/2025 7:58 AM [facility] Glucose 97 70 - 100 mg/dL LAB CHEMISTRY METHOD 02/18/2025 7:58 AM [facility] BUN 74(H) 5 - 25 mg/dL LAB CHEMISTRY METHOD 02/18/2025 7:58 AM [facility] Creatinine 6.86(H) 0.70 - 1.30 mg/dL LAB CHEMISTRY METHOD 02/18/2025 7:58 AM [facility] eGFR 9(L) >=60 mL/min/1. 73m2 LAB CHEMISTRY METHOD 02/18/2025 7:58 AM [facility] Comment:Calculation based on the Chronic Kidney Disease Epidemiology Collaboration (CKD-EPI) equation refit without adjustment for race. BUN/Creatinine Ratio 10.8 LAB CHEMISTRY METHOD 02/18/2025 7:58 AM [facility] Calcium 8.8 8.5 - 10.5 mg/dL LAB CHEMISTRY METHOD 02/18/2025 7:58 AM [facility] Blood Venous blood specimen / Unknown Venipuncture / Unknown 02/18/2025 6:57 AM EDT 02/18/2025 7:16 AM EDT Emanuel Moran MD LAB BLOOD ORDERABLES F inal Result Performing Organization Address [facility]/ZIP Co de Phone Number [facility] [address] [place] [address], * (ABNORMAL) Afshan hodge virus IgG, IgM, nuclear and early antibodies (02/17/2025 7:04 AM EDT) [facility] EBV VCA IgG Positive(A) Negative LAB CHEMISTRY METHOD 02/18/2025 8:55 AM EDT [facility] EBV VCA IgM Negative Negative LAB CHEMISTRY METHOD 02/18/2025 8:55 AM EDT [facility] EBV Nuclear Ag Ab Positive(A) Negative LAB CHEMISTRY METHOD 02/18/2025 8:55 AM EDT [facility] EBV Early Ag Ab Negative Negative LAB CHEMISTRY METHOD 02/18/2025 8:55 AM EDT [facility] Blood Venous blood specimen / Unknown Venipuncture / Unknown 02/17/2025 7:04 AM EDT 02/17/2025 7:08 AM EDT Narrative [facility] - 02/18/2025 8:55 AM EDT 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 Jung Dinero MD LAB BLOOD ORDERABLES Final Resul t Performing Organization Address [facility]/ZIP Co de Phone Number [facility] [address] [place] [address], * Cytomegalovirus molecular study quantitative (02/17/2025 7:03 AM EDT) [facility] Cytomegalovirus (CMV) DNA Qualitative Not detected Not detected 02/19/2025 11:45 AM EDT [facility] Cytomegalovirus (CMV) DNA Quantitative <30 <30 IU/mL 02/19/2025 11:45 AM EDT [facility] Log Cytomegalovirus <1.48 <1.48 Log (10) IU/mL 02/19/2025 11:45 AM EDT [facility] CMV DNA (cp/mL) <76 <76 Copies/mL 02/19/2025 11:45 AM EDT [facility] Comment: This test uses a polymerase chain reaction (PCR) assay from [employer] to amplify and detected conserved regions of the cytomegalovirus (CMV) genome that have been extracted from plasma. Real-time detection and quantification are used to determine the viral concentration. The analytical measurement range is 30 IU/mL to 10 million IU/mL (1.48 to 7.00 log10 IU/mL). The lower limit of detection is 30 IU/mL (1.48 log10 IU/mL). Specimens reported as DETECTED but <30 IU/mL contain detectable levels of CMV DNA but the viral load is less than the lower limit of quantitation (30 IU/mL). A negative result does not rule out infection. Test performed at [facility], [address] , [place] [address] Gema Peralta MD, PhD - [employer] Blood Venous blood specimen / Unknown Venipuncture / Unknown 02/17/2025 7:03 AM EDT 02/17/2025 7:08 AM EDT us Jung Dinero MD LAB MICROBIOLOGY - GENERAL ORDER JODEE Final Result [facility] [address] [place] [address] * (ABNORMAL) Manual differential (02/17/2025 6:14 AM EDT) Neutrophils % 27.0 % LAB HEMETOLOGY METHOD 02/17/2025 8:29 AM EDT [facility] Bands % 4.0 % LAB HEMETOLOGY METHOD 02/17/2025 8:29 AM EDT [facility] Lymphocytes % 33.0 % LAB HEMETOLOGY METHOD 02/17/2025 8:29 AM [facility] Monocytes % 20.0 % LAB HEMETOLOGY METHOD 02/17/2025 8:29 AM [facility] Eosinophils % 8.0 % LAB HEMETOLOGY METHOD 02/17/2025 8:29 AM [facility] Basophils % 6.0 % LAB HEMETOLOGY METHOD 02/17/2025 8:29 AM [facility] Metamyelocytes % 1.0(H) % LAB HEMETOLOGY METHOD 02/17/2025 8:29 AM [facility] Myelocytes % 1.0(H) % LAB HEMETOLOGY METHOD 02/17/2025 8:29 AM [facility] Neutrophils Absolute Manual 0.35(L) 1.50 - 7.00 K/mcL LAB HEMETOLOGY METHOD 02/17/2025 8:29 AM [facility] Bands Absolute Manual 0.05(H) 0.00 - 0.00 K/mcL LAB HEMETOLOGY METHOD 02/17/2025 8:29 AM [facility] Lymphocytes Absolute 0.43(L) 1.00 - 5.00 K/mcL LAB HEMETOLOGY METHOD 02/17/2025 8:29 AM [facility] Monocytes Absolute Manual 0.26 0.20 - 1.00 K/mcL LAB HEMETOLOGY METHOD 02/17/2025 8:29 AM [facility] Eosinophils Absolute Manual 0.10 0.00 - 0.50 K/mcL LAB HEMETOLOGY METHOD 02/17/2025 8:29 AM [facility] Basophils Absolute Manual 0.08 0.00 - 0.20 K/mcL LAB HEMETOLOGY METHOD 02/17/2025 8:29 AM [facility] Metamyelocytes Absolute Manual 0.01(H) 0.00 - 0.00 K/mcL LAB HEMETOLOGY METHOD 02/17/2025 8:29 AM EDT [facility] Myelocytes Absolute Manual 0.01(H) 0.00 - 0.00 K/mcL LAB HEMETOLOGY METHOD 02/17/2025 8:29 AM EDT [facility] Rbc Morphology Present( A) Consistent with indices, Normal for LAB HEMETOLOGY METHOD 02/17/2025 8:29 AM EDT [facility] Platelet Morphology - WAM See Note(A) Normal LAB HEMETOLOGY METHOD 02/17/2025 8:29 AM EDT [facility] Comment:PLT: Large platelets seen Dohle Body Present Present( A) (none) LAB HEMETOLOGY METHOD 02/17/2025 8:29 AM EDT [facility] Blood Venous blood specimen / Unknown Venipuncture / Unknown 02/17/2025 6:14 AM EDT 02/17/2025 6:19 AM EDT us Jung Dinero MD LAB BLOOD ORDERABLES Final Resul t [facility] [address] [place] [address], * (ABNORMAL) CBC auto differential (02/17/2025 6:14 AM EDT) WBC 1.3(LL) 4.8 - 10.8 K/mcL LAB HEMETOLOGY METHOD 02/17/2025 8:29 AM EDT [facility] RBC 2.80(L) 4.50 - 5.50 M/mcL LAB HEMETOLOGY METHOD 02/17/2025 8:29 AM EDT [facility] Hemoglobin 8.1(L) 13.5 - 17.5 g/dL LAB HEMETOLOGY METHOD 02/17/2025 8:29 AM EDT [facility] Hematocrit 24.4(L) 42.0 - 54.0 % LAB HEMETOLOGY METHOD 02/17/2025 8:29 AM EDT [facility] MCV 86.8 79.0 - 98.0 FL LAB HEMETOLOGY METHOD 02/17/2025 8:29 AM EDT [facility] MCH 28.8 27.0 - 32.0 pcg LAB HEMETOLOGY METHOD 02/17/2025 8:29 AM EDT [facility] MCHC 33.2 32.0 - 37.0 g/dL LAB HEMETOLOGY METHOD 02/17/2025 8:29 AM EDT [facility] RDW 14.3 11.0 - 15.0 % LAB HEMETOLOGY METHOD 02/17/2025 8:29 AM [facility] Platelets 83(L) 130 - 400 K/mcL LAB HEMETOLOGY METHOD 02/17/2025 8:29 AM EDT [facility] MPV 14.0(H) 7.0 - 11.0 FL LAB HEMETOLOGY METHOD 02/17/2025 8:29 AM EDT [facility] NRBC 0.0 <1.0 % LAB HEMETOLOGY METHOD 02/17/2025 8:29 [facility] NRBC Absolute 0.00 <0.10 K/mcL LAB HEMETOLOGY METHOD 02/17/2025 8:29 AM T [facility] Blood Venous blood specimen / Unknown Venipuncture / Unknown 02/17/2025 6:14 AM EDT 02/17/2025 6:19 AM EDT us Jung Dinero MD LAB BLOOD ORDERABLES Final Resul t [facility] [address] [place] [address], * (ABNORMAL) Comprehensive metabolic panel (02/17/2025 6:14 AM EDT) [facility] Sodium 137 133 - 145 mmol/L LAB CHEMISTRY METHOD 02/17/2025 6:55 AM [facility] Potassium 3.8 3.5 - 5.5 mmol/L LAB CHEMISTRY METHOD 02/17/2025 6:55 AM [facility] Chloride 108 96 - 110 mmol/L LAB CHEMISTRY METHOD 02/17/2025 6:55 AM [facility] CO2 19(L) 21 - 32 mmol/L LAB CHEMISTRY METHOD 02/17/2025 6:55 AM [facility] Anion Gap 10 3 - 11 LAB CHEMISTRY METHOD 02/17/2025 6:55 AM [facility] Glucose 98 70 - 100 mg/dL LAB CHEMISTRY METHOD 02/17/2025 6:55 AM [facility] BUN 84(H) 5 - 25 mg/dL LAB CHEMISTRY METHOD 02/17/2025 6:55 AM [facility] Creatinine 7.34(H) 0.70 - 1.30 mg/dL LAB CHEMISTRY METHOD 02/17/2025 6:55 AM [facility] eGFR 8(L) >=60 mL/min/1. 73m2 LAB CHEMISTRY METHOD 02/17/2025 6:55 AM [facility] Comment:Calculation based on the Chronic Kidney Disease Epidemiology Collaboration (CKD-EPI) equation refit without adjustment for race. BUN/Creatinine Ratio 11.4 LAB CHEMISTRY METHOD 02/17/2025 6:55 AM [facility] Calcium 8.6 8.5 - 10.5 mg/dL LAB CHEMISTRY METHOD 02/17/2025 6:55 AM [facility] AST (SGOT) 15 10 - 42 unit/L LAB CHEMISTRY METHOD 02/17/2025 6:55 AM [facility] ALT (SGPT) 12 10 - 60 unit/L LAB CHEMISTRY METHOD 02/17/2025 6:55 AM EDT [facility] Alkaline Phosphatase 101 42 - 121 unit/L LAB CHEMISTRY METHOD 02/17/2025 6:55 AM EDT [facility] Total Protein 5.9(L) 6.0 - 8.0 g/dL LAB CHEMISTRY METHOD 02/17/2025 6:55 AM EDT [facility] Albumin 2.9(L) 3.2 - 5.0 g/dL LAB CHEMISTRY METHOD 02/17/2025 6:55 AM EDT [facility] Total Bilirubin 0.3 0.0 - 1.4 mg/dL LAB CHEMISTRY METHOD 02/17/2025 6:55 AM EDT [facility] Blood Venous blood specimen / Unknown Venipuncture / Unknown 02/17/2025 6:14 AM EDT 02/17/2025 6:19 AM EDT us Jung Dinero MD LAB BLOOD ORDERABLES Final Resul t [facility] [address] [place] [address], * (ABNORMAL) Tacrolimus level (02/16/2025 7:28 AM EDT) Tacrolimus Level 2.9(L) 5.0 - 20.0 ng/mL 02/19/2025 12:16 PM EDT [facility] Comment: Additional Information: Toxic Level > 26 ng/mL Organ Post Transp. (months) Trough Level (ng/mL) Kidney Up to 3 7.0 - 20.0 >3 5.0 - 15.0 Heart Up to 3 10.0 - 20.0 >3 5.0 - 15.0 Liver Up to 12 5.0 - 20.0 Tacrolimus determined by a LC-MS/MS procedure. If applicable, any drug confirmation testing reported here was developed and the performance characteristics determined by [facility]. This confirmation testing has not been cleared or approved by the FDA. The laboratory is regulated under CLIA as qualified to perform high-complexity testing. This test is used for patient testing purposes. It should not be regarded as investigational or for research. Test performed at [facility], [address], [place] [address] Gema Peralta MD, PhD - [employer] Blood Venous blood specimen / Unknown Venipuncture / Unknown 02/16/2025 7:28 AM EDT 02/16/2025 7:32 AM EDT us Jung Dinero MD LAB BLOOD ORDERABLES Final Resul t [facility] [address] [place] [address] * (ABNORMAL) Manual differential (02/16/2025 6:06 AM EDT) Neutrophils % 34.0 % LAB HEMETOLOGY METHOD 5 7:58 AM EDT [facility] Lymphocytes % 29.0 % LAB HEMETOLOGY METHOD 7:58 AM EDT [facility] Monocytes % 14.0 % LAB HEMETOLOGY METHOD 7:58 AM [facility] Eosinophils % 13.0 % LAB HEMETOLOGY METHOD 7:58 AM [facility] Basophils % 9.0 % LAB HEMETOLOGY METHOD 7:58 AM EDT [facility] Metamyelocytes % 1.0(H) % LAB HEMETOLOGY METHOD 7:58 AM EDT [facility] Neutrophils Absolute Manual 0.44(L) 1.50 - 7.00 K/mcL LAB HEMETOLOGY METHOD 7:58 AM EDT [facility] Lymphocytes Absolute 0.38(L) 1.00 - 5.00 K/mcL LAB HEMETOLOGY METHOD 7:58 AM EDT [facility] Monocytes Absolute Manual 0.18(L) 0.20 - 1.00 K/mcL LAB HEMETOLOGY METHOD 5 7:58 AM EDT [facility] Eosinophils Absolute Manual 0.17 0.00 - 0.50 K/mcL LAB HEMETOLOGY METHOD 5 7:58 AM EDT [facility] Basophils Absolute Manual 0.12 0.00 - 0.20 K/mcL LAB HEMETOLOGY METHOD 5 7:58 AM EDT [facility] Metamyelocytes Absolute Manual 0.01(H) 0.00 - 0.00 K/mcL LAB HEMETOLOGY METHOD 5 7:58 AM EDT [facility] Rbc Morphology Consistent with indices Consistent with indices, Normal for LAB HEMETOLOGY METHOD 7:58 AM EDT [facility] Platelet Morphology - WAM See Note(A) Normal LAB HEMETOLOGY METHOD 7:58 AM EDT [facility] Comment:PLT: Normal Blood Venous blood specimen / Unknown Venipuncture / Unknown 02/16/2025 6:06 AM EDT 02/16/2025 6:58 AM EDT us Jung Dinero MD LAB BLOOD ORDERABLES Final Resul t [facility] [address] [place] [address], * (ABNORMAL) CBC auto differential (02/16/2025 6:06 AM EDT) WBC 1.3(LL) 4.8 - 10.8 K/mcL LAB HEMETOLOGY METHOD 02/16/2025 7:58 AM EDT [facility] RBC 2.90(L) 4.50 - 5.50 M/mcL LAB HEMETOLOGY METHOD 02/16/2025 7:58 AM [facility] Hemoglobin 8.3(L) 13.5 - 17.5 g/dL LAB HEMETOLOGY METHOD 02/16/2025 7:58 AM [facility] Hematocrit 24.9(L) 42.0 - 54.0 % LAB HEMETOLOGY METHOD 02/16/2025 7:58 AM [facility] MCV 85.6 79.0 - 98.0 FL LAB HEMETOLOGY METHOD 02/16/2025 7:58 AM [facility] MCH 28.5 27.0 - 32.0 pcg LAB HEMETOLOGY METHOD 02/16/2025 7:58 AM [facility] MCHC 33.3 32.0 - 37.0 g/dL LAB HEMETOLOGY METHOD 02/16/2025 7:58 AM [facility] RDW 13.9 11.0 - 15.0 % LAB HEMETOLOGY METHOD 02/16/2025 7:58 AM [facility] Platelets 115(L) 130 - 400 K/mcL LAB HEMETOLOGY METHOD 02/16/2025 7:58 AM [facility] MPV 13.3(H) 7.0 - 11.0 FL LAB HEMETOLOGY METHOD 02/16/2025 7:58 AM [facility] NRBC 0.0 <1.0 % LAB HEMETOLOGY METHOD 02/16/2025 7:58 AM [facility] NRBC Absolute 0.00 <0.10 K/mcL LAB HEMETOLOGY METHOD 02/16/2025 7:58 AM [facility] Blood Venous blood specimen / Unknown Venipuncture / Unknown 02/16/2025 6:06 AM EDT 02/16/2025 6:58 AM EDT us Jung Dinero MD LAB BLOOD ORDERABLES Final Resul t [facility] [address] [place] [address], * (ABNORMAL) Comprehensive metabolic panel (02/16/2025 6:06 AM EDT) Sodium 136 133 - 145 mmol/L LAB CHEMISTRY METHOD 02/16/2025 7:32 AM [facility] Potassium 3.9 3.5 - 5.5 mmol/L LAB CHEMISTRY METHOD 02/16/2025 7:32 AM [facility] Chloride 107 96 - 110 mmol/L LAB CHEMISTRY METHOD 02/16/2025 7:32 AM [facility] CO2 18(L) 21 - 32 mmol/L LAB CHEMISTRY METHOD 02/16/2025 7:32 AM [facility] Anion Gap 11 3 - 11 LAB CHEMISTRY METHOD 02/16/2025 7:32 AM [facility] Glucose 114(H) 70 - 100 mg/dL LAB CHEMISTRY METHOD 02/16/2025 7:32 AM [facility] BUN 94(H) 5 - 25 mg/dL LAB CHEMISTRY METHOD 02/16/2025 7:32 AM [facility] Creatinine 7.98(H) 0.70 - 1.30 mg/dL LAB CHEMISTRY METHOD 02/16/2025 7:32 AM [facility] eGFR 8(L) >=60 mL/min/1. 73m2 LAB CHEMISTRY METHOD 02/16/2025 7:32 AM [facility] Comment:Calculation based on the Chronic Kidney Disease Epidemiology Collaboration (CKD-EPI) equation refit without adjustment for race. BUN/Creatinine Ratio 11.8 LAB CHEMISTRY METHOD 02/16/2025 7:32 AM [facility] Calcium 8.8 8.5 - 10.5 mg/dL LAB CHEMISTRY METHOD 02/16/2025 7:32 AM EDT [facility] AST (SGOT) 12 10 - 42 unit/L LAB CHEMISTRY METHOD 02/16/2025 7:32 AM EDT [facility] ALT (SGPT) 9(L) 10 - 60 unit/L LAB CHEMISTRY METHOD 02/16/2025 7:32 AM EDT [facility] Alkaline Phosphatase 106 42 - 121 unit/L LAB CHEMISTRY METHOD 02/16/2025 7:32 AM EDT [facility] Total Protein 6.1 6.0 - 8.0 g/dL LAB CHEMISTRY METHOD 02/16/2025 7:32 AM [facility] Albumin 2.9(L) 3.2 - 5.0 g/dL LAB CHEMISTRY METHOD 02/16/2025 7:32 AM [facility] Total Bilirubin 0.2 0.0 - 1.4 mg/dL LAB CHEMISTRY METHOD 02/16/2025 7:32 AM [facility] Blood Venous blood specimen / Unknown Venipuncture / Unknown 02/16/2025 6:06 AM EDT 02/16/2025 6:58 AM EDT us Jung Dinero MD LAB BLOOD ORDERABLES Final Resul t [facility] [address] [place] [address], * (ABNORMAL) AST, ALT, Bilirubin ELR state reportables (02/15/2025 6:38 AM EDT) ALT (SGPT) 9(L) 10 - 60 unit/L LAB CHEMISTRY METHOD 02/15/2025 7:[facility] AST (SGOT) 14 10 - 42 unit/L LAB CHEMISTRY METHOD 02/15/2025 7:35 PM EDT [facility] Total Bilirubin 0.3 0.0 - 1.4 mg/dL LAB CHEMISTRY METHOD 02/15/2025 7:35 PM EDT [facility] Blood Venous blood specimen / Unknown Venipuncture / Unknown 02/15/2025 6:38 AM EDT 02/15/2025 6:46 AM EDT Curtis Manning MD LAB BLOOD ORDERABLES Final Re sult Performing Organization Address [facility] de Phone Number [facility] [address] [place] [address], [place] [phone] * Hepatitis B core antibody IgM (02/15/2025 6:38 AM EDT) Hep B Core IgM Negative Negative LAB CHEMISTRY METHOD 02/15/2025 7:33 PM EDT [facility] Blood Venous blood specimen / Unknown Venipuncture / Unknown 02/15/2025 6:38 AM EDT 02/15/2025 6:46 AM EDT Narrative [facility] - 02/15/2025 7:33 PM EDT Over the counter supplements containing high doses of biotin may interfere with this assay. If interference is suspected, patients shoud be retested after refraining from biotin supplements for 72 hours. Curtis Manning MD LAB BLOOD ORDERABLES Final Re sult Performing Organization Address City/[facility] de Phone Number [facility] [address] [place] [address], [place] [phone] * (ABNORMAL) Phosphorus (02/15/2025 6:38 AM EDT) Phosphorus 5.2(H) 2.5 - 4.5 mg/dL LAB CHEMISTRY METHOD 02/15/2025 5:24 PM EDT [facility] Blood Venous blood specimen / Unknown Venipuncture / Unknown 02/15/2025 6:38 AM EDT 02/15/2025 6:46 AM EDT Curtis Manning MD LAB BLOOD ORDERABLES Final Re sult Performing Organization Address [facility] Co de Phone Number [facility] [address] [place] [address], [place] [phone] * (ABNORMAL) Parathyroid hormone intact (02/15/2025 6:38 AM EDT) [facility] PTH 658.3(H) 18.5 - 88.0 pcg/mL LAB CHEMISTRY METHOD 02/15/2025 5:44 PM EDT [facility] Blood Venous blood specimen / Unknown Venipuncture / Unknown 02/15/2025 6:38 AM EDT 02/15/2025 6:46 AM EDT Curtis Manning MD LAB BLOOD ORDERABLES Final Re sult Performing Organization Address [facility] de Phone Number [facility] [address] [place] [address], [place] [phone] * (ABNORMAL) Hepatitis B screening panel (02/15/2025 6:38 AM EDT) [facility] Hepatitis B Surface Ag Negative Negative LAB CHEMISTRY METHOD 02/15/2025 6:23 PM EDT [facility] Hep B Core Total Ab Positive(A) Negative LAB CHEMISTRY METHOD 02/15/2025 6:23 PM EDT [facility] Hepatitis B Surface Ab Negative Negative LAB CHEMISTRY METHOD 02/15/2025 6:23 PM EDT [facility] Blood Venous blood specimen / Unknown Venipuncture / Unknown 02/15/2025 6:38 AM EDT 02/15/2025 6:46 AM EDT Curtis Manning MD LAB BLOOD ORDERABLES Final Re sult Performing Organization Address City/[facility] Co de Phone Number [facility] [address] [place] [address], [place] [phone] * Pathology review, blood smear (02/15/2025 6:38 AM EDT) Pathologist Review Blood Smear Normocytic anemia and leukopenia including absolute neutropenia and lymphopenia, smear not diagnostic of etiology. (See note.) Platelets appear slightly decreased with rare large platelets and no significant platelet clumps identified. Scattered hypogranular and hypolobated neutrophils are noted. Note; The patient has a clinical history of immunosuppression and presented with abscesses involving the toes. The patient's cytopenias may (at least in part) be related to the infection. Clinical correlation and follow-up is recommended, including a possible follow-up CBC to determine if cytopenias persist after resolution of the patient's infection. 02/17/2025 8:36 AM EDT [facility] Blood Venous blood specimen / Unknown Venipuncture / Unknown 02/15/2025 6:38 AM EDT 02/15/2025 6:46 AM EDT Jason MODI LAB BLOOD ORDERABLES Final Res ult Performing Organization Address [facility] Co de Phone Number [facility] [address] [place] [address], * (ABNORMAL) Manual differential (02/15/2025 6:38 AM EDT) Neutrophils % 45.0 % LAB HEMETOLOGY METHOD 02/15/2025 7:37 AM EDT [facility] Bands % 4.0 % LAB HEMETOLOGY METHOD 02/15/2025 7:37 AM EDT [facility] Lymphocytes % 23.0 % LAB HEMETOLOGY METHOD 02/15/2025 7:37 AM EDT [facility] Monocytes % 21.0 % LAB HEMETOLOGY METHOD 02/15/2025 7:37 AM [facility] Eosinophils % 2.0 % LAB HEMETOLOGY METHOD 02/15/2025 7:37 AM [facility] Basophils % 1.0 % LAB HEMETOLOGY METHOD 02/15/2025 7:37 AM [facility] Metamyelocytes % 5.0(H) % LAB HEMETOLOGY METHOD 02/15/2025 7:37 AM [facility] Neutrophils Absolute Manual 0.68(L) 1.50 - 7.00 K/mcL LAB HEMETOLOGY METHOD 02/15/2025 7:37 AM [facility] Bands Absolute Manual 0.06(H) 0.00 - 0.00 K/mcL LAB HEMETOLOGY METHOD 02/15/2025 7:37 AM [facility] Lymphocytes Absolute 0.35(L) 1.00 - 5.00 K/mcL LAB HEMETOLOGY METHOD 02/15/2025 7:37 AM [facility] Monocytes Absolute Manual 0.32 0.20 - 1.00 K/mcL LAB HEMETOLOGY METHOD 02/15/2025 7:37 AM [facility] Eosinophils Absolute Manual 0.03 0.00 - 0.50 K/mcL LAB HEMETOLOGY METHOD 02/15/2025 7:37 AM [facility] Basophils Absolute Manual 0.02 0.00 - 0.20 K/mcL LAB HEMETOLOGY METHOD 02/15/2025 7:37 AM [facility] Metamyelocytes Absolute Manual 0.08(H) 0.00 - 0.00 K/mcL LAB HEMETOLOGY METHOD 02/15/2025 7:37 AM [facility] Blood Venous blood specimen / Unknown Venipuncture / Unknown 02/15/2025 6:38 AM EDT 02/15/2025 6:46 AM EDT us Jason MODI LAB BLOOD ORDERABLES Final Res ult Performing Organization Address City/[facility]/ZIP Co de Phone Number [facility] [address] [place] [address], [place] [phone] * Magnesium (02/15/2025 6:38 AM EDT) [facility] Magnesium 2.0 1.9 - 2.6 mg/dL LAB CHEMISTRY METHOD 02/15/2025 7:56 AM EDT [facility] Blood Venous blood specimen / Unknown Venipuncture / Unknown 02/15/2025 6:38 AM EDT 02/15/2025 6:46 AM EDT Beka Boyd MD LAB BLOOD ORDERABLES Final Res ult Performing Organization Address City/[facility]/ZIP Co de Phone Number [facility] [address] [place] [address], [place] [phone] * (ABNORMAL) CBC auto differential (02/15/2025 6:38 AM EDT) [facility] WBC 1.5(LL) 4.8 - 10.8 K/mcL LAB HEMETOLOGY METHOD 02/15/2025 7:37 AM EDT [facility] RBC 3.30(L) 4.50 - 5.50 M/[facility] LAB HEMETOLOGY METHOD 02/15/2025 7:37 AM EDT [facility] Hemoglobin 9.4(L) 13.5 - 17.5 g/dL LAB HEMETOLOGY METHOD 02/15/2025 7:37 AM EDT [facility] Hematocrit 28.8(L) 42.0 - 54.0 % LAB HEMETOLOGY METHOD 02/15/2025 7:37 AM EDT [facility] MCV 87.8 79.0 - 98.0 FL LAB HEMETOLOGY METHOD 02/15/2025 7:37 AM EDT [facility] MCH 28.7 27.0 - 32.0 pcg LAB HEMETOLOGY METHOD 02/15/2025 7:37 AM EDT [facility] MCHC 32.6 32.0 - 37.0 g/dL LAB HEMETOLOGY METHOD 02/15/2025 7:37 AM EDT [facility] RDW 14.1 11.0 - 15.0 % LAB HEMETOLOGY METHOD 02/15/2025 7:37 AM EDT [facility] Platelets 124(L) 130 - 400 K/mcL LAB HEMETOLOGY METHOD 02/15/2025 7:37 AM [facility] MPV 12.5(H) 7.0 - 11.0 FL LAB HEMETOLOGY METHOD 02/15/2025 7:37 AM EDT [facility] NRBC 0.0 <1.0 % LAB HEMETOLOGY METHOD 02/15/2025 7:37 AM T [facility] NRBC Absolute 0.00 <0.10 K/mcL LAB HEMETOLOGY METHOD 02/15/2025 7:37 AM [facility] Blood Venous blood specimen / Unknown Venipuncture / Unknown 02/15/2025 6:38 AM EDT 02/15/2025 6:46 AM EDT us Jason MODI LAB BLOOD ORDERABLES Final Res ult [facility] [address] [place] [address], * (ABNORMAL) Basic metabolic panel (02/15/2025 6:38 AM EDT) Sodium 131(L) 133 - 145 mmol/L LAB CHEMISTRY METHOD 02/15/2025 8:19 AM [facility] Potassium 4.5 3.5 - 5.5 mmol/L LAB CHEMISTRY METHOD 02/15/2025 8:19 AM [facility] Chloride 106 96 - 110 mmol/L LAB CHEMISTRY METHOD 02/15/2025 8:19 AM [facility] CO2 10(LL) 21 - 32 mmol/L LAB CHEMISTRY METHOD 02/15/2025 8:19 AM [facility] Anion Gap 15(H) 3 - 11 LAB CHEMISTRY METHOD 02/15/2025 8:19 AM [facility] Glucose 101(H) 70 - 100 mg/dL LAB CHEMISTRY METHOD 02/15/2025 8:19 AM [facility] BUN 93(H) 5 - 25 mg/dL LAB CHEMISTRY METHOD 02/15/2025 8:19 AM [facility] Creatinine 8.58(H) 0.70 - 1.30 mg/dL LAB CHEMISTRY METHOD 02/15/2025 8:19 AM [facility] eGFR 7(L) >=60 mL/min/1. 73m2 LAB CHEMISTRY METHOD 02/15/2025 8:19 AM [facility] Comment:Calculation based on the Chronic Kidney Disease Epidemiology Collaboration (CKD-EPI) equation refit without adjustment for race. BUN/Creatinine Ratio 10.8 LAB CHEMISTRY METHOD 02/15/2025 8:19 AM [facility] Calcium 8.9 8.5 - 10.5 mg/dL LAB CHEMISTRY METHOD 02/15/2025 8:19 AM [facility] Blood Venous blood specimen / Unknown Venipuncture / Unknown 02/15/2025 6:38 AM EDT 02/15/2025 6:46 AM EDT us Jason MODI LAB BLOOD ORDERABLES Final Res ult [facility] [address] [place] [address], * (ABNORMAL) Drug abuse screen 8a panel, urine (02/15/2025 5:30 AM EDT) [facility] Amphetamine Screen, Ur Negative Negative LAB CHEMISTRY METHOD 5 6:09 AM [facility] Comment:Certain OTC medicati ons containing ephedrine, phenylephrine, pseudoephedrine and phenylpropanolamine can cause false positive results. Barbiturate Screen, Ur Negative Negative LAB CHEMISTRY METHOD 5 6:09 AM [facility] Benzodiazepine Screen, Ur Negative Negative LAB CHEMISTRY METHOD 5 6:09 AM [facility] Cocaine Screen, Ur Negative Negative LAB CHEMISTRY METHOD 5 6:09 AM [facility] Opiate Screen, Ur Positive(A ) Negative LAB CHEMISTRY METHOD 5 6:09 AM [facility] Cannabinoid (THC) Screen, Ur Negative Negative LAB CHEMISTRY METHOD 5 6:09 AM [facility] Comment:Specimens from patie nts taking pantoprazole sodium (Protonix) have been shown to produce false positive results. Oxycodone Screen, Ur Negative Negative LAB CHEMISTRY METHOD 5 6:09 AM [facility] Fentanyl, Ur Negative Negative LAB CHEMISTRY METHOD 5 6:09 AM [facility] Urine Urine specimen obtained by clean catch procedure / Unknown Non-blood Collection / Unknown 02/15/2025 5:30 AM EDT 02/15/2025 5:37 AM [facility] - 02/15/2025 6:09 AM EDT Assay cutoffs: Amphetamines 1000 ng/mL Barbiturates 200 ng/mL Benzodiazepines 200 ng/mL Cocaine 300 ng/mL Fentanyl 1 ng/mL Opiates 300 ng/mL Oxycodone 100 ng/mL THC 50 ng/mL Semi-quantitative assay for screening purposes only. Unconfirmed screening result should not be used for non-medical purposes. *ALTERNATE METHOD CONFIRMATION DONE UPON REQUEST ONLY* us Jason MODI LAB URINE ORDERABLES Final Res ult Performing Organization Address City/[facility]/ZIP Co de Phone Number [facility] [address] [place] [address], * MRSA molecular study (02/15/2025 5:30 AM EDT) MRSA Screen PCR Not Detected Not Detected LAB MICROBIOLOGY METHOD 02/15/2025 8:45 AM EDT [facility] Swab Nasopharyngeal structure / Unknown Non-blood Collection / Unknown 02/15/2025 5:30 AM EDT 02/15/2025 5:35 AM EDT us Jason MODI LAB MICROBIOLOGY - GENERAL ORD ERABLES Final Result Performing Organization Address [facility]/ZIP Co de Phone Number [facility] [address] [place] [address], * XR Foot 3+ Views Left (02/15/2025 1:25 AM EDT) Anatomical Region Laterality Modality Lower Extremities, Foot Left Radiogra phic Imaging 02/15/2025 9:01 AM EDT Impressions 02/15/2025 9:04 AM EDT No specific radiographic evidence of osteomyelitis. More sensitive assessment could be performed with MRI. -------- FINAL REPORT -------- Dictated By: Yassine Aggarwal Dictated Date: 02/15/2025 09:01 ET Assigned Physician: Yassine Aggarwal Reviewed and Electronically Signed By: Yassine Aggarwal Signed Date: 02/15/2025 09:04 ET Workstation ID: [id number] Transcribed By: Self Edit Transcribed Date: 02/15/2025 09:01 ET Narrative 02/15/2025 9:04 AM EDT PROCEDURE: Radiographs of the left foot. HISTORY: hallux infection. COMPARISON: None. FINDINGS: 3 views of the left foot. Bones appear demineralized. No fracture or malalignment. No bony erosion or periosteal reaction. Small plantar calcaneal spur. Procedure Note Yassine Aggarwal MD - 02/15/2025 PROCEDURE: Radiographs of the left foot. HISTORY: hallux infection. COMPARISON: None. FINDINGS: 3 views of the left foot. Bones appear demineralized. No fracture ormalalignment. No bony erosion or periosteal reaction. Small plantarcalcaneal spur. IMPRESSION: No specific radiographic evidence of osteomyelitis. More sensitiveassessment could be performed with MRI. -------- FINAL REPORT -------- Dictated By: Yassine Aggarwal Dictated Date: 02/15/2025 09:01 ET Assigned Physician: Yassine Aggarwal Reviewed and Electronically Signed By: Yassine Aggarwal Signed Date: 02/15/2025 09:04 ET Workstation ID: [id number] Transcribed By: Self Edit Transcribed Date: 02/15/2025 09:01 ET Saad Pimentel MD IMG XR PROCEDURES Final Resu lt * Blood Culture, Peripheral #1 (02/15/2025 1:15 AM EDT) Culture, Blood No growth at 5 days 02/20/2025 5:01 AM EDT [facility] Blood Venous blood specimen / Unknown Venipuncture / Unknown 02/15/2025 1:15 AM EDT 02/15/2025 1:31 AM EDT Saad Pimentel MD LAB MICROBIOLOGY - GENERAL O RDERABLES Final Result [facility] [address] [place] [address], [place] [phone] * Lactate, with reflex (02/15/2025 12:54 AM EDT) LACTIC ACID 1.2 0.4 - 2.0 mmol/L LAB CHEMISTRY METHOD 02/15/2025 1:46 AM EDT [facility] Blood Venous blood specimen / Unknown Venipuncture / Unknown 02/15/2025 12:54 AM EDT 02/15/2025 12:57 AM EDT Saad Pimentel MD LAB BLOOD ORDERABLES Final R esult Performing Organization Address [facility]/ZIP Co de Phone Number [facility] [address] [place] [address], [place] [phone] * (ABNORMAL) C-reactive protein (02/15/2025 12:52 AM EDT) [facility] C-Reactive Protein 16.40(H) <=0.50 mg/dL LAB CHEMISTRY METHOD 02/15/2025 5:02 AM EDT [facility] Blood Venous blood specimen / Unknown Venipuncture / Unknown 02/15/2025 12:52 AM EDT 02/15/2025 12:58 AM EDT Jason MODI LAB BLOOD ORDERABLES Final Res ult Performing Organization Address [facility]/ZIP Co de Phone Number [facility] [address] [place] [address], [place] [phone] * (ABNORMAL) Phosphorus (02/15/2025 12:52 AM EDT) Phosphorus 5.2(H) 2.5 - 4.5 mg/dL LAB CHEMISTRY METHOD 02/15/2025 1:25 AM EDT [facility] Blood Venous blood specimen / Unknown Venipuncture / Unknown 02/15/2025 12:52 AM EDT 02/15/2025 12:58 AM EDT Saad Pimentel MD LAB BLOOD ORDERABLES Final R esult Performing Organization Address [facility]/ZIP Co de Phone Number [facility] [address] [place] [address], [place] [phone] * (ABNORMAL) Magnesium (02/15/2025 12:52 AM EDT) [facility] Magnesium 1.0(L) 1.9 - 2.6 mg/dL LAB CHEMISTRY METHOD 02/15/2025 1:25 AM EDT [facility] Blood Venous blood specimen / Unknown Venipuncture / Unknown 02/15/2025 12:52 AM EDT 02/15/2025 12:58 AM EDT Saad Pimentel MD LAB BLOOD ORDERABLES [facility] Performing Organization Address [facility]/ZIP Co de Phone Number [facility] [address] [place] [address], [place] [phone] * (ABNORMAL) Comprehensive Metabolic Panel (CMP) (02/15/2025 12:52 AM EDT) [facility] Sodium 131(L) 133 - 145 mmol/L LAB CHEMISTRY METHOD 02/15/2025 1:35 AM [facility] Potassium 4.8 3.5 - 5.5 mmol/L LAB CHEMISTRY METHOD 02/15/2025 1:35 AM [facility] Chloride 106 96 - 110 mmol/L LAB CHEMISTRY METHOD 02/15/2025 1:35 AM [facility] CO2 14(LL) 21 - 32 mmol/L LAB CHEMISTRY METHOD 02/15/2025 1:35 AM [facility] Anion Gap 11 3 - 11 LAB CHEMISTRY METHOD 02/15/2025 1:35 AM [facility] Glucose 116(H) 70 - 100 mg/dL LAB CHEMISTRY METHOD 02/15/2025 1:35 AM [facility] BUN 92(H) 5 - 25 mg/dL LAB CHEMISTRY METHOD 02/15/2025 1:35 AM [facility] Creatinine 8.92(H) 0.70 - 1.30 mg/dL LAB CHEMISTRY METHOD 02/15/2025 1:35 AM [facility] eGFR 7(L) >=60 mL/min/1. 73m2 LAB CHEMISTRY METHOD 02/15/2025 1:35 AM [facility] Comment:Calculation based on the Chronic Kidney Disease Epidemiology Collaboration (CKD-EPI) equation refit without adjustment for race. BUN/Creatinine Ratio 10.3 LAB CHEMISTRY METHOD 02/15/2025 1:35 AM [facility] Calcium 8.5 8.5 - 10.5 mg/dL LAB CHEMISTRY METHOD 02/15/2025 1:35 AM [facility] AST (SGOT) 14 10 - 42 unit/L LAB CHEMISTRY METHOD 02/15/2025 1:35 AM [facility] ALT (SGPT) 9(L) 10 - 60 unit/L LAB CHEMISTRY METHOD 02/15/2025 1:35 AM [facility] Alkaline Phosphatase 122(H) 42 - 121 unit/L LAB CHEMISTRY METHOD 02/15/2025 1:35 AM [facility] Total Protein 7.4 6.0 - 8.0 g/dL LAB CHEMISTRY METHOD 02/15/2025 1:35 AM [facility] Albumin 3.7 3.2 - 5.0 g/dL LAB CHEMISTRY METHOD 02/15/2025 1:35 AM [facility] Total Bilirubin 0.3 0.0 - 1.4 mg/dL LAB CHEMISTRY METHOD 02/15/2025 1:35 AM [facility] Blood Venous blood specimen / Unknown Venipuncture / Unknown 02/15/2025 12:52 AM EDT 02/15/2025 12:58 AM EDT us Saad Pimentel MD LAB BLOOD ORDERABLES Final R esult [facility] [address] [place] [address], * (ABNORMAL) Manual differential (02/15/2025 12:51 AM EDT) Neutrophils % 29.0 % LAB HEMETOLOGY METHOD 02/15/2025 1:56 AM EDT [facility] Bands % 1.0 % LAB HEMETOLOGY METHOD 02/15/2025 1:56 AM EDT [facility] Lymphocytes % 31.0 % LAB HEMETOLOGY METHOD 02/15/2025 1:56 AM EDT [facility] Monocytes % 12.0 % LAB HEMETOLOGY METHOD 02/15/2025 1:56 AM EDT [facility] Eosinophils % 3.0 % LAB HEMETOLOGY METHOD 02/15/2025 1:56 AM EDT [facility] Basophils % 1.0 % LAB HEMETOLOGY METHOD 02/15/2025 1:56 AM EDT [facility] Metamyelocytes % 18.0(H) % LAB HEMETOLOGY METHOD 02/15/2025 1:56 AM EDT [facility] Myelocytes % 4.0(H) % LAB HEMETOLOGY METHOD 02/15/2025 1:56 AM EDT [facility] Other Cells % By Manual Count 3.0(H) <=0.0 % LAB HEMETOLOGY METHOD 02/15/2025 1:56 AM EDT [facility] Neutrophils Absolute Manual 0.35(L) 1.50 - 7.00 K/mcL LAB HEMETOLOGY METHOD 02/15/2025 1:56 AM EDT [facility] Bands Absolute Manual 0.01(H) 0.00 - 0.00 K/mcL LAB HEMETOLOGY METHOD 02/15/2025 1:[facility] Lymphocytes Absolute 0.37(L) 1.00 - 5.00 K/[facility] LAB HEMETOLOGY METHOD 02/15/2025 1:56 [facility] Monocytes Absolute Manual 0.14(L) 0.20 - 1.00 K/mcL LAB HEMETOLOGY METHOD 02/15/2025 1:56 [facility] Eosinophils Absolute Manual 0.04 0.00 - 0.50 K/[facility] LAB HEMETOLOGY METHOD 02/15/2025 1:56 AM [facility] Basophils Absolute Manual 0.01 0.00 - 0.20 K/[facility] LAB HEMETOLOGY METHOD 02/15/2025 1:56 AM [facility] Metamyelocytes Absolute Manual 0.22(H) 0.00 - 0.00 K/[facility] LAB HEMETOLOGY METHOD 02/15/2025 1:56 AM [facility] Myelocytes Absolute Manual 0.05(H) 0.00 - 0.00 K/[facility] LAB HEMETOLOGY METHOD 02/15/2025 1:56 AM [facility] Other Cells ABS 0.04(H) 0.00 - 0.00 K/mcL LAB HEMETOLOGY METHOD 02/15/2025 1:56 AM [facility] Rbc Morphology See comment( A) Consistent with indices, Normal for LAB HEMETOLOGY METHOD 02/15/2025 1:56 AM [facility] Comment:RBC: Morphology agre es with CBC Platelet Morphology - WAM See Note(A) Normal LAB HEMETOLOGY METHOD 02/15/2025 1:56 AM [facility] Comment:PLT: Normal Blood Venous blood specimen / Unknown Venipuncture / Unknown 02/15/2025 12:51 AM EDT 02/15/2025 12:58 AM EDT Saad Pimentel MD LAB BLOOD ORDERABLES Final R esult Performing Organization Address [facility] Co de Phone Number [facility] [address] [place] [address], [place] [phone] * Blood Culture, Peripheral #2 (02/15/2025 12:51 AM EDT) Culture, Blood No growth at 5 days 02/20/2025 5:01 AM EDT [facility] Blood Venous blood specimen / Unknown Venipuncture / Unknown 02/15/2025 12:51 AM EDT 02/15/2025 12:58 AM EDT Saad Pimentel MD LAB MICROBIOLOGY - GENERAL O RDERABLES Final Result Performing Organization Address [facility] Co de Phone Number [facility] [address] [place] [address], [place] [phone] * APTT (02/15/2025 12:51 AM EDT) [facility] aPTT 30.5 24.1 - 39.3 sec LAB COAGULATION METHOD 02/15/2025 1:11 AM EDT [facility] Blood Venous blood specimen / Unknown Venipuncture / Unknown 02/15/2025 12:51 AM EDT 02/15/2025 12:58 AM EDT Saad Pimentel MD LAB BLOOD ORDERABLES Final R esult Performing Organization Address City/[facility]/ZIP Co de Phone Number [facility] [address] [place] [address], [place] [phone] * (ABNORMAL) Protime-INR (02/15/2025 12:51 AM EDT) Protime 14.3(H) 10.6 - 13.9 sec LAB COAGULATION METHOD 02/15/2025 1:11 AM EDT [facility] INR 1.1 LAB COAGULATION METHOD 02/15/2025 1:11 AM T [facility] Blood Venous blood specimen / Unknown Venipuncture / Unknown 02/15/2025 12:51 AM EDT 02/15/2025 12:58 AM EDT us Saad Pimentel MD LAB BLOOD ORDERABLES Final R esult [facility] [address] [place] [address], * (ABNORMAL) CBC auto differential (02/15/2025 12:51 AM EDT) WBC 1.2(LL) 4.8 - 10.8 K/mcL LAB HEMETOLOGY METHOD 02/15/2025 1:56 AM [facility] RBC 3.20(L) 4.50 - 5.50 M/mcL LAB HEMETOLOGY METHOD 02/15/2025 1:56 AM [facility] Hemoglobin 9.2(L) 13.5 - 17.5 g/dL LAB HEMETOLOGY METHOD 02/15/2025 1:56 AM [facility] Hematocrit 28.5(L) 42.0 - 54.0 % LAB HEMETOLOGY METHOD 02/15/2025 1:56 AM [facility] MCV 88.2 79.0 - 98.0 FL LAB HEMETOLOGY METHOD 02/15/2025 1:56 AM [facility] MCH 28.5 27.0 - 32.0 pcg LAB HEMETOLOGY METHOD 02/15/2025 1:56 AM [facility] MCHC 32.3 32.0 - 37.0 g/dL LAB HEMETOLOGY METHOD 02/15/2025 1:56 AM EDT [facility] RDW 14.5 11.0 - 15.0 % LAB HEMETOLOGY METHOD 02/15/2025 1:56 AM EDT [facility] Platelets 131 130 - 400 K/mcL LAB HEMETOLOGY METHOD 02/15/2025 1:56 AM EDT [facility] MPV 12.7(H) 7.0 - 11.0 FL LAB HEMETOLOGY METHOD 02/15/2025 1:56 AM EDT [facility] NRBC 0.0 <1.0 % LAB HEMETOLOGY METHOD 02/15/2025 1:56 AM EDT [facility] NRBC Absolute 0.00 <0.10 K/mcL LAB HEMETOLOGY METHOD 02/15/2025 1:56 AM EDT [facility] Blood Venous blood specimen / Unknown Venipuncture / Unknown 02/15/2025 12:51 AM EDT 02/15/2025 12:58 AM EDT us Saad Pimentel MD LAB BLOOD ORDERABLES Final R esult [facility] [address] [place] [address], documented in this encounter Visit Diagnoses Diagnosis Cellulitis- Primary Cellulitis and abscess of unspecified site Leukopenia, unspecified type Anemia, unspecified type Chronic kidney disease, unspecified CKD stage Cellulitis of great toe of left foot Hypomagnesemia Disorders of magnesium metabolism Sepsis without acute organ dysfunction, due to unspecified organism ([facility] V24, [facility] V28) Neutropenic fever ([facility] V24) Cellulitis of lower extremity, unspecified laterality CKD (chronic kidney disease) stage 5, GFR less than 15 ml/min ([facility] V24, [facility] V28) Chronic kidney disease, Stage V Severe neutropenia ([facility] V24) EZEQUIEL (acute kidney injury) ([facility] V24) EZEQUIEL (acute kidney injury) ([facility] V24) Hypomagnesemia Disorders of magnesium metabolism Severe neutropenia ([facility] V24) documented in this encounter Admitting Diagnoses Diagnosis Cellulitis Cellulitis and abscess of unspecified site Hypomagnesemia Disorders of magnesium metabolism documented in this encounter Administered Medications Inactive Administered Medications - up to 3 most recent administrations Medication Order MAR Action Action Date Dose Rate Site acetaminophen (TYLENOL) tablet 1,000 mg 1,000 mg, oral, Once, On Mon02/14/25 at 2117, For 1 dose Given 02/14/2025 9:29 PM EDT 1,000 mg acetaminophen (TYLENOL) tablet 1,000 mg 1,000 mg, oral, Every 8 hours, First dose (after last modification) on Mon02/16/25 at 0600 Given 02/18/2025 1:16 PM EDT 1,000 mg Given 02/18/2025 5:19 AM EDT 1,000 mg Given 02/17/2025 9:00 PM EDT 1,000 mg acetaminophen (TYLENOL) tablet 650 mg 650 mg, oral, Every 6 hours PRN, mild pain, moderate pain, headaches, fever - temperature GREATER than 38 C (100.4 F), Starting on 02/15/25 at 0629 Given 02/16/2025 12:26 AM EDT 650 mg Given 02/15/2025 6:05 PM EDT 650 mg Given 02/15/2025 12:28 PM EDT 650 mg amLODIPine (NORVASC) tablet 5 mg 5 mg, oral, Daily, First dose on 02/15/25 at 0900 Given 02/18/2025 8:54 AM EDT 5 mg Given 02/17/2025 9:13 AM EDT 5 mg Given 02/16/2025 8:22 AM EDT 5 mg buprenorphine-naloxone (SUBOXONE) 8-2 mg per SL tablet 1 tablet 1 tablet, sublingual, 2 times daily, First dose (after last modification) on 02/15/25 at 2100, - After the medication is completely dissolved, instruct the patient to take a large sip of water, swish it around teeth and gums, and swallow. - Patient should wait at least 1 hour before brushing teeth to avoid damage to their teeth. Given 02/18/2025 8:53 AM EDT 1 tablet Given 02/17/2025 8:46 PM EDT 1 tablet Given 02/17/2025 9:13 AM EDT 1 tablet buprenorphine-naloxone (SUBOXONE) 8-2 mg per SL tablet 2 tablet 2 tablet, sublingual, Daily, First dose on 02/15/25 at 0900, - After the medication is completely dissolved, instruct the patient to take a large sip of water, swish it around teeth and gums, and swallow. - Patient should wait at least 1 hour before brushing teeth to avoid damage to their teeth. Given 02/15/2025 8:45 AM EDT 2 tablets carvediloL (COREG) tablet 6.25 mg 6.25 mg, oral, 2 times daily with meals, First dose on 02/15/25 at 0800 Given 02/18/2025 4:54 PM EDT 6.25 mg Given 02/18/2025 8:53 AM EDT 6.25 mg Given 02/17/2025 4:47 PM EDT 6.25 mg cefepime (MAXIPIME) 1 g in sterile water 10 mL IV syringe 1 g, intravenous, Administer over 5 Minutes, Every 24 hours, First dose (after last modification) on Mon02/16/25 at 0200, For 6 days, Indication: Skin/Soft Tissue Given 02/18/2025 2:03 AM EDT 1 g Given 02/17/2025 2:01 AM EDT 1 g Given 02/16/2025 2:00 AM EDT 1 g cefepime (MAXIPIME) 2 g in sterile water 20 mL IV syringe 2 g, intravenous, Administer over 5 Minutes, Once, On Mon02/15/25 at 0023, For 1 dose, Indication: Skin/Soft Tissue Given 02/15/2025 1:33 AM EDT 2 g dalbavancin (DALVANCE) 760 mg in dextrose 5 % 250 mL IVPB 760 mg (rounded from 750 mg), intravenous, Administer over 30 Minutes, Once, On Mon02/18/25 at 1530, For 1 dose, Flush line pre- and post-medication with D5W, Indication: Skin/Soft Tissue New Bag 02/18/2025 4:54 PM EDT 760 mg dolutegravir (TIVICAY) tablet 50 mg 50 mg, oral, Daily with dinner, First dose (after last modification) on Mon02/17/25 at 1700, Give with rilpivirine (combo product = Juluca) Administer 2 hours before or 6 hours after cation-containing antacids or laxatives, sucralfate, oral supplements containing iron or calcium, or buffered medications. Alternatively, can be given with calcium or iron supplements if taken with food. Given 02/18/2025 4:54 PM EDT 50 mg Given 02/17/2025 4:47 PM EDT 50 mg entecavir (BARACLUDE) tablet 0.5 mg 0.5 mg, oral, Every 72 hours, First dose on Mon02/17/25 at 1300, Administer on an empty stomach (2 hours before or after a meal). Hazardous Medication Intact: - Single pair of ASTM standard [id number] certified gloves - Eye/face protection if vomit or potential to spit up Manipulated: - Double pair of ASTM standard [id number] certified gloves - Eye/face protection if vomit or potential to spit up - Staff at reproductive risk must also wear a hazardous gown - Crushing must be performed in sealed closed pouch - Splitting/cutting should be performed by pharmacy, if possible, Indication: Human Immunodeficiency Virus Given 02/17/2025 1:25 PM EDT 0.5 mg folic acid (FOLVITE) tablet 1 mg 1 mg, oral, Daily, First dose on Mon02/15/25 at 0900 Given 02/18/2025 8:53 AM EDT 1 mg Given 02/17/2025 9:13 AM EDT 1 mg Given 02/16/2025 8:22 AM EDT 1 mg heparin (UFH) injection 5,000 Units 5,000 Units, subcutaneous, Every 12 hours scheduled, First dose on Mon02/15/25 at 0900, Enter Indication for use of heparin (UFH) instead of enoxaparin (LOVENOX): (free text): ESRD, Indication: VTE Prophylaxis, Indications: Prophylaxis of Venous ThromboembolismIndications:Pr ophylaxis of Venous Thromboembolism Given 02/18/2025 8:54 AM EDT 5,000 Units Left Upper Abdomen Given 02/17/2025 8:45 PM EDT 5,000 Units R ight Upper Arm (Back) Given 02/16/2025 9:17 PM EDT 5,000 Units L eft Upper Arm (Back) HYDROmorphone (DILAUDID) injection 1 mg 1 mg, intravenous, Once, On 02/15/25 at 0323, For 1 dose Given 02/15/2025 3:43 AM EDT 1 mg HYDROmorphone (DILAUDID) injection 1 mg 1 mg, intravenous, Every 6 hours PRN, severe pain, Starting on 02/15/25 at 1518 Given 02/16/2025 5:43 AM EDT 1 mg Given 02/15/2025 9:43 PM EDT 1 mg Given 02/15/2025 3:31 PM EDT 1 mg HYDROmorphone (DILAUDID) tablet 2 mg 2 mg, oral, Every 4 hours PRN, severe pain, Starting on Mon02/16/25 at 0848 Given 02/17/2025 8:45 PM EDT 2 mg Given 02/16/2025 9:17 PM EDT 2 mg Given 02/16/2025 9:58 AM EDT 2 mg lactated Ringer's infusion 75 mL/hr, intravenous, Continuous, Starting on [place] 02/16/25 at 1530 New Bag 02/17/2025 4:48 PM EDT 75 mL/hr 75 mL/hr New 02/16/2025 3:16 PM EDT 75 mL/hr 75 mL/hr magnesium oxide (MAG-OX) tablet 400 mg 400 mg, oral, Daily, First dose on Mon02/18/25 at 1300, For 7 doses Given 02/18/2025 1:16 PM EDT 400 mg magnesium sulfate 2 gram/50 mL (4 %) IVPB 2 g 2 g, intravenous, at 25 mL/hr, Administer over 2 Hours, Every 2 hours, First dose (after last modification) on [facility] 02/15/25 at 0128, For 2 doses New 02/15/2025 4:05 AM EDT 2 g 25 mL/hr New 02/15/2025 1:46 AM EDT 2 g 25 mL/hr magnesium sulfate 2 gram/50 mL (4 %) IVPB 2 g 2 g, intravenous, at 25 mL/hr, Administer over 2 Hours, Once, On Mon02/18/25 at 1300, For 1 dose New 02/18/2025 1:16 PM EDT 2 g 25 mL/hr morphine injection 4 mg 4 mg, intravenous, Once, On 02/15/25 at 0023, For 1 dose Given 02/15/2025 1:01 AM EDT 4 mg mycophenolate (MYFORTIC) EC tablet 180 mg 180 mg, oral, 2 times daily, First dose on 02/15/25 at 0900, Do not crush or split. Give on an empty stomach. Hazardous Medication Intact: - Single pair of ASTM standard [id number] certified gloves - Eye/face protection if vomit or potential to spit up - Do NOT split, crush, or open dosage units Given 02/15/2025 8:45 AM EDT 180 mg oxyCODONE (ROXICODONE) immediate release tablet 5 mg 5 mg, oral, Once, On 02/16/25 at 0200, For 1 dose Given 02/16/2025 2:00 AM EDT 5 mg oxyCODONE (ROXICODONE) immediate release tablet 5 mg 5 mg, oral, Once, On 02/17/25 at 0230, For 1 dose Given 02/17/2025 2:24 AM EDT 5 mg rilpivirine (EDURANT) tablet 25 mg 25 mg, oral, Daily with dinner, First dose on 02/17/25 at 1700, Swallow tablet whole with water. Give with a normal to high-calorie meal. Given 02/18/2025 5:00 PM EDT 25 mg Given 02/17/2025 4:47 PM EDT 25 mg senna (SENOKOT) tablet 17.2 mg 17.2 mg (2 tablet), oral, Nightly PRN, constipation, Starting on 02/16/25 at 1555 Given 02/16/2025 9:17 PM EDT 17.2 mg sodium bicarbonate in dextrose 5 % 150 mEq/1150 mL infusion 150 mEq, intravenous, at 75 mL/hr, Continuous, Starting on 02/15/25 at 0900 New Bag 02/15/2025 10:59 AM EDT 150 mEq 75 mL/hr sodium bicarbonate tablet 650 mg 650 mg, oral, 3 times daily, First dose on 02/17/25 at 1400, For 6 doses Given 02/18/2025 1:16 PM EDT 650 mg Given 02/18/2025 8:54 AM EDT 650 mg Given 02/17/2025 8:46 PM EDT 650 mg tacrolimus (PROGRAF) capsule 0.5 mg 0.5 mg, oral, Daily, First dose on 02/15/25 at 0900, Hazardous Medication Intact: - Single pair of ASTM standard [id number] certified gloves - Eye/face protection if vomit or potential to spit up Manipulated (opening capsule): - Double pair of ASTM standard [id number] certified gloves - Eye/face protection if vomit or potential to spit up - Staff at reproductive risk must also wear a hazardous gown Given 02/18/2025 8:53 AM EDT 0.5 mg Given 02/17/2025 9:21 AM EDT 0.5 mg Given 02/16/2025 8:23 AM EDT 0.5 mg tacrolimus (PROGRAF) capsule 1 mg 1 mg, oral, Every evening, First dose on 02/15/25 at 1800, Hazardous Medication Intact: - Single pair of ASTM standard [id number] certified gloves - Eye/face protection if vomit or potential to spit up Manipulated (opening capsule): - Double pair of ASTM standard [id number] certified gloves - Eye/face protection if vomit or potential to spit up - Staff at reproductive risk must also wear a hazardous gown Given 02/18/2025 4:54 PM EDT 1 mg Given 02/17/2025 4:48 PM EDT 1 mg Given 02/16/2025 5:46 PM EDT 1 mg tbo-filgrastim (GRANIX) syringe 300 mcg 300 mcg, subcutaneous, Once, On 02/16/25 at 0915, For 1 dose Given 02/16/2025 9:59 AM EDT 300 mcg Left Upper Arm (Back ) tbo-filgrastim (GRANIX) syringe 300 mcg 300 mcg, subcutaneous, Daily, First dose on 02/17/25 at 0900 Given 02/18/2025 8:58 AM EDT 300 mcg Left Upper Arm (Back ) Given 02/17/2025 9:12 AM EDT 300 mcg Le ft Upper Arm (Back) vancomycin (VANCOCIN) IVPB 1,500 mg in 0.9 % sodium chloride 500 mL - CNR 1,500 mg (rounded from 1,478 mg = 20 mg/kg 73.9 kg), intravenous, at 333.3 mL/hr, Administer over 90 Minutes, Once, On 02/15/25 at 0023, For 1 dose, Indication: Skin/Soft Tissue New Bag 02/15/2025 1:33 AM EDT 1,500 mg 333.3 mL/hr documented in this encounter Discontinued Medications Medication Sig Discontinue Reason Start Date End Da te entecavir (BARACLUDE) 0.5 mg tablet Take 1 tablet (0.5 mg total) by mouth. 07/07/2023 02/18/2025 mycophenolate (MYFORTIC) 180 mg EC tablet Take 2 tablets (360 mg total) by mouth. Stop Taking at Discharge 08/18/2023 02/18/2025 documented as of this encounter Historical Medications * This list may reflect changes made after this encounter. tacrolimus (PROGRAF) 0.5 mg capsule Take 1 capsule (0.5 mg total) by mouth 1 (one) time each day. 12/26/2024 tacrolimus (PROGRAF) 0.5 mg capsule Take 2 capsules (1 mg total) by mouth 1 (one) time each day in the evening. 11/28/2024 added in this encounter Active and Recently Administered Medications Times are shown in EDT. Scheduled Medication Order 02/16/2025 02/17/2025 02/18/2025 acetaminophen (TYLENOL) tablet 1,000 mg 1,000 mg, oral, Every 8 hours, First dose (after last modification) on 02/16/25 at 0600 0543 (Given - Provider: Francia Haas RN)1457 (Given - Provider: Bonilla Dong RN)2117 (Given - Provider: Francia Haas RN) 0615 (Given - Provider: Francia Haas RN)1325 (Given - Provider: Meghan Aguilera, RN)2100 (Given - Provider: Francia Haas RN) 0519 (Given - Provider: Francia Haas RN)1316 (Given - Provider: Nakia Lund RN) amLODIPine (NORVASC) tablet 5 mg 5 mg, oral, Daily, First dose on 02/15/25 at 0900 0822 (Given - Provider: Bonilla Dong RN) 0913 (Given - Provider: Meghan Aguilera, GRADY) 0854 (Given - Provider: Nakia Lund, RN) buprenorphine-naloxone (SUBOXONE) 8-2 mg per SL tablet 1 tablet 1 tablet, sublingual, 2 times daily, First dose (after last modification) on Mon02/15/25 at 2100, - After the medication is completely dissolved, instruct the patient to take a large sip of water, swish it around teeth and gums, and swallow. - Patient should wait at least 1 hour before brushing teeth to avoid damage to their teeth. 0822 (Given - Provider: Bonilla Dong, GRADY)2117 (Given - Provider: Francia Haas, GRADY) 0913 (Given - Provider: Meghan Aguilera, RN)2046 (Given - Provider: Francia Haas, GRADY) 0853 (Given - Provider: Nakia Lund, GRADY) carvediloL (COREG) tablet 6.25 mg 6.25 mg, oral, 2 times daily with meals, First dose on Mon02/15/25 at 0800 0823 (Given - Provider: Bonilla Dong RN)1746 (Given - Provider: Bonilla Dong RN) 0913 (Given - Provider: Meghan Aguilera, GRADY)1647 (Given - Provider: Meghan Aguilera, GRADY) 0853 (Given - Provider: Nakia Lund, GRADY)1654 (Given - Provider: Nakia Lund, GRADY) cefepime (MAXIPIME) 1 g in sterile water 10 mL IV syringe (CANCELED) 1 g, intravenous, Administer over 5 Minutes, Every 24 hours, First dose (after last modification) on Mon02/16/25 at 0200, For 6 days, Indication: Skin/Soft Tissue 0200 (Given - Provider: Francia Haas, RN) 0201 (Given - Provider: Francia Haas, RN) 0203 (Given - Provider: Francia Haas, RN) dalbavancin (DALVANCE) 760 mg in dextrose 5 % 250 mL IVPB (COMPLETED) 760 mg (rounded from 750 mg), intravenous, Administer over 30 Minutes, Once, On Mon02/18/25 at 1530, For 1 dose, Flush line pre- and post-medication with D5W, Indication: Skin/Soft Tissue 1654 (New Bag - Provider: Nakia Lund RN)174 (Stopped - Provider: Nakia Lund RN) dolutegravir (TIVICAY) tablet 50 mg 50 mg, oral, Daily with dinner, First dose (after last modification) on Mon02/17/25 at 1700, Give with rilpivirine (combo product = Juluca) Administer 2 hours before or 6 hours after cation-containing antacids or laxatives, sucralfate, oral supplements containing iron or calcium, or buffered medications. Alternatively, can be given with calcium or iron supplements if taken with food. 164 (Given - Provider: Meghan Aguilera, GRADY) 165 (Given - Provider: Nakia Lund RN) entecavir (BARACLUDE) tablet 0.5 mg 0.5 mg, oral, Every 72 hours, First dose on Mon02/17/25 at 1300, Administer on an empty stomach (2 hours before or after a meal). Hazardous Medication Intact: - Single pair of ASTM standard [id number] certified gloves - Eye/face protection if vomit or potential to spit up Manipulated: - Double pair of ASTM standard [id number] certified gloves - Eye/face protection if vomit or potential to spit up - Staff at reproductive risk must also wear a hazardous gown - Crushing must be performed in sealed closed pouch - Splitting/cutting should be performed by pharmacy, if possible, Indication: Human Immunodeficiency Virus 1325 (Given - Provider: Meghan Aguilera, GRADY) folic acid (FOLVITE) tablet 1 mg 1 mg, oral, Daily, First dose on Mon02/15/25 at 0900 0822 (Given - Provider: Bonilla Dong, GRADY) 0913 (Given - Provider: Meghan Aguilera, GRADY) 0853 (Given - Provider: Nakia Lund, GRADY) heparin (UFH) injection 5,000 Units 5,000 Units, subcutaneous, Every 12 hours scheduled, First dose on Mon02/15/25 at 0900, Enter Indication for use of heparin (UFH) instead of enoxaparin (LOVENOX): (free text): ESRD, Indication: VTE Prophylaxis, Indications: Prophylaxis of Venous Thromboembolism 08 (Given - Provider: Bonilla Dong RN)2116 (Given - Provider: Francia Haas RN) 0900 (Not Given - Provider: Meghan Aguilera RN - Reason: Other - Comment: ? possible procedure today)2044 (Given - Provider: Francia Haas RN) 0854 (Given - Provider: Nakia Lund RN) magnesium oxide (MAG-OX) tablet 400 mg 400 mg, oral, Daily, First dose on Mon02/18/25 at 1300, For 7 doses 1316 (Given - Provider: Nakia Lund RN) magnesium sulfate 2 gram/50 mL (4 %) IVPB 2 g (COMPLETED) 2 g, intravenous, at 25 mL/hr, Administer over 2 Hours, Once, On Mon02/18/25 at 1300, For 1 dose 1316 (New Bag - Provider: Nakia Lund RN)1509 (Stopped - Provider: Nakia Lund RN) oxyCODONE (ROXICODONE) immediate release tablet 5 mg (COMPLETED) 5 mg, oral, Once, On Mon02/16/25 at 0200, For 1 dose 0200 (Given - Provider: Francia Haas RN) oxyCODONE (ROXICODONE) immediate release tablet 5 mg (COMPLETED) 5 mg, oral, Once, On Mon02/17/25 at 0230, For 1 dose 0224 (Given - Provider: Francia Haas RN) rilpivirine (EDURANT) tablet 25 mg 25 mg, oral, Daily with dinner, First dose on Mon02/17/25 at 1700, Swallow tablet whole with water. Give with a normal to high-calorie meal. 1647 (Given - Provider: Meghan Aguilera RN) 1700 (Given - Provider: Nakia Lund RN) sodium bicarbonate tablet 650 mg 650 mg, oral, 3 times daily, First dose on Mon02/17/25 at 1400, For 6 doses 1325 (Given - Provider: Meghan Aguilera RN)2045 (Given - Provider: Francia Haas RN) 0854 (Given - Provider: Nakia Lund RN)1316 (Given - Provider: Nakia Lund RN) tacrolimus (PROGRAF) capsule 0.5 mg 0.5 mg, oral, Daily, First dose on 02/15/25 at 0900, Hazardous Medication Intact: - Single pair of ASTM standard [id number] certified gloves - Eye/face protection if vomit or potential to spit up Manipulated (opening capsule): - Double pair of ASTM standard [id number] certified gloves - Eye/face protection if vomit or potential to spit up - Staff at reproductive risk must also wear a hazardous gown 0823 (Given - Provider: Bonilla Dong RN) 0921 (Given - Provider: Meghan Aguilera, GRADY) 0853 (Given - Provider: Nakia Lund, RN) tacrolimus (PROGRAF) capsule 1 mg 1 mg, oral, Every evening, First dose on 02/15/25 at 1800, Hazardous Medication Intact: - Single pair of ASTM standard [id number] certified gloves - Eye/face protection if vomit or potential to spit up Manipulated (opening capsule): - Double pair of ASTM standard [id number] certified gloves - Eye/face protection if vomit or potential to spit up - Staff at reproductive risk must also wear a hazardous gown 1746 (Given - Provider: Bonilla Dong RN) 1648 (Given - Provider: Meghan Aguilera, GRADY) 1654 (Given - Provider: Nakia Lund, GRADY) tbo-filgrastim (GRANIX) syringe 300 mcg (COMPLETED) 300 mcg, subcutaneous, Once, On 02/16/25 at 0915, For 1 dose 0959 (Given - Provider: Bonilla Dong RN) tbo-filgrastim (GRANIX) syringe 300 mcg 300 mcg, subcutaneous, Daily, First dose on 02/17/25 at 0900 0912 (Given - Provider: Meghan Aguilera, RN) 0858 (Given - Provider: Nakia Lund, RN) Continuous Medication Order 02/16/2025 02/17/2025 02/18/2025 lactated Ringer's infusion 75 mL/hr, intravenous, Continuous, Starting on 02/16/25 at 1530 1516 (New Bag - Provider: Bonilla Dong RN) 1648 (New Bag - Provider: Meghan Aguilera, GRADY) 2026 (Due: Stopped) PRN Medication Order 02/16/2025 02/17/2025 02/18/2025 acetaminophen (TYLENOL) tablet 650 mg (CANCELED) 650 mg, oral, Every 6 hours PRN, mild pain, moderate pain, headaches, fever - temperature GREATER than 38 C (100.4 F), Starting on 02/15/25 at 0629 0026 (Given - Provider: Francia Haas, GRADY) HYDROmorphone (DILAUDID) injection 1 mg (CANCELED) 1 mg, intravenous, Every 6 hours PRN, severe pain, Starting on 02/15/25 at 1518 0543 (Given - Provider: Francia Haas, GRADY) HYDROmorphone (DILAUDID) tablet 2 mg 2 mg, oral, Every 4 hours PRN, severe pain, Starting on 02/16/25 at 0848 0958 (Given - Provider: Bonilla Dong RN)2116 (Given - Provider: Francia Haas, GRADY) 2044 (Given - Provider: Francia Haas, GRADY) senna (SENOKOT) tablet 17.2 mg 17.2 mg (2 tablet), oral, Nightly PRN, constipation, Starting on 02/16/25 at 1555 2117 (Given - Provider: Francia Haas, GRADY) 2053 (Not Given - Provider: Francia Haas RN - Reason: Patient/Resident/Agent refused - education provided ) documented in this encounter Orders Medications Ordered That Rohit ht Not Have Been Administered Count Last Ordered Date First Ordered Date DAPTOmycin (CUBICIN) 450 mg in sodium chloride 0.9 % 50 mL IVPB 1 02/18/2025 magnesium sulfate 1 g in sod ium chloride 0.9 % 50 mL IVPB 1 02/18/2025 NON FORMULARY 1 02/18/2025 dolutegravir (TIVICAY) tablet 50 mg 1 02/17 oxyCODONE (ROXICODONE) immed iate release tablet 10 mg 1 02/16/2025 acetaminophen (TYLENOL) tablet 650 mg 1 11/2024 BUPivacaine HCl (MARCAINE) 0.5 % injection 2 02/15/2025 cefepime (MAXIPIME) IV syringe 500 mg 1 11/2024 magnesium sulfate 2 gram/50 mL (4 %) IVPB 2 g 1 02/15/2025 Diet Count Last Ordered Date First Orde red Date ADULT DISCHARGE DIET 1 02/18/2025 Nursing Count Last Ordered Date First Orde red Date ACTIVITY 1 02/18/2025 DISCHARGE WOUND INCISION CARE 1 02/18/2025 FOLLOW UP PRIMARY PHYSICIAN 1 02/18/2025 FOLLOW UP WITH PROVIDER 3 02/18/2025 Consult Count Last Ordered Date First Orde red Date IP CONSULT TO INFECTIOUS DISEASES 1 025 IP CONSULT TO HEMATOLOGY 1 02/15/2025 IP CONSULT TO NUTRITION SERVICES 1 02/16/20 25 IV Count Last Ordered Date First Orde red Date INSERT PERIPHERAL IV 1 02/15/2025 Admission Count Last Ordered Date First Orde red Date ADMIT TO INPATIENT ADMITTING REQ 1 02/16/20 25 Transfer Count Last Ordered Date First Orde red Date ED TO FLOOR BED REQUEST 1 02/15/2025 Discharge Count Last Ordered Date First Orde red Date DISCHARGE PATIENT 2 02/18/2025 documented in this encounter Care Teams Collar Turner Operator Relationship Specialty Start Date End Date Name, MD Horacio [address] [place] [id number] PCP - General Internal Medicine 02/15/25 documented as of this encounter
--- OUTSIDE RECORDS SUMMARY | 2025-02-15 09:03 | XMS_ITS | Encounter Summary ---
Author Organization [facility] Address [address] [place] [address] Care Team Providers Care Financial Legal Assistant Name Role Phone Name, Horacio ARORA Primary Care Provider [phone] Reason for Visit * Auth/Cert (Routine) Specialty Diagnoses / Procedures Referred By Rae treadwell Referred To Contact Diagnoses Hypomagnesemia Cellulitis Neutropenic fever ([facility] V24) Cellulitis of great toe of left foot Anemia, unspecified type Leukopenia, unspecified type Chronic kidney disease, unspecified CKD stage Sepsis without acute organ dysfunction, due to unspecified organism (CMS/HCC V24, CMS/HCC V28) Procedures . Beka Boyd MD [address] [place] [phone] Phone: tel: fax: [facility] [address] [place] [id number] Phone: tel: Referral ID Status Reason Start Date Expiration Date Visits Re quested Visits Authorized [id number] 1 1 Encounter Details Date Type Department Care Team (Late st Contact Info) Description 02/15/2025 9:03 AM EDT Anesthesia Event [facility] Main OR [address] [place] [address] Andres Bonilla MD [address] [place] [address] [address] Dhaval Esparza CRNA Need Address Info Anesthesia Record Procedure Summary Procedure Name Responsible Anesthesiologist Anesthesia Start Time Anesthesia Stop Time INCISION DRAINAGE BILATERAL HALLUX (Bilateral: Foot) Andres Bonilla MD 02/15/25 0903 02/15/25 0929 Events Date Time Event Comment 02/15/2025 0900 0903 An Start 0903 An Start Data The patient wa s reevaluated immediately before moderate or deep sedation use and before anesthesia induction. 0903 In Room 0907 Anesthesia Ready 0916 Proc Start 0924 Proc Fin 0926 Out of Room 0926 an stop data 0929 Handoff to RN I completed my handoff to the receiving nurse during which we: 1. Identified the patient 2. Identified the responsible provider 3. Reviewed the pertinent medical history 4. Discussed the surgical course 5. Reviewed intra-op anesthesia management and issues during anesthesia 6. Set expectations for post-procedure period 7. Allowed opportunity for questions and acknowledgement of understanding. 0929 An Stop Meds Name Total fentaNYL 0.05 mg/mL 100 mcg midazolam 1 mg/mL 2 mg propofol (DIPRIVAN) injection 10 mg/mL 1 00 mg propofol (DIPRIVAN) infusion 10 mg/mL 59 .32 mg lidocaine PF (XYLOCAINE-MPF) local injec tion 2% 100 mg lactated Ringer's infusion 150 mL * Agents No agents on file. * Blood No blood administrations on file. Lines, Drains, and Airways Type Details Placement Removal Wound Other (INGROWN); 02/15/25; Y; Toe D1, Great; Anterior, Right 02/15/25 0000 by Harjinder Cooley RN Wound Other (INGROWN); 02/15/25; Y; Toe D1, Great; Anterior, Left 02/15/25 0000 by Harjinder Cooley RN Peripheral IV Placement Date: 02/15/25; Placement Time: 48; Catheter Size: 18 G; Orientation: Right; Location: Antecubital; Local Anesth: None; Patient Tolerance: Tolerated well; Removal Date: 02/18/25; Removal Time: 1752; Removal Reason: (discharged) 02/15/25 004 by Sohail [place] RN 02/18/251752 by Leelee Sheppard RN documented in this encounter Social History Tobacco Use Types Packs/Day Years Used Date Smoking Tobacco: Former Cigarettes Smokeless Tobacco: Never Interpersonal Safety Answer Date Record ed Physical Abuse 02/15/2025 Verbal Abuse 02/15/2025 Sex and Gender Information Value Date Recorded Sex Assigned at Male 12/31/2024 2:47 PM EDT Legal Sex Male 3:56 PM EDT Gender Identity Not on file Sexual Orientation Not on file documented as of this encounter Progress Notes * Andres Bonilla MD - 02/15/2025 9:29 AM EDT Patient: [place] Procedure Summary Date: 02/15/25 Room / Location: [facility] OR / [facility] OR Anesthesia Start: 902 Anesthesia Stop: 928 Procedure: INCISION DRAINAGE BILATERAL HALLUX (Bilateral: Foot) Diagnosis: Abscess of great toe, right Abscess of left great toe Surgeons: Lance Elena DPM Responsible Provider: Andres Bonilla MD Anesthesia Type: MAC ASA Status: 4 - Emergent Anesthesia Plan: MAC Last Vitals: Vitals Value Taken Time BP 94/59 02/15/25928 Temp 98.1 02/15/25928 Pulse 78 02/15/25928 Resp 17 02/15/25928 SpO2 98 02/15/25928 Pain Score: 10 - Worst possible pain Anesthesia Post Evaluation Patient location during evaluation: PACU Patient participation: complete - patient participated Level of consciousness: awake Pain management: adequate Airway patency: patent Anesthetic complications: no Cardiovascular status: acceptable Respiratory status: acceptable Hydration status: acceptable Comments: Patient seen and evaluated prior to discharge from PACU. Note may have been written at a later time due to clinical necessity. Nausea: No Vomiting: No There were no known notable events for this encounter. * Andres Bonilla MD - 02/15/2025 8:34 AM EDT 50 y.o. male scheduled for Hypomagnesemia; Cellulitis; Neutropenic fever ([facility] V24); Cellulitis of* [INCISION DRAINAGE EXTREMITY LOWER (Bilateral: Leg Lower)] Ht Readings from Last 1 Encounters: 02/14/25 1.727 m (68 ) Wt Readings from Last 1 Encounters: 02/15/25 71.9 kg (158 lb 9.6 oz) Body mass index is 24.12 kg/m??. Past Medical History: Diagnosis Date Chronic kidney disease ESRD (end stage renal disease) (CMS/HCC V24, [facility] V28) HIV (human immunodeficiency virus infection) ([facility] V24, [facility] V28) Hypertension Secondary hyperparathyroidism ([facility] V24) Past Surgical History: Procedure Laterality Date TRANSPLANT, KIDNEY, ROBOT-ASSISTED Anesthesia complications Denies Allergies Allergen Reactions Penicillins Rash Prior to Admission medications Medication Sig Start [...] UNDER THE TONGUE EVERY DAY Historical Provider, I have personally reviewed all the patient's medications with them prior to anesthesia. Current In-hospital Medications amLODIPine, 5 mg, oral, Daily buprenorphine-naloxone, 2 tablet, sublingual, Daily carvediloL, 6.25 mg, oral, BID with meals [START ON 02/16/2025] cefepime, 1 g, intravenous, q24h folic acid, 1 mg, oral, Daily heparin (porcine), 5,000 Units, subcutaneous, q12h ESTEFANI mycophenolate, 180 mg, oral, BID tacrolimus, 0.5 mg, oral, Daily tacrolimus, 1 mg, oral, q PM sodium bicarbonate, 150 mEq PRN medications: acetaminophen Social History Tobacco Use Smoking status: Former Types: Cigarettes Smokeless tobacco: Never Is the patient a current smoker (e.g. cigarette, cigar, pip, e-cigarette, or mariajuana)? Yes [] No[] Patient previously instructed to abstain from smoking on the day of procedure? Yes [] No[] Patient smoked on the day of procedure? Yes [] No[] ASPIRE smoking VBR: [] Not interested in quitting [] Interested in quitting- referred to treatment [] Interested in quitting - treatment provided Visit Vitals BP 129/78 (BP Location: Right arm, Patient Position: Lying) Pulse 85 Temp 36.9 ??C (98.4 ??F) (Oral) Resp 16 Ht 1.727 m (68 ) Wt 71.9 kg (158 lb 9.6 oz) SpO2 100% BMI 24.12 kg/m?? Smoking Status Former BSA 1.85 m?? LABS: Lab Results Component Value Date WBC 1.5 (LL) 02/15/2025 HGB 9.4 (L) 02/15/2025 HCT 28.8 (L) 02/15/2025 MCV 87.8 02/15/2025 PLT 124 (L) 02/15/2025 Lab Results Component Value Date GLUCOSE 101 (H) 02/15/2025 CALCIUM 8.9 02/15/2025 NA 131 (L) 02/15/2025 K 4.5 02/15/2025 CO2 10 (LL) 02/15/2025 CL 106 02/15/2025 BUN 93 (H) 02/15/2025 CREATININE 8.58 (H) 02/15/2025 Lab Results Component Value Date INR 1.1 02/15/2025 No results found for: PTT Relevant Problems No relevant active problems Clinical information reviewed: Tobacco Allergies Meds Med Hx Surg Hx Fam Hx Soc Hx Anesthesia Plan ASA 4 - emergent Induction method: intravenous Anesthetic plan and risks discussed with patient. Anesthesia Plan discussed with ASSOCIATE PROFESSOR OF SURGERY. Anesthesia Evaluation No history of anesthetic complications Airway Mallampati: II Thyromental distance: > 3 finger breadths Neck ROM: fullnot intubatedno noted risk Dental - normal exam Pulmonary - negative ROS breath sounds clear to auscultation Cardiovascular (+) hypertension Rhythm: regular Rate: normal Neuro/Psych - negative ROS GI/Hepatic/Renal (+) chronic renal disease (ESRD s/p kidney transplantation June 2023 subsequently failure. Creatinine 8.9 compared to baseline around 7-7.5.) ESRD Endo/Other Comments: left great toe cellulitis HIV On Juluca Opiate dependence On Suboxone Abdominal PONV RISK SCORE: 2 Vitals: 02/14/25 2104 02/15/25 0119 02/15/25 0629 [...] 9.6 oz) Height: 1.727 m (68 ) SpO2 Readings from Last 1 Encounters: 02/15/25 100% WBC Date Value Ref Range Status 02/15/2025 1.5 (LL) 4.8 - 10.8 K/mcL Final RBC Date Value Ref Range Status 02/15/2025 3.30 (L) 4.50 - 5.50 M/mcL Final Hemoglobin Date Value Ref Range Status 02/15/2025 9.4 (L) 13.5 - 17.5 g/dL Final Hematocrit Date Value Ref Range Status 02/15/2025 28.8 (L) 42.0 - 54.0 % Final Platelets Date Value Ref Range Status 02/15/2025 124 (L) 130 - 400 K/mcL Final MCV Date Value Ref Range Status 02/15/2025 87.8 79.0 - 98.0 FL Final Allergies Allergen Reactions Penicillins Rash STOP BANG: No data recorded NPO Status: No data recorded documented in this encounter Plan of Treatment Upcoming Encounters Date Type Department Care Team (Late st Contact Info) Description 02/24/2025 11:15 AM EDT Office Visit [facility] Hematology Oncology [address] [place] [address] Lonnie Lovett MD [address] [place] [address] Scheduled Procedures Name Priority Associated Diagnoses Date/Ti me CREATION FISTULA AV UPPER EXTREMITY CKD (chronic kidney disease) stage 5, GFR less than 15 ml/min (CMS/HCC V24, CMS/HCC V28) documented as of this encounter Visit Diagnoses Not on filedocumented in this encounter Administered Medications Inactive Administered Medications - up to 3 most recent administrations Medication Order MAR Action Action Date Dose Rate Site fentaNYL (PF) (SUBLIMAZE) injection intravenous, As needed, Starting on 02/15/25 at 0907, Anesthesia Intraprocedure Given 02/15/2025 9:07 AM EDT 100 mcg lactated Ringer's infusion intravenous, Continuous PRN, Starting on 02/15/25 at 0903, Anesthesia Intraprocedure New Bag 02/15/2025 9:03 AM EDT lidocaine (PF) (XYLOCAINE-MPF) 2 % injection injection, As needed, Starting on 02/15/25 at 0907, Anesthesia Intraprocedure Given 02/15/2025 9:07 AM EDT 100 mg midazolam (VERSED) injection intravenous, As needed, Starting on 02/15/25 at 0904, Anesthesia Intraprocedure Given 02/15/2025 9:04 AM EDT 2 mg propofoL (DIPRIVAN) infusion 10 mg/mL intravenous, Continuous PRN, Starting on 02/15/25 at 0911, Anesthesia Intraprocedure New Bag 02/15/2025 9:11 AM EDT 75 mcg/kg/min 32.355 mL/hr propofoL (DIPRIVAN) injection intravenous, As needed, Starting on 02/15/25 at 0908, Anesthesia Intraprocedure Given 02/15/2025 9:08 AM EDT 100 mg documented in this encounter Care Teams Financial Legal Assistant Relationship Specialty Start Date End Date Name, MD Horacio [address] [place] [address] PCP - General Internal Medicine 02/15/25 documented as of this encounter
--- OUTSIDE RECORDS SUMMARY | 2025-02-15 09:28 | XMS_ITS | Encounter Summary ---
Author Organization [employer] [facility] Address [address] [place] [address] Care Team Providers Care Drying Machine Receiver Name Role Phone Name, Horacio ARORA Primary Care Provider [phone] Reason for Visit * Reason Comments Cellulitis Pt comes in with L t oe infection that occurred 3 days ago after cutting nails . Non diabetic. * Auth/Cert (Routine) Specialty Diagnoses / Procedures Referred By Contkvng t Referred To Contact Diagnoses Hypomagnesemia Cellulitis Neutropenic fever ([facility] V24) Cellulitis of great toe of left foot Anemia, unspecified type Leukopenia, unspecified type Chronic kidney disease, unspecified CKD stage Sepsis without acute organ dysfunction, due to unspecified organism (CMS/HCC V24, CMS/HCC V28) Procedures . Beka Body MD [address] [place] [address] Phone: tel: fax: [facility] Urology Unit [address] [place] [phone] Phone: tel: Referral ID Status Reason Start Date Expiration Date Visits Re quested Visits Authorized [id number] 1 1 Encounter Details Date Type Department Care Team (Late st Contact Info) Description 02/15/2025 9:28 AM EDT - 02/15/2025 10:58 AM EDT Surgery [facility] Main OR [address] [place] [address] Lance Elena DPM [address] [address] INCISION DRAINAGE BILATERAL HALLUX Surgery Details Date/Time Status Location OR Service Patient Class Case Class Case Type Trauma Case? 02/15/2025 9:28 AM Posted SP OR OR 14 Podiatry Emergency Panel 1 Procedure LRB Anes Op Region Wound Class Comments INCISION DRAINAGE BILATERAL HALLUX Bilateral Foot Class IV/ Dirty or Infected Surgeon Surgeon Role Service Panel Lance Elena DPM Primary Podiatry 1 documented in this encounter Social History Tobacco [...] Sign Reading Time Taken Comments Blood Pressure 104/68 02/15/2025 10:15 AM EDT Pulse 72 02/15/2025 10:15 AM EDT Temperature 36.7 C (98.1 F) 02/15/2025 10:00 AM EDT Respiratory Rate 14 02/15/2025 10:15 AM EDT Oxygen Saturation 100% 02/15/2025 10:15 AM EDT Inhaled Oxygen Concentration - - Weight 71.9 kg (158 lb 9.6 oz) 02/15/2025 6:29 A M EDT Height 172.7 cm (5' 8 ) 02/14/2025 9:04 PM EDT Body Mass Index 24.12 02/14/2025 9:04 PM EDT documented in this encounter Discharge Summaries * Emanuel Moran MD - 02/18/2025 6:16 PM EDT Images from the original note were not included. WAUCONDA DISCHARGE SUMMARY Patient Information Doroteo Rock : [...] from the history and physical: Mr. Suleman oRck is a 50-year-old Dominican speaking male with medical history significant for [...] vancomycin IV and cefepime. Patient transferred to [place]. ED initially plan to transfer patient to [facility] but patient decided to get admitted here at [facility]. The patient was accompanied by his brother, Brooke, who assisted with interpretation. Patient is primarily Dominican-speaking but able to express himself in Hungarian. Patient has had left great toe swelling [...] that he underwent a renal transplant at [facility] in June 2023. He has had transplant failure and plan is to resume hemodialysis. He is currently on tacrolimus and mycophenolate. He is followed by clinical microbiologist at [facility]. He had his left dialysis catheter removed. It appears patient was seen by Dr. Rodriguez for creation of right arm fistula and possible insertion left arm loop AV graft. Functional status prior to presentation: independent The patient was then admitted to medicine for further evaluation and treatment. The following issues were addressed: 50-year-old Dominican speaking male who can speak Hungarian as well with medical history significant for [...] consulted here he was seen by Dr. Mannnig Patient was treated with IV bicarb for metabolic acidosis, metabolic acidosis has improved, currently has been transitioned to p.o. bicarb. Stopped CellCept and continue with tacrolimus levels are currently pending Nephrology also recommended hematology consultation as patient would benefit from Neupogen. Renal function improved, he declines a permacath placement for dialysis in house, nephrology recommended follow-up with his clinical microbiologist in the outpatient setting, no indication for [...] Lonnie Lovett MD, Hematology Lance Elena DPM, Edge Trimmer Mechanic Ilda Breen MD, ID Procedures done: XR Foot 3+ Views Left Final Result No specific radiographic evidence of osteomyelitis. More sensitive assessment could be performed with MRI. -------- FINAL REPORT -------- Dictated By: Yassine Aggarwal Dictated Date: 02/15/2025 09:01 ET Assigned Physician: Yassine Aggarwal Reviewed and Electronically Signed By: Yassine Aggarwal Signed Date: 02/15/2025 09:04 ET Workstation ID: [id number] Transcribed By: Self Edit Transcribed Date: 02/15/2025 [...] Minutes were spent in patient care including [id number]-ax-kwux time, chart review, discussion with providers, documentation, customs and border protection officer.Moderate complexity medical decision making. Follow-Up Instructions and Recommendations [facility] [address] [address] [facility] [address] [address] Primary care provider (PCP) Horacio Cerna MD 230 [facility] [address] Onesimo Ayers MD 575 [facility] [phone] Call office to arrange followup Lonnie Lovett MD 271 [facility] [phone] Call the office to arrange followup of bone marrow supression. Lance Elena DPM [address] [address] Call office to arrange postoperative followup Discharge [...] Referral Reason: Consult and Treat Referral Location: [facility] Requested Specialty: Home Health Services Number of [...] for diarrhea sodium bicarbonate 650 mg tablet [place] catarina tableta (650 mg en total) por [...] Your Medications These medications were sent to [facility] [place] [address] magnesium oxide 400 mg (241.3 elemental magnesium) [...] be sent through Care Everywhere. * Neutropenia (Dominican) * Cellulitis (Dominican) * Renal Disease: End Stage (Dominican) documented in this encounter Medications at Time [...] Disposition Code Departure Means Destination Home-Health Care Svc documented in this encounter Progress Notes * [...] kidney disease ESRD (end stage renal disease) ([facility] V24, [facility] V28) HIV (human immunodeficiency virus infection) ([facility] V24, [facility] V28) Hypertension Secondary hyperparathyroidism ([facility] V24) MEDICATIONS acetaminophen, 1,000 mg, oral, q8h [...] adv kdienuy dysfun in Graft noted in [facility] records, its unclear whether he had Bx [...] Moran MD - 02/17/2025 8:16 PM EDT [facility] Provider Response Note PATIENT: DOROTEO PARSON : 1975 ADMIT DATE: 02/15/2025 5:37 AM DISCH DATE: RESPONDING PROVIDER #: [id number] PROVIDER RESPONSE TEXT: Mr. Suleman Rock has [...] to this matter. Margie Meraz RN, c [phone] The patient's clinical indicators include: Options provided: -- HIV with current or previous HIV-related condition -- HIV positive/Asymptomatic HIV infection status -- Other - I will add my own diagnosis -- Disagree - Not applicable / Not valid Query created by: Kt Margie on 02/17/2025 1:58 PM Electronically signed by: [...] of admission. The patient states she has [id number]% compliant with his HIV medication Juluca every day as well as Entecavir 0.5 mg every other day. Objective: Vitals: 02/16/25 1947 02/17/25 0229 02/17/25 0745 02/17/25 1405 BP: 131/83 (!) 144/90 (!) 142/99 (!) 136/94 BP Location: Left arm Left arm Left arm Left arm Patient Position: Lying Lying Pulse: 83 78 80 79 Resp: Temp: 36.5 ??C (97.7 ??F) 36.7 ??C [...] Signed Date: 02/15/2025 09:04 ET Workstation ID: [id number] Transcribed By: Self Edit Transcribed Date: 02/15/2025 [...] 1648) Problem list, assessment and plan: 50-year-old Dominican speaking male who can speak Hungarian as well with medical history significant for [...] in house, nephrology recommended follow-up with his clinical microbiologist in the outpatient setting, no indication for [...] kidney disease ESRD (end stage renal disease) ([facility] V24, [facility] V28) HIV (human immunodeficiency virus infection) ([facility] V24, [facility] V28) Hypertension Secondary hyperparathyroidism ([facility] V24) MEDICATIONS acetaminophen, 1,000 mg, oral, q8h [...] Units 02/17/25 0614 02/16/25 0606 02/15/25 0638 WBC AUTO K/mcL 1.3* 1.3* 1.5* HEMOGLOBIN g/dL 8.1* 8.3* 9.4* HEMATOCRIT % 24.4* 24.9* 28.8* MCV FL 86.8 85.6 87.8 PLATELETS K/mcL 83* 115* 124* Results from last 7 days Lab Units 02/17/25 0614 02/16/25 0606 02/15/25 0638 CREATININE mg/dL 7.34* 7.98* 8.58* BUN [...] adv kdienuy dysfun in Graft noted in [facility] records, its unclear whether he had Bx [...] EDT Type of Visit: Initial Visit and Set Up Worker Rounding Reason for Visit: Spiritual/Emotional Support Time Spent: 10 Minutes Location: [facility]539-1 Sacramental Encounters: Spiritual Distress Assessment: Spiritual Assessment/Distress Spiritual Care Assessment: Assessment: Doroteo, was awake, alert, lying down in bed resting at the time of visit. His cousin was sleeping in the chair. Doroteo is Dominican speaking, raised no concern except wish and [...] usually? Transcendence Do you have a particular scientologist, coy, or spirituality? Is your scientologist/spirituality/coy challenged by what is happening to you [...] kidney disease ESRD (end stage renal disease) ([facility] V24, [facility] V28) HIV (human immunodeficiency virus infection) ([facility] V24, [facility] V28) Hypertension Secondary hyperparathyroidism ([facility] V24) MEDICATIONS acetaminophen, 1,000 mg, oral, q8h [...] Lab Units 02/16/25 0606 02/15/25 0638 02/15/25 0052 CREATININE mg/dL 7.98* 8.58* 8.92* BUN mg/dL [...] adv kdienuy dysfun in Graft noted in [facility] records, its unclear whether he had Bx [...] AVF once infection resolved; schedule Pcath for Kyree 9. H/O HIV mentioned in rec but [...] noted abvoe to Dr Rosette Manning MD * Lance [...] stage 5, GFR less than 15 ml/min ([facility] V24, [facility] V28) Cellulitis SOCIAL HISTORY: Social History Tobacco [...] to unspecified organism (CMS/HCC V24, CMS/HCC V28) 7. Neutropenic fever ([facility]/HCC V24) PLAN: Pt was seen and examined, [...] a 50 y.o. male : 1975 MR#: [id number] SUBJECTIVE Complaining of left foot pain, reviewed [...] Signed Date: 02/15/2025 09:04 ET Workstation ID: [id number] Transcribed By: Self Edit Transcribed Date: 02/15/2025 09:01 ET ASSESSMENT & PLAN Principal Problem: Cellulitis 50-year-old Dominican speaking male who can speak Hungarian as well with medical history significant for [...] were reviewed from his previous admission at [facility] which Nephrology has been consulted Agrees [...] Patient Specific Outcome Outcome: Progressing Problem: Cognitive: Janessa Jacome Fall Risk Goal: Last Known Fall Outcome: [...] Relationship) for DC Planning Brother Cruz Briscoe [phone] Living Arrangements Alone Type of Residence Private residence (4th floor apartment, no elevator access) Assistive Devices Cane;Walker;Shower chair Support Systems Immediate family;Caregiver (3 hours HORTICULTURE/FLORICULTURE TEACHER/ day) Medication Coverage Has Med Coverage Under [...] from the original note were not included. WAUCONDA PROGRESS NOTE Date: 02/15/2025 Author: Jung Dinero MD Patient ID: Doroteo Rock is a 50 y.o. male : 1975 MR#: [id number] SUBJECTIVE Complaining of left foot pain Current [...] ASSESSMENT & PLAN Principal Problem: Cellulitis 50-year-old Dominican speaking male who can speak Hungarian as well with medical history significant for [...] concerns): [x] Yes / [] No Neutropenic Field Representatives Director: [] Yes / [] No If YES, Cardiac Rhythm: [] NSR, [] SB, [] ST, [] A-FIB, [] A-Flutter, [] Pacemaker, [] 1st Degree HB, [] 2nd Degree HB, [] 3rd Degree HB Reason for Field Representatives Director: VS: Visit Vitals BP 132/87 (BP Location: [...] patient overnight. Submitted by and Phone Extension: Sohail, [phone] * Vivienne Onofre RN - 02/14/2025 9:03 [...] but reports compliance with his HIV regimen. [place] Coma Scale Score: 15 Patient History Past Medical History: Diagnosis Date Chronic kidney disease ESRD (end stage renal disease) ([facility] V24, [facility] V28) HIV (human immunodeficiency virus infection) ([facility] V24, [facility] V28) Hypertension Secondary hyperparathyroidism ([facility] V24) Past Surgical History: Procedure Laterality Date [...] of 02/15/25 1616 Sat Feb 15, 2025 0050 18 gauge angiocath was placed by Dr. [...] acute organ dysfunction, due to unspecified organism ([facility] V24, CMS/[facility] V28) Neutropenic fever ([facility] V24) Medical Decision Making Patient with a [...] from the original note were not included. WAUCONDA HISTORY AND PHYSICAL Please contact author [RIAN Fraga] via [employer]. Patient: Doroteo Rock Admission Date/Time: 02/14/2025 11:58 PM : 1975 [50 y.o.] Patient's PCP: Horacio Cerna MD Attending Provider: Belia Morel MD CHIEF COMPLAINT 50-year-old male presents with left foot pain and swelling HISTORY OF PRESENT ILLNESS Mr. Suleman Rock is a 50-year-old Dominican speaking male with medical history significant for [...] vancomycin IV and cefepime. Patient transferred to [place]. ED initially plan to transfer patient to [facility] but patient decided to get admitted here at [facility]. The patient was accompanied by his brother, Brooke, who assisted with interpretation. Patient is primarily Dominican-speaking but able to express himself in Hungarian. Patient has had left great toe swelling [...] all by himself. He is not followed bydiatrist. Regarding patient's renal transplant status, he states that he underwent a renal transplant at [facility] in June 2023. He has had transplant failure and plan is to resume hemodialysis. He is currently on tacrolimus and mycophenolate. He is followed by clinical microbiologist at [facility]. He had his left dialysis catheter removed. [...] kidney disease ESRD (end stage renal disease) ([facility] V24, [facility] V28) HIV (human immunodeficiency virus infection) ([facility] V24, [facility] V28) Hypertension Secondary hyperparathyroidism ([facility] V24) Past Surgical History No past surgical [...] number- marcus is relative. Phone number is [phone] Cosigned by Beka Boyd MD at 02/15/2025 6:30 AM EDT Associated attestation - Beka Boyd MD - 02/15/2025 6:30 AM EDT I have personally seen and examined the patient with the resident/PA/ELECTRICIAN LOCOMOTIVE and solis elements of all parts of the encounter were performed by me. Patient was reassessed on more than one occasion when required. I reviewed the interval history, interpreted all available radiographic, laboratory and physiological data at the time of service. I agree with the assessment and plan as documented by the resident/PA/ELECTRICIAN LOCOMOTIVE with additions. 50-year-old male being admitted to [...] is not on dialysis. Beka Boyd MD [facility] Hospitalist, 7am-5pm Available thru EpicChat After 5pm, please EpicChat cross coverage 02/15/2025 6:30 AM EDT documented in this encounter Procedure Notes * Lance Elena DPM - 02/15/2025 9:16 AM EDT INCISION DRAINAGE BILATERAL HALLUX (B) OPERATIVE NOTE Date: 02/14/2025 - 02/15/2025 Location: [facility] OR Name: Doroteo Rock, : 1975, Diagnosis * No Diagnosis Codes entered * Post-op Diagnosis * Abscess of great toe, right [L02.611] * Abscess of left great toe [L02.612] Procedures * INCISION DRAINAGE BILATERAL HALLUX Additional Procedures Indications: Doroteo Rock is an 50 y.o. male who is having surgery for abscess left and right great toe Surgeon(s) & Fsr(s) * Lance Elena DPM - Primary Anesthesia: [...] preoperative protocols were completed in concordance with [facility] protocol. Once patient was sedated he was [...] were noted to the medial border. A [place] elevator was used to separate the soft [...] Patient tolerated procedure well with no complications andwas transferred from the OR to PACU with [...] kidney disease, ESRD (end stage renal disease) ([facility] V24, [facility] V28), HIV (human immunodeficiency virus infection) ([facility] V24, [facility] V28), Hypertension, and Secondary hyperparathyroidism ([facility] V24).. The patient was admitted to the hospital on 02/14/2025 for bilateral toe infections. He has HIV which was diagnosed several years ago and follows at [facility] and takes Juluca. He also is [...] him with the help f in person foreign language interpreter Gui . The ID service has been consulted for management during this patient's hospital stay. Past Medical History: Past Medical History: Diagnosis Date Chronic kidney disease ESRD (end stage renal disease) ([facility] V24, [facility] V28) HIV (human immunodeficiency virus infection) ([facility] V24, [facility] V28) Hypertension Secondary hyperparathyroidism ([facility] V24) Surgical History: Past Surgical History: Procedure [...] mL (1,500 mg total) by mouth. 11/28/24 HistoricalProMD dara carvediloL (COREG) 6.25 mg tablet Take 1 tablet (6.25 mg total) by mouth. 09/11/23 Historical ProviderMD cinacalcet (SENSIPAR) 30 mg tablet 10/30/24 Historical [...] tablets (360 mg total) by mouth. 08/18/23 HistoricalProviMD jean paul Suboxone 8-2 mg per SL film DISSOLVE [...] 0.5 mg, 0.5 mg, oral, q72h, Emanuel Mroan MD, 0.5 mg at 02/17/25 132 folic acid (FOLVITE) tablet 1 mg, 1 [...] Rate: 75 mL/hrat 02/17/251647, 75 mL/hr at 02/17/251647 magnesium oxide (MAG-OX) tablet 400 mg, 400 mg, oral, Daily, Emanuel Menendez MD magnesium sulfate 2 gram/50 mL (4 %) IVPB 2 g, 2 g, intravenous, Once, Emanuel Moran MD rilpivirine (EDURANT) tablet 25 mg, 25 mg, oral, Daily with dinner, Emanuel Moran MD, 25 mg at 02/17/251646 senna (SENOKOT) tablet 17.2 mg, 2 tablet, oral, Nightly PRN, Jung Dinero MD, 17.2 mg at 02/16/25 2117 sodium bicarbonate tablet 650 mg, 650 mg, oral, TID, Vahid Contreras MD, 650 mg at 02/18/25 08 tacrolimus (PROGRAF) capsule 0.5 mg, 0.5 mg, oral, Daily, RIAN Fraga, 0.5 mg at 02/18/25 08 tacrolimus (PROGRAF) capsule 1 mg, 1 mg, oral, q PM, RIAN Fraga, 1 mg at 02/17/25 164 tbo-filgrastim (GRANIX) syringe 300 mcg, 300 mcg, [...] Signed Date: 02/15/2025 09:04 ET Workstation ID: [id number] Transcribed By: Self Edit Transcribed Date: 02/15/2025 09:01 ET Assessment/Plan Doroteo Rock is a 50 y.o. male who has a past medical history of Chronic kidney disease, ESRD (end stage renal disease) ([facility] V24, [facility] V28), HIV (human immunodeficiency virus infection) ([facility] V24, [facility] V28), Hypertension, and Secondary hyperparathyroidism ([facility] V24).. The patient was admitted to the hospital on 02/14/2025 for bilateral toe infections. He has HIV which was diagnosed several years ago and follows at [facility] and takes Juluca. He also is [...] him with the help f in person foreign language interpreter Gui . The ID service has been [...] do not hesitate to contact me via AlignMedChat with issues or questions Ilda Breen MD * Manju Cavanaugh RD - 02/17/2025 11:01 AM EDTAssociated Order(s): IP CONSULT TO NUTRITION SERVICES 02/17/2025 @ 11:06 AM EDT Nutrition Consult Note/Nutrition Assessment Repair Specialist Services: Language: Chaplain services not used, pt speaks Hungarian fairly well Reason for RD Intervention: Assessment [...] onward) Start Ordered 02/17/25 1052 Adult diet [facility]; General; Regular; Self-Select Meals Dieteffective now Question Answer Comment Location [facility] Diet Type (req) General General Diet Regular Is the patient able to participate in meal ordering? Self-Select Meals 02/17/25 1052 History of presenting illness: Patient is a 50 y.o. male with a history of Past Medical History: Diagnosis Date Chronic kidney disease ESRD (end stage renal disease) ([facility] V24, [facility] V28) HIV (human immunodeficiency virus infection) ([facility] V24, [facility] V28) Hypertension Secondary hyperparathyroidism ([facility] V24) Past Surgical History: Procedure Laterality Date [...] homecooked meals. No reported food allergies. Appetite EVENT MANAGEMENT CONSULTANT: Good Intake EVENT MANAGEMENT CONSULTANT: Stable Vitamins/Minerals/Herbs: Pt does not take any [...] disease currently on dialysis who presented to [facility] on 02/14/2025 with left first toe swelling [...] get an updated med list from the [facility] EHR In summary he is a 50-year-old Dominican speaking male who can speak Hungarian as well with medical history significant for [...] kidney disease ESRD (end stage renal disease) ([facility] V24, [facility] V28) HIV (human immunodeficiency virus infection) ([facility] V24, [facility] V28) Hypertension Secondary hyperparathyroidism ([facility] V24) Surgical History Past Surgical History: Procedure [...] Daily heparin (porcine), 5,000 Units, subcutaneous, q12h ESETFANI tacrolimus, 0.5 mg, oral, Daily tacrolimus, 1 [...] Description 02/24/2025 11:15 AM EDT Office Visit [facility] Hematology Oncology [address] [place] [address] Lonnie Lovett MD [address] [place] [phone] Pending Results Name Type Priority Associated [...] Lab Routine Hypomagnesemia EZEQUIEL (acute kidney injury) ([facility] V24) Expected: 02/20/2025, Expires: 02/18/2026 CBC and differential Lab Routine Severe neutropenia ([facility] V24) Expected: 02/20/2025, Expires: 02/18/2026 Magnesium Lab Routine Hypomagnesemia Expected: 02/20/2025, Expires: 02/18/2026 Scheduled Procedures Name Priority Associated Diagnoses Date/Ti me CREATION FISTULA AV UPPER EXTREMITY CKD (chronic kidney disease) stage 5, GFR less than 15 ml/min ([facility] V24, [facility] V28) Scheduled Referrals Name Type Priority Associated Diagnoses Order Schedule Ambulatory referral to Home Health Outpatient Referral Routine CKD (chronic kidney disease) stage 5, GFR less than 15 ml/min ([facility] V24, [facility] V28) Severe neutropenia ([facility] V24) 1 Occurrences starting 02/18/2025 until 02/18/2026 [...] molecular study quantitative (02/18/2025 1:24 PM EDT) [facility] HIV-1 RNA Interpretation Not Detected Not Detected LAB MOLECULAR DIAGNOSTICS METHOD 02/18/2025 4:24 PM EDT [facility] Comment:HIV RNA not detected , unable to report quantitative results. Blood Venous blood specimen / Unknown Venipuncture / Unknown 02/18/2025 1:24 PM EDT 02/18/2025 1:32 PM EDT us Ilda Breen MD LAB BLOOD ORDERABLES Final Resul t [facility] [address] [place] [address], [place] [phone] * (ABNORMAL) Manual differential (02/18/2025 6:57 AM EDT) [facility] Neutrophils % 14.0 % LAB HEMETOLOGY METHOD 02/18/2025 8:15 AM [facility] Lymphocytes % 39.0 % LAB HEMETOLOGY METHOD 02/18/2025 8:15 AM [facility] Monocytes % 25.0 % LAB HEMETOLOGY METHOD 02/18/2025 8:15 AM [facility] Eosinophils % 11.0 % LAB HEMETOLOGY METHOD 02/18/2025 8:15 AM [facility] Basophils % 6.0 % LAB HEMETOLOGY METHOD 02/18/2025 8:15 AM [facility] Metamyelocytes % 6.0(H) % LAB HEMETOLOGY METHOD 02/18/2025 8:15 AM [facility] Neutrophils Absolute Manual 0.17(L) 1.50 - 7.00 K/mcL LAB HEMETOLOGY METHOD 02/18/2025 8:15 AM [facility] Lymphocytes Absolute 0.47(L) 1.00 - 5.00 K/mcL LAB HEMETOLOGY METHOD 02/18/2025 8:15 AM [facility] Monocytes Absolute Manual 0.30 0.20 - 1.00 K/mcL LAB HEMETOLOGY METHOD 02/18/2025 8:15 AM [facility] Eosinophils Absolute Manual 0.13 0.00 - 0.50 K/mcL LAB HEMETOLOGY METHOD 02/18/2025 8:15 AM [facility] Basophils Absolute Manual 0.07 0.00 - 0.20 K/mcL LAB HEMETOLOGY METHOD 02/18/2025 8:15 AM [facility] Metamyelocytes Absolute Manual 0.07(H) 0.00 - 0.00 K/mcL LAB HEMETOLOGY METHOD 02/18/2025 8:15 AM [facility] Rbc Morphology Present(A) Consistent with indices, Normal for [place] LAB HEMETOLOGY METHOD 02/18/2025 8:15 AM EDT [facility] Comment:This is an appended report. These results have been appended to a previously final verified report. Platelet Morphology - WAM Large Platelets Seen(A) Normal LAB HEMETOLOGY METHOD 02/18/2025 8:15 AM EDT [facility] Comment:This is an appended report. These results have been appended to a previously final verified report. Polychromasia Present Present(A) (none) LAB HEMETOLOGY METHOD 02/18/2025 8:15 AM EDT [facility] Comment:This is an appended report. These results have been appended to a previously final verified report. Dohle Body Present Present(A) (none) LAB HEMETOLOGY METHOD 02/18/2025 8:15 AM EDT [facility] Comment:This is an appended report. These results have been appended to a previously final verified report. Blood Venous blood specimen / Unknown Venipuncture / Unknown 02/18/2025 6:57 AM EDT 02/18/2025 7:16 AM EDT Emanuel Moran MD LAB BLOOD ORDERABLES E dited Result - Final [facility] [address] [place] [address], * (ABNORMAL) CBC auto differential (02/18/2025 6:57 AM EDT) WBC 1.2(LL) 4.8 - 10.8 K/mcL LAB HEMETOLOGY METHOD 02/18/2025 8:07 AM EDT [facility] RBC 2.70(L) 4.50 - 5.50 M/mcL LAB HEMETOLOGY METHOD 02/18/2025 8:07 AM EDT [facility] Hemoglobin 7.6(L) 13.5 - 17.5 g/dL LAB HEMETOLOGY METHOD 02/18/2025 8:07 AM EDT [facility] Hematocrit 23.2(L) 42.0 - 54.0 % LAB HEMETOLOGY METHOD 02/18/2025 8:07 AM EDT [facility] MCV 86.6 79.0 - 98.0 FL LAB HEMETOLOGY METHOD 02/18/2025 8:07 AM EDT [facility] MCH 28.4 27.0 - 32.0 pcg LAB HEMETOLOGY METHOD 02/18/2025 8:07 AM EDT [facility] MCHC 32.8 32.0 - 37.0 g/dL LAB HEMETOLOGY METHOD 02/18/2025 8:07 AM EDT [facility] RDW 14.3 11.0 - 15.0 % LAB HEMETOLOGY METHOD 02/18/2025 8:07 AM EDT [facility] Platelets 115(L) 130 - 400 K/mcL LAB HEMETOLOGY METHOD 02/18/2025 8:07 AM EDT [facility] MPV 11.8(H) 7.0 - 11.0 FL LAB HEMETOLOGY METHOD [facility]2025 [facility] NRBC 0.0 <1.0 % LAB HEMETOLOGY METHOD 02/18/2025 8:07 AM EDT [facility] NRBC Absolute 0.00 <0.10 K/mcL LAB HEMETOLOGY METHOD 02/18/2025 8:07 AM [facility] Blood Venous blood specimen / Unknown Venipuncture / Unknown 02/18/2025 6:57 AM EDT 02/18/2025 7:16 AM EDT us Emanuel Moran MD LAB BLOOD ORDERABLES F inal Result [facility] [address] [place] [address], [place] [phone] * Phosphorus (02/18/2025 6:57 AM EDT) Phosphorus 4.2 2.5 - 4.5 mg/dL LAB CHEMISTRY METHOD 02/18/2025 7:58 AM EDT [facility] Blood Venous blood specimen / Unknown Venipuncture / Unknown 02/18/2025 6:57 AM EDT 02/18/2025 7:16 AM EDT us Emanuel Moran MD LAB BLOOD ORDERABLES F inal Result Performing Organization Address [facility]/ZIP Co de Phone Number [facility] [address] [place] [address], [place] [phone] * (ABNORMAL) Magnesium (02/18/2025 6:57 AM EDT) [facility] Magnesium 1.3(L) 1.9 - 2.6 mg/dL LAB CHEMISTRY METHOD 02/18/2025 7:58 AM EDT [facility] Blood Venous blood specimen / Unknown Venipuncture / Unknown 02/18/2025 6:57 AM EDT 02/18/2025 7:16 AM EDT us Emanuel Moran MD LAB BLOOD ORDERABLES F inal Result Performing Organization Address City/[facility]/ZIP Co de Phone Number [facility] [address] [place] [address], [place] [phone] * (ABNORMAL) Basic metabolic panel (02/18/2025 6:57 AM EDT) Sodium 140 133 - 145 mmol/L LAB CHEMISTRY METHOD 02/18/2025 7:58 AM EDT [facility] Potassium 3.7 3.5 - 5.5 mmol/L LAB CHEMISTRY METHOD 02/18/2025 7:58 AM [facility] Chloride 109 96 - 110 mmol/L LAB CHEMISTRY METHOD 02/18/2025 7:58 AM [facility] CO2 22 21 - 32 mmol/L LAB CHEMISTRY METHOD 02/18/2025 7:58 AM [facility] Anion Gap 9 3 - 11 LAB CHEMISTRY METHOD 02/18/2025 7:58 AM [facility] Glucose 97 70 - 100 mg/dL LAB CHEMISTRY METHOD 02/18/2025 7:58 AM [facility] BUN 74(H) 5 - 25 mg/dL LAB CHEMISTRY METHOD 02/18/2025 7:58 AM [facility] Creatinine 6.86(H) 0.70 - 1.30 mg/dL LAB CHEMISTRY METHOD 02/18/2025 7:58 AM [facility] eGFR 9(L) >=60 mL/min/1. 73m2 LAB CHEMISTRY METHOD 02/18/2025 7:58 AM [facility] Comment:Calculation based on the Chronic Kidney Disease Epidemiology Collaboration (CKD-EPI) equation refit without adjustment for race. BUN/Creatinine Ratio 10.8 LAB CHEMISTRY METHOD 02/18/2025 7:58 AM [facility] Calcium 8.8 8.5 - 10.5 mg/dL LAB CHEMISTRY METHOD 02/18/2025 7:58 AM [facility] Blood Venous blood specimen / Unknown Venipuncture / Unknown 02/18/2025 6:57 AM EDT 02/18/2025 7:16 AM EDT us Emanuel Moran MD LAB BLOOD ORDERABLES F inal Result [facility] [address] [place] [address], * (ABNORMAL) Afshan hodge virus IgG, IgM, nuclear and early antibodies (02/17/2025 7:04 AM EDT) [facility] EBV VCA IgG Positive(A) Negative LAB CHEMISTRY METHOD 02/18/2025 8:55 AM EDT [facility] EBV VCA IgM Negative Negative LAB CHEMISTRY METHOD 02/18/2025 8:55 AM EDT [facility] EBV Nuclear Ag Ab Positive(A) Negative LAB CHEMISTRY METHOD 02/18/2025 8:55 AM EDT [facility] EBV Early Ag Ab Negative Negative LAB CHEMISTRY METHOD 02/18/2025 8:55 AM EDT [facility] Blood Venous blood specimen / Unknown Venipuncture / Unknown 02/17/2025 7:04 AM EDT 02/17/2025 7:08 AM EDT Narrative [facility] - 02/18/2025 8:55 AM EDT 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 us Jung Dinero MD LAB BLOOD ORDERABLES Final Resul t [facility] [address] [place] [address], * Cytomegalovirus molecular study quantitative (02/17/2025 7:03 AM EDT) [facility] Cytomegalovirus (CMV) DNA Qualitative Not detected Not detected 02/19/2025 11:45 AM EDT [facility] Cytomegalovirus (CMV) DNA Quantitative <30 <30 IU/mL 02/19/2025 11:45 AM EDT [facility] Log Cytomegalovirus <1.48 <1.48 Log (10) IU/mL 02/19/2025 11:45 AM EDT [facility] CMV DNA (cp/mL) <76 <76 Copies/mL 02/19/2025 11:45 AM EDT [facility] Comment: This test uses a polymerase chain reaction (PCR) assay from [employer] to amplify and detected conserved regions [...] not rule out infection. Test performed at [facility], [address] , [place] [address] Gema Peralta MD, PhD - Counter Control Operator Blood Venous blood specimen / Unknown Venipuncture / Unknown 02/17/2025 7:03 AM EDT 02/17/2025 7:08 AM EDT Jung Dinero MD LAB MICROBIOLOGY - GENERAL ORDER JODEE Final Result [facility] [address] [place] [address] * (ABNORMAL) Manual differential (02/17/2025 6:14 AM EDT) Neutrophils % 27.0 % LAB HEMETOLOGY METHOD 02/17/2025 8:29 AM EDT [facility] Bands % 4.0 % LAB HEMETOLOGY METHOD 02/17/2025 8:29 AM EDT [facility] Lymphocytes % 33.0 % LAB HEMETOLOGY METHOD 02/17/2025 8:29 AM EDT [facility] Monocytes % 20.0 % LAB HEMETOLOGY METHOD 02/17/2025 8:29 AM EDT [facility] Eosinophils % 8.0 % LAB HEMETOLOGY METHOD 02/17/2025 8:29 AM EDT [facility] Basophils % 6.0 % LAB HEMETOLOGY METHOD [facility]/17[facility]2025 [facility] Metamyelocytes % 1.0(H) % LAB HEMETOLOGY METHOD 02/17/2025 8:29 AM [facility] Myelocytes % 1.0(H) % LAB HEMETOLOGY METHOD 02/17/2025 8:29 AM [facility] Neutrophils Absolute Manual 0.35(L) 1.50 - 7.00 K/mcL LAB HEMETOLOGY METHOD 02/17/2025 8:29 AM [facility] Bands Absolute Manual 0.05(H) 0.00 - 0.00 K/mcL LAB HEMETOLOGY METHOD 02/17/2025 8:29 AM [facility] Lymphocytes Absolute 0.43(L) 1.00 - 5.00 K/mcL LAB HEMETOLOGY METHOD 02/17/2025 8:29 AM [facility] Monocytes Absolute Manual 0.26 0.20 - 1.00 K/mcL LAB HEMETOLOGY METHOD 02/17/2025 8:29 AM [facility] Eosinophils Absolute Manual 0.10 0.00 - 0.50 K/mcL LAB HEMETOLOGY METHOD 02/17/2025 8:29 AM [facility] Basophils Absolute Manual 0.08 0.00 - 0.20 K/mcL LAB HEMETOLOGY METHOD 02/17/2025 8:29 AM [facility] Metamyelocytes Absolute Manual 0.01(H) 0.00 - 0.00 K/mcL LAB HEMETOLOGY METHOD 02/17/2025 8:29 AM [facility] Myelocytes Absolute Manual 0.01(H) 0.00 - 0.00 K/mcL LAB HEMETOLOGY METHOD 02/17/2025 8:29 AM [facility] Rbc Morphology Present( A) Consistent with indices, Normal for LAB HEMETOLOGY METHOD 02/17/2025 8:29 [facility] Platelet Morphology - WAM See Note(A) Normal LAB HEMETOLOGY METHOD 02/17/2025 8:29 AM EDT [facility] Comment:PLT: Large platelets seen Dohle Body Present Present( A) (none) LAB HEMETOLOGY METHOD 02/17/2025 8:29 AM EDT [facility] Blood Venous blood specimen / Unknown Venipuncture / Unknown 02/17/2025 6:14 AM EDT 02/17/2025 6:19 AM EDT us Jung Dinero MD LAB BLOOD ORDERABLES Final Resul t [facility] [address] [place] [address], [place] [phone] * (ABNORMAL) CBC auto differential (02/17/2025 6:14 AM EDT) WBC 1.3(LL) 4.8 - 10.8 K/mcL LAB HEMETOLOGY METHOD 02/17/2025 8:29 AM EDT [facility] RBC 2.80(L) 4.50 - 5.50 M/mcL LAB HEMETOLOGY METHOD 02/17/2025 8:[facility] Hemoglobin 8.1(L) 13.5 - 17.5 g/dL LAB HEMETOLOGY METHOD 02/17/2025 8:29 AM EDT [facility] Hematocrit 24.4(L) 42.0 - 54.0 % LAB HEMETOLOGY METHOD 02/17/2025 8:29 AM EDT [facility] MCV 86.8 79.0 - 98.0 FL LAB HEMETOLOGY METHOD 02/17/2025 8:29 [facility] MCH 28.8 27.0 - 32.0 pcg LAB HEMETOLOGY METHOD 02/17/2025 8:29 [facility] MCHC 33.2 32.0 - 37.0 g/dL LAB HEMETOLOGY METHOD 02/17/2025 8:29 AM EDT [facility] RDW 14.3 11.0 - 15.0 % LAB HEMETOLOGY METHOD 02/17/2025 8:29 AM EDT [facility] Platelets 83(L) 130 - 400 K/mcL LAB HEMETOLOGY METHOD 02/17/2025 8:29 AM EDT [facility] MPV 14.0(H) 7.0 - 11.0 FL LAB HEMETOLOGY METHOD 02/17/2025 8:29 AM EDT [facility] NRBC 0.0 <1.0 % LAB HEMETOLOGY METHOD 02/17/2025 8:29 AM EDT [facility] NRBC Absolute 0.00 <0.10 K/mcL LAB HEMETOLOGY METHOD 02/17/2025 8:29 AM EDT [facility] Blood Venous blood specimen / Unknown Venipuncture / Unknown 02/17/2025 6:14 AM EDT 02/17/2025 6:19 AM EDT us Jung Dinero MD LAB BLOOD ORDERABLES Final Resul t [facility] [address] [place] [address], * (ABNORMAL) Comprehensive metabolic panel (02/17/2025 6:14 AM EDT) Sodium 137 133 - 145 mmol/L LAB CHEMISTRY METHOD 02/17/2025 6:55 AM EDT [facility] Potassium 3.8 3.5 - 5.5 mmol/L LAB CHEMISTRY METHOD 02/17/2025 6:55 AM EDT [facility] Chloride 108 96 - 110 mmol/L LAB CHEMISTRY METHOD 02/17/2025 6:55 AM [facility] CO2 19(L) 21 - 32 mmol/L LAB CHEMISTRY METHOD 02/17/2025 6:55 AM [facility] Anion Gap 10 3 - 11 LAB CHEMISTRY METHOD 02/17/2025 6:55 AM [facility] Glucose 98 70 - 100 mg/dL LAB CHEMISTRY METHOD 02/17/2025 6:55 AM [facility] BUN 84(H) 5 - 25 mg/dL LAB CHEMISTRY METHOD 02/17/2025 6:55 AM [facility] Creatinine 7.34(H) 0.70 - 1.30 mg/dL LAB CHEMISTRY METHOD 02/17/2025 6:55 AM [facility] eGFR 8(L) >=60 mL/min/1. 73m2 LAB CHEMISTRY METHOD 02/17/2025 6:55 AM [facility] Comment:Calculation based on the Chronic Kidney Disease Epidemiology Collaboration (CKD-EPI) equation refit without adjustment for race. BUN/Creatinine Ratio 11.4 LAB CHEMISTRY METHOD 02/17/2025 6:55 AM [facility] Calcium 8.6 8.5 - 10.5 mg/dL LAB CHEMISTRY METHOD 02/17/2025 6:55 AM [facility] AST (SGOT) 15 10 - 42 unit/L LAB CHEMISTRY METHOD 02/17/2025 6:55 AM [facility] ALT (SGPT) 12 10 - 60 unit/L LAB CHEMISTRY METHOD 02/17/2025 6:55 AM [facility] Alkaline Phosphatase 101 42 - 121 unit/L LAB CHEMISTRY METHOD 02/17/2025 6:55 AM [facility] Total Protein 5.9(L) 6.0 - 8.0 g/dL LAB CHEMISTRY METHOD 02/17/2025 6:55 AM [facility] Albumin 2.9(L) 3.2 - 5.0 g/dL LAB CHEMISTRY METHOD 02/17/2025 6:55 AM EDT [facility] Total Bilirubin 0.3 0.0 - 1.4 mg/dL LAB CHEMISTRY METHOD 02/17/2025 6:55 AM EDT [facility] Blood Venous blood specimen / Unknown Venipuncture / Unknown 02/17/2025 6:14 AM EDT 02/17/2025 6:19 AM EDT us Jung Dinero MD LAB BLOOD ORDERABLES Final Resul t [facility] [address] [place] [address], * (ABNORMAL) Tacrolimus level (02/16/2025 7:28 AM EDT) Tacrolimus Level 2.9(L) 5.0 - 20.0 ng/mL 02/19/2025 12:16 PM EDT [facility] Comment: Additional Information: Toxic Level > [...] developed and the performance characteristics determined by [facility]. This confirmation testing has not been cleared or approved by the FDA. The laboratory is regulated under CLIA as qualified to perform high-complexity testing. This test is used for patient testing purposes. It should not be regarded as investigational or for research. Test performed at [facility], [address], [place] [address] Gema Peralta MD, PhD - Counter Control Operator Blood Venous blood specimen / Unknown Venipuncture / Unknown 02/16/2025 7:28 AM EDT 02/16/2025 7:32 AM EDT us Jung Dinero MD LAB BLOOD ORDERABLES Final Resul [place] [address] * (ABNORMAL) Manual differential (02/16/2025 6:06 AM EDT) Neutrophils % 34.0 % LAB HEMETOLOGY METHOD 5 7:58 AM EDT [facility] Lymphocytes % 29.0 % LAB HEMETOLOGY METHOD 5 7:58 AM EDT [facility] Monocytes % 14.0 % LAB HEMETOLOGY METHOD 7:58 AM EDT [facility] Eosinophils % 13.0 % LAB HEMETOLOGY METHOD 7:58 AM EDT [facility] Basophils % 9.0 % [facility] Metamyelocytes % 1.0(H) % LAB HEMETOLOGY METHOD 7:58 AM [facility] Neutrophils Absolute Manual 0.44(L) 1.50 - 7.00 K/mcL LAB HEMETOLOGY METHOD 5 7:58 AM EDT [facility] Lymphocytes Absolute 0.38(L) 1.00 - 5.00 K/mcL LAB HEMETOLOGY METHOD 5 7:58 AM EDT [facility] Monocytes Absolute Manual 0.18(L) 0.20 - 1.00 K/mcL LAB HEMETOLOGY METHOD 5 7:58 AM [facility] Eosinophils Absolute Manual 0.17 0.00 - 0.50 K/mcL LAB HEMETOLOGY METHOD 5 7:58 AM EDT [facility] Basophils Absolute Manual 0.12 0.00 - 0.20 K/[facility] LAB HEMETOLOGY METHOD 7:58 AM EDT [facility] Metamyelocytes Absolute Manual 0.01(H) 0.00 - 0.00 K/[facility] LAB HEMETOLOGY METHOD 7:58 AM EDT [facility] Rbc Morphology Consistent with indices Consistent with indices, Normal for [place] LAB HEMETOLOGY METHOD 7:58 AM EDT [facility] Platelet Morphology - WAM See Note(A) Normal [facility] AM [facility]T [facility] Comment:PLT: Normal Blood Venous blood specimen / Unknown Venipuncture / Unknown 02/16/2025 6:06 AM EDT 02/16/2025 6:58 AM EDT us Jung Dinero MD LAB BLOOD ORDERABLES Final Resul t [facility] [address] [place] [address], * (ABNORMAL) CBC auto differential (02/16/2025 6:06 AM EDT) WBC 1.3(LL) 4.8 - 10.8 K/[facility] HEMETOLOGY METHOD 02/16/2025 7:58 AM EDT [facility] RBC 2.90(L) 4.50 - 5.50 M/[facility] HEMETOLOGY METHOD 02/16/2025 7:58 AM EDT [facility] Hemoglobin 8.3(L) 13.5 - 17.5 g/dL LAB HEMETOLOGY METHOD 02/16/2025 7:58 AM EDT [facility] Hematocrit 24.9(L) 42.0 - 54.0 % LAB HEMETOLOGY METHOD 02/16/2025 7:58 AM [facility] MCV 85.6 79.0 - 98.0 FL LAB HEMETOLOGY METHOD 02/16/2025 7:58 AM EDT [facility] MCH 28.5 27.0 - 32.0 pcg LAB HEMETOLOGY METHOD 02/16/2025 7:58 AM [facility] MCHC 33.3 32.0 - 37.0 g/dL LAB HEMETOLOGY METHOD 02/16/2025 7:58 AM [facility] RDW 13.9 11.0 - 15.0 % LAB HEMETOLOGY METHOD 02/16/2025 7:58 AM [facility] Platelets 115(L) 130 - 400 K/mcL LAB HEMETOLOGY METHOD 02/16/2025 7:58 AM [facility] MPV 13.3(H) 7.0 - 11.0 FL LAB HEMETOLOGY METHOD 02/16/2025 7:58 AM [facility] NRBC 0.0 <1.0 % LAB HEMETOLOGY METHOD 02/16/2025 7:58 AM [facility] NRBC Absolute 0.00 <0.10 K/mcL LAB HEMETOLOGY METHOD 02/16/2025 7:58 AM [facility] Blood Venous blood specimen / Unknown Venipuncture / Unknown 02/16/2025 6:06 AM EDT 02/16/2025 6:58 AM EDT us Jung Dinero MD LAB BLOOD ORDERABLES Final Resul t [facility] [address] [place] [address], * (ABNORMAL) Comprehensive metabolic panel (02/16/2025 6:06 AM EDT) Sodium 136 133 - 145 mmol/L LAB CHEMISTRY METHOD 02/16/2025 7:32 AM [facility] Potassium 3.9 3.5 - 5.5 mmol/L LAB CHEMISTRY METHOD 02/16/2025 7:32 AM [facility] Chloride 107 96 - 110 mmol/L LAB CHEMISTRY METHOD 02/16/2025 7:32 AM [facility] CO2 18(L) 21 - 32 mmol/L LAB CHEMISTRY METHOD 02/16/2025 7:32 AM [facility] Anion Gap 11 3 - 11 LAB CHEMISTRY METHOD 02/16/2025 7:32 AM [facility] Glucose 114(H) 70 - 100 mg/dL LAB CHEMISTRY METHOD 02/16/2025 7:32 AM [facility] BUN 94(H) 5 - 25 mg/dL LAB CHEMISTRY METHOD 02/16/2025 7:32 AM [facility] Creatinine 7.98(H) 0.70 - 1.30 mg/dL LAB CHEMISTRY METHOD 02/16/2025 7:32 AM [facility] eGFR 8(L) >=60 mL/min/1. 73m2 LAB CHEMISTRY METHOD 02/16/2025 7:32 AM [facility] Comment:Calculation based on the Chronic Kidney Disease Epidemiology Collaboration (CKD-EPI) equation refit without adjustment for race. BUN/Creatinine Ratio 11.8 LAB CHEMISTRY METHOD 02/16/2025 7:32 AM [facility] Calcium 8.8 8.5 - 10.5 mg/dL LAB CHEMISTRY METHOD 02/16/2025 7:32 AM [facility] AST (SGOT) 12 10 - 42 unit/L LAB CHEMISTRY METHOD 02/16/2025 7:32 AM [facility] ALT (SGPT) 9(L) 10 - 60 unit/L LAB CHEMISTRY METHOD 02/16/2025 7:32 AM [facility] Alkaline Phosphatase 106 42 - 121 unit/L LAB CHEMISTRY METHOD 02/16/2025 7:32 AM EDT [facility] Total Protein 6.1 6.0 - 8.0 g/dL LAB CHEMISTRY METHOD 02/16/2025 7:32 AM EDT [facility] Albumin 2.9(L) 3.2 - 5.0 g/dL LAB CHEMISTRY METHOD 02/16/2025 7:32 AM EDT [facility] Total Bilirubin 0.2 0.0 - 1.4 mg/dL LAB CHEMISTRY METHOD 02/16/2025 7:32 AM EDT [facility] Blood Venous blood specimen / Unknown Venipuncture / Unknown 02/16/2025 6:06 AM EDT 02/16/2025 6:58 AM EDT Jung Dinero MD LAB BLOOD ORDERABLES Final Resul t [facility] [address] [place] [address], [place] [phone] * (ABNORMAL) AST, ALT, Bilirubin ELR state reportables (02/15/2025 6:38 AM EDT) ALT (SGPT) 9(L) 10 - 60 unit/L LAB CHEMISTRY METHOD 02/15/2025 7:35 PM EDT [facility] AST (SGOT) 14 10 - 42 unit/L LAB CHEMISTRY METHOD 02/15/2025 7:35 PM EDT [facility] Total Bilirubin 0.3 0.0 - 1.4 mg/dL LAB CHEMISTRY METHOD 02/15/2025 7:35 PM EDT [facility] Blood Venous blood specimen / Unknown Venipuncture / Unknown 02/15/2025 6:38 AM EDT 02/15/2025 6:46 AM EDT Curtis Manning MD LAB BLOOD ORDERABLES Final Re sult Performing Organization Address [facility] Co de Phone Number [facility] [address] [place] [address], [place] [phone] * Hepatitis B core antibody IgM (02/15/2025 6:38 AM EDT) [facility] Hep B Core IgM Negative Negative LAB CHEMISTRY METHOD 02/15/2025 7:33 PM EDT [facility] Blood Venous blood specimen / Unknown Venipuncture / Unknown 02/15/2025 6:38 AM EDT 02/15/2025 6:46 AM EDT Narrative [facility] - 02/15/2025 7:33 PM EDT Over the counter supplements containing high doses of biotin may interfere with this assay. If interference is suspected, patients shoud be retested after refraining from biotin supplements for 72 hours. Curtis Manning MD LAB BLOOD ORDERABLES Final Re sult Performing Organization Address [facility] Co de Phone Number [facility] [address] [place] [address], [place] [phone] * (ABNORMAL) Phosphorus (02/15/2025 6:38 AM EDT) [facility] Phosphorus 5.2(H) 2.5 - 4.5 mg/dL LAB CHEMISTRY METHOD 02/15/2025 5:24 PM EDT [facility] [facility] Blood Venous blood specimen / Unknown Venipuncture / Unknown 02/15/2025 6:38 AM EDT 02/15/2025 6:46 AM EDT Curtis Manning MD LAB BLOOD ORDERABLES Final Re sult Performing Organization Address [facility]/ZIP Co de Phone Number [facility] [address] [place] [address], [place] [phone] * (ABNORMAL) Parathyroid hormone intact (02/15/2025 6:38 AM EDT) [facility] PTH 658.3(H) 18.5 - 88.0 pcg/mL LAB CHEMISTRY METHOD 02/15/2025 5:44 PM EDT [facility] Blood Venous blood specimen / Unknown Venipuncture / Unknown 02/15/2025 6:38 AM EDT 02/15/2025 6:46 AM EDT Curtis Manning MD LAB BLOOD ORDERABLES Final Re sult Performing Organization Address [facility]/ZIP Co de Phone Number [facility] [address] [place] [address], * (ABNORMAL) Hepatitis B screening panel (02/15/2025 6:38 AM EDT) [facility] Hepatitis B Surface Ag Negative Negative LAB CHEMISTRY METHOD 02/15/2025 6:23 PM EDT [facility] Hep B Core Total Ab Positive(A) Negative LAB CHEMISTRY METHOD 02/15/2025 6:23 PM EDT [facility] Hepatitis B Surface Ab Negative Negative LAB CHEMISTRY METHOD 02/15/2025 6:23 PM EDT [facility] Blood Venous blood specimen / Unknown Venipuncture / Unknown 02/15/2025 6:38 AM EDT 02/15/2025 6:46 AM EDT Curtis Manning MD LAB BLOOD ORDERABLES Final Re sult [facility] [address] [place] [address], * Pathology review, blood smear (02/15/2025 6:38 AM EDT) [facility] Pathologist Review Blood Smear Normocytic anemia and [...] the patient's infection. 02/17/2025 8:36 AM EDT [facility] Blood Venous blood specimen / Unknown Venipuncture / Unknown 02/15/2025 6:38 AM EDT 02/15/2025 6:46 AM EDT Jason MODI LAB BLOOD ORDERABLES Final Res ult [facility] [address] [place] [address], * (ABNORMAL) Manual differential (02/15/2025 6:38 AM EDT) Neutrophils % 45.0 % LAB HEMETOLOGY METHOD 02/15/2025 7:37 AM EDT [facility] Bands % 4.0 % LAB HEMETOLOGY METHOD 02/15/2025 7:37 AM EDT [facility] Lymphocytes % 23.0 % LAB HEMETOLOGY METHOD 02/15/2025 7:37 AM EDT [facility] Monocytes % 21.0 % LAB HEMETOLOGY METHOD 02/15/2025 7:37 AM EDT [facility] Eosinophils % 2.0 % LAB HEMETOLOGY METHOD 02/15/2025 7:37 AM EDT [facility] Basophils % 1.0 % LAB HEMETOLOGY METHOD 02/15/2025 7:37 AM EDT [facility] Metamyelocytes % 5.0(H) % LAB HEMETOLOGY METHOD 02/15/2025 7:37 AM EDT [facility] Neutrophils Absolute Manual 0.68(L) 1.50 - 7.00 K/[facility] LAB HEMETOLOGY METHOD 02/15/2025 7:37 AM EDT [facility] Bands Absolute Manual 0.06(H) 0.00 - 0.00 K/mcL LAB HEMETOLOGY METHOD 02/15/2025 7:37 AM EDT [facility] Lymphocytes Absolute 0.35(L) 1.00 - 5.00 K/[facility] LAB HEMETOLOGY METHOD 02/15/2025 7:37 AM EDT [facility] Monocytes Absolute Manual 0.32 0.20 - 1.00 K/mcL LAB HEMETOLOGY METHOD 02/15/2025 7:37 AM EDT [facility] Eosinophils Absolute Manual 0.03 0.00 - 0.50 K/[facility] LAB HEMETOLOGY METHOD 02/15/2025 7:37 AM EDT [facility] Basophils Absolute Manual 0.02 0.00 - 0.20 K/mcL LAB HEMETOLOGY METHOD 02/15/2025 7:37 AM EDT [facility] Metamyelocytes Absolute Manual 0.08(H) 0.00 - 0.00 K/mcL LAB HEMETOLOGY METHOD 02/15/2025 7:37 AM EDT [facility] Blood Venous blood specimen / Unknown Venipuncture / Unknown 02/15/2025 6:38 AM EDT 02/15/2025 6:46 AM EDT us Jason MODI LAB BLOOD ORDERABLES Final Res ult [facility] [address] [place] [address], * Magnesium (02/15/2025 6:38 AM EDT) [facility] Magnesium 2.0 1.9 - 2.6 mg/dL LAB CHEMISTRY METHOD 02/15/2025 7:56 AM EDT [facility] Blood Venous blood specimen / Unknown Venipuncture / Unknown 02/15/2025 6:38 AM EDT 02/15/2025 6:46 AM EDT Beka Boyd MD LAB BLOOD ORDERABLES Final Res ult [facility] [address] [place] [address], * (ABNORMAL) CBC auto differential (02/15/2025 6:38 AM EDT) [facility] WBC 1.5(LL) 4.8 - 10.8 K/mcL LAB HEMETOLOGY METHOD [facility] RBC 3.30(L) 4.50 - 5.50 M/mcL LAB HEMETOLOGY METHOD 02/15/2025 7:37 AM [facility] Hemoglobin 9.4(L) 13.5 - 17.5 g/dL LAB HEMETOLOGY METHOD 02/15/2025 7:37 AM [facility] Hematocrit 28.8(L) 42.0 - 54.0 % LAB HEMETOLOGY METHOD 02/15/2025 7:37 AM [facility] MCV 87.8 79.0 - 98.0 FL LAB HEMETOLOGY METHOD 02/15/2025 7:37 AM [facility] MCH 28.7 27.0 - 32.0 pcg LAB HEMETOLOGY METHOD 02/15/2025 7:37 AM [facility] MCHC 32.6 32.0 - 37.0 g/dL LAB HEMETOLOGY METHOD 02/15/2025 7:37 AM EDT [facility] RDW 14.1 11.0 - 15.0 % LAB HEMETOLOGY METHOD 02/15/2025 7:37 AM EDT [facility] Platelets 124(L) 130 - 400 K/mcL LAB HEMETOLOGY METHOD 02/15/2025 7:37 AM EDT [facility] MPV 12.5(H) 7.0 - 11.0 FL LAB HEMETOLOGY METHOD 02/15/2025 7:37 AM EDT [facility] NRBC 0.0 <1.0 % LAB HEMETOLOGY METHOD 02/15/2025 7:37 AM EDT [facility] NRBC Absolute 0.00 <0.10 K/mcL LAB HEMETOLOGY METHOD 02/15/2025 7:37 AM [facility] Blood Venous blood specimen / Unknown Venipuncture / Unknown 02/15/2025 6:38 AM EDT 02/15/2025 6:46 AM EDT us Jason MODI LAB BLOOD ORDERABLES Final Res ult [facility] [address] [place] [address], * (ABNORMAL) Basic metabolic panel (02/15/2025 6:38 AM EDT) Sodium 131(L) 133 - 145 mmol/L LAB CHEMISTRY METHOD 02/15/2025 8:19 AM EDT [facility] Potassium 4.5 3.5 - 5.5 mmol/L LAB CHEMISTRY METHOD 02/15/2025 8:19 AM [facility] Chloride 106 96 - 110 mmol/L LAB CHEMISTRY METHOD 02/15/2025 8:19 AM [facility] CO2 10(LL) 21 - 32 mmol/L LAB CHEMISTRY METHOD 02/15/2025 8:19 AM [facility] Anion Gap 15(H) 3 - 11 LAB CHEMISTRY METHOD 02/15/2025 8:19 AM [facility] Glucose 101(H) 70 - 100 mg/dL LAB CHEMISTRY METHOD 02/15/2025 8:19 AM [facility] BUN 93(H) 5 - 25 mg/dL LAB CHEMISTRY METHOD 02/15/2025 8:19 AM [facility] Creatinine 8.58(H) 0.70 - 1.30 mg/dL LAB CHEMISTRY METHOD 02/15/2025 8:19 AM [facility] eGFR 7(L) >=60 mL/min/1. 73m2 LAB CHEMISTRY METHOD 02/15/2025 8:19 AM [facility] Comment:Calculation based on the Chronic Kidney Disease Epidemiology Collaboration (CKD-EPI) equation refit without adjustment for race. BUN/Creatinine Ratio 10.8 LAB CHEMISTRY METHOD 02/15/2025 8:19 AM [facility] Calcium 8.9 8.5 - 10.5 mg/dL LAB CHEMISTRY METHOD 02/15/2025 8:19 AM [facility] Blood Venous blood specimen / Unknown Venipuncture / Unknown 02/15/2025 6:38 AM EDT 02/15/2025 6:46 AM EDT us Jason MODI LAB BLOOD ORDERABLES Final Res ult [facility] [address] [place] [address], * (ABNORMAL) Drug abuse screen 8a panel, urine (02/15/2025 5:30 AM EDT) Amphetamine Screen, Ur Negative Negative LAB CHEMISTRY METHOD 6:09 AM EDT [facility] Comment:Certain OTC medicati ons containing ephedrine, phenylephrine, pseudoephedrine and phenylpropanolamine can cause false positive results. Barbiturate Screen, Ur Negative Negative LAB CHEMISTRY METHOD 5 6:09 AM T [facility] Benzodiazepine Screen, Ur Negative Negative LAB CHEMISTRY METHOD 5 6:09 AM [facility] Cocaine Screen, Ur Negative Negative LAB CHEMISTRY METHOD 5 6:09 AM [facility] Opiate Screen, Ur Positive(A ) Negative LAB CHEMISTRY METHOD 5 6:09 AM [facility] Cannabinoid (THC) Screen, Ur Negative Negative LAB CHEMISTRY METHOD 5 6:09 AM [facility] Comment:Specimens from patie nts taking pantoprazole sodium (Protonix) have been shown to produce false positive results. Oxycodone Screen, Ur Negative Negative LAB CHEMISTRY METHOD 5 6:09 AM [facility] Fentanyl, Ur Negative Negative LAB CHEMISTRY METHOD 5 6:09 AM [facility] Urine Urine specimen obtained by clean catch procedure / Unknown Non-blood Collection / Unknown 02/15/2025 5:30 AM EDT 02/15/2025 5:37 AM EDT Narrative [facility] - 02/15/2025 6:09 AM EDT Assay [...] MODI LAB URINE ORDERABLES Final Res ult [facility] [address] [place] [address], * MRSA molecular study (02/15/2025 5:30 AM EDT) MRSA Screen PCR Not Detected Not Detected LAB MICROBIOLOGY METHOD 02/15/2025 8:45 AM EDT [facility] Swab Nasopharyngeal structure / Unknown Non-blood Collection / Unknown 02/15/2025 5:30 AM EDT 02/15/2025 5:35 AM EDT Jason MODI LAB MICROBIOLOGY - GENERAL ORD ERABLES Final Result [facility] [address] [place] [address], * XR Foot 3+ Views Left (02/15/2025 [...] Signed Date: 02/15/2025 09:04 ET Workstation ID: [id number] Transcribed By: Self Edit Transcribed Date: 02/15/2025 [...] Signed Date: 02/15/2025 09:04 ET Workstation ID: [id number] Transcribed By: Self Edit Transcribed Date: 02/15/2025 09:01 ET Saad Pimentel MD IMG XR PROCEDURES Final Resu lt * Blood Culture, Peripheral #1 (02/15/2025 1:15 AM EDT) Culture, Blood No growth at 5 days 02/20/2025 5:01 AM EDT [facility] Blood Venous blood specimen / Unknown Venipuncture / Unknown 02/15/2025 1:15 AM EDT 02/15/2025 1:31 AM EDT Saad Pimentel MD LAB MICROBIOLOGY - GENERAL O RDERABLES Final Result [facility] [address] [place] [address], [place] [phone] * Lactate, with reflex (02/15/2025 12:54 AM EDT) LACTIC ACID 1.2 0.4 - 2.0 mmol/L LAB CHEMISTRY METHOD 02/15/2025 1:46 AM EDT [facility] Blood Venous blood specimen / Unknown Venipuncture / Unknown 02/15/2025 12:54 AM EDT 02/15/2025 12:57 AM EDT Saad Pimentel MD LAB BLOOD ORDERABLES Final R esult Performing Organization Address City/[facility]/ZIP Co de Phone Number [facility] [address] [place] [address], * (ABNORMAL) C-reactive protein (02/15/2025 12:52 AM EDT) C-Reactive Protein 16.40(H) <=0.50 mg/dL LAB CHEMISTRY METHOD 02/15/2025 5:02 AM EDT [facility] Blood Venous blood specimen / Unknown Venipuncture / Unknown 02/15/2025 12:52 AM EDT 02/15/2025 12:58 AM EDT Jason MODI LAB BLOOD ORDERABLES Final Res ult Performing Organization Address [facility]/ZIP Co de Phone Number [facility] [address] [place] [address], * (ABNORMAL) Phosphorus (02/15/2025 12:52 AM EDT) Pathologist [facility] Phosphorus 5.2(H) 2.5 - 4.5 mg/dL LAB CHEMISTRY METHOD 02/15/2025 1:25 AM EDT [facility] Blood Venous blood specimen / Unknown Venipuncture / Unknown 02/15/2025 12:52 AM EDT 02/15/2025 12:58 AM EDT Saad Pimentel MD LAB BLOOD ORDERABLES Final R esult Performing Organization Address City/[facility]/ZIP Co de Phone Number [facility] [address] [place] [address], * (ABNORMAL) Magnesium (02/15/2025 12:52 AM EDT) Magnesium 1.0(L) 1.9 - 2.6 mg/dL LAB CHEMISTRY METHOD 02/15/2025 1:25 AM [facility] Blood Venous blood specimen / Unknown Venipuncture / Unknown 02/15/2025 12:52 AM EDT 02/15/2025 12:58 AM EDT us Saad Pimentel MD LAB BLOOD ORDERABLES Final R esult [facility] [address] [place] [address], * (ABNORMAL) Comprehensive Metabolic Panel (CMP) (02/15/2025 12:52 AM EDT) Sodium 131(L) 133 - 145 mmol/L LAB CHEMISTRY METHOD 02/15/2025 1:35 AM [facility] Potassium 4.8 3.5 - 5.5 mmol/L LAB CHEMISTRY METHOD 02/15/2025 1:35 AM [facility] Chloride 106 96 - 110 mmol/L LAB CHEMISTRY METHOD 02/15/2025 1:35 AM [facility] CO2 14(LL) 21 - 32 mmol/L LAB CHEMISTRY METHOD 02/15/2025 1:35 AM [facility] Anion Gap 11 3 - 11 LAB CHEMISTRY METHOD 02/15/2025 1:35 AM [facility] Glucose 116(H) 70 - 100 mg/dL LAB CHEMISTRY METHOD 02/15/2025 1:35 AM [facility] BUN 92(H) 5 - 25 mg/dL LAB CHEMISTRY METHOD 02/15/2025 1:35 AM [facility] Creatinine 8.92(H) 0.70 - 1.30 mg/dL LAB CHEMISTRY METHOD 02/15/2025 1:35 AM [facility] eGFR 7(L) >=60 mL/min/1. 73m2 LAB CHEMISTRY METHOD 02/15/2025 1:35 AM [facility] Comment:Calculation based on the Chronic Kidney Disease Epidemiology Collaboration (CKD-EPI) equation refit without adjustment for race. BUN/Creatinine Ratio 10.3 LAB CHEMISTRY METHOD 02/15/2025 1:35 AM [facility] Calcium 8.5 8.5 - 10.5 mg/dL LAB CHEMISTRY METHOD 02/15/2025 1:35 AM [facility] AST (SGOT) 14 10 - 42 unit/L LAB CHEMISTRY METHOD 02/15/2025 1:35 AM [facility] ALT (SGPT) 9(L) 10 - 60 unit/L LAB CHEMISTRY METHOD 02/15/2025 1:35 AM [facility] Alkaline Phosphatase 122(H) 42 - 121 unit/L LAB CHEMISTRY METHOD 02/15/2025 1:35 AM [facility] Total Protein 7.4 6.0 - 8.0 g/dL LAB CHEMISTRY METHOD 02/15/2025 1:35 AM [facility] Albumin 3.7 3.2 - 5.0 g/dL LAB CHEMISTRY METHOD 02/15/2025 1:35 AM [facility] Total Bilirubin 0.3 0.0 - 1.4 mg/dL LAB CHEMISTRY METHOD 02/15/2025 1:35 AM [facility] Blood Venous blood specimen / Unknown Venipuncture / Unknown 02/15/2025 12:52 AM EDT 02/15/2025 12:58 AM EDT us Saad Pimentel MD LAB BLOOD ORDERABLES Final R esult [facility] [address] [place] [address], [place] [phone] * (ABNORMAL) Manual differential (02/15/2025 12:51 AM EDT) Neutrophils % 29.0 % LAB HEMETOLOGY METHOD 02/15/2025 1:56 AM [facility] Bands % 1.0 % LAB HEMETOLOGY METHOD 02/15/2025 1:56 AM [facility] Lymphocytes % 31.0 % LAB HEMETOLOGY METHOD 02/15/2025 1:56 AM [facility] Monocytes % 12.0 % LAB HEMETOLOGY METHOD 02/15/2025 1:56 AM [facility] Eosinophils % 3.0 % LAB HEMETOLOGY METHOD 02/15/2025 1:56 AM [facility] Basophils % 1.0 % LAB HEMETOLOGY METHOD 02/15/2025 1:56 AM [facility] Metamyelocytes % 18.0(H) % LAB HEMETOLOGY METHOD 02/15/2025 1:56 AM [facility] Myelocytes % 4.0(H) % LAB HEMETOLOGY METHOD 02/15/2025 1:56 AM [facility] Other Cells % By Manual Count 3.0(H) <=0.0 % LAB HEMETOLOGY METHOD 02/15/2025 1:56 AM [facility] Neutrophils Absolute Manual 0.35(L) 1.50 - 7.00 K/mcL LAB HEMETOLOGY METHOD 02/15/2025 1:56 AM [facility] Bands Absolute Manual 0.01(H) 0.00 - 0.00 K/mcL LAB HEMETOLOGY METHOD 02/15/2025 1:56 AM [facility] Lymphocytes Absolute 0.37(L) 1.00 - 5.00 K/mcL LAB HEMETOLOGY METHOD 02/15/2025 1:56 AM [facility] Monocytes Absolute Manual 0.14(L) 0.20 - 1.00 K/mcL LAB HEMETOLOGY METHOD 02/15/2025 1:56 AM EDT [facility] Eosinophils Absolute Manual 0.04 0.00 - 0.50 K/[facility] LAB HEMETOLOGY METHOD 02/15/2025 1:56 AM EDT [facility] Basophils Absolute Manual 0.01 0.00 - 0.20 K/[facility] LAB HEMETOLOGY METHOD 02/15/2025 1:56 AM EDT [facility] Metamyelocytes Absolute Manual 0.22(H) 0.00 - 0.00 K/[facility] LAB HEMETOLOGY METHOD 02/15/2025 1:56 AM EDT [facility] Myelocytes Absolute Manual 0.05(H) 0.00 - 0.00 K/[facility] LAB HEMETOLOGY METHOD 02/15/2025 1:56 AM EDT [facility] Other Cells ABS 0.04(H) 0.00 - 0.00 K/[facility] LAB HEMETOLOGY METHOD 02/15/2025 1:56 AM EDT [facility] Rbc Morphology See comment( A) Consistent with indices, Normal for [place] LAB HEMETOLOGY METHOD 02/15/2025 1:56 AM EDT [facility] Comment:RBC: Morphology agre es with CBC Platelet Morphology - WAM See Note(A) Normal LAB HEMETOLOGY METHOD 02/15/2025 1:56 AM EDT [facility] Comment:PLT: Normal Blood Venous blood specimen / Unknown Venipuncture / Unknown 02/15/2025 12:51 AM EDT 02/15/2025 12:58 AM EDT Saad Pimentel MD LAB BLOOD ORDERABLES Final R esult [facility] [address] [place] [address], * Blood Culture, Peripheral #2 (02/15/2025 12:51 AM EDT) Pathologist [facility] Culture, Blood No growth at 5 days 02/20/2025 5:01 AM EDT [facility] Blood Venous blood specimen / Unknown Venipuncture / Unknown 02/15/2025 12:51 AM EDT 02/15/2025 12:58 AM EDT Saad Pimentel MD LAB MICROBIOLOGY - GENERAL O RDERABLES Final Result [facility] [address] [place] [address], [place] [phone] * APTT (02/15/2025 12:51 AM EDT) [facility] aPTT 30.5 24.1 - 39.3 sec LAB COAGULATION METHOD 02/15/2025 1:11 AM EDT [facility] Blood Venous blood specimen / Unknown Venipuncture / Unknown 02/15/2025 12:51 AM EDT 02/15/2025 12:58 AM EDT Saad Pimentel MD LAB BLOOD ORDERABLES Final R esult [facility] [address] [place] [address], [place] [phone] * (ABNORMAL) Protime-INR (02/15/2025 12:51 AM EDT) [facility] Protime 14.3(H) 10.6 - 13.9 sec LAB COAGULATION METHOD 02/15/2025 1:11 AM EDT [facility] INR 1.1 LAB COAGULATION METHOD 02/15/2025 1:11 AM EDT [facility] Blood Venous blood specimen / Unknown Venipuncture / Unknown 02/15/2025 12:51 AM EDT 02/15/2025 12:58 AM EDT us Saad Pimentel MD LAB BLOOD ORDERABLES Final R esult [facility] [address] [place] [address], * (ABNORMAL) CBC auto differential (02/15/2025 12:51 AM EDT) WBC 1.2(LL) 4.8 - 10.8 K/mcL LAB HEMETOLOGY METHOD 02/15/2025 1:56 AM EDT [facility] RBC 3.20(L) 4.50 - 5.50 M/mcL LAB HEMETOLOGY METHOD 02/15/2025 1:56 AM EDT [facility] Hemoglobin 9.2(L) 13.5 - 17.5 g/dL LAB HEMETOLOGY METHOD 02/15/2025 1:56 AM EDT [facility] Hematocrit 28.5(L) 42.0 - 54.0 % LAB HEMETOLOGY METHOD 02/15/2025 1:56 AM EDT [facility] MCV 88.2 79.0 - 98.0 FL LAB HEMETOLOGY METHOD 02/15/2025 1:56 AM EDT [facility] MCH 28.5 27.0 - 32.0 pcg LAB HEMETOLOGY METHOD 02/15/2025 1:56 AM EDT [facility] MCHC 32.3 32.0 - 37.0 g/dL LAB HEMETOLOGY METHOD 02/15/2025 1:56 AM EDT [facility] RDW 14.5 11.0 - 15.0 % LAB HEMETOLOGY METHOD 02/15/2025 1:56 AM EDT [facility] Platelets 131 130 - 400 K/mcL LAB HEMETOLOGY METHOD 02/15/2025 1:56 AM EDT [facility] MPV 12.7(H) 7.0 - 11.0 FL LAB HEMETOLOGY METHOD 02/15/2025 1:56 AM EDT [facility] NRBC 0.0 <1.0 % LAB HEMETOLOGY METHOD 02/15/2025 1:56 AM EDT [facility] NRBC Absolute 0.00 <0.10 K/mcL LAB HEMETOLOGY METHOD 02/15/2025 1:56 AM EDT [facility] Blood Venous blood specimen / Unknown Venipuncture / Unknown 02/15/2025 12:51 AM EDT 02/15/2025 12:58 AM EDT us Saad Pimentel MD LAB BLOOD ORDERABLES Final R esult [facility] [address] [place] [address], documented in this encounter Visit Diagnoses Diagnosis Cellulitis- Primary Cellulitis and abscess of unspecified site Leukopenia, unspecified type Anemia, unspecified type Chronic kidney disease, unspecified CKD stage Cellulitis of great toe of left foot Hypomagnesemia Disorders of magnesium metabolism Sepsis without acute organ dysfunction, due to unspecified organism ([facility] V24, [facility] V28) Neutropenic fever ([facility] V24) Cellulitis of lower extremity, unspecified laterality CKD (chronic kidney disease) stage 5, GFR less than 15 ml/min ([facility] V24, [facility] V28) Chronic kidney disease, Stage V Severe neutropenia ([facility] V24) EZEQUIEL (acute kidney injury) ([facility] V24) Abscess of great toe, right Abscess of left great toe documented in this encounter Admitting Diagnoses Diagnosis [...] (after last modification) on 02/16/25 at 0600 Given 02/18/2025 1:16 PM EDT 1,000 mg Given 02/18/2025 5:19 AM EDT 1,000 mg Given 02/17/2025 9:00 PM EDT 1,000 mg amLODIPine (NORVASC) tablet 5 mg 5 mg, oral, Daily, First dose on 02/15/25 at 0900 Given 02/18/2025 8:54 AM EDT 5 mg Given 02/17/2025 9:13 AM EDT 5 mg Given 02/16/2025 8:22 AM EDT 5 mg BUPivacaine HCl (MARCAINE) 0.5 % injection As needed, Starting on 02/15/25 at 0914, Intraprocedure Given 02/15/2025 9:14 AM EDT 10 mL Right Foot BUPivacaine HCl (MARCAINE) 0.5 % injection As needed, Starting on 02/15/25 at 0914, Intraprocedure Given 02/15/2025 9:14 AM EDT 10 mL Left Foot buprenorphine-naloxone (SUBOXONE) 8-2 mg per SL tablet [...] Given 02/17/2025 9:13 AM EDT 1 tablet carvediloL (COREG) tablet 6.25 mg 6.25 mg, oral, 2 times daily with meals, First dose on 02/15/25 at 0800 Given 02/18/2025 4:54 PM EDT 6.25 mg Given 02/18/2025 8:53 AM EDT 6.25 mg Given 02/17/2025 4:47 PM EDT 6.25 mg dolutegravir (TIVICAY) tablet 50 mg 50 mg, oral, Daily with dinner, First dose (after last modification) on 02/17/25 at 1700, Give with rilpivirine (combo product [...] oral, Every 72 hours, First dose on 02/17/25 at 1300, Administer on an empty stomach [...] 1 mg, oral, Daily, First dose on 02/15/25 at 0900 Given 02/18/2025 8:53 AM EDT 1 mg Given 02/17/2025 9:13 AM EDT 1 mg Given 02/16/2025 8:22 AM EDT 1 mg heparin (UFH) injection 5,000 Units 5,000 Units, subcutaneous, Every 12 hours scheduled, First dose on 02/15/25 at 0900, Enter Indication for use of [...] L eft Upper Arm (Back) HYDROmorphone (DILAUDID) tablet 2 mg 2 mg, oral, Every 4 hours PRN, severe pain, Starting on 02/16/25 at 0848 Given 02/17/2025 8:45 PM EDT 2 mg Given 02/16/2025 9:17 PM EDT 2 mg Given 02/16/2025 9:58 AM EDT 2 mg lactated Ringer's infusion 75 mL/hr, intravenous, Continuous, Starting on 02/16/25 at 1530 New Bag 02/17/2025 4:48 PM EDT 75 mL/hr 75 mL/hr New Bag 02/16/2025 3:16 PM EDT 75 mL/hr 75 mL/hr magnesium oxide (MAG-OX) tablet 400 mg 400 mg, oral, Daily, First dose on Mon02/18/25 at 1300, For 7 doses Given 02/18/2025 1:16 PM EDT 400 mg rilpivirine (EDURANT) tablet 25 mg 25 mg, oral, Daily with dinner, First dose on Mon02/17/25 at 1700, Swallow tablet whole with water. Give with a normal to high-calorie meal. Given 02/18/2025 5:00 PM EDT 25 mg Given 02/17/2025 4:47 PM EDT 25 mg senna (SENOKOT) tablet 17.2 mg 17.2 mg (2 tablet), oral, Nightly PRN, constipation, Starting on Mon02/16/25 at 1555 Given 02/16/2025 9:17 PM EDT 17.2 mg sodium bicarbonate tablet 650 mg 650 mg, oral, 3 times daily, First dose on Mon02/17/25 at 1400, For 6 doses Given 02/18/2025 1:16 PM EDT 650 mg Given 02/18/2025 8:54 AM EDT 650 mg Given 02/17/2025 8:46 PM EDT 650 mg tacrolimus (PROGRAF) capsule 0.5 mg 0.5 mg, oral, Daily, First dose on Mon02/15/25 at 0900, Hazardous Medication Intact: - Single [...] 300 mcg Le ft Upper Arm (Back) documented in this encounter Discontinued Medications Medication [...] Francia Haas RN)1316 (Given - Provider: Nakia Lund, GRADY) amLODIPine (NORVASC) tablet 5 mg 5 mg, oral, Daily, First dose on 02/15/25 at 0900 0822 (Given - Provider: Bonilla Dong RN) 0913 (Given - Provider: Meghan Aguilera, GRADY) 0854 (Given - Provider: Nakia Lund RN) buprenorphine-naloxone (SUBOXONE) 8-2 mg per SL [...] their teeth. 0822 (Given - Provider: Bonilla Dong RN)211 (Given - Provider: Francia Haas RN) 0913 (Given - Provider: Meghan Aguilera, GRADY)2046 (Given - Provider: Francia Haas RN) 0853 (Given - Provider: Nakia Lund, GRADY) carvediloL (COREG) tablet 6.25 mg 6.25 mg, oral, 2 times daily with meals, First dose on 02/15/25 at 0800 0823 (Given - Provider: Bonilla Dong RN)1746 (Given - Provider: Bonilla Dong RN) 0913 (Given - Provider: Meghan Aguilera, GRADY)1647 (Given - Provider: Meghan Aguilera, GRADY) 0853 (Given - Provider: Nakia Lund RN)1654 (Given - Provider: Nakia Lund RN) cefepime (MAXIPIME) 1 g in sterile water 10 mL IV syringe (CANCELED) 1 g, intravenous, Administer over 5 Minutes, Every 24 hours, First dose (after last modification) on Mon02/16/25 at 0200, For 6 days, Indication: Skin/Soft Tissue 0200 (Given - Provider: Francia Haas RN) 020 (Given - Provider: Francia Haas RN) 0203 (Given - Provider: Francia Haas RN) dalbavancin (DALVANCE) 760 mg in dextrose 5 % 250 mL IVPB (COMPLETED) 760 mg (rounded from 750 mg), intravenous, Administer over 30 Minutes, Once, On Mon02/18/25 at 1530, For 1 dose, Flush line pre- and post-medication with D5W, Indication: Skin/Soft Tissue 1653 (New Bag - Provider: Nakia Lund RN)1748 (Stopped - Provider: Nakia Lund RN) dolutegravir [...] or iron supplements if taken with food. 1646 (Given - Provider: Meghan Aguilera RN) 1653 (Given - Provider: Nakia Lund RN) entecavir [...] 0900 0822 (Given - Provider: Bonilla Dong, RN) 0913 (Given - Provider: Meghan Aguilera, RN) 0853 (Given - Provider: Nakia Lund RN) heparin (UFH) injection 5,000 Units 5,000 Units, subcutaneous, Every 12 hours scheduled, First dose on Mon02/15/25 at 0900, Enter Indication for use of heparin (UFH) instead of enoxaparin (LOVENOX): (free text): ESRD, Indication: VTE Prophylaxis, Indications: Prophylaxis of Venous Thromboembolism 822 (Given - Provider: Bonilla Dong RN)2116 (Given [...] 1 dose 0224 (Given - Provider: Francia Haas, GRADY) rilpivirine (EDURANT) tablet 25 mg 25 mg, oral, Daily with dinner, First dose on Mon02/17/25 at 1700, Swallow tablet whole with water. Give with a normal to high-calorie meal. 1647 (Given - Provider: Meghan Aguilera, RN) 1700 (Given - Provider: Nakia Lund, RN) sodium bicarbonate tablet 650 mg 650 mg, oral, 3 times daily, First dose on Mon02/17/25 at 1400, For 6 doses 1325 (Given - Provider: Meghan Aguilera, RN)2046 (Given - Provider: Francia Haas, GRADY) 0854 (Given - Provider: Nakia Lund, GRADY)1316 (Given - Provider: Nakia Lund, GRADY) tacrolimus (PROGRAF) capsule 0.5 mg 0.5 mg, oral, Daily, First dose on Mon02/15/25 at 0900, Hazardous Medication Intact: - Single [...] RN) 0921 (Given - Provider: Meghan Aguilera, RN) 0853 (Given - Provider: Nakia Lund, GRADY) tacrolimus (PROGRAF) capsule 1 mg 1 mg, [...] RN) 1648 (Given - Provider: Meghan Aguilera, RN) 1654 (Given - Provider: Nakia Lund, GRADY) tbo-filgrastim (GRANIX) syringe 300 mcg (COMPLETED) 300 mcg, subcutaneous, Once, On 02/16/25 at 0915, For 1 dose 0959 (Given - Provider: Bonilla Dong RN) tbo-filgrastim (GRANIX) syringe 300 mcg 300 mcg, subcutaneous, Daily, First dose on 02/17/25 at 0900 0912 (Given - Provider: Meghan Aguilera, RN) 0858 (Given - Provider: Nakia uLnd RN) Continuous Medication Order 02/16/2025 02/17/2025 02/18/2025 lactated Ringer's infusion 75 mL/hr, intravenous, Continuous, Starting on 02/16/25 at 1530 1516 (New Bag - Provider: Bonilla Dong RN) 164 (New Bag - Provider: Meghan Aguilera, RN) 2026 (Due: Stopped) PRN Medication Order 02/16/2025 02/17/2025 02/18/2025 acetaminophen (TYLENOL) tablet 650 mg (CANCELED) 650 mg, oral, Every 6 hours PRN, mild pain, moderate pain, headaches, fever - temperature GREATER than 38 C (100.4 F), Starting on 02/15/25 at 0629 0026 (Given - Provider: Francia Haas RN) HYDROmorphone (DILAUDID) injection 1 mg (CANCELED) 1 mg, intravenous, Every 6 hours PRN, severe pain, Starting on 02/15/25 at 1518 0543 (Given - Provider: Francia Haas, GRADY) HYDROmorphone (DILAUDID) tablet 2 mg 2 mg, oral, Every 4 hours PRN, severe pain, Starting on 02/16/25 at 0848 0958 (Given - Provider: Bonilla Dong RN)2116 (Given - Provider: Francia Haas, RN) 2044 (Given - Provider: Francia Haas, GRADY) senna (SENOKOT) tablet 17.2 mg 17.2 mg (2 tablet), oral, Nightly PRN, constipation, Starting on 02/16/25 at 1555 2117 (Given - Provider: Francia Haas, RN) 2053 (Not Given - Provider: Francia Haas RN - Reason: Patient/Resident/Agent refused - education provided ) documented in this encounter Orders Medications Ordered That Rohit ht Not Have Been Administered Count Last Ordered Date First Ordered Date dalbavancin (DALVANCE) 760 m g in dextrose 5 % 250 mL IVPB 1 02/18/2025 DAPTOmycin (CUBICIN) 450 mg in sodium chloride 0.9 % 50 mL IVPB 1 02/18/2025 magnesium oxide (MAG-OX) tablet 400 mg 1 magnesium sulfate 1 g in sod ium chloride 0.9 % 50 mL IVPB 1 02/18/2025 magnesium sulfate 2 gram/50 mL (4 %) IVPB 2 g 3 02/18/2025 02/15/2025 NON FORMULARY 1 02/18/2025 dolutegravir (TIVICAY) tablet 50 mg 2 02/17 entecavir (BARACLUDE) tablet 0.5 mg 1 02/17 oxyCODONE (ROXICODONE) immed iate release tablet 5 mg 2 02/17/2025 02/16/2025 rilpivirine (EDURANT) tablet 25 mg 1 2024 sodium bicarbonate tablet 650 mg 1 02/18/20 25 acetaminophen (TYLENOL) tablet 1,000 mg 2 0 02/16/2025 02/14/2025 HYDROmorphone (DILAUDID) tablet 2 mg 1 12/2024 lactated Ringer's infusion 1 02/16/2025 oxyCODONE (ROXICODONE) immed iate release tablet 10 mg 1 02/16/2025 senna (SENOKOT) tablet 17.2 mg 1 02/16/2025 tbo-filgrastim (GRANIX) syringe 300 mcg 2 0 02/16/2025 acetaminophen (TYLENOL) tablet 650 mg 2 11/2024 amLODIPine (NORVASC) tablet 5 mg 1 02/16/20 25 buprenorphine-naloxone (SUBO XONE) 8-2 mg per SL tablet 1 tablet 1 02/15/2025 buprenorphine-naloxone (SUBO XONE) 8-2 mg per SL tablet 2 tablet 1 02/15/2025 carvediloL (COREG) tablet 6.25 mg 1 025 cefepime (MAXIPIME) 1 g in s terile water 10 mL IV syringe 1 02/15/2025 cefepime (MAXIPIME) 2 g in s terile water 20 mL IV syringe 1 02/15/2025 cefepime (MAXIPIME) IV syringe 500 mg 1 11/2024 folic acid (FOLVITE) tablet 1 mg 1 02/16/20 heparin (UFH) injection 5,000 Units 1 02/15 HYDROmorphone (DILAUDID) injection 1 mg 2 0 02/15/2025 morphine injection 4 mg 1 02/15/2025 mycophenolate (MYFORTIC) EC tablet 180 mg 1 02/15/2025 sodium bicarbonate in dextro se 5 % 150 mEq/1150 mL infusion 1 02/15/2025 tacrolimus (PROGRAF) capsule 0.5 mg 1 02/15 tacrolimus (PROGRAF) capsule 1 mg 1 025 vancomycin (VANCOCIN) IVPB 1 ,500 mg in 0.9 % sodium chloride 500 mL - CNR 1 02/15/2025 Diet Count Last Ordered Date [...] 02/18/2025 documented in this encounter 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
--- OUTSIDE RECORDS SUMMARY | 2025-02-20 09:43 | XMS_ITS | Clinical Summary ---
Author Organization [facility] Address [address] [place] [address] Phone Care Team Providers Care [employer] W[employer] Technician Name Role Phone Name, Horacio ARORA Primary Care Provider [phone] Allergies Active Allergy Reactions Criticality Noted Date Comments Penicillins Rash 12/31/2024 Medications acetaminophen (TYLENOL) 500 mg tablet TAKE 1 TABLET BY MOUTH EVERY 8 HOURS NEEDED FOR PAIN MODERATE 12/07/19 25 Active amLODIPine (NORVASC) 5 mg tablet Take 1 tablet (5 mg total) by mouth. 12/21/19 25 Active atovaquone (MEPRON) 750 mg/5 mL suspension Take 10 mL (1,500 mg total) by mouth. 11/29/19 25 Active Suboxone 8-2 mg per SL film DISSOLVE 2 FILMS UNDER THE TONGUE EVERY DAY Active carvediloL (COREG) 6.25 mg tablet Take 1 tablet (6.25 mg total) by mouth. 09/11/19 24 Active cinacalcet (SENSIPAR) 30 mg tablet 10/31/19 25 Active Juluca 50-25 mg tablet Take 1 tablet (25 mg total) by mouth. 12/03/19 25 Active folic acid (FOLVITE) 1 mg tablet Take 1 tablet (1 mg total) by mouth. 11/29/19 25 Active furosemide (LASIX) 40 mg tablet 11/30/19 25 Active tacrolimus (PROGRAF) 0.5 mg capsule Take 2 capsules (1 mg total) by mouth 1 (one) time each day in the evening. 11/29/19 25 Active tacrolimus (PROGRAF) 0.5 mg capsule Take 1 capsule (0.5 mg total) by mouth 1 (one) time each day. 12/27/19 25 Active entecavir (BARACLUDE) 0.5 mg tablet Take 1 tablet (0.5 mg total) by mouth every 3rd (third) day. 02/19/20 25 Active magnesium oxide (MAG-OX) 400 mg (241.3 elemental magnesium) tablet Take 1 tablet (400 mg total) by mouth 1 (one) time each day for 7 doses. 7 each 02/20/20 25 025 Active senna (SENOKOT) 8.6 mg tablet Take 2 tablets (17.2 mg total) by mouth at bedtime as needed for constipation . Hold for diarrhea 60 tablet 02/19/20 25 Active sodium bicarbonate 650 mg tablet Take 1 tablet (650 mg total) by mouth 3 (three) times a day. 90 each 02/19/20 25 025 Active entecavir (BARACLUDE) 0.5 mg tablet Take 1 tablet (0.5 mg total) by mouth. 07/07/19 24 025 Discontinued mycophenolate (MYFORTIC) 180 mg EC tablet Take 2 tablets (360 mg total) by mouth. 08/18/19 24 025 Discontinued(St op Taking at Discharge) Active Problems Problem Noted Date Diagnosed Date EZEQUIEL (acute kidney injury) ([facility] V24) 02/19/20 Hypomagnesemia 02/18/2025 Severe neutropenia ([facility] V24) 02/18/2025 Cellulitis 02/15/2025 CKD (chronic kidney disease) stage 5, GFR less than 15 ml/min ([facility] V24, [facility] V28) 12/31/2024 Encounters Date Type Department Care Team Description 02/15/2025 9:28 AM EDT - 02/15/2025 10:58 AM EDT Surgery [facility] Main OR [address] [place] [phone] Lance Elena DPM INCISION DRAINAGE BILATERAL HALLUX 02/15/2025 9:03 AM EDT Anesthesia Event [facility] OR [address] [place] [phone] Andres Bonilla MD Claudio, Raymund, CRNA 02/14/2025 11:58 PM EDT - 02/18/2025 6:16 PM EDT Hospital Encounter [facility] Urology Unit [address] [place] [phone] Saad Pimentel MD Kokkinos, Erika, MD Ishtiaq, Rizwan, MD Alam, Aroosa, MD Rasul, Yar M, MD Zipagan, James T, MD Santoyo-Pacheco, Omar D, MD Leukopenia, unspecified type (Primary Dx); Anemia, unspecified type; Chronic kidney disease, unspecified CKD stage; Cellulitis of great toe of left foot; Hypomagnesemia; Sepsis without acute organ dysfunction, due to unspecified organism ([facility] V24, [facility] V28); Neutropenic fever ([facility] V24); Cellulitis of lower extremity, unspecified laterality; CKD (chronic kidney disease) stage 5, GFR less than 15 ml/min ([facility] V24, [facility] V28); Severe neutropenia ([facility] V24); EZEQUIEL (acute kidney injury) ([facility] V24) Discharge Disposition: Home-Health Care [facility] 01/08/2025 Telephone [facility] Surgery [address] [phone] Corwin Rodriguez MD 12/31/2024 1:30 PM EDT Consult [address] [phone] Corwin Rodriguez MD Chronic kidney disease, stage 5 ([facility] V24, [facility] V28) from Last 3 Months Surgical History Surgery Date Site/Laterality Comments TRANSPLANT, KIDNEY, ROBOT-ASSISTED Medical History Medical History Date Comments Chronic kidney disease Secondary hyperparathyroidism ([facility] V24) ESRD (end stage renal disease) ([facility] V24, [facility] V28) HIV (human immunodeficiency virus infection) ([facility] V24, [facility] V28) Hypertension Social History Tobacco Use Types Packs/Day Years [...] on file Sexual Orientation Not on file Obstetrics History Last Filed Vital Signs Vital Sign Reading [...] Mass Index 24.12 02/14/2025 9:04 PM EDT Plan of Treatment Upcoming Encounters Date Type Department Care Team (Late st Contact Info) Description 02/24/2025 11:15 AM EDT Office Visit [facility] Hematology Oncology [address] [place] [phone] Lonnie Lovett MD [address] [place] [phone] Scheduled Procedures Name Priority Associated Diagnoses Date/Ti me CREATION FISTULA AV UPPER EXTREMITY CKD (chronic kidney disease) stage 5, GFR less than 15 ml/min (CMS/HCC V24, CMS/HCC V28) Health Maintenance Due Date Last Done Comments DTaP,Tdap,and Td Vaccines (1 - Tdap) 02/04/1996 Hepatitis B Vaccines (1 of 3 - 19+ 3-dose series) 02/04/1996 Pneumococcal Vaccine: Pediatrics (0 to 5 Years) and At-Risk Patients (6 to 49 Years) (1 of 2 - PCV) 02/04/1996 COVID-19 Vaccine (#1) 06/18/2021 05/21/2021 , 09/02/2020, 07/22/2020 Depression Screening 06/12/2024 Cholesterol Screening (Lipid Panel) 12/25/2024 Colorectal Cancer Screening: Colonoscopy 12/25/2024 Hepatitis C Screening 12/25/2024 Influenza Vaccine (#1) 2025 Social Influencers of Health Screening 02/17/2026 02/17/2025 HIV Screening Completed 02/18/2025 HIB Vaccines Aged Out No longer eligi ble based on patient's age to complete this topic HPV Vaccines Aged Out No longer eligi ble based on patient's age to complete this topic Hepatitis A Vaccines Aged Out No long er eligible based on patient's age to complete this topic IPV Vaccines Aged Out No longer eligi ble based on patient's age to complete this topic MMR Vaccines Aged Out No longer eligi ble based on patient's age to complete this topic Meningococcal ACWY Vaccine Aged Out N o longer eligible based on patient's age to complete this topic Meningococcal B Vaccine Aged Out No l onger eligible based on patient's age to complete this topic RSV Immunization Patients Under 20 months Aged Out No longer eligible b ased on patient's age to complete this topic Varicella Vaccines Aged Out No longer eligible based on patient's age to complete this topic Procedures Procedure Name Priority Date/Time Associated Diagnosis Comments HIV 1 MOLECULAR STUDY QUANTITATIVE Routine 02/18/2025 1:24 PM EDT MANUAL DIFFERENTIAL - SYSMEX WAM Routine 02/18/2025 6:57 AM EDT CBC WITH AUTO DIFFERENTIAL Routine 02/18/2025 6:57 AM EDT PHOSPHORUS Routine 02/18/2025 6:57 AM EDT MAGNESIUM Routine 02/18/2025 6:57 AM EDT CBC AND DIFFERENTIAL Routine 02/18/2025 6:57 AM EDT BASIC METABOLIC PANEL Routine 02/18/2025 6:57 AM EDT AFSHAN HODGE VIRUS IGG, IGM, NUCLEAR AND EARLY ANTIBODIES Routine 02/17/2025 7:04 AM EDT CYTOMEGALOVIRUS PCR QUANTITATIVE Routine 02/17/2025 7:03 AM EDT MANUAL DIFFERENTIAL - SYSMEX WAM Routine 02/17/2025 6:14 AM EDT CBC WITH AUTO DIFFERENTIAL Routine 02/17/2025 6:14 AM EDT COMPREHENSIVE METABOLIC PANEL Routine 02/17/2025 6:14 AM EDT CBC AND DIFFERENTIAL Routine 02/17/2025 6:14 AM EDT TACROLIMUS LEVEL Timed 02/16/2025 7:28 AM EDT MANUAL DIFFERENTIAL - SYSMEX WAM Routine 02/16/2025 6:06 AM EDT CBC WITH AUTO DIFFERENTIAL Routine 02/16/2025 6:06 AM EDT COMPREHENSIVE METABOLIC PANEL Routine 02/16/2025 6:06 AM EDT CBC AND DIFFERENTIAL Routine 02/16/2025 6:06 AM EDT INCISION DRAINAGE EXTREMITY LOWER 02/15/2025 9:03 AM EDT Abscess of great toe, right Abscess of left great toe MANUAL DIFFERENTIAL - SYSMEX WAM Routine 02/15/2025 6:38 AM EDT AST, ALT, BILIRUBIN ELR STATE REPORTABLES Routine 02/15/2025 6:38 AM EDT HEPATITIS B CORE ANTIBODY IGM Routine 02/15/2025 6:38 AM EDT PHOSPHORUS Routine 02/15/2025 6:38 AM EDT PARATHYROID HORMONE INTACT Routine 02/15/2025 6:38 AM EDT HEPATITIS B SCREENING PANEL Routine 02/15/2025 6:38 AM EDT PATHOLOGIST REVIEW BLOOD SMEAR Routine 02/15/2025 6:38 AM EDT MAGNESIUM Routine 02/15/2025 6:38 AM EDT CBC WITH AUTO DIFFERENTIAL Routine 02/15/2025 6:38 AM EDT BASIC METABOLIC PANEL Routine 02/15/2025 6:38 AM EDT CBC AND DIFFERENTIAL Routine 02/15/2025 6:38 AM EDT DRUG ABUSE [...] SYSMEX WAM STAT 02/15/2025 12:51 AM EDT ACTIVATED PARTIAL THROMBOPLASTIN TIME STAT 02/15/2025 12:51 AM EDT PROTHROMBIN TIME WITH INR STAT 02/15/2025 12:51 AM EDT CBC WITH AUTO DIFFERENTIAL STAT 02/15/2025 12:51 AM EDT CBC AND DIFFERENTIAL STAT 02/15/2025 12:51 AM EDT CULTURE BLOOD STAT 02/15/2025 12:51 AM EDT from Last 3 Months Results * HIV 1 molecular study quantitative (02/18/2025 1:24 PM EDT) [facility] HIV-1 RNA Interpretation Not Detected Not Detected LAB MOLECULAR DIAGNOSTICS METHOD 02/18/2025 4:24 PM EDT [facility] Comment:HIV RNA not detected , unable to report quantitative results. Blood Venous blood specimen / Unknown Venipuncture / Unknown 02/18/2025 1:24 PM EDT 02/18/2025 1:32 PM EDT us Ilda Breen MD LAB BLOOD ORDERABLES Final Resul t [facility] [address] [place] [address], [place] [phone] * (ABNORMAL) Manual differential (02/18/2025 6:57 AM EDT) Only the most recent of5 resultswithin the time period is included. [facility] Neutrophils % 14.0 % LAB HEMETOLOGY METHOD 02/18/2025 8:15 AM EDT [facility] Lymphocytes % 39.0 % LAB HEMETOLOGY METHOD 02/18/2025 8:15 AM EDT [facility] Monocytes % 25.0 % LAB HEMETOLOGY METHOD 02/18/2025 8:15 AM EDT [facility] Eosinophils % 11.0 % LAB HEMETOLOGY METHOD 02/18/2025 8:15 AM EDT [facility] Basophils % 6.0 % [...] Morphology Present(A) Consistent with indices, Normal for [place] LAB HEMETOLOGY METHOD 02/18/2025 8:15 AM [facility] Comment:This is an appended report. These results have been appended to a previously final verified report. Platelet Morphology - WAM Large Platelets Seen(A) Normal LAB HEMETOLOGY METHOD 02/18/2025 8:15 AM [facility] Comment:This is an appended report. These results have been appended to a previously final verified report. Polychromasia Present Present(A) (none) LAB HEMETOLOGY METHOD 02/18/2025 8:15 AM EDT [facility] Comment:This is an appended report. These results have been appended to a previously final verified report. Dohle Body Present Present(A) (none) LAB HEMETOLOGY METHOD 02/18/2025 8:15 AM EDT [facility] Comment:This is an appended report. These results have been appended to a previously final verified report. Blood Venous blood specimen / Unknown Venipuncture / Unknown 02/18/2025 6:57 AM EDT 02/18/2025 7:16 AM EDT Emanuel Moran MD LAB BLOOD ORDERABLES E dited Result - Final [facility] [address] [place] [address], [place] [phone] * (ABNORMAL) CBC auto differential (02/18/2025 6:57 AM EDT) Only the most recent of5 resultswithin the time period is included. WBC 1.2(LL) 4.8 - 10.8 K/mcL LAB HEMETOLOGY METHOD 02/18/2025 8:07 AM [facility] RBC 2.70(L) 4.50 - 5.50 M/mcL LAB HEMETOLOGY METHOD 02/18/2025 8:07 AM [facility] Hemoglobin 7.6(L) 13.5 - 17.5 g/dL LAB HEMETOLOGY METHOD 02/18/2025 8:07 AM [facility] Hematocrit 23.2(L) 42.0 - 54.0 % LAB HEMETOLOGY METHOD 02/18/2025 8:07 AM [facility] MCV 86.6 79.0 - 98.0 FL LAB HEMETOLOGY METHOD 02/18/2025 8:07 AM [facility] MCH 28.4 27.0 - 32.0 pcg LAB HEMETOLOGY METHOD 02/18/2025 8:07 AM EDT [facility] MCHC 32.8 32.0 - 37.0 g/dL LAB HEMETOLOGY METHOD 02/18/2025 8:07 AM EDT [facility] RDW 14.3 11.0 - 15.0 % LAB HEMETOLOGY METHOD 02/18/2025 8:07 AM EDT [facility] Platelets 115(L) 130 - 400 K/mcL LAB HEMETOLOGY METHOD 02/18/2025 8:07 AM EDT [facility] MPV 11.8(H) 7.0 - 11.0 FL LAB HEMETOLOGY METHOD 02/18/2025 8:07 AM EDT [facility] NRBC 0.0 <1.0 % LAB HEMETOLOGY METHOD 02/18/2025 8:07 AM EDT [facility] NRBC Absolute 0.00 <0.10 K/mcL LAB HEMETOLOGY METHOD 02/18/2025 8:07 AM EDT [facility] Blood Venous blood specimen / Unknown Venipuncture / Unknown 02/18/2025 6:57 AM EDT 02/18/2025 7:16 AM EDT us Emanuel Moran MD LAB BLOOD ORDERABLES F inal Result [facility] [address] [place] [address], * Phosphorus (02/18/2025 6:57 AM EDT) Only the most recent of3 resultswithin the time period is included. Phosphorus 4.2 2.5 - 4.5 mg/dL LAB CHEMISTRY METHOD 02/18/2025 7:58 AM EDT [facility] Blood Venous blood specimen / Unknown Venipuncture / Unknown 02/18/2025 6:57 AM EDT 02/18/2025 7:16 AM EDT us Emanuel Moran MD LAB BLOOD ORDERABLES F inal Result Performing Organization Address [facility]/ZIP Co de Phone Number [facility] [address] [place] [address], [place] [phone] * (ABNORMAL) Magnesium (02/18/2025 6:57 AM EDT) Only the most recent of3 resultswithin the time period is included. [facility] Magnesium 1.3(L) 1.9 - 2.6 mg/dL LAB CHEMISTRY METHOD 02/18/2025 7:58 AM EDT [facility] Blood Venous blood specimen / Unknown Venipuncture / Unknown 02/18/2025 6:57 AM EDT 02/18/2025 7:16 AM EDT us Emanuel Moran MD LAB BLOOD ORDERABLES F inal Result Performing Organization Address [facility]/ZIP Co de Phone Number [facility] [address] [place] [address], [place] [phone] * (ABNORMAL) Basic metabolic panel (02/18/2025 6:57 AM EDT) Only the most recent of2 resultswithin the time period is included. [facility] Sodium 140 133 - 145 mmol/L LAB CHEMISTRY METHOD 02/18/2025 7:58 AM EDT [facility] Potassium 3.7 3.5 - 5.5 mmol/L LAB CHEMISTRY METHOD 02/18/2025 7:58 AM EDT [facility] Chloride 109 96 - 110 mmol/L LAB CHEMISTRY METHOD 02/18/2025 7:58 AM EDT [facility] CO2 22 21 - 32 mmol/L LAB CHEMISTRY METHOD 02/18/2025 7:58 AM EDT [facility] Anion Gap 9 3 - 11 LAB CHEMISTRY METHOD 02/18/2025 7:58 AM EDT [facility] Glucose 97 70 - 100 mg/dL LAB CHEMISTRY METHOD 02/18/2025 7:58 AM T [facility] BUN 74(H) 5 - 25 mg/dL LAB CHEMISTRY METHOD 02/18/2025 7:58 AM EDT [facility] Creatinine 6.86(H) 0.70 - 1.30 mg/dL LAB CHEMISTRY METHOD 02/18/2025 7:58 AM [facility] eGFR 9(L) >=60 mL/min/1. 73m2 LAB CHEMISTRY METHOD 02/18/2025 7:58 AM [facility] Comment:Calculation based on the Chronic Kidney Disease Epidemiology Collaboration (CKD-EPI) equation refit without adjustment for race. BUN/Creatinine Ratio 10.8 LAB CHEMISTRY METHOD 02/18/2025 7:58 AM T [facility] Calcium 8.8 8.5 - 10.5 mg/dL LAB CHEMISTRY METHOD 02/18/2025 7:58 AM [facility] Blood Venous blood specimen / Unknown Venipuncture / Unknown 02/18/2025 6:57 AM EDT 02/18/2025 7:16 AM EDT Emanuel Moran MD LAB BLOOD ORDERABLES F inal Result [facility] [address] [place] [address], * (ABNORMAL) Afshan hodge virus IgG, IgM, nuclear and early antibodies (02/17/2025 7:04 AM EDT) EBV VCA IgG Positive(A) Negative LAB CHEMISTRY METHOD 02/18/2025 8:55 AM EDT [facility] EBV VCA IgM Negative Negative LAB CHEMISTRY METHOD 02/18/2025 8:55 AM EDT [facility] EBV Nuclear Ag Ab Positive(A) Negative LAB CHEMISTRY METHOD 02/18/2025 8:55 AM EDT [facility] EBV Early Ag Ab Negative Negative LAB CHEMISTRY METHOD 02/18/2025 8:55 AM EDT [facility] Blood Venous blood specimen / Unknown Venipuncture / Unknown 02/17/2025 7:04 AM EDT 02/17/2025 7:08 AM EDT Narrative [facility] - 02/18/2025 8:55 AM EDT 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 us Jung Dinero MD LAB BLOOD ORDERABLES Final Resul t [facility] [address] [place] [address], * Cytomegalovirus molecular study quantitative (02/17/2025 7:03 AM EDT) Cytomegalovirus (CMV) DNA Qualitative Not detected Not detected 02/19/2025 11:45 AM EDT [facility] Cytomegalovirus (CMV) DNA Quantitative <30 <30 IU/mL 02/19/2025 11:45 AM EDT [facility] Log Cytomegalovirus <1.48 <1.48 Log (10) IU/mL 02/19/2025 11:45 AM EDT [facility] CMV DNA (cp/mL) <76 <76 Copies/mL 02/19/2025 11:45 AM EDT [facility] Comment: This test uses a polymerase chain reaction (PCR) assay from [employer] to amplify and detected conserved regions [...] not rule out infection. Test performed at [facility], [address] , [place] [address] Gema Peralta MD, PhD - Manager Distribution Blood Venous blood specimen / Unknown Venipuncture / Unknown 02/17/2025 7:03 AM EDT 02/17/2025 7:08 AM EDT us Jung Dinero MD LAB MICROBIOLOGY - GENERAL ORDER JODEE Final Result [facility] [address] [place] [address] * (ABNORMAL) Comprehensive metabolic panel (02/17/2025 6:14 AM EDT) Only the most recent of3 resultswithin the time period is included. Sodium 137 133 - 145 mmol/L LAB CHEMISTRY METHOD 02/17/2025 6:55 AM [facility] Potassium 3.8 3.5 - 5.5 mmol/L LAB CHEMISTRY METHOD 02/17/2025 6:55 AM [facility] Chloride 108 96 - 110 [...] 6:55 AM [facility] Total Bilirubin 0.3 0.0 - 1.4 mg/dL LAB CHEMISTRY METHOD 02/17/2025 6:55 AM [facility] Blood Venous blood specimen / Unknown Venipuncture / Unknown 02/17/2025 6:14 AM EDT 02/17/2025 6:19 AM EDT us Jung Dinero MD LAB BLOOD ORDERABLES Final Resul t [facility] [address] [place] [address], * (ABNORMAL) Tacrolimus level (02/16/2025 7:28 AM EDT) Tacrolimus Level 2.9(L) 5.0 - 20.0 ng/mL 02/19/2025 12:16 PM EDT [facility] Comment: Additional Information: Toxic Level > [...] developed and the performance characteristics determined by [facility]. This confirmation testing has not been cleared or approved by the FDA. The laboratory is regulated under CLIA as qualified to perform high-complexity testing. This test is used for patient testing purposes. It should not be regarded as investigational or for research. Test performed at [facility], [address] , [place] [address] Gema Peralta MD, PhD - Manager Distribution Blood Venous blood specimen / Unknown Venipuncture / Unknown 02/16/2025 7:28 AM EDT 02/16/2025 7:32 AM EDT Jung Dinero MD LAB BLOOD ORDERABLES Final Resul t [facility] [address] [place] [address] * (ABNORMAL) AST, ALT, Bilirubin ELR state reportables (02/15/2025 6:38 AM EDT) ALT (SGPT) 9(L) 10 - 60 unit/L LAB CHEMISTRY METHOD 02/15/2025 7:35 PM EDT [facility] AST (SGOT) 14 10 - 42 unit/L LAB CHEMISTRY METHOD 02/15/2025 7:35 PM EDT [facility] Total Bilirubin 0.3 0.0 - 1.4 mg/dL LAB CHEMISTRY METHOD 02/15/2025 7:35 PM EDT [facility] Blood Venous blood specimen / Unknown Venipuncture / Unknown 02/15/2025 6:38 AM EDT 02/15/2025 6:46 AM EDT Curtis Manning MD LAB BLOOD ORDERABLES Final Re sult Performing Organization Address [facility]/ZIP Co de Phone Number [facility] [address] [place] [address], [place] [phone] * Pathology review, blood smear (02/15/2025 6:38 [...] the patient's infection. 02/17/2025 8:36 AM EDT [facility] Blood Venous blood specimen / Unknown Venipuncture / Unknown 02/15/2025 6:38 AM EDT 02/15/2025 6:46 AM EDT Jason MODI LAB BLOOD ORDERABLES Final Res ult Performing Organization Address [facility]/ZIP Co de Phone Number [facility] [address] [place] [address], [place] [phone] * (ABNORMAL) Hepatitis B screening panel (02/15/2025 6:38 AM EDT) [facility] Hepatitis B Surface Ag Negative Negative LAB CHEMISTRY METHOD 02/15/2025 6:23 PM EDT [facility] Hep B Core Total Ab Positive(A) Negative LAB CHEMISTRY METHOD 02/15/2025 6:23 PM EDT [facility] Hepatitis B Surface Ab Negative Negative LAB CHEMISTRY METHOD 02/15/2025 6:23 PM EDT [facility] Blood Venous blood specimen / Unknown Venipuncture / Unknown 02/15/2025 6:38 AM EDT 02/15/2025 6:46 AM EDT us Curtis Manning MD LAB BLOOD ORDERABLES Final Re sult Performing Organization Address [facility] de Phone Number [facility] [address] [place] [address], [place] [phone] * Hepatitis B core antibody IgM (02/15/2025 6:38 AM EDT) [facility] Hep B Core IgM Negative Negative LAB CHEMISTRY METHOD 02/15/2025 7:33 PM EDT [facility] Blood Venous blood specimen / Unknown Venipuncture / Unknown 02/15/2025 6:38 AM EDT 02/15/2025 6:46 AM EDT Narrative [facility] - 02/15/2025 7:33 PM EDT Over the counter supplements containing high doses of biotin may interfere with this assay. If interference is suspected, patients shoud be retested after refraining from biotin supplements for 72 hours. us Curtis Manning MD LAB BLOOD ORDERABLES Final Re sult Performing Organization Address City/[facility]/ZIP Co de Phone Number [facility] [address] [place] [address], [place] [phone] * (ABNORMAL) Parathyroid hormone intact (02/15/2025 6:38 AM EDT) PTH 658.3(H) 18.5 - 88.0 pcg/mL LAB CHEMISTRY METHOD 02/15/2025 5:44 PM EDT [facility] Blood Venous blood specimen / Unknown Venipuncture / Unknown 02/15/2025 6:38 AM EDT 02/15/2025 6:46 AM EDT us Curtis Manning MD LAB BLOOD ORDERABLES Final Re sult [facility] [address] [place] [address], * (ABNORMAL) Drug abuse screen 8a panel, urine (02/15/2025 5:30 AM EDT) [facility] Amphetamine Screen, Ur Negative Negative LAB CHEMISTRY METHOD 5 6:09 AM [facility] Comment:Certain OTC medicati ons containing ephedrine, phenylephrine, pseudoephedrine and phenylpropanolamine can cause false positive results. Barbiturate Screen, Ur Negative Negative LAB CHEMISTRY METHOD 5 6:09 AM [facility] Benzodiazepine Screen, Ur Negative Negative [...] Fentanyl, Ur Negative Negative LAB CHEMISTRY METHOD 6:09 AM EDT [facility] Urine Urine specimen obtained by clean catch procedure / Unknown Non-blood Collection / Unknown 02/15/2025 5:30 AM EDT 02/15/2025 5:37 AM EDT Narrative [facility] - 02/15/2025 6:09 AM EDT Assay [...] MODI LAB URINE ORDERABLES Final Res ult [facility] [address] [place] [address], [place] [phone] * MRSA molecular study (02/15/2025 5:30 AM EDT) [facility] MRSA Screen PCR Not Detected Not Detected LAB MICROBIOLOGY METHOD 02/15/2025 8:45 AM EDT [facility] [facility] Swab Nasopharyngeal structure / Unknown Non-blood Collection / Unknown 02/15/2025 5:30 AM EDT 02/15/2025 5:35 AM EDT us Jason MODI LAB MICROBIOLOGY - GENERAL ORD ERABLES Final Result [facility] [address] [place] [address], [place] [phone] * XR Foot 3+ Views Left (02/15/2025 1:25 AM EDT) Anatomical Region Laterality Modality Lower Extremities, Foot Left Radiogra phic Imaging 02/15/2025 9:0 1 AM EDT Impressions 02/15/2025 9:04 AM EDT No specific radiographic evidence of osteomyelitis. More sensitive assessment could be performed with MRI. -------- FINAL REPORT -------- Dictated By: Yassine Aggarwal Dictated Date: 02/15/2025 09:01 ET Assigned Physician: Yassine Aggarwal Reviewed and Electronically Signed By: Yassine Aggarwal Signed Date: 02/15/2025 09:04 ET Workstation ID: [id number] Transcribed By: Self Edit Transcribed Date: 02/15/2025 [...] Signed Date: 02/15/2025 09:04 ET Workstation ID: [id number] Transcribed By: Self Edit Transcribed Date: 02/15/2025 09:01 ET Saad Pimentel MD IMG XR PROCEDURES Final Resu lt * Blood Culture, Peripheral #1 (02/15/2025 1:15 AM EDT) Only the most recent of2 resultswithin the time period is included. Culture, Blood No growth at 5 days 02/20/2025 5:01 AM EDT [facility] Blood Venous blood specimen / Unknown Venipuncture / Unknown 02/15/2025 1:15 AM EDT 02/15/2025 1:31 AM EDT Saad Pimentel MD LAB MICROBIOLOGY - GENERAL O RDERABLES Final Result Performing Organization Address [facility] Co de Phone Number [facility] [address] [place] [address], [place] [phone] * Lactate, with reflex (02/15/2025 12:54 AM EDT) Pathologist [facility] LACTIC ACID 1.2 0.4 - 2.0 mmol/L LAB CHEMISTRY METHOD 02/15/2025 1:46 AM EDT [facility] Blood Venous blood specimen / Unknown Venipuncture / Unknown 02/15/2025 12:54 AM EDT 02/15/2025 12:57 AM EDT Saad Pimentel MD LAB BLOOD ORDERABLES Final R esult Performing Organization Address [facility] de Phone Number [facility] [address] [place] [address], [place] [phone] * (ABNORMAL) C-reactive protein (02/15/2025 12:52 AM EDT) C-Reactive Protein 16.40(H) <=0.50 mg/dL LAB CHEMISTRY METHOD 02/15/2025 5:02 AM EDT [facility] Blood Venous blood specimen / Unknown Venipuncture / Unknown 02/15/2025 12:52 AM EDT 02/15/2025 12:58 AM EDT Jason MODI LAB BLOOD ORDERABLES Final Res ult Performing Organization Address [facility] Co de Phone Number [facility] [address] [place] [address], [place] [phone] * APTT (02/15/2025 12:51 AM EDT) aPTT 30.5 24.1 - 39.3 sec LAB COAGULATION METHOD 02/15/2025 1:11 AM EDT [facility] Blood Venous blood specimen / Unknown Venipuncture / Unknown 02/15/2025 12:51 AM EDT 02/15/2025 12:58 AM EDT Saad Pimentel MD LAB BLOOD ORDERABLES Final R esult Performing Organization Address [facility]/State/ZIP Co de Phone Number [facility] [address] [place] [address], [place] [phone] * (ABNORMAL) Protime-INR (02/15/2025 12:51 AM EDT) [facility] Protime 14.3(H) 10.6 - 13.9 sec LAB COAGULATION METHOD 02/15/2025 1:11 AM EDT [facility] INR 1.1 LAB COAGULATION METHOD 02/15/2025 1:11 AM EDT [facility] Blood Venous blood specimen / Unknown Venipuncture / Unknown 02/15/2025 12:51 AM EDT 02/15/2025 12:58 AM EDT Saad Pimentel MD LAB BLOOD ORDERABLES Final R esult [facility] [address] [place] [address], [place] [phone] from Last 3 Months Insurance MEDICAID - [place] Advance Directives * Full Code - Default (Latest Code Status on File) Date Activated Date Inactivated Comments 02/15/2025 5:37 AM 02/18/2025 8:16 PM This is order is used when code status has not been discussed with the patient, or code status is otherwise unknown/unconfirmed To update the patient's code status, place a code status order. Do not modify or discontinue any currently active code status orders. Care Teams [employer] Wiring Technician Relationship Specialty Start Date End Date Name, MD Horacio [address] [place] [id number] PCP - General Internal Medicine 02/15/25
--- OUTSIDE RECORDS SUMMARY | 2025-02-20 09:43 | XMS_ITS | Clinical Summary ---
Author Organization [facility], Address [address] [place] [address] Phone Care Team Providers Care Sailing Instructor Name Role Phone Name, Horacio ARORA Primary Care Provider Unavailabl e Allergies Active Allergy Reactions Criticality Noted Date [...] by mouth 4 Active ergocalciferol 1.25 MG (17599 UT) capsule TAKE 1 CAPSULE BY MOUTH [...] capsule, 0 Refills, Maintenance, 06/22/23 10:24:00 EST, [facility], Partial fill upon patient request [...] 02/04/1996 Influenza Vaccine (#1) 2025 [place] Care Teams Sailing Instructor Relationship Specialty Start Date End Date Name, MD Horacio [address] [place] [id number] PCP - General Internal Medicine 02/17/25
[2025-02-20 13:22] LABS: Hematocrit 27.3 % (42.0-52.0); Hemoglobin 8.7 g/dl (14.0-18.0); Mean Corpuscular HGB Conc 31.9 g/dl (31.0-36.0); Mean Corpuscular Hemoglobin 28.2 pg (27.0-33.0); Mean Corpuscular Volume 88.3 fL (80.0-98.0); NRBC Abs Auto 0.020 X10*3/uL (0.0-0.012); NRBC Pct Auto 0.9 /100WBC (0.0-0.2); Platelet Count 153 X10*3/uL (160-400); Red Blood Count 3.09 X10*6/uL (4.60-5.80)
[2025-02-20 13:25] LABS: WBC ABN SCTR FOR CBC 1
[2025-02-20 13:41] LABS: Anion Gap 17 (12-20); Blood Urea Nitrogen 74 mg/dL (9-16); Calcium 9.3 mg/dL (8.4-10.2); Carbon Dioxide 20 mmol/L (22-29); Chloride 106 mmol/L (96-108); Estimated Glomerular Filt Rate 7; Potassium 3.8 mmol/L (3.3-5.1); Sodium 139 mmol/L (135-145)
[2025-02-20 15:14] LABS: Atypical Lymphs Percent Manual 2 % (0-6); Band Neutrophils Percent 1 % (3-5); Basophils Percent Manual 8 % (0-2); Eosinophils Percent Manual 4 % (0-4); Lymphocytes Percent Manual 53 % (20-40); Metamyelocytes Percent 3 %; Monocytes Percent Manual 19 % (2-11); Neutrophils Percent Manual 10 % (45-73)
[2025-02-20 15:15] LABS: Large Platelet PRESENT; Microcytosis 1+ (5-14) /OIF; RBC Morphology NOTED
[2025-02-20 15:18] LABS: Acanthocytes 1+ (0-2) /OIF
[2025-02-20 15:19] LABS: Basophilic Stippling 1+ (0-2) /OIF; Dohle Bodies PRESENT; Ovalocytes 1+ (5-14) /OIF; Polychromasia 1+ (0-2) /OIF
[2025-02-20 15:20] LABS: Basophils Abs Manual 0.2 X10*3/uL (0.0-0.2); Eosinophils Absolute Manual 0.1 X10*3/uL (0.0-0.4); Lymphocytes Absolute Manual 1.2 X10*3/uL (1.2-4.9); Metamyelocytes Absolute 0.1 X10*3/uL; Monocytes Absolute Manual 0.4 X10*3/uL (0.1-1.2); Neutrophils Absolute Manual 0.3 X10*3/uL (2.0-8.3); White Blood Count 2.3 X10*3/uL (4.8-10.8)
== END 2025-02-20 08:40 | disposition home or self-care (01) ==
LOC: HO.HKASLDS 08:39
PROVIDERS: Visit Provider Internal Medicine Nephrology
DX: I12.0 Hypertensive chronic kidney disease with stage 5 chronic kidney disease or end stage renal disease (principal); N18.5 Chronic kidney disease, stage 5; D63.1 Anemia in chronic kidney disease; N25.81 Secondary hyperparathyroidism of renal origin; E87.5 Hyperkalemia; Z94.0 Kidney transplant status
CPT/HCPCS: 36415; 80051; 82310; 82565; 84100; 84520; 85007; 85027; 99212

== ENCOUNTER 2025-02-20 13:47 | Outpatient (AMB) | payer MEDICAID, SELFPAY ==
--- NOTE | 2025-02-20 14:01 | HO.NEPHOV_ITS ---
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 He is CMV positive, EBV positive with a PRA of 0. Donor ID is [id number] MAOB, KDPI 60% with hep C antibody positive, donor serology with CMV positive, EBV positive, toxoplasmosis positive. Patient underwent donor kidney transplant 06/19/2023. Angiogram did not find any renal artery stenosis so no intervention was performed. Went to OR 09/08 for LUE AV fistula ligation and resection. He has failed graft and is close to initiation of HD. He maintains good hydration. He recently had a hospitalization for infected toe nail. His serum creatinine is currently stable. He denies uremic symptoms, He wants to wait until AVF is made and matured before initiation of HD. [facility] Medical History Secondary hyperparathyroidism ESRD (end stage renal disease) on dialysis A-V fistula HIV (human immunodeficiency virus infection) Hypertension Kidney disease Surgical History Hx of cardiac catheterization Social History Are you a primary managed care provider to a significant other at home: No Do you presently have visiting nurse or other home services: Yes ([employer] SAL[employer] DIRECT[employer] 3 hours daily) Alcohol intake: never Patient Tobacco Use Status: Former Tobacco user Tobacco use type: Cigarette Substance Use Type: Former Substance User Review of Systems Const All systems reviewed & are unremarkable except as noted in HPI and below Physical Exam Vital Signs: Last Vital Signs Pulse 88 02/20/25 14:03 BP 146/80 H 02/20/25 14:03 Pulse Ox 100 02/20/25 14:03 Oxygen Delivery Method Room Air 02/20/25 14:03 BMI result Body Mass Index 24.7 Const General: comfortable and no acute distress Orientation/consciousness: patient oriented x3 HEENT Head: Yes normocephalic Mouth: Normal oral and palatal mucosa present Eyes EOM: EOMs intact bilaterally Neck Neck: Yes supple Resp Auscultation: clear to auscultation bilaterally Cardio Jugular venous distension: no JVD Rate: regular rate GI Palpation (GI): Soft to palpation Auscultation: normal bowel sounds General: Yes no CVA tenderness Back/Spine/Pelvis Back: no CVA tenderness Skin General skin exam: no rashes or lesions noted Neuro General: patient oriented x3 and moves all extremities Extrem General: Yes no pedal edema Results Reviewed Nephrology Results: Hgb, (14.0-18.0) 8.7 g/dl L Today WBC, (4.8-10.8) 1.3 X10*3/uL L 01/07/25 Plt Count, (160-400) 153 X10*3/uL L Today Sodium, (135-145) 139 mmol/L Today Potassium, (3.3-5.1) 3.8 mmol/L Today Chloride, (96-108) 106 mmol/L Today Carbon Dioxide, (22-29) 20 mmol/L L Today BUN, (9-16) 74 mg/dL H Today Creatinine, (0.5-1.4) 7.89 mg/dL H* Today Calcium, (8.4-10.2) 9.3 mg/dL Δ Today Phosphorus, (2.7-4.5) 3.7 mg/dL Today PTH Intact, (8.7-77.1) 639.2 pg/mL H 12/19/24 Urine Protein, (Neg-Trace) 100 (2+) mg/dL H 12/06/24 Renal US 12/01/23 Assessment & Plan Assessment & Plan (1) Hypertension: Code(s): I10 - Essential (primary) hypertension Category: Medical Qualifiers: Hypertension type: secondary to other renal disorders Qualified Code(s): I15.1 - Hypertension secondary to other renal disorders (2) Secondary hyperparathyroidism (of renal origin): Code(s): N25.81 - Secondary hyperparathyroidism of renal origin Category: Medical (3) Renal transplant recipient: Code(s): Z94.0 - Kidney transplant status Category: Surgical (4) CKD (chronic kidney disease) stage 5, GFR less than 15 ml/min: Code(s): N18.5 - Chronic kidney disease, stage 5 Category: Medical (5) Hyperkalemia: Code(s): E87.5 - Hyperkalemia Category: Medical (6) Metabolic acidosis: Code(s): E87.20 - Acidosis, unspecified Category: Medical (7) Anemia in chronic renal disease: Code(s): N18.9 - Chronic kidney disease, unspecified; D63.1 - Anemia in chronic kidney disease Category: Medical Qualifiers: Chronic kidney disease stage: stage 5 (GFR < 15), not on chronic dialysis Qualified Code(s): N18.5 - Chronic kidney disease, stage 5; D63.1 - Anemia in chronic kidney disease Plan Graft function worse but stable Currently taking prograf; Off MMF Blood pressure on target at home C/W current dose of NaHCO3 No indication for renal replacement today Referred for AVF and transplant eval Follow up 2 weeks Orders: Orders IRON PROFILE 2 Weeks D63.1 - Anemia in chronic kidney disease, E87.20 - Acidosis, unspecified, E87.5 - Hyperkalemia, I15.1 - Hypertension secondary to other renal disorders, N18.5 - Chronic kidney disease, stage 5, N18.9 - Chronic kidney disease, unspecified, N25.81 - Secondary hyperparathyroidism of renal origin, Z94.0 - Kidney transplant status Blood Urea Nitrogen 2 Weeks D63.1 - Anemia in chronic kidney disease, E87.20 - Acidosis, unspecified, E87.5 - Hyperkalemia, I15.1 - Hypertension secondary to other renal disorders, N18.5 - Chronic kidney disease, stage 5, N18.9 - Chronic kidney disease, unspecified, N25.81 - Secondary hyperparathyroidism of renal origin, Z94.0 - Kidney transplant status Parathyroid Hormone Intact 2 Weeks D63.1 - Anemia in chronic kidney disease, E87.20 - Acidosis, unspecified, E87.5 - Hyperkalemia, I15.1 - Hypertension secondary to other renal disorders, N18.5 - Chronic kidney disease, stage 5, N18.9 - Chronic kidney disease, unspecified, N25.81 - Secondary hyperparathyroidism of renal origin, Z94.0 - Kidney transplant status Creatinine 2 Weeks D63.1 - Anemia in chronic kidney disease, E87.20 - Acidosis, unspecified, E87.5 - Hyperkalemia, I15.1 - Hypertension secondary to other renal disorders, N18.5 - Chronic kidney disease, stage 5, N18.9 - Chronic kidney disease, unspecified, N25.81 - Secondary hyperparathyroidism of renal origin, Z94.0 - Kidney transplant status Electrolytes 2 Weeks D63.1 - Anemia in chronic kidney disease, E87.20 - Acidosis, unspecified, E87.5 - Hyperkalemia, I15.1 - Hypertension secondary to other renal disorders, N18.5 - Chronic kidney disease, stage 5, N18.9 - Chronic kidney disease, unspecified, N25.81 - Secondary hyperparathyroidism of renal origin, Z94.0 - Kidney transplant status Calcium 2 Weeks D63.1 - Anemia in chronic kidney disease, E87.20 - Acidosis, unspecified, E87.5 - Hyperkalemia, I15.1 - Hypertension secondary to other renal disorders, N18.5 - Chronic kidney disease, stage 5, N18.9 - Chronic kidney disease, unspecified, N25.81 - Secondary hyperparathyroidism of renal origin, Z94.0 - Kidney transplant status Phosphorus 2 Weeks D63.1 - Anemia in chronic kidney disease, E87.20 - Acidosis, unspecified, E87.5 - Hyperkalemia, I15.1 - Hypertension secondary to other renal disorders, N18.5 - Chronic kidney disease, stage 5, N18.9 - Chronic kidney disease, unspecified, N25.81 - Secondary hyperparathyroidism of renal origin, Z94.0 - Kidney transplant status Coding Level of Care Code Est Pt Level 4 (70322) Diagnoses Hypertension secondary to other renal disorders I15.1 Hypertension type: secondary to other renal disorders Secondary hyperparathyroidism (of renal origin) N25.81 Renal transplant recipient Z94.0 CKD (chronic kidney disease) stage 5, GFR less than 15 ml/min N18.5 Hyperkalemia E87.5 Metabolic acidosis E87.20 Anemia in stage 5 chronic kidney disease, not on chronic dialysis N18.5; D63.1 Chronic kidney disease stage: stage 5 (GFR < 15), not on chronic dialysis
[2025-02-20 14:03] VITALS: BP 146/80; PULSE 88; O2SAT 100; BMI 24.7
== END 2025-02-20 14:26 | disposition home or self-care (01) ==
LOC: HO.HKAS 13:48
PROVIDERS: PCP Internal Medicine Geriatric Medicine; Visit Provider Internal Medicine Nephrology
DX: I15.1 Hypertension secondary to other renal disorders (principal); N25.81 Secondary hyperparathyroidism of renal origin; Z94.0 Kidney transplant status; N18.5 Chronic kidney disease, stage 5; E87.5 Hyperkalemia; E87.20 Acidosis, unspecified; D63.1 Anemia in chronic kidney disease
CPT/HCPCS: 99214

== ENCOUNTER 2025-03-11 09:18 | Outpatient (REF) | payer MEDICAID, SELFPAY ==
--- OUTSIDE RECORDS SUMMARY | 2025-03-11 10:08 | XMS_ITS | Clinical Summary ---
Author Organization [facility], Address [address] [place] [address] Phone Care Team Providers Care Rn Ambulatory Name Role Phone Name, Horacio ARORA Primary [...] by mouth 4 Active ergocalciferol 1.25 MG (35138 UT) capsule TAKE 1 CAPSULE BY MOUTH [...] capsule, 0 Refills, Maintenance, 06/22/23 10:24:00 EST, [facility], Partial fill upon patient request [...] 09/22/2023 10:49 AM EDT Plan of Treatment Upcoming Encounters Date Type Department Care Team (Late st Contact Info) Description 03/14/2025 1:00 PM EDT Scheduled Only [facility] [address] [place] [address] Corwin Rodriguez MD [address] [place] [address] Health Maintenance Due Date Last Done Comments Hepatitis B Vaccine (1 of 3 - 19+ 3-dose series) 02/03 Pneumococcal Vaccine: Peds ( 0 to 5 Years) and At-Risk Patients (6 to 49 Years) (1 of 2 - PCV) 02/04/1996 Influenza Vaccine (#1) 2025 [place] Care Teams Rn Ambulatory Relationship Specialty Start Date End Date Name, MD Horacio [address] [place] [address] PCP - General Internal Medicine 02/17/25
--- OUTSIDE RECORDS SUMMARY | 2025-03-11 10:08 | XMS_ITS | Clinical Summary ---
Author Organization [address] [facility] Address [address] [place] [address] Phone Care Team Providers Care Typesetting Machine Tender Name Role Phone Name, Horacio ARORA Primary Care Provider [phone] Allergies Active Allergy Reactions Criticality Noted Date [...] by mouth every 3rd (third) day. 02/19/20 Active senna (SENOKOT) 8.6 mg tablet Take 2 tablets (17.2 mg total) by mouth at bedtime as needed for constipation . Hold for diarrhea 60 tablet 02/19/20 Active sodium bicarbonate 650 mg tablet Take [...] 24 025 Discontinued(St op Taking at Discharge) magnesium oxide (MAG-OX) 400 mg (241.3 elemental magnesium) tablet Take 1 tablet (400 mg total) by mouth 1 (one) time each day for 7 doses. 7 each 02/20/20 25 025 Active Problems Problem Noted Date Diagnosed Date EZEQUIEL (acute kidney injury) ([facility] V24) 02/19/20 Hypomagnesemia 02/18/2025 Severe neutropenia ([facility] V24) 02/18/2025 Cellulitis 02/15/2025 CKD (chronic kidney disease) stage 5, GFR less than 15 ml/min ([facility] V24, [facility] V28) 12/31/2024 Encounters Date Type Department Care Team Description 03/04/2025 2:45 PM EDT Office Visit [facility] Hematology Oncology [address] [place] [phone] Lonnie Lovett MD Severe neutropenia ([facility] V24) (Primary Dx); Cellulitis of toe, unspecified laterality 02/15/2025 9:28 AM EDT - 02/15/2025 10:58 AM EDT Surgery [facility] Main OR [address] [place] [phone] Lance Elena DPM INCISION DRAINAGE BILATERAL HALLUX 02/15/2025 9:03 AM EDT Anesthesia Event [facility] Main OR [address] [place] [phone] Andres Bonilla MD Claudio, Raymund, CRNA 02/14/2025 11:58 PM EDT - 02/18/2025 6:16 PM EDT Hospital Encounter [facility] Urology Unit [address] [place] [phone] Saad Pimentel MD Kokkinos, Erika, MD Ishtiaq, Rizwan, MD Alam, Aroosa, MD Rasul, Yar M, MD Zipagan, James T, MD Santoyo-Pacheco , Emanuel Eason MD Leukopenia, unspecified type (Primary Dx); Anemia, unspecified type; Chronic kidney disease, unspecified CKD stage; Cellulitis of great toe of left foot; Hypomagnesemia; Sepsis without acute organ dysfunction, due to unspecified organism ([facility] V24, [facility] V28); [place] [place] Cellulitis of lower extremity, unspecified laterality; CKD (chronic kidney disease) stage 5, GFR less than 15 ml/min ([facility] V24, [facility] V28); Severe neutrop[place] [place] EZEQUIEL (acute kidney injury) ([facility] [place] Discharge Disposition: Home-Health Care [facility] 01/08/2025 Telephone General [address] [phone] Corwin Rodriguez MD 12/31/2024 1:30 PM EDT Consult [facility] [address] [phone] Corwin Rodriguez MD Chronic kidney disease, stage 5 ([facility] V24, [facility] V28) from Last 3 Months Surgical History Surgery Date Site/Laterality Comments TRANSPLANT, KIDNEY, ROBOT-ASSISTED Medical History Medical History Date Comments Chronic kidney disease Secondary hyperparathyroidism ([facility] V24) ESRD (end stage renal disease) ([facility] V24, [facility] V28) HIV (human immunodeficiency virus infection) ( [facility] V24, [facility] V28) Hypertension Social History Tobacco [...] Safety Answer Date Record ed Physical Abuse Unrecognized value 02/15/2025 Verbal Abuse Unrecognized value 02/15/2025 Sex and Gender Information Value Date Recorded Sex Assigned at Male 12/31/2024 2:47 PM EDT Legal Sex Male 3:56 PM EDT Gender Identity Not on file Sexual Orientation Not on file Obstetrics History Last Filed Vital Signs Vital Sign Reading Time Taken Comments Blood Pressure 129/80 03/04/2025 2:49 PM EDT Pulse 72 03/04/2025 2:49 PM EDT Temperature 36.7 C (98.1 F) 03/04/2025 2:49 PM EDT Respiratory Rate 15 02/18/2025 2:27 PM EDT Oxygen Saturation 100% 03/04/2025 2:49 PM EDT Inhaled Oxygen Concentration - - Weight 73.5 kg (162 lb) 03/04/2025 2:49 PM EDT Height 172.7 cm (5' 8 ) 03/04/2025 2:49 PM EDT Body Mass Index 24.63 03/04/2025 2:49 PM EDT Plan of Treatment Scheduled Procedures Name Priority Associated Diagnoses Date/Ti me CREATION FISTULA AV UPPER EXTREMITY CKD (chronic kidney disease) stage 5, GFR less than 15 ml/min ([facility] V24, [facility] V28) Health Maintenance Due Date Last Done Comments Colorectal Cancer Screening: Colonoscopy 1977 Meningococcal ACWY Vaccine ( 1 - Risk 2-dose series) 1979 MMR Vaccines (1 of 2 - Risk 2-dose series) 1995 DTaP,Tdap,and Td Vaccines (1 - Tdap) 02/04/1996 Hepatitis A Vaccines (1 of 2 - Risk 2-dose series) 02/04/1996 Hepatitis B Vaccines (1 of 3 - 19+ 3-dose series) 02/04/1996 Pneumococcal Vaccine: Pediatrics (0 to 5 Years) and At-Risk Patients (6 to 49 Years) (1 of 2 - PCV) 02/04/1996 COVID-19 Vaccine (#1) 06/18/2021 05/21/2021 , 09/02/2020, 07/22/2020 Depression Screening 06/12/2024 Cholesterol Screening (Lipid Panel) 12/25/2024 Hepatitis C Screening 12/25/2024 Influenza Vaccine (#1) 2025 Social Influencers of Health Screening 02/17/2026 02/17/2025 RSV Immunization Adult Patients (1 - 1-dose 75+ series) 02/04/2052 HIB Vaccines Aged Out No longer eligi [...] Procedure Name Priority Date/Time Associated Diagnosis Comments CBC WITH AUTO DIFFERENTIAL Routine 03/03/2025 10:43 AM EDT Severe neutropenia ([facility] V24) MAGNESIUM Routine 03/03/2025 10:43 AM EDT Hypomagnesemia CBC AND DIFFERENTIAL Routine 03/03/2025 10:43 AM EDT Severe neutropenia ([facility] V24) BASIC METABOLIC PANEL Routine 03/03/2025 10:43 AM EDT Hypomagnesemia EZEQUIEL (acute kidney injury) ([facility] V24) LYMPHOCYTE T-CELL PANEL Routine 02/19/20 1:24 PM EDT HIV 1 MOLECULAR STUDY QUANTITATIVE Routine 02/18/2025 [...] PCR QUANTITATIVE Routine 02/17/2025 7:03 AM EDT PARVOVIRUS B19 ANTIBODIES, IGM Routine 02/17/2025 6:15 AM EDT MANUAL DIFFERENTIAL - SYSMEX WAM [...] EDT from Last 3 Months Results * (ABNORMAL) CBC auto differential (03/03/2025 10:43 AM EDT) Only the most recent of6 resultswithin the time period is included. WBC 3.6(L) 4.8 - 10.8 K/mcL LAB HEMETOLOGY METHOD 03/03/2025 2:18 PM EDT [facility] RBC 3.30(L) 4.50 - 5.50 M/mcL LAB HEMETOLOGY METHOD 03/03/2025 2:18 PM EDT [facility] Hemoglobin 9.4(L) 13.5 - 17.5 g/dL LAB HEMETOLOGY METHOD 03/03/2025 2:18 PM EDT [facility] Hematocrit 30.6(L) 42.0 - 54.0 % LAB HEMETOLOGY METHOD 03/03/2025 2:18 PM EDT [facility] MCV 91.6 79.0 - 98.0 FL LAB HEMETOLOGY METHOD 03/03/2025 2:18 PM EDT [facility] MCH 28.1 27.0 - 32.0 pcg LAB HEMETOLOGY METHOD 03/03/2025 2:18 PM EDT [facility] MCHC 30.7(L) 32.0 - 37.0 g/dL LAB HEMETOLOGY METHOD 03/03/2025 2:18 PM EDT [facility] RDW 13.8 11.0 - 15.0 % LAB HEMETOLOGY METHOD 03/03/2025 2:18 PM EDT [facility] Platelets 314 130 - 400 K/mcL LAB HEMETOLOGY METHOD 03/03/2025 2:18 PM EDT [facility] MPV 11.6(H) 7.0 - 11.0 FL LAB HEMETOLOGY METHOD 03/03/2025 2:18 PM EDT [facility] NRBC 0.0 <1.0 % LAB HEMETOLOGY METHOD 03/03/2025 2:18 PM EDT [facility] NRBC Absolute 0.00 <0.10 K/mcL LAB HEMETOLOGY METHOD 03/03/2025 2:18 PM EDT [facility] Neutrophils Relative 61.9 % LAB HEMETOLOGY METHOD 03/03/2025 2:18 PM EDT [facility] Lymphocytes Relative 20.6 % LAB HEMETOLOGY METHOD 03/03/2025 2:18 PM EDT [facility] Monocytes Relative 10.0 % [facility] Eosinophils Relative 1.4 % LAB HEMETOLOGY METHOD 03/03/2025 2:18 PM EDT [facility] Basophils Relative 4.2 % LAB HEMETOLOGY METHOD 03/03/2025 2:18 PM EDT [facility] Immature Granulocytes Relative 1.9 % LAB HEMETOLOGY METHOD 03/03/2025 2:18 PM EDT [facility] Neutrophils Absolute 2.23 1.50 - 7.00 K/mcL LAB HEMETOLOGY METHOD 03/03/2025 2:18 PM EDT [facility] Lymphocytes Absolute 0.74(L) 1.00 - 5.00 K/mcL LAB HEMETOLOGY METHOD 03/03/2025 2:18 PM EDT [facility] Monocytes Absolute 0.36 0.20 - 1.00 K/mcL LAB HEMETOLOGY METHOD 03/03/2025 2:18 PM EDT [facility] Eosinophils Absolute 0.05 0.00 - 0.50 K/mcL LAB HEMETOLOGY METHOD 03/03/2025 2:18 PM EDT [facility] Basophils Absolute 0.15 0.00 - 0.20 K/mcL LAB HEMETOLOGY METHOD 03/03/2025 2:18 PM EDT [facility] Immature Granulocytes Absolute 0.07(H) 0.00 - 0.03 K/mcL LAB HEMETOLOGY METHOD 03/03/2025 2:18 PM EDT [facility] Blood Venous blood specimen / Unknown Venipuncture / Unknown 03/03/2025 10:43 AM EDT 03/03/2025 10:43 AM EDT us Emanuel Moran MD LAB BLOOD ORDERABLES F inal Result [facility] [address] [place] [address], * (ABNORMAL) Magnesium (03/03/2025 10:43 AM EDT) Only the most recent of4 resultswithin the time period is included. Pathologist [facility] Magnesium 1.8(L) 1.9 - 2.6 mg/dL LAB CHEMISTRY METHOD 03/03/2025 3:16 PM EDT [facility] Blood Venous blood specimen / Unknown Venipuncture / Unknown 03/03/2025 10:43 AM EDT 03/03/2025 10:43 AM EDT Emanuel Moran MD LAB BLOOD ORDERABLES F inal Result [facility] [address] [place] [address], * (ABNORMAL) Basic metabolic panel (03/03/2025 10:43 AM EDT) Only the most recent of3 resultswithin the time period is included. [facility] Sodium 137 133 - 145 mmol/L LAB CHEMISTRY METHOD 03/03/2025 3:16 PM [facility] Potassium 5.2 3.5 - 5.5 mmol/L LAB CHEMISTRY METHOD 03/03/2025 3:16 PM [facility] Chloride 104 96 - 110 mmol/L LAB CHEMISTRY METHOD 03/03/2025 3:16 PM [facility] CO2 24 21 - 32 mmol/L LAB CHEMISTRY METHOD 03/03/2025 3:16 PM [facility] Anion Gap 9 3 - 11 LAB CHEMISTRY METHOD 03/03/2025 3:16 PM [facility] Glucose 89 70 - 100 mg/dL LAB CHEMISTRY METHOD 03/03/2025 3:16 PM [facility] BUN 84(H) 5 - 25 mg/dL LAB CHEMISTRY METHOD 03/03/2025 3:16 PM [facility] Creatinine 8.04(H) 0.70 - 1.30 mg/dL LAB CHEMISTRY METHOD 03/03/2025 3:16 PM EDT [facility] eGFR 8(L) >=60 mL/min/1. 73m2 LAB CHEMISTRY METHOD 03/03/2025 3:16 PM EDT [facility] Comment:Calculation based on the Chronic Kidney Disease Epidemiology Collaboration (CKD-EPI) equation refit without adjustment for race. BUN/Creatinine Ratio 10.4 LAB CHEMISTRY METHOD 03/03/2025 3:16 PM EDT [facility] Calcium 8.0(L) 8.5 - 10.5 mg/dL LAB CHEMISTRY METHOD 03/03/2025 3:16 PM EDT [facility] Blood Venous blood specimen / Unknown Venipuncture / Unknown 03/03/2025 10:43 AM EDT 03/03/2025 10:43 AM EDT us Emanuel Moran MD LAB BLOOD ORDERABLES F inal Result [facility] [address] [place] [address], * (ABNORMAL) Lymphocyte T-cell panel (02/18/2025 1:24 PM EDT) [facility] CD8 Percent 43(H) 9 - 37 % 02/21/2025 10:16 AM EDT [facility] CD8 Absolute Count 138(L) 190 - 832 cell/ul 02/21/2025 10:16 AM EDT [facility] CD4 Percent 37 35 - 66 % 02/21/2025 10:16 AM EDT [facility] CD4 Absolute Count 116(L) 443 - 1471 cell/ul 02/21/2025 10:16 AM EDT [facility] T4/T8 Ratio (CD4:CD8) 0.9(L) 1.0 - 3.7 02/21/2025 10:16 AM EDT [facility] Comment: Test performed at [facility], [address] , [place], [place] [id number] Blood Venous blood specimen / Unknown Venipuncture / Unknown 02/18/2025 1:24 PM EDT 02/18/2025 1:32 PM EDT us Ilda Breen MD LAB MOLECULAR DIAGNOSTICS ORDERA BLES Final Result [facility] [address] [place] [address] * HIV 1 molecular study quantitative (02/18/2025 1:24 PM EDT) [facility] HIV-1 RNA Interpretation Not Detected Not Detected LAB MOLECULAR DIAGNOSTICS METHOD 02/18/2025 4:24 PM EDT [facility] Comment:HIV RNA not detected , unable to report quantitative results. Blood Venous blood specimen / Unknown Venipuncture / Unknown 02/18/2025 1:24 PM EDT 02/18/2025 1:32 PM EDT us Ilda Breen MD LAB BLOOD ORDERABLES Final Resul t [facility] [address] [place] [address], [place] [phone] * (ABNORMAL) Manual differential (02/18/2025 6:57 AM EDT) Only the most recent of5 resultswithin the time period is included. [facility] Neutrophils % 14.0 % LAB HEMETOLOGY METHOD 02/18/2025 8:15 AM EDT [facility] Lymphocytes % 39.0 % LAB HEMETOLOGY METHOD 02/18/2025 8:15 AM EDT [facility] Monocytes % 25.0 % LAB HEMETOLOGY METHOD 02/18/2025 8:15 AM EDT [facility] Eosinophils % 11.0 % LAB HEMETOLOGY METHOD 02/18/2025 8:15 AM EDT [facility] Basophils % 6.0 % LAB HEMETOLOGY METHOD 02/18/2025 8:15 AM [facility] Metamyelocytes % 6.0(H) % LAB HEMETOLOGY METHOD 02/18/2025 8:15 AM [facility] Neutrophils Absolute Manual 0.17(L) 1.50 - 7.00 K/mcL LAB HEMETOLOGY METHOD 02/18/2025 8:15 AM [facility] Lymphocytes Absolute 0.47(L) 1.00 - 5.00 K/mcL LAB HEMETOLOGY METHOD 02/18/2025 8:15 AM [facility] Monocytes Absolute Manual 0.30 0.20 - 1.00 K/mcL LAB HEMETOLOGY METHOD 02/18/2025 8:15 AM [facility] Eosinophils Absolute Manual 0.13 0.00 - 0.50 K/mcL LAB HEMETOLOGY METHOD 02/18/2025 8:15 AM [facility] Basophils Absolute Manual 0.07 0.00 - 0.20 K/mcL LAB HEMETOLOGY METHOD 02/18/2025 8:15 AM [facility] Metamyelocytes Absolute Manual 0.07(H) 0.00 - 0.00 K/mcL LAB HEMETOLOGY METHOD 02/18/2025 8:15 AM [facility] Rbc Morphology Present(A) Consistent with indices, Normal for LAB HEMETOLOGY METHOD 02/18/2025 8:15 AM [facility] Comment:This is an appended report. These results have been appended to a previously final verified report. Platelet Morphology - WAM Large Platelets Seen(A) Normal LAB HEMETOLOGY METHOD 02/18/2025 8:15 AM [facility] Comment:This is an appended report. These results have been appended to a previously final verified report. Polychromasia Present Present(A) (none) LAB HEMETOLOGY METHOD 02/18/2025 8:15 AM [facility] Comment:This is an appended report. These results have been appended to a previously final verified report. Dohle Body Present Present(A) (none) LAB HEMETOLOGY METHOD 02/18/2025 8:15 AM EDT [facility] Comment:This is an appended report. These results have been appended to a previously final verified report. Blood Venous blood specimen / Unknown Venipuncture / Unknown 02/18/2025 6:57 AM EDT 02/18/2025 7:16 AM EDT us Emanuel Moran MD LAB BLOOD ORDERABLES E dited Result - Final Performing Organization Address City/[facility]/ZIP Co de Phone Number [facility] [address] [place] [address], [place] [phone] * Phosphorus (02/18/2025 6:57 AM EDT) Only the most recent of3 resultswithin the time period is included. Pathologist [facility] Phosphorus 4.2 2.5 - 4.5 mg/dL LAB CHEMISTRY METHOD 02/18/2025 7:58 AM EDT [facility] Blood Venous blood specimen / Unknown Venipuncture / Unknown 02/18/2025 6:57 AM EDT 02/18/2025 7:16 AM EDT us Emanuel Moran MD LAB BLOOD ORDERABLES F inal Result Performing Organization Address City/[facility]/ZIP Co de Phone Number [facility] [address] [place] [address], [place] [phone] * (ABNORMAL) Afshan hodge virus IgG, IgM, nuclear and early antibodies (02/17/2025 7:04 AM EDT) EBV VCA IgG Positive(A) Negative LAB CHEMISTRY METHOD 02/18/2025 8:55 AM EDT [facility] EBV VCA IgM Negative Negative LAB CHEMISTRY METHOD 02/18/2025 8:55 AM EDT [facility] EBV Nuclear Ag Ab Positive(A) Negative LAB CHEMISTRY METHOD 02/18/2025 8:55 AM EDT [facility] EBV Early Ag Ab Negative Negative LAB CHEMISTRY METHOD 02/18/2025 8:55 AM EDT [facility] Blood Venous blood specimen / Unknown Venipuncture / Unknown 02/17/2025 7:04 AM EDT 02/17/2025 7:08 AM EDT Narrative [facility] - 02/18/2025 8:55 AM EDT 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 us Jung Dinero MD LAB BLOOD ORDERABLES Final Resul t [facility] [address] [place] [address], * Cytomegalovirus molecular study quantitative (02/17/2025 7:03 AM EDT) Cytomegalovirus (CMV) DNA Qualitative Not detected Not detected 02/19/2025 11:45 AM EDT [facility] Cytomegalovirus (CMV) DNA Quantitative <30 <30 IU/mL 02/19/2025 11:45 AM EDT [facility] Log Cytomegalovirus <1.48 <1.48 Log (10) IU/mL 02/19/2025 11:45 AM EDT [facility] CMV DNA (cp/mL) <76 <76 Copies/mL 02/19/2025 11:45 AM EDT [facility] Comment: This test uses a polymerase chain reaction (PCR) assay from [employer] to amplify and detected conserved [...] rule out infection. Test performed at [facility], [address] , [place] [address] Gema Peralta MD, PhD - Bar Helper Blood Venous blood specimen / Unknown Venipuncture / Unknown 02/17/2025 7:03 AM EDT 02/17/2025 7:08 AM EDT Jung Dinero MD LAB MICROBIOLOGY - GENERAL ORDER JODEE Final Result Performing Organization Address City/[facility]/ZIP Co de Phone Number [facility] [address] [place] [address] * Parvovirus B19 antibodies, IgM (02/17/2025 6:15 AM EDT) [facility] Parvovirus B19 Antibody IgM 0.73 <=0.90 INDEX 02/21/2025 6:27 AM EDT [facility] Comment: Negative: No antibody detected Test performed at [facility], [address] , [place] [address] Gema Peralta MD, PhD - Bar Helper Blood Venous blood specimen / Unknown Venipuncture / Unknown 02/17/2025 6:15 AM EDT 02/17/2025 6:19 AM EDT Jung Dinero MD LAB BLOOD ORDERABLES Final Resul t Performing Organization Address City/[facility]/ZIP Co de Phone Number [facility] [address] [place] [address] * (ABNORMAL) Comprehensive metabolic panel (02/17/2025 6:14 AM EDT) Only the most recent of3 resultswithin the time period is included. [facility] Sodium 137 133 - 145 mmol/L LAB CHEMISTRY METHOD 02/17/2025 6:55 AM EDT [facility] Potassium 3.8 3.5 - 5.5 mmol/L LAB CHEMISTRY METHOD 02/17/2025 6:55 AM [facility] Chloride 108 96 - 110 mmol/L LAB CHEMISTRY METHOD 02/17/2025 6:55 AM [facility] CO2 19(L) 21 - 32 mmol/L LAB CHEMISTRY METHOD 02/17/2025 6:55 AM [facility] Anion Gap 10 3 - 11 LAB CHEMISTRY METHOD 02/17/2025 6:55 AM [facility] Glucose 98 70 - 100 mg/dL LAB CHEMISTRY METHOD 02/17/2025 6:55 AM [facility] BUN 84(H) 5 - 25 mg/dL LAB CHEMISTRY METHOD 02/17/2025 6:55 AM [facility] Creatinine 7.34(H) 0.70 - 1.30 mg/dL LAB CHEMISTRY METHOD 02/17/2025 6:55 AM [facility] eGFR 8(L) >=60 mL/min/1. 73m2 LAB CHEMISTRY METHOD 02/17/2025 6:55 AM [facility] Comment:Calculation based on the Chronic Kidney Disease Epidemiology Collaboration (CKD-EPI) equation refit without adjustment for race. BUN/Creatinine Ratio 11.4 LAB CHEMISTRY METHOD 02/17/2025 6:55 AM [facility] Calcium 8.6 8.5 - 10.5 mg/dL LAB CHEMISTRY METHOD 02/17/2025 6:55 AM [facility] AST (SGOT) 15 10 - 42 unit/L LAB CHEMISTRY METHOD 02/17/2025 6:55 AM [facility] ALT (SGPT) 12 10 - 60 unit/L LAB CHEMISTRY METHOD 02/17/2025 6:55 AM [facility] Alkaline Phosphatase 101 42 - 121 unit/L LAB CHEMISTRY METHOD 02/17/2025 6:55 AM [facility] Total Protein 5.9(L) 6.0 - 8.0 g/dL LAB CHEMISTRY METHOD 02/17/2025 6:55 AM EDT [facility] Albumin 2.9(L) 3.2 - 5.0 g/dL LAB CHEMISTRY METHOD 02/17/2025 6:55 AM EDT [facility] Total Bilirubin 0.3 0.0 - 1.4 mg/dL LAB CHEMISTRY METHOD 02/17/2025 6:55 AM EDT [facility] Blood Venous blood specimen / Unknown Venipuncture / Unknown 02/17/2025 6:14 AM EDT 02/17/2025 6:19 AM EDT us Jung Dinero MD LAB BLOOD ORDERABLES Final Resul t [facility] [address] [place] [address], * (ABNORMAL) Tacrolimus level (02/16/2025 7:28 AM [...] developed and the performance characteristics determined by [facility]. This confirmation testing has not been cleared or approved by the FDA. The laboratory is regulated under CLIA as qualified to perform high-complexity testing. This test is used for patient testing purposes. It should not be regarded as investigational or for research. Test performed at [facility], [address] , [place] [address] Gema Peralta MD, PhD - Bar Helper Blood Venous blood specimen / Unknown Venipuncture / Unknown 02/16/2025 7:28 AM EDT 02/16/2025 7:32 AM EDT Jung Dinero MD LAB BLOOD ORDERABLES Final Resul t [facility] [address] [place] [address] * (ABNORMAL) AST, ALT, Bilirubin ELR state reportables (02/15/2025 6:38 AM EDT) ALT (SGPT) 9(L) 10 - 60 unit/L LAB CHEMISTRY METHOD 02/15/2025 7:35 PM EDT [facility] AST (SGOT) 14 10 - 42 unit/L LAB CHEMISTRY METHOD 02/15/2025 7:35 PM EDT [facility] Total Bilirubin 0.3 0.0 - 1.4 mg/dL LAB CHEMISTRY METHOD 02/15/2025 7:35 PM EDT [facility] Blood Venous blood specimen / Unknown Venipuncture / Unknown 02/15/2025 6:38 AM EDT 02/15/2025 6:46 AM EDT Curtis Manning MD LAB BLOOD ORDERABLES Final Re sult Performing Organization Address [facility]/ZIP Co de Phone Number [facility] [address] [place] [address], * Pathology review, blood smear (02/15/2025 6:38 [...] the patient's infection. 02/17/2025 8:36 AM EDT [facility] Blood Venous blood specimen / Unknown Venipuncture / Unknown 02/15/2025 6:38 AM EDT 02/15/2025 6:46 AM EDT Jason MODI LAB BLOOD ORDERABLES Final Res ult Performing Organization Address City/[facility]/ZIP Co de Phone Number [facility] [address] [place] [address], [place] [phone] * (ABNORMAL) Hepatitis B screening panel (02/15/2025 6:38 AM EDT) Pathologist [facility] Hepatitis B Surface Ag Negative Negative LAB CHEMISTRY METHOD 02/15/2025 6:23 PM EDT [facility] Hep B Core Total Ab Positive(A) Negative LAB CHEMISTRY METHOD 02/15/2025 6:23 PM EDT [facility] Hepatitis B Surface Ab Negative Negative LAB CHEMISTRY METHOD 02/15/2025 6:23 PM EDT [facility] Blood Venous blood specimen / Unknown Venipuncture / Unknown 02/15/2025 6:38 AM EDT 02/15/2025 6:46 AM EDT Curtis Manning MD LAB BLOOD ORDERABLES Final Re sult [facility] [address] [place] [address], [place] [phone] * Hepatitis B core antibody IgM (02/15/2025 6:38 AM EDT) Hep B Core IgM Negative Negative LAB CHEMISTRY METHOD 02/15/2025 7:33 PM EDT [facility] Blood Venous blood specimen / Unknown Venipuncture / Unknown 02/15/2025 6:38 AM EDT 02/15/2025 6:46 AM EDT Narrative [facility] - 02/15/2025 7:33 PM EDT Over the counter supplements containing high doses of biotin may interfere with this assay. If interference is suspected, patients shoud be retested after refraining from biotin supplements for 72 hours. us Curtis Manning MD LAB BLOOD ORDERABLES Final Re sult Performing Organization Address City/[facility]/ZIP Co de Phone Number [facility] [address] [place] [address], [place] [phone] * (ABNORMAL) Parathyroid hormone intact (02/15/2025 6:38 AM EDT) PTH 658.3(H) 18.5 - 88.0 pcg/mL LAB CHEMISTRY METHOD 02/15/2025 5:44 PM EDT [facility] Blood Venous blood specimen / Unknown Venipuncture / Unknown 02/15/2025 6:38 AM EDT 02/15/2025 6:46 AM EDT us Curtis Manning MD LAB BLOOD ORDERABLES Final Re sult Performing Organization Address City/[facility]/ZIP Co de Phone Number [facility] [address] [place] [address], [place] [phone] * (ABNORMAL) Drug abuse screen 8a panel, urine (02/15/2025 5:30 AM EDT) Amphetamine Screen, Ur Negative Negative LAB CHEMISTRY METHOD 6:09 AM EDT [facility] Comment:Certain OTC medicati ons containing ephedrine, phenylephrine, pseudoephedrine and phenylpropanolamine can cause false positive results. Barbiturate Screen, Ur Negative Negative LAB CHEMISTRY METHOD 09/06/202 5 6:09 AM EDT [facility] Benzodiazepine Screen, Ur Negative Negative LAB CHEMISTRY METHOD 5 6:09 AM EDT [facility] Cocaine Screen, Ur Negative Negative LAB CHEMISTRY METHOD 5 6:09 AM [facility] Opiate Screen, Ur Positive(A ) Negative LAB CHEMISTRY METHOD 5 6:09 AM EDT [facility] Cannabinoid (THC) Screen, Ur Negative Negative LAB CHEMISTRY METHOD 5 6:09 AM EDT [facility] Comment:Specimens from patie nts taking pantoprazole sodium (Protonix) have been shown to produce false positive results. Oxycodone Screen, Ur Negative Negative LAB CHEMISTRY METHOD 5 6:09 AM [facility] Fentanyl, Ur Negative Negative LAB CHEMISTRY METHOD 5 6:09 AM [facility] Urine Urine specimen obtained by clean catch procedure / Unknown Non-blood Collection / Unknown 02/15/2025 5:30 AM EDT 02/15/2025 5:37 AM EDT Narrative [facility] - 02/15/2025 6:09 AM EDT [...] MODI LAB URINE ORDERABLES Final Res ult [facility] [address] [place] [address], * MRSA molecular study (02/15/2025 5:30 AM EDT) MRSA Screen PCR Not Detected Not Detected LAB MICROBIOLOGY METHOD 02/15/2025 8:45 AM EDT [facility] Swab Nasopharyngeal structure / Unknown Non-blood Collection / Unknown 02/15/2025 5:30 AM EDT 02/15/2025 5:35 AM EDT Jason MODI LAB MICROBIOLOGY - GENERAL ORD ERABLES Final Result [facility] [address] [place] [address], [place] [phone] * XR Foot 3+ Views Left (02/15/2025 [...] Signed Date: 02/15/2025 09:04 ET Workstation ID: [id number] Transcribed By: Self Edit Transcribed Date: 02/15/2025 [...] Signed Date: 02/15/2025 09:04 ET Workstation ID: [id number] Transcribed By: Self Edit Transcribed Date: 02/15/2025 09:01 ET Saad Pimentel MD IMG XR PROCEDURES Final Resu lt * Blood Culture, Peripheral #1 (02/15/2025 1:15 AM EDT) Only the most recent of2 resultswithin the time period is included. Culture, Blood No growth at 5 days 02/20/2025 5:01 AM EDT [facility] Blood Venous blood specimen / Unknown Venipuncture / Unknown 02/15/2025 1:15 AM EDT 02/15/2025 1:31 AM EDT Saad Pimentel MD LAB MICROBIOLOGY - GENERAL O RDERABLES Final Result [facility] [address] [place] [address], [place] [phone] * Lactate, with reflex (02/15/2025 12:54 AM EDT) LACTIC ACID 1.2 0.4 - 2.0 mmol/L LAB CHEMISTRY METHOD 02/15/2025 1:46 AM EDT [facility] Blood Venous blood specimen / Unknown Venipuncture / Unknown 02/15/2025 12:54 AM EDT 02/15/2025 12:57 AM EDT us Saad Pimentel MD LAB BLOOD ORDERABLES Final R esult Performing Organization Address [facility]/ZIP Co de Phone Number [facility] [address] [place] [address], * (ABNORMAL) C-reactive protein (02/15/2025 12:52 AM EDT) Pathologist [facility] C-Reactive Protein 16.40(H) <=0.50 mg/dL LAB CHEMISTRY METHOD 02/15/2025 5:02 AM EDT [facility] Blood Venous blood specimen / Unknown Venipuncture / Unknown 02/15/2025 12:52 AM EDT 02/15/2025 12:58 AM EDT Jason MODI LAB BLOOD ORDERABLES Final Res ult Performing Organization Address [facility] Co de Phone Number [facility] [address] [place] [address], * APTT (02/15/2025 12:51 AM EDT) [facility] aPTT 30.5 24.1 - 39.3 sec LAB COAGULATION METHOD 02/15/2025 1:11 AM EDT [facility] Blood Venous blood specimen / Unknown Venipuncture / Unknown 02/15/2025 12:51 AM EDT 02/15/2025 12:58 AM EDT Saad Pimentel MD LAB BLOOD ORDERABLES Final R esult Performing Organization Address [facility]/ZIP Co de Phone Number [facility] [address] [place] [address], * (ABNORMAL) Protime-INR (02/15/2025 12:51 AM EDT) Pathologist [facility] Protime 14.3(H) 10.6 - 13.9 sec LAB COAGULATION METHOD 02/15/2025 1:11 AM EDT [facility] INR 1.1 LAB COAGULATION METHOD 02/15/2025 1:11 AM EDT [facility] Blood Venous blood specimen / Unknown Venipuncture / Unknown 02/15/2025 12:51 AM EDT 02/15/2025 12:58 AM EDT us Saad Pimentel MD LAB BLOOD ORDERABLES Final R esult [facility] [address] [place] [address], [place] [phone] from Last 3 Months Insurance [facility] [id number] MEDICAID - [place] Advance Directives * Full [...] currently active code status orders. Care Teams Typesetting Machine Tender Relationship Specialty Start Date End Date Name, MD Horacio [address] [place] [address] PCP - General Internal Medicine 02/15/25
[2025-03-11 13:54] LABS: Hematocrit 31.3 % (42.0-52.0); Hemoglobin 10.1 g/dl (14.0-18.0); Imm Gran Abs Auto 0.02 X10*3/uL (0.00-0.03); Imm Gran Pct Auto 1.0 % (0.0-0.4); Lymphocytes Absolute Auto 0.7 X10*3/uL (1.2-4.9); MANUAL DIFF FLAG SCAN; Mean Corpuscular HGB Conc 32.3 g/dl (31.0-36.0); Mean Corpuscular Hemoglobin 29.0 pg (27.0-33.0); Mean Corpuscular Volume 89.9 fL (80.0-98.0); NRBC Abs Auto 0.000 X10*3/uL (0.0-0.012); NRBC Pct Auto 0.0 /100WBC (0.0-0.2); Platelet Count 199 X10*3/uL (160-400); Red Blood Count 3.48 X10*6/uL (4.60-5.80); SCAN SMEAR FLAG 1
[2025-03-11 13:55] LABS: White Blood Count 2.1 X10*3/uL (4.8-10.8)
[2025-03-11 14:24] LABS: Parathyroid Hormone Intact 300.1 pg/mL (8.7-77.1)
[2025-03-11 15:39] LABS: Anion Gap 19 (12-20); Blood Urea Nitrogen 87 mg/dL (9-16); Calcium 7.6 mg/dL (8.4-10.2); Carbon Dioxide 18 mmol/L (22-29); Chloride 106 mmol/L (96-108); Estimated Glomerular Filt Rate 6; Iron 83 mcg/dL (45-160); Percent Iron Saturation 46 % (15-50); Potassium 5.1 mmol/L (3.3-5.1); Sodium 138 mmol/L (135-145); Total Iron Binding Capacity 182 mcg/dL (228-428); Unsaturated Iron Binding 99 ug/dL
== END 2025-03-11 09:19 | disposition home or self-care (01) ==
LOC: HO.HKASLDS 09:18
PROVIDERS: PCP Internal Medicine Geriatric Medicine; Visit Provider Internal Medicine Nephrology
DX: I12.0 Hypertensive chronic kidney disease with stage 5 chronic kidney disease or end stage renal disease (principal); N18.5 Chronic kidney disease, stage 5; D63.1 Anemia in chronic kidney disease; N25.81 Secondary hyperparathyroidism of renal origin; E87.5 Hyperkalemia; E87.20 Acidosis, unspecified; Z94.0 Kidney transplant status
CPT/HCPCS: 36415; 80051; 82310; 82565; 83540; 83970; 84100; 84520; 85025; 99212

== ENCOUNTER 2025-03-11 14:08 | Outpatient (AMB) | payer MEDICAID, SELFPAY ==
--- NOTE | 2025-03-11 14:13 | HO.NEPHOV_ITS ---
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 He is CMV positive, EBV positive with a PRA of 0. Donor ID is [id number] MAOB, KDPI 60% with hep C antibody positive, donor serology with CMV positive, EBV positive, toxoplasmosis positive. Patient underwent donor kidney transplant 06/19/2023. Angiogram did not find any renal artery stenosis so no intervention was performed. Went to OR 09/08 for LUE AV fistula ligation and resection. He has failed graft and is close to initiation of HD. He maintains good hydration. He recently had a hospitalization for infected toe nail. He denies uremic symptoms, He wants to wait until AVF is made and matured before initiation of HD. [facility] Medical History Secondary hyperparathyroidism ESRD (end stage renal disease) on dialysis A-V fistula HIV (human immunodeficiency virus infection) Hypertension Kidney disease Surgical History Hx of cardiac catheterization Social History Are you a primary nurse wound care to a significant other at home: No Do you presently have visiting nurse or other home services: Yes ([employer] 3 hours daily) Alcohol intake: never Patient Tobacco Use Status: Former Tobacco user Tobacco use type: Cigarette Substance Use Type: Former Substance User Review of Systems Const All systems reviewed & are unremarkable except as noted in HPI and below Physical Exam Vital Signs: Last Vital Signs Pulse 69 03/11/25 14:15 BP 126/82 03/11/25 14:15 Pulse Ox 100 03/11/25 14:15 Oxygen Delivery Method Room Air 03/11/25 14:15 BMI result Body Mass Index 25.1 Const General: comfortable and no acute distress Orientation/consciousness: patient oriented x3 HEENT Head: Yes normocephalic Mouth: Normal oral and palatal mucosa present Eyes EOM: EOMs intact bilaterally Neck Neck: Yes supple Resp Auscultation: clear to auscultation bilaterally Cardio Jugular venous distension: no JVD Rate: regular rate GI Palpation (GI): Soft to palpation Auscultation: normal bowel sounds General: Yes no CVA tenderness Back/Spine/Pelvis Back: no CVA tenderness Skin General skin exam: no rashes or lesions noted Neuro General: patient oriented x3 and moves all extremities Extrem General: Yes no pedal edema Assessment & Plan Assessment & Plan (1) Hypertension: Code(s): I10 - Essential (primary) hypertension Category: Medical Qualifiers: Hypertension type: secondary to other renal disorders Qualified Code(s): I15.1 - Hypertension secondary to other renal disorders (2) Secondary hyperparathyroidism (of renal origin): Code(s): N25.81 - Secondary hyperparathyroidism of renal origin Category: Medical (3) Renal transplant recipient: Code(s): Z94.0 - Kidney transplant status Category: Surgical (4) CKD (chronic kidney disease) stage 5, GFR less than 15 ml/min: Code(s): N18.5 - Chronic kidney disease, stage 5 Category: Medical (5) Anemia in chronic renal disease: Code(s): N18.9 - Chronic kidney disease, unspecified; D63.1 - Anemia in chronic kidney disease Category: Medical Qualifiers: Chronic kidney disease stage: stage 5 (GFR < 15), not on chronic dialysis Qualified Code(s): N18.5 - Chronic kidney disease, stage 5; D63.1 - Anemia in chronic kidney disease Plan Graft function worse but stable Currently taking prograf; Off MMF Blood pressure on target at home C/W current dose of NaHCO3 No indication for renal replacement today Referred for AVF and transplant eval Follow up 2 weeks Orders: Orders Blood Urea Nitrogen 3 Weeks N18.5 - Chronic kidney disease, stage 5, Z94.0 - Kidney transplant status Complete Blood Count Auto Diff 3 Weeks N18.5 - Chronic kidney disease, stage 5, Z94.0 - Kidney transplant status Electrolytes 3 Weeks N18.5 - Chronic kidney disease, stage 5, Z94.0 - Kidney transplant status Creatinine 3 Weeks N18.5 - Chronic kidney disease, stage 5, Z94.0 - Kidney transplant status Phosphorus 3 Weeks N18.5 - Chronic kidney disease, stage 5, Z94.0 - Kidney transplant status Calcium 3 Weeks N18.5 - Chronic kidney disease, stage 5, Z94.0 - Kidney transplant status Referrals Transplant Surgery Referral N18.5 - Chronic kidney disease, stage 5, Z94.0 - Kidney transplant status Medications: Discontinued furosemide (Lasix) Discontinued Reason: Doctor's Order 40 mg PO BID 90 days 180 tabs 0RF fluconazole Discontinued Reason: Doctor's Order 200 mg PO DAILY 90 tabs 1RF Coding Level of Care Code Est Pt Level 4 (83757) Diagnoses Hypertension secondary to other renal disorders I15.1 Hypertension type: secondary to other renal disorders Secondary hyperparathyroidism (of renal origin) N25.81 Renal transplant recipient Z94.0 CKD (chronic kidney disease) stage 5, GFR less than 15 ml/min N18.5 Anemia in stage 5 chronic kidney disease, not on chronic dialysis N18.5; D63.1 Chronic kidney disease stage: stage 5 (GFR < 15), not on chronic dialysis
[2025-03-11 14:15] VITALS: BP 126/82; PULSE 69; O2SAT 100; BMI 25.1
== END 2025-03-11 14:56 | disposition home or self-care (01) ==
LOC: HO.HKAS 14:09
PROVIDERS: PCP Internal Medicine Geriatric Medicine; Visit Provider Internal Medicine Nephrology
DX: I15.1 Hypertension secondary to other renal disorders (principal); N25.81 Secondary hyperparathyroidism of renal origin; Z94.0 Kidney transplant status; N18.5 Chronic kidney disease, stage 5; D63.1 Anemia in chronic kidney disease
CPT/HCPCS: 99214

== ENCOUNTER 2025-04-21 08:53 | Outpatient (REF) | payer MEDICAID, SELFPAY ==
[2025-04-21 09:06] LABS: MANUAL DIFF FLAG NO
[2025-04-21 09:28] LABS: Hematocrit 33.2 % (42.0-52.0); Hemoglobin 10.3 g/dl (14.0-18.0); Imm Gran Abs Auto 0.03 X10*3/uL (0.00-0.03); Imm Gran Pct Auto 0.4 % (0.0-0.4); Lymphocytes Absolute Auto 1.5 X10*3/uL (1.2-4.9); Mean Corpuscular HGB Conc 31.0 g/dl (31.0-36.0); Mean Corpuscular Hemoglobin 27.8 pg (27.0-33.0); Mean Corpuscular Volume 89.7 fL (80.0-98.0); NRBC Abs Auto 0.000 X10*3/uL (0.0-0.012); NRBC Pct Auto 0.0 /100WBC (0.0-0.2); Platelet Count 161 X10*3/uL (160-400); Red Blood Count 3.70 X10*6/uL (4.60-5.80); White Blood Count 6.8 X10*3/uL (4.8-10.8)
--- OUTSIDE RECORDS SUMMARY | 2025-04-21 09:28 | XMS_ITS | Clinical Summary ---
Author Organization [facility], Address [address] [place] [address] Phone Care Team Providers Care Breadman Name Role Phone Name, Horacio ARORA Primary [...] Notes: TAKE 1 TABLET AT BEDTIME Duration: 8 Active Docusate Sodium (DSS) 100 MG capsule Take 100 mg by mouth 4 Active dolutegravir (Tivicay) 50 MG tablet Comments: Filled Date: Nov 07 2018 12:00AM Patient Notes: TAKE 1 TABLET AT BEDTIME Duration: 8 Active Juluca 50-25 MG tablet Take 1 tablet by mouth 1 (one) time each day with breakfast Active doxycycline (VIBRAMYCIN) 100 MG capsule DANIS 1 CAPSULA POR LA BOCA DOS VECES AL KELSEY POR ZUNIGA 5 ZUNIGA 4 Active entecavir (BARACLUDE) 0.5 MG tablet Take 0.5 mg by mouth 4 Active ergocalciferol 1.25 MG (05271 UT) capsule TAKE 1 CAPSULE BY MOUTH [...] capsule, 0 Refills, Maintenance, 06/22/23 10:24:00 EST, [facility], Partial fill upon patient request if the prescription is for a schedule II opioid drug., 174, cm, ... 4 Active Lokelma 10 g pack TAKE 1 PACKET BY MOUTH EVERY DAY. DO NOT TAKE WITHIN 2 HOURS OF OTHER MEDICATIONS. 4 Active Active Problems Problem Noted Date Diagnosed Date Hypertensive chronic kidney disease, benign, with chronic kidney disease stage V or end stage renal disease 04/08/2025 Human immunodeficiency virus infection 5 End stage renal disease 04/08/2025 Anemia of chronic renal failure 04/08/2025 Vitamin deficiency 04/08/2025 Viral hepatitis C 04/08/2025 History of renal transplant 06/20/2023 Overview (04/08/2025): thymo induction Encounters Date Type Department Care Team Description 04/09/2025 Telephone [facility] [address] [place] [place] [address] Madalyn Silverman 03/26/2025 3:30 PM EDT Office Visit [facility] [address] [place] [place] [address] Nakul Pardo MD Stage 5 chronic kidney disease (HCC) (Primary Dx) from Last 3 Months Family History Medical History Relation Comments Hypertension [...] Care Team (Late st Contact Info) Description 06/18/2025 2:00 PM EST Office Visit [facility] [address] [place] [address] [place] [phone] Health Maintenance Due Date Last Done Comments Hepatitis B Vaccine (1 of 3 - 19+ 3-dose series) 02/03 Pneumococcal Vaccine: Peds ( 0 to 5 Years) and At-Risk Patients (6 to 49 Years) (1 of 2 - PCV) 02/04/1996 Influenza Vaccine (#1) 2025 Insurance [place] MD Care Teams Breadman Relationship Specialty Start Date End Date Name, MD [address] [place] [address] PCP - General Internal Medicine 02/17/25
--- OUTSIDE RECORDS SUMMARY | 2025-04-21 09:28 | XMS_ITS | Clinical Summary ---
Author Organization 175 [facility] Address [address] [place] [address] Phone Care Team Providers Care Information Resources Manager Name Role Phone Name, Horacio ARORA Primary Care Provider [phone] Allergies Active Allergy Reactions Criticality Noted Date Comments Penicillins Rash 12/31/2024 Medications acetaminophen (TYLENOL) 500 mg tablet TAKE 1 TABLET BY MOUTH EVERY 8 HOURS NEEDED FOR PAIN MODERATE 12/06/2024 Active amLODIPine (NORVASC) 5 mg tablet Take 1 tablet (5 mg total) by mouth. 12/20/2024 Active atovaquone (MEPRON) 750 mg/5 mL suspension Take 10 mL (1,500 mg total) by mouth. 11/28/2024 Active Suboxone 8-2 mg per SL film DISSOLVE 2 FILMS UNDER THE TONGUE EVERY DAY Active carvediloL (COREG) 6.25 mg tablet Take 1 tablet (6.25 mg total) by mouth. 09/11/2023 Active cinacalcet (SENSIPAR) 30 mg tablet 10/30/2024 Active Juluca 50-25 mg tablet Take 1 tablet (25 mg total) by mouth. 12/02/2024 Active folic acid (FOLVITE) 1 mg tablet Take 1 tablet (1 mg total) by mouth. 11/28/2024 Active furosemide (LASIX) 40 mg tablet 11/29/2024 Active tacrolimus (PROGRAF) 0.5 mg capsule Take 2 capsules (1 mg total) by mouth 1 (one) time each day in the evening. 11/28/2024 Active tacrolimus (PROGRAF) 0.5 mg capsule Take 1 capsule (0.5 mg total) by mouth 1 (one) time each day. 12/26/2024 Active entecavir (BARACLUDE) 0.5 mg tablet Take 1 tablet (0.5 mg total) by mouth every 3rd (third) day. 02/18/2025 Active senna (SENOKOT) 8.6 mg tablet Take 2 tablets (17.2 mg total) by mouth at bedtime as needed for constipation. Hold for diarrhea 60 tablet 02/18/2025 Active Active Problems Problem Noted Date Diagnosed Date EZEQUIEL (acute kidney injury) ([facility]24) 02/19/20 25 Hypomagnesemia 02/18/2025 Severe neutropenia ([facility]24) 02/18/2025 Cellulitis 02/15/2025 CKD (chronic kidney disease) stage 5, GFR less than 15 ml/min ([facility] V24, [facility] V28) 12/31/2024 Encounters Date Type Department Care Team Description 03/04/2025 2:45 PM EDT Office Visit [facility] Hematology Oncology [address] [place] [phone] Lonnie Lovett MD Severe neutropenia ([facility] V24) (Primary Dx); Cellulitis of toe, unspecified laterality 02/15/2025 9:28 AM EDT - 02/15/2025 10:58 AM EDT Surgery [facility] [place] [address] [place] [phone] Lance Elena DPM INCISION DRAINAGE BILATERAL HALLUX 02/15/2025 9:03 AM EDT Anesthesia Event [address] [phone] Andres Bonilla MD Claudio, Raymund, CRNA 02/14/2025 11:58 PM EDT - 02/18/2025 6:16 PM EDT Hospital Encounter [facility] Urology Unit [address] [place] [address] Saad Pimentel MD Kokkinos, Erika, MD Ishtiaq, Rizwan, MD Alam, Aroosa, MD Rasul, MD Crissy Little James T, MD Santoyo-Pacheco , Emanuel Eason MD Leukopenia, unspecified type (Primary Dx); Anemia, unspecified type; Chronic kidney disease, unspecified CKD stage; Cellulitis of great toe of left foot; Hypomagnesemia; Sepsis without acute organ dysfunction, due to unspecified organism ([facility] V[facility], [facility] V28); Neutropenic fever ([facility] V24); Cellulitis of lower extremity, unspecified laterality; CKD (chronic kidney disease) stage 5, GFR less than 15 ml/min ([facility] V[facility], [facility] V28); Severe neutropenia ([facility] V24); EZEQUIEL (acute kidney injury) ([facility] V24) Discharge Disposition: Home-Health Care c from Last 3 Months Surgical History Surgery Date Site/Laterality Comments TRANSPLANT, KIDNEY, ROBOT-ASSISTED Medical History Medical History Date Comments Chronic kidney disease Secondary hyperparathyroidism ([facility]) ESRD (end stage renal disease) ([facility] V24, [facility] V28) HIV (human immunodeficiency virus infection) ([facility] V24, [facility] V28) Hypertension Social History Tobacco Use Types [...] 03/04/2025 2:49 PM EDT Plan of Treatment Health Maintenance Due [...] Routine 03/03/2025 10:43 AM EDT Severe neutropenia (CMS/HCC V24) MAGNESIUM Routine 03/03/2025 10:43 AM EDT Hypomagnesemia CBC AND DIFFERENTIAL Routine 03/03/2025 10:43 AM EDT Severe neutropenia ([facility] V24) BASIC METABOLIC PANEL Routine 03/03/2025 10:43 AM EDT Hypomagnesemia EZEQUIEL (acute kidney injury) (CMS/[facility] V24) ..HIV-1 RNA QUANTITATIVE MOLECULAR STUDY Routine 02/18/2025 1:24 PM EDT LYMPHOCYTE T-CELL PANEL Routine 02/19/20 1:24 PM EDT HIV 1 DRUG RESISTANCE, QUANTITATIVE PHENOTYPE, GENOTYPE PLUS INTEGRASE Routine 02/18/2025 1:24 PM EDT HIV 1 MOLECULAR STUDY [...] LAB HEMETOLOGY METHOD 03/03/2025 2:18 PM EDT [facility] RBC 3.30(L) 4.50 - 5.50 M/mcL LAB [facility]OLOG[facility] Hemoglobin 9.4(L) 13.5 - 17.5 g/dL LAB HEMETOLOGY METHOD 03/03/2025 2:18 PM [facility] Hematocrit 30.6(L) 42.0 - 54.0 % LAB HEMETOLOGY METHOD 03/03/2025 2:18 [facility] MCV 91.6 79.0 - 98.0 FL LAB HEMETOLOGY METHOD 03/03/2025 2:18 PM [facility] MCH 28.1 27.0 - 32.0 pcg LAB HEMETOLOGY METHOD 03/03/2025 2:18 PM [facility] MCHC 30.7(L) 32.0 - 37.0 g/dL LAB HEMETOLOGY METHOD 03/03/2025 2:18 PM [facility] RDW 13.8 11.0 - 15.0 % LAB HEMETOLOGY METHOD 03/03/2025 2[facility] Platelets 314 130 - 400 K/mcL LAB HEMETOLOGY METHOD 03/03/2025 2:18 PM [facility] MPV 11.6(H) 7.0 - 11.0 FL LAB HEMETOLOGY METHOD 03/03/2025 2:18 PM EDT [facility] NRBC 0.0 <1.0 % LAB HEMETOLOGY METHOD 03/03/2025 2:18 [facility] NRBC Absolute 0.00 <0.10 K/mcL LAB HEMETOLOGY METHOD 03/03/2025 2:18 PM [facility] Neutrophils Relative 61.9 % LAB HEMETOLOGY METHOD 03/03/2025 2:18 PM [facility] Lymphocytes Relative 20.6 % LAB HEMETOLOGY METHOD 03/03/2025 2:18 PM [facility] Monocytes Relative 10.0 % LAB HEMETOLOGY METHOD 03/03/2025 2:18 PM [facility] Eosinophils Relative 1.4 % LAB HEMETOLOGY METHOD 03/03/2025 2:18 PM [facility] Basophils Relative 4.2 % LAB HEMETOLOGY METHOD 03/03/2025 2:18 PM [facility] Immature Granulocytes Relative 1.9 % LAB HEMETOLOGY METHOD 03/03/2025 2:18 PM [facility] Neutrophils Absolute 2.23 1.50 - 7.00 K/mcL LAB HEMETOLOGY METHOD 03/03/2025 2:18 PM [facility] Lymphocytes Absolute 0.74(L) 1.00 - 5.00 K/mcL LAB HEMETOLOGY METHOD 03/03/2025 2:18 PM [facility] Monocytes Absolute 0.36 0.20 - 1.00 K/mcL LAB HEMETOLOGY METHOD 03/03/2025 2:18 PM [facility] Eosinophils Absolute 0.05 0.00 - 0.50 K/mcL LAB HEMETOLOGY METHOD 03/03/2025 2:18 PM [facility] Basophils Absolute 0.15 0.00 - 0.20 K/[facility] LAB HEMETOLOGY METHOD 03/03/2025 2:18 PM EDT [facility] Immature Granulocytes Absolute 0.07(H) 0.00 - 0.03 K/[facility] LAB HEMETOLOGY METHOD 03/03/2025 2:18 PM EDT [facility] Blood Venous blood specimen / Unknown Venipuncture / Unknown 03/03/2025 10:43 AM EDT 03/03/2025 10:43 AM EDT us Emanuel Moran MD LAB BLOOD ORDERABLES F inal Result Performing Organization Address [facility]/ZIP Co de Phone Number [facility] [address] [place] [address], [place] [phone] * (ABNORMAL) Magnesium (03/03/2025 10:43 AM EDT) Only the most recent of4 resultswithin the time period is included. Magnesium 1.8(L) 1.9 - 2.6 mg/dL LAB CHEMISTRY METHOD 03/03/2025 3:16 PM EDT [facility] Blood Venous blood specimen / Unknown Venipuncture / Unknown 03/03/2025 10:43 AM EDT 03/03/2025 10:43 AM EDT us Emanuel Moran MD LAB BLOOD ORDERABLES F inal Result Performing Organization Address City/[facility]/ZIP Co de Phone Number [facility] [address] [place] [address], [place] [phone] * (ABNORMAL) Basic metabolic panel (03/03/2025 10:43 AM EDT) Only the most recent of3 resultswithin the time period is included. Sodium 137 133 - 145 mmol/L LAB CHEMISTRY METHOD 03/03/2025 3:16 PM EDT [facility] Potassium 5.2 3.5 - 5.5 mmol/L LAB CHEMISTRY METHOD 03/03/2025 3:16 PM [facility] Chloride 104 96 - 110 mmol/L LAB CHEMISTRY METHOD 03/03/2025 3:16 PM [facility] CO2 24 21 - 32 mmol/L LAB CHEMISTRY METHOD 03/03/2025 3:16 PM [facility] Anion Gap 9 3 - 11 LAB CHEMISTRY METHOD 03/03/2025 3:16 PM T [facility] Glucose 89 70 - 100 mg/dL LAB CHEMISTRY METHOD 03/03/2025 3:16 PM [facility] BUN 84(H) 5 - 25 mg/dL LAB CHEMISTRY METHOD 03/03/2025 3:16 PM [facility] Creatinine 8.04(H) 0.70 - 1.30 mg/dL LAB CHEMISTRY METHOD 03/03/2025 3:16 PM [facility] eGFR 8(L) >=60 mL/min/1. 73m2 LAB CHEMISTRY METHOD 03/03/2025 3:16 PM [facility] Comment:Calculation based on the Chronic Kidney Disease Epidemiology Collaboration (CKD-EPI) equation refit without adjustment for race. BUN/Creatinine Ratio 10.4 LAB CHEMISTRY METHOD 03/03/2025 3:16 PM [facility] Calcium 8.0(L) 8.5 - 10.5 mg/dL LAB CHEMISTRY METHOD 03/03/2025 3:16 PM [facility] Blood Venous blood specimen / Unknown Venipuncture / Unknown 03/03/2025 10:43 AM EDT 03/03/2025 10:43 AM EDT us Emanuel Moran MD LAB BLOOD ORDERABLES F inal Result [facility] [address] [place] [address], * HIV-1 RNA quantitative molecular study (02/18/2025 1:24 PM EDT) [facility] HIV-1 RNA by PCR <20 copies/mL 03/22/20 2:05 PM EDT [facility] Comment: HIV-1 RNA not detected The reportable range for this assay is 20 to 10,000,000 copies HIV-1 RNA/mL. log10 HIV-1 RNA 2:05 PM EDT [facility] Comment: Unable to calculate result since non-numeric result obtained for component test. Blood Venous blood specimen / Unknown Venipuncture / Unknown 02/18/2025 1:24 PM EDT 02/18/2025 1:32 PM EDT Narrative [facility] - 03/22/2025 2:05 PM EDT Performed at: - [facility] [address] [place] [phone] Product Engineering Manager: Felicia Jean MD, Phone: [phone] us Ilda Breen MD LAB BLOOD ORDERABLES Edited Resu lt - Final [facility] * HIV 1 drug resistance, quantitative phenotype, genotype plus integrase (02/18/2025 1:24 PM EDT) [facility] PSGT+IN Net Assessment 03/22/2025 2:05 PM EDT [facility] Comment: We are unable to determine the genotype and/or phenotype of this sample due to insufficient HIV viral copy number. Samples with viral loads <500 copies/mL will often fail PCR amplification. The viral load determined for this sample is reported below. PSGT+IN Phenotype Results 03/22/2025 2:05 PM EDT [facility] Comment:See comments PSGT+IN Genotype Results 03/22/2025 2:05 PM EDT [facility] Comment:See comments PSGT+IN Interpretation For more information on interpreting this report, please 03/22/2025 2:05 PM EDT [facility] Comment: visit [email or web address] or call [email or web address] at [phone] between the hours of 6:30am to 5:00pm PT Monday through Monday. REMINDER: To Ensure High-Quality Results on All Samples - Verify Viral Load > 500 copies/mL Before Ordering - Draw 2 EDTA lavender top or 2 PPT tubes - Spin Sample Immediately at [id number] x g - Don't Leave Samples in Centrifuge After Spinning - Transfer Plasma into 1 or more screw-cap polypropylene tube(s) - Freeze Sample Immediately at -20C - Give Corporate Specialist Only Fully Frozen Samples PhenoSense GT(R) plus Integrase combines proprietary phenotypic, genotypic, and interpretation technologies to assess resistance to HIV-1 reverse transcriptase, protease, and integrase inhibitors in a single report. Phenotypic assessments are performed using PhenoSense; a proprietary, recombinant virus, single replication cycle infectivity assay. Genotypic assessments are performed by nucleic acid sequencing. The assay interrogates the HIV-1 protease (amino acids 1-99), reverse transcriptase (amino acids 1-400), and integrase (amino acids 1-288) coding regions derived from patient blood samples to jointly evaluate reductions in susceptibility and mutations associated with clinical drug resistance. HIV-1 subtype (clade) is determined based on protease and reverse transcriptase sequences. This test is validated for testing specimens with HIV-1 viral loads equal to or above 500 copies/mL and should be interpreted only on such specimens. This test was developed and its performance characteristics determined by [employer]. It has not been cleared or approved by the Food and Drug Administration. [employer] is a subsidiary of [employer], using the brand [employer]. The results should not be used as the sole criteria for patient management. This document contains private and confidential health information protected by state and federal law. If you have received this document in error, please call [phone]. Blood Venous blood specimen / Unknown Venipuncture / Unknown 02/18/2025 1:24 PM EDT 02/18/2025 1:32 PM EDT Narrative [facility] - 03/22/2025 2:05 PM EDT Performed at: 01 - [facility] [address] [place] [address], [place] [id number] Product Engineering Manager: Felicia Jean MD, Phone: [phone] us Ilda Breen MD LAB BLOOD ORDERABLES Edited Resu lt - Final Performing Organization Address [facility]/ZIP Co de Phone Number [facility] * (ABNORMAL) Lymphocyte T-cell panel (02/18/2025 1:24 PM EDT) Pathologist [facility] CD8 Percent 43(H) 9 - 37 % 02/21/2025 10:16 AM EDT [facility] CD8 Absolute Count 138(L) 190 - 832 cell/ul 02/21/2025 10:16 AM EDT [facility] CD4 Percent 37 35 - 66 % 02/21/2025 10:16 AM EDT [facility] CD4 Absolute Count 116(L) 443 - 1471 cell/ul 02/21/2025 10:16 AM EDT [facility] T4/T8 Ratio (CD4:CD8) 0.9(L) 1.0 - 3.7 02/21/2025 10:16 AM EDT [facility] Comment: Test performed at [facility], [address] , [place] [address] Blood Venous blood specimen / Unknown Venipuncture / Unknown 02/18/2025 1:24 PM EDT 02/18/2025 1:32 PM EDT us Ilda Breen MD LAB MOLECULAR DIAGNOSTICS ORDERA BLES Final Result Performing Organization Address [facility] de Phone Number [facility] [address] [place] [address] * HIV 1 molecular study quantitative (02/18/2025 1:24 PM EDT) [facility] HIV-1 RNA Interpretation Not Detected Not Detected LAB MOLECULAR DIAGNOSTICS METHOD 02/18/2025 4:24 PM EDT [facility] Comment:HIV RNA not detected , unable to report quantitative results. Blood Venous blood specimen / Unknown Venipuncture / Unknown 02/18/2025 1:24 PM EDT 02/18/2025 1:32 PM EDT us Ilda Breen MD LAB BLOOD ORDERABLES Final Resul t Performing Organization Address City/[facility]/ZIP Co de Phone Number [facility] [address] [place] [address], [place] [phone] * (ABNORMAL) Manual differential (02/18/2025 6:57 AM EDT) Only the most recent of5 resultswithin the time period is included. Neutrophils % 14.0 % LAB HEMETOLOGY METHOD 02/18/2025 8:15 AM EDT [facility] Lymphocytes % 39.0 % LAB HEMETOLOGY METHOD 02/18/2025 8:15 AM EDT [facility] Monocytes % 25.0 % LAB HEMETOLOGY METHOD 02/18/2025 8:15 AM EDT [facility] Eosinophils % 11.0 % LAB HEMETOLOGY METHOD 02/18/2025 8:15 AM EDT [facility] Basophils % 6.0 % LAB HEMETOLOGY METHOD 02/18/2025 8:15 AM EDT [facility] Metamyelocytes % 6.0(H) % LAB HEMETOLOGY METHOD 02/18/2025 8:15 AM EDT [facility] Neutrophils Absolute Manual 0.17(L) 1.50 - 7.00 K/mcL LAB HEMETOLOGY METHOD 02/18/2025 8:15 AM EDT [facility] Lymphocytes Absolute 0.47(L) 1.00 - 5.00 K/mcL LAB HEMETOLOGY METHOD 02/18/2025 8:15 AM EDT [facility] Monocytes Absolute Manual 0.30 0.20 - 1.00 K/mcL LAB HEMETOLOGY METHOD 02/18/2025 8:15 AM EDT [facility] Eosinophils Absolute Manual 0.13 0.00 - 0.50 K/mcL LAB HEMETOLOGY METHOD 02/18/2025 8:15 AM EDT [facility] Basophils Absolute Manual 0.07 0.00 - 0.20 K/mcL LAB HEMETOLOGY METHOD 02/18/2025 8:15 AM EDT [facility] Metamyelocytes Absolute Manual 0.07(H) 0.00 - 0.00 K/mcL LAB HEMETOLOGY METHOD 02/18/2025 8:15 AM EDT [facility] Rbc Morphology Present(A) Consistent with indices, Normal for LAB HEMETOLOGY METHOD 02/18/2025 8:15 AM EDT [facility] Comment:This is an appended report. These results have been appended to a previously final verified report. Platelet Morphology - WAM Large Platelets Seen(A) Normal [facility] 02/18/2025 8:15 AM EDT [facility] Comment:This is an appended report. These results have been appended to a previously final verified report. Polychromasia Present Present(A) (none) [facility] 02/18/2025 8:15 AM EDT [facility] Comment:This is an appended report. These results have been appended to a previously final verified report. Dohle Body Present Present(A) (none) [facility] 02/18/2025 8:15 AM EDT [facility] Comment:This is an appended report. These results have been appended to a previously final verified report. Blood Venous blood specimen / Unknown Venipuncture / Unknown 02/18/2025 6:57 AM EDT 02/18/2025 7:16 AM EDT us Emanuel Moran MD LAB BLOOD ORDERABLES E dited Result - Final [facility] [address] [place] [address], * Phosphorus (02/18/2025 6:57 AM EDT) Only the most recent of3 resultswithin the time period is included. Phosphorus 4.2 2.5 - 4.5 mg/dL LAB CHEMISTRY METHOD 02/18/2025 7:58 AM EDT [facility] Blood Venous blood specimen / Unknown Venipuncture / Unknown 02/18/2025 6:57 AM EDT 02/18/2025 7:16 AM EDT us Emanuel Moran MD LAB BLOOD ORDERABLES F inal Result Performing Organization Address City/[facility]/ZIP Co de Phone Number [facility] [address] [place] [address], [place] [phone] * (ABNORMAL) Afshan hodge virus IgG, IgM, nuclear and early antibodies (02/17/2025 7:04 AM EDT) [facility] EBV VCA IgG Positive(A) Negative LAB CHEMISTRY METHOD 02/18/2025 8:55 AM EDT [facility] EBV VCA IgM Negative Negative LAB CHEMISTRY METHOD 02/18/2025 8:55 AM EDT [facility] EBV Nuclear Ag Ab Positive(A) Negative LAB CHEMISTRY METHOD 02/18/2025 8:55 AM EDT [facility] EBV Early Ag Ab Negative Negative LAB CHEMISTRY METHOD 02/18/2025 8:55 AM EDT [facility] Blood Venous blood specimen / Unknown Venipuncture / Unknown 02/17/2025 7:04 AM EDT 02/17/2025 7:08 AM EDT Narrative [facility] - 02/18/2025 8:55 AM EDT 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 us Jung Dinero MD LAB BLOOD ORDERABLES Final Resul t [facility] [address] [place] [address], [place] [phone] * Cytomegalovirus molecular study quantitative (02/17/2025 7:03 AM EDT) [facility] Cytomegalovirus (CMV) DNA Qualitative Not detected Not detected 02/19/2025 11:45 AM EDT [facility] Cytomegalovirus (CMV) DNA Quantitative <30 <30 IU/mL 02/19/2025 11:45 AM EDT [facility] Log Cytomegalovirus <1.48 <1.48 Log (10) IU/mL 02/19/2025 11:45 AM EDT [facility] CMV DNA (cp/mL) <76 <76 Copies/mL 02/19/2025 11:45 AM EDT [facility] Comment: This test uses a polymerase chain reaction (PCR) assay from [employer] to amplify and detected conserved regions [...] not rule out infection. Test performed at [facility], [facility] [address], [place] [address] Gema Peralta MD, PhD - Russian Language Instructor Blood Venous blood specimen / Unknown Venipuncture / Unknown 02/17/2025 7:03 AM EDT 02/17/2025 7:08 AM EDT us Jung Dinero MD LAB MICROBIOLOGY - GENERAL ORDER JODEE Final Result [facility] [address] [place], [place] [id number] * Parvovirus B19 antibodies, IgM (02/17/2025 6:15 AM EDT) [facility] Parvovirus B19 Antibody IgM 0.73 <=0.90 INDEX 02/21/2025 6:27 AM EDT [facility] Comment: Negative: No antibody detected Test performed at [facility], [address], [place] [address] Gema Peralta MD, PhD - Russian Language Instructor Blood Venous blood specimen / Unknown Venipuncture / Unknown 02/17/2025 6:15 AM EDT 02/17/2025 6:19 AM EDT us Jung Dinero MD LAB BLOOD ORDERABLES Final Resul t [facility] [address] [place] [address] * (ABNORMAL) Comprehensive metabolic panel (02/17/2025 6:14 AM EDT) Only the most recent of3 resultswithin the time period is included. Sodium 137 133 - 145 mmol/L LAB CHEMISTRY METHOD 02/17/2025 6:55 AM [facility] Potassium 3.8 3.5 - 5.5 mmol/L LAB CHEMISTRY METHOD 02/17/2025 6:55 AM [facility] Chloride 108 96 - 110 mmol/L LAB CHEMISTRY METHOD 02/17/2025 6:55 AM [facility] CO2 19(L) 21 - 32 mmol/L LAB CHEMISTRY METHOD 02/17/2025 6:55 AM [facility] Anion Gap 10 3 - 11 LAB CHEMISTRY METHOD 02/17/2025 6:55 AM [facility] Glucose 98 70 - 100 mg/dL LAB CHEMISTRY METHOD 02/17/2025 6:55 AM [facility] BUN 84(H) 5 - 25 mg/dL LAB CHEMISTRY METHOD 02/17/2025 6:55 AM [facility] Creatinine 7.34(H) 0.70 - 1.30 mg/dL LAB CHEMISTRY METHOD 02/17/2025 6:55 AM [facility] eGFR 8(L) >=60 mL/min/1. 73m2 LAB CHEMISTRY METHOD 02/17/2025 6:55 AM [facility] Comment:Calculation based on the Chronic Kidney Disease Epidemiology Collaboration (CKD-EPI) equation refit without adjustment for race. BUN/Creatinine Ratio 11.4 LAB CHEMISTRY METHOD 02/17/2025 6:55 AM [facility] Calcium 8.6 8.5 - 10.5 mg/dL LAB CHEMISTRY METHOD 02/17/2025 6:55 AM [facility] AST (SGOT) 15 10 - 42 unit/L LAB CHEMISTRY METHOD 02/17/2025 6:55 AM [facility] ALT (SGPT) 12 10 - 60 unit/L LAB CHEMISTRY METHOD 02/17/2025 6:55 AM [facility] Alkaline Phosphatase 101 42 - 121 unit/L LAB CHEMISTRY METHOD 02/17/2025 6:55 AM [facility] Total Protein 5.9(L) 6.0 - 8.0 g/dL LAB CHEMISTRY METHOD 02/17/2025 6:55 AM [facility] Albumin 2.9(L) 3.2 - 5.0 g/dL LAB CHEMISTRY METHOD 02/17/2025 6:55 AM [facility] Total Bilirubin 0.3 0.0 - 1.4 mg/dL LAB CHEMISTRY METHOD 02/17/2025 6:55 AM [facility] Blood Venous blood specimen / Unknown Venipuncture / Unknown 02/17/2025 6:14 AM EDT 02/17/2025 6:19 AM EDT us Jung Dinero MD LAB BLOOD ORDERABLES Final Resul t [facility] [address] [place] [address], * (ABNORMAL) Tacrolimus level (02/16/2025 7:28 AM EDT) Tacrolimus Level 2.9(L) 5.0 - 20.0 ng/mL 02/19/2025 12:16 PM EDT [facility] Comment: Additional Information: Toxic Level > [...] developed and the performance characteristics determined by [facility]. This confirmation testing has not been cleared or approved by the FDA. The laboratory is regulated under CLIA as qualified to perform high-complexity testing. This test is used for patient testing purposes. It should not be regarded as investigational or for research. Test performed at [facility], [address] , [place] [address] Gema Peralta MD, PhD - Russian Language Instructor Blood Venous blood specimen / Unknown Venipuncture / Unknown 02/16/2025 7:28 AM EDT 02/16/2025 7:32 AM EDT us Jung Dinero MD LAB BLOOD ORDERABLES Final Resul t [facility] [address] [place] [address] * (ABNORMAL) AST, ALT, Bilirubin ELR state reportables (02/15/2025 6:38 AM EDT) ALT (SGPT) 9(L) 10 - 60 unit/L LAB CHEMISTRY METHOD 02/15/2025 7:35 PM EDT [facility] AST (SGOT) 14 10 - 42 unit/L LAB CHEMISTRY METHOD 02/15/2025 7:35 PM EDT [facility] Total Bilirubin 0.3 0.0 - 1.4 mg/dL LAB CHEMISTRY METHOD 02/15/2025 7:35 PM EDT [facility] Blood Venous blood specimen / Unknown Venipuncture / Unknown 02/15/2025 6:38 AM EDT 02/15/2025 6:46 AM EDT Curtis Manning MD LAB BLOOD ORDERABLES Final Re sult Performing Organization Address [facility]/ZIP Co de Phone Number [facility] [address] [place] [address], [place] [phone] * Pathology review, blood smear (02/15/2025 6:38 [...] the patient's infection. 02/17/2025 8:36 AM EDT [facility] Blood Venous blood specimen / Unknown Venipuncture / Unknown 02/15/2025 6:38 AM EDT 02/15/2025 6:46 AM EDT Jason MODI LAB BLOOD ORDERABLES Final Res ult Performing Organization Address [facility]/ZIP Co de Phone Number [facility] [address] [place] [address], [place] [phone] * (ABNORMAL) Hepatitis B screening panel (02/15/2025 6:38 AM EDT) Hepatitis B Surface Ag Negative Negative LAB CHEMISTRY METHOD 02/15/2025 6:23 PM EDT [facility] Hep B Core Total Ab Positive(A) Negative LAB CHEMISTRY METHOD 02/15/2025 6:23 PM EDT [facility] Hepatitis B Surface Ab Negative Negative LAB CHEMISTRY METHOD 02/15/2025 6:23 PM EDT [facility] Blood Venous blood specimen / Unknown Venipuncture / Unknown 02/15/2025 6:38 AM EDT 02/15/2025 6:46 AM EDT Curtis Manning MD LAB BLOOD ORDERABLES Final Re sult Performing Organization Address [facility] Co de Phone Number [facility] [address] [place] [address], [place] [phone] * Hepatitis B core antibody IgM (02/15/2025 6:38 AM EDT) Hep B Core IgM Negative Negative LAB CHEMISTRY METHOD 02/15/2025 7:33 PM EDT [facility] Blood Venous blood specimen / Unknown Venipuncture / Unknown 02/15/2025 6:38 AM EDT 02/15/2025 6:46 AM EDT Narrative [facility] - 02/15/2025 7:33 PM EDT Over the counter supplements containing high doses of biotin may interfere with this assay. If interference is suspected, patients shoud be retested after refraining from biotin supplements for 72 hours. us Curtis Manning MD LAB BLOOD ORDERABLES Final Re sult [facility] [address] [place] [address], [place] [phone] * (ABNORMAL) Parathyroid hormone intact (02/15/2025 6:38 AM EDT) PTH 658.3(H) 18.5 - 88.0 pcg/mL LAB CHEMISTRY METHOD 02/15/2025 5:44 PM EDT [facility] Blood Venous blood specimen / Unknown Venipuncture / Unknown 02/15/2025 6:38 AM EDT 02/15/2025 6:46 AM EDT us Curtis Manning MD LAB BLOOD ORDERABLES Final Re sult [facility] [address] [place] [address], * (ABNORMAL) Drug abuse screen 8a panel, urine (02/15/2025 5:30 AM EDT) Amphetamine Screen, Ur Negative Negative LAB CHEMISTRY METHOD 5 6:09 AM [facility] Comment:Certain OTC medicati ons containing ephedrine, phenylephrine, pseudoephedrine and phenylpropanolamine can cause false positive results. Barbiturate Screen, Ur Negative Negative LAB CHEMISTRY METHOD 5 6:09 AM [facility] Benzodiazepine Screen, Ur Negative Negative LAB CHEMISTRY METHOD 5 6:09 AM [facility] Cocaine Screen, Ur Negative Negative LAB CHEMISTRY METHOD 5 6:09 AM [facility] Opiate Screen, Ur Positive(A ) Negative LAB CHEMISTRY METHOD 5 6:09 AM [facility] Cannabinoid (THC) Screen, Ur Negative Negative LAB CHEMISTRY METHOD 5 6:09 AM T [facility] Comment:Specimens from patie nts taking pantoprazole sodium (Protonix) have been shown to produce false positive results. Oxycodone Screen, Ur Negative Negative LAB CHEMISTRY METHOD 5 6:09 AM [facility] Fentanyl, Ur Negative Negative LAB CHEMISTRY METHOD 5 6:09 AM [facility] Urine Urine specimen obtained by clean catch procedure / Unknown Non-blood Collection / Unknown 02/15/2025 5:30 AM EDT 02/15/2025 5:37 AM EDT Narrative [facility] - 02/15/2025 6:09 AM EDT [...] ORDERABLES Final Res ult Performing Organization Address City/[facility]/ZIP Co de Phone Number [facility] [address] [place] [address], [place] [phone] * MRSA molecular study (02/15/2025 5:30 AM EDT) [facility] MRSA Screen PCR Not Detected Not Detected LAB MICROBIOLOGY METHOD 02/15/2025 8:45 AM EDT [facility] Swab Nasopharyngeal structure / Unknown Non-blood Collection / Unknown 02/15/2025 5:30 AM EDT 02/15/2025 5:35 AM EDT us Jason MODI LAB MICROBIOLOGY - GENERAL ORD ERABLES Final Result Performing Organization Address [facility]/ZIP Co de Phone Number [facility] [address] [place] [address], [place] [phone] * XR Foot 3+ Views Left (02/15/2025 [...] Signed Date: 02/15/2025 09:04 ET Workstation ID: [id number] Transcribed By: Self Edit Transcribed Date: 02/15/2025 [...] Signed Date: 02/15/2025 09:04 ET Workstation ID: [id number] Transcribed By: Self Edit Transcribed Date: 02/15/2025 09:01 ET us Saad Pimentel MD IMG XR PROCEDURES Final Resu lt * Blood Culture, Peripheral #1 (02/15/2025 1:15 AM EDT) Only the most recent of2 resultswithin the time period is included. [facility] Signature Culture, Blood No growth at 5 days 02/20/2025 5:[address] [facility] Blood Venous blood specimen / Unknown Venipuncture / Unknown 02/15/2025 1:15 AM EDT 02/15/2025 1:31 AM EDT Saad Pimentel MD LAB MICROBIOLOGY - GENERAL O RDERABLES Final Result Performing Organization Address [facility]/ZIP Co de Phone Number [facility] [address] [place] [address], [place] [phone] * Lactate, with reflex (02/15/2025 12:54 AM EDT) LACTIC ACID 1.2 0.4 - 2.0 mmol/L LAB CHEMISTRY METHOD 02/15/2025 1:46 AM EDT [facility] Blood Venous blood specimen / Unknown Venipuncture / Unknown 02/15/2025 12:54 AM EDT 02/15/2025 12:57 AM EDT Saad Pimentel MD LAB BLOOD ORDERABLES Final R esult Performing Organization Address [facility]/ZIP Co de Phone Number [facility] [address] [place] [address], * (ABNORMAL) C-reactive protein (02/15/2025 12:52 AM EDT) C-Reactive Protein 16.40(H) <=0.50 mg/dL LAB CHEMISTRY METHOD 02/15/2025 5:02 AM EDT [facility] Blood Venous blood specimen / Unknown Venipuncture / Unknown 02/15/2025 12:52 AM EDT 02/15/2025 12:58 AM EDT Jason MODI LAB BLOOD ORDERABLES Final Res ult Performing Organization Address City/[facility]/ZIP Co de Phone Number [facility] [address] [place] [address], * APTT (02/15/2025 12:51 AM EDT) aPTT 30.5 24.1 - 39.3 sec LAB COAGULATION METHOD 02/15/2025 1:11 AM EDT [facility] Blood Venous blood specimen / Unknown Venipuncture / Unknown 02/15/2025 12:51 AM EDT 02/15/2025 12:58 AM EDT Saad Pimentel MD LAB BLOOD ORDERABLES Final R esult Performing Organization Address [facility]/ZIP Co de Phone Number [facility] [address] [place] [address], [place] [phone] * (ABNORMAL) Protime-INR (02/15/2025 12:51 AM EDT) Protime 14.3(H) 10.6 - 13.9 sec LAB COAGULATION METHOD 02/15/2025 1:11 AM EDT [facility] INR 1.1 LAB COAGULATION METHOD 02/15/2025 1:11 AM EDT [facility] Blood Venous blood specimen / Unknown Venipuncture / Unknown 02/15/2025 12:51 AM EDT 02/15/2025 12:58 AM EDT Saad Pimentel MD LAB BLOOD ORDERABLES Final R esult Performing Organization Address City/[facility]/ZIP Co de Phone Number [facility] [address] [place] [address], [place] [phone] from Last 3 Months Insurance Advance Directives * Full Code - Default [...] currently active code status orders. Care Teams Information Resources Manager Relationship Specialty Start Date End Date Name, MD [address] [place] [address] PCP - General Internal Medicine 02/15/25
[2025-04-21 09:58] LABS: Anion Gap 19 (12-20); Blood Urea Nitrogen 76 mg/dL (9-16); Calcium 7.5 mg/dL (8.4-10.2); Carbon Dioxide 18 mmol/L (22-29); Chloride 107 mmol/L (96-108); Estimated Glomerular Filt Rate 6; Potassium 5.1 mmol/L (3.3-5.1); Sodium 139 mmol/L (135-145)
[2025-04-22 10:49] LABS: Tacrolimus Prograf 6.1 mcg/L
== END 2025-04-21 08:54 | disposition home or self-care (01) ==
LOC: HO.LAB 08:53
PROVIDERS: PCP Internal Medicine Geriatric Medicine; Visit Provider Internal Medicine Nephrology
DX: T86.19 Other complication of kidney transplant (principal); I70.1 Atherosclerosis of renal artery; N18.5 Chronic kidney disease, stage 5; I15.1 Hypertension secondary to other renal disorders; B20 Human immunodeficiency virus [HIV] disease; N17.9 Acute kidney failure, unspecified
CPT/HCPCS: 36415; 80051; 80197; 82310; 82565; 84100; 84520; 85025

== ENCOUNTER 2025-04-24 15:19 | Outpatient (AMB) | payer MEDICAID, SELFPAY ==
--- NOTE | 2025-04-24 15:17 | HO.NEPHOV ---
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 He is CMV positive, EBV positive with a PRA of 0. Donor ID is [id number] MAOB, KDPI 60% with hep C antibody positive, donor serology with CMV positive, EBV positive, toxoplasmosis positive. Patient underwent donor kidney transplant 06/19/2023. Angiogram did not find any renal artery stenosis so no intervention was performed. Went to OR 09/08 for LUE AV fistula ligation and resection. He has failed graft and is close to initiation of HD. He maintains good hydration. He recently had a hospitalization for infected toe nail. He denies uremic symptoms, He wants to wait until AVF is made and matured before initiation of HD. [facility] Medical History Secondary hyperparathyroidism ESRD (end stage renal disease) on dialysis A-V fistula HIV (human immunodeficiency virus infection) Hypertension Kidney disease Surgical History Hx of cardiac catheterization Social History Are you a primary direct care supervisor to a significant other at home: No Do you presently have visiting nurse or other home services: Yes (PREVENTATIVE MAINTENANCE TECHNICIAN 3 hours daily) Alcohol intake: never Patient Tobacco Use Status: Former Tobacco user Tobacco use type: Cigarette Substance Use Type: Former Substance User Review of Systems Const All systems reviewed & are unremarkable except as noted in HPI and below Physical Exam Const General: comfortable and no acute distress Orientation/consciousness: patient oriented x3 HEENT Head: Yes normocephalic Mouth: Normal oral and palatal mucosa present Eyes EOM: EOMs intact bilaterally Neck Neck: Yes supple Resp Auscultation: clear to auscultation bilaterally Cardio Jugular venous distension: no JVD Rate: regular rate GI Palpation (GI): Soft to palpation Auscultation: normal bowel sounds General: Yes no CVA tenderness Back/Spine/Pelvis Back: no CVA tenderness Skin General skin exam: no rashes or lesions noted Neuro General: patient oriented x3 and moves all extremities Extrem General: Yes no pedal edema Results Reviewed Nephrology Results: Hgb, (14.0-18.0) 10.3 g/dl L 04/21/25 WBC, (4.8-10.8) 6.8 X10*3/uL 04/21/25 Plt Count, (160-400) 161 X10*3/uL 04/21/25 Sodium, (135-145) 139 mmol/L 04/21/25 Potassium, (3.3-5.1) 5.1 mmol/L 04/21/25 Chloride, (96-108) 107 mmol/L 04/21/25 Carbon Dioxide, (22-29) 18 mmol/L L 04/21/25 BUN, (9-16) 76 mg/dL H 04/21/25 Creatinine, (0.5-1.4) 9.34 mg/dL H* 04/21/25 Calcium, (8.4-10.2) 7.5 mg/dL L 04/21/25 Phosphorus, (2.7-4.5) 6.2 mg/dL H 04/21/25 PTH Intact, (8.7-77.1) 300.1 pg/mL H 03/11/25 Urine Protein, (Neg-Trace) 100 (2+) mg/dL H 12/06/24 Renal US 12/01/23 Assessment & Plan Assessment & Plan (1) Hypertension: Code(s): I10 - Essential (primary) hypertension Category: Medical Qualifiers: Hypertension type: secondary to other renal disorders Qualified Code(s): I15.1 - Hypertension secondary to other renal disorders (2) Secondary hyperparathyroidism (of renal origin): Code(s): N25.81 - Secondary hyperparathyroidism of renal origin Category: Medical (3) Renal transplant recipient: Code(s): Z94.0 - Kidney transplant status Category: Surgical (4) CKD (chronic kidney disease) stage 5, GFR less than 15 ml/min: Code(s): N18.5 - Chronic kidney disease, stage 5 Category: Medical (5) Metabolic acidosis: Code(s): E87.20 - Acidosis, unspecified Category: Medical (6) Hyperkalemia: Code(s): E87.5 - Hyperkalemia Category: Medical Plan Graft function worse but no uremic symptoms Currently taking prograf; Off MMF Blood pressure on target at home C/W current dose of NaHCO3 No indication for renal replacement today S/P AVF and referred for transplant eval Follow up 2 weeks Orders: Orders Electrolytes Today N18.5 - Chronic kidney disease, stage 5, Z94.0 - Kidney transplant status Blood Urea Nitrogen Today N18.5 - Chronic kidney disease, stage 5, Z94.0 - Kidney transplant status Creatinine Today N18.5 - Chronic kidney disease, stage 5, Z94.0 - Kidney transplant status Referrals Transplant Surgery Referral N18.5 - Chronic kidney disease, stage 5, Z94.0 - Kidney transplant status Coding Level of Care Code Est Pt Level 4 (55500) Diagnoses Hypertension secondary to other renal disorders I15.1 Hypertension type: secondary to other renal disorders Secondary hyperparathyroidism (of renal origin) N25.81 Renal transplant recipient Z94.0 CKD (chronic kidney disease) stage 5, GFR less than 15 ml/min N18.5 Metabolic acidosis E87.20 Hyperkalemia E87.5
[2025-04-24 15:21] VITALS: BP 130/70; BMI 26.1
--- OUTSIDE RECORDS SUMMARY | 2025-04-24 18:29 | XMS_ITS | Clinical Summary ---
Author Organization [facility], Address [address] [place] [address] Phone Care Team Providers Care Passenger Solicitor Name Role Phone Name, Horacio ARORA Primary [...] by mouth 4 Active ergocalciferol 1.25 MG (93719 UT) capsule TAKE 1 CAPSULE BY MOUTH [...] capsule, 0 Refills, Maintenance, 06/22/23 10:24:00 EST, [facility], Partial fill upon patient [...] Telephone [facility] [address] [place] [address] Madalyn Silverman 03/26/2025 3:30 PM EDT Office Visit [facility] [address] [place] [address] Nakul Pardo MD Stage 5 chronic kidney [...] Visit [facility] [address] [place] [address] [place] [id number] Health Maintenance Due Date Last Done Comments Hepatitis B Vaccine (1 of 3 - 19+ 3-dose series) 02/03 Pneumococcal Vaccine: Peds ( 0 to 5 Years) and At-Risk Patients (6 to 49 Years) (1 of 2 - PCV) 02/04/1996 Influenza Vaccine (#1) 2025 Insurance Medicaid [place] Medicaid [place] Care Teams Passenger Solicitor Relationship Specialty Start Date End Date Name, MD [address] [place] [address] PCP - General Internal Medicine 02/17/25
--- OUTSIDE RECORDS SUMMARY | 2025-04-24 18:29 | XMS_ITS | Clinical Summary ---
Author Organization [address] [facility] Address [address] [place] [address] Phone Care Team Providers Care Digital Marketing Project Manager Name Role Phone Name, Horacio ARORA Primary Care Provider [phone] Allergies Active Allergy Reactions Criticality Noted Date [...] Date Diagnosed Date EZEQUIEL (acute kidney injury) ([facility] V24) 02/19/20 25 Hypomagnesemia 02/18/2025 Severe neutropenia ([facility] V24) 02/18/2025 Cellulitis 02/15/2025 CKD (chronic kidney disease) stage 5, GFR less than 15 ml/min ([facility] V24, [facility] V28) 12/31/2024 Encounters Date Type Department Care Team Description 03/04/2025 2:45 PM EDT Office Visit [facility] Hematology Oncology [address] [place] [phone] Lonnie Lovett MD Severe neutropenia ([facility] V24) (Primary Dx); Cellulitis of toe, unspecified laterality 02/15/2025 9:28 AM EDT - 02/15/2025 10:58 AM EDT Surgery [facility] OR [address] [place] [phone] Lance Elena DPM INCISION DRAINAGE BILATERAL HALLUX 02/15/2025 9:03 AM EDT Anesthesia Event [address] [phone] Andres Bonilla MD Claudio, Raymund, CRNA 02/14/2025 11:58 PM EDT - 02/18/2025 6:16 PM EDT Hospital Encounter [facility] Urology Unit [address] [place] [address] Saad Pimentel MD Kokkinos, Erika, MD Ishtiaq, Rizwan, MD Alam, Aroosa, MD Rasul, MD Crissy Little James T, MD Santoyo-Pacheco , Emanuel Eason MD Leukopenia, unspecified type (Primary Dx); Anemia, unspecified type; Chronic kidney disease, unspecified CKD stage; Cellulitis of great toe of left foot; Hypomagnesemia; Sepsis without acute organ dysfunction, due to unspecified organism ([facility] V24, [facility] V28); Neutropenic fever ([facility] V24); Cellulitis of lower extremity, unspecified laterality; CKD (chronic kidney disease) stage 5, GFR less than 15 ml/min ([facility] V24, [facility] V28); Severe neutropenia ([facility] V24); EZEQUIEL (acute kidney injury) ([facility] V24) Discharge Disposition: Home-Health Care c from Last 3 Months Surgical History Surgery Date Site/Laterality Comments TRANSPLANT, KIDNEY, ROBOT-ASSISTED Medical History Medical History Date Comments Chronic kidney disease Secondary hyperparathyroidism ([facility] V24) ESRD (end stage renal disease) ([facility] V24, [facility] V28) HIV (human immunodeficiency virus infection) ([facility] V24, [facility] V28) Hypertension Social History Tobacco Use Types [...] Routine 03/03/2025 10:43 AM EDT Severe neutropenia ([facility] V24) BASIC METABOLIC PANEL Routine 03/03/2025 10:43 AM EDT Hypomagnesemia EZEQUIEL (acute kidney injury) ([facility] V24) ..HIV-1 RNA QUANTITATIVE MOLECULAR STUDY Routine [...] LAB HEMETOLOGY METHOD 03/03/2025 2:18 PM EDT [facility] RBC 3.30(L) 4.50 - 5.50 M/mcL LAB [facility]OLOG[facility] Hemoglobin 9.4(L) 13.5 - 17.5 g/dL LAB HEMETOLOGY METHOD 03/03/2025 2:18 PM [facility] Hematocrit 30.6(L) 42.0 - 54.0 % LAB HEMETOLOGY METHOD 03/03/2025 [facility] MCV 91.6 79.0 - 98.0 FL LAB HEMETOLOGY METHOD 03/03/2025 2[facility] MCH 28.1 27.0 - 32.0 pcg LAB HEMETOLOGY METHOD 03/03/2025 2:18 PM [facility] MCHC 30.7(L) 32.0 - 37.0 g/dL LAB HEMETOLOGY METHOD 03/03/2025 2:18 PM [facility] RDW 13.8 11.0 - 15.0 % LAB HEMETOLOGY METHOD 03/03/2025 2[facility] Platelets 314 130 - 400 K/mcL LAB HEMETOLOGY METHOD 03/03/2025 2[facility] MPV 11.6(H) 7.0 - 11.0 FL LAB HEMETOLOGY METHOD 03/03/2025 2:18 PM EDT [facility] NRBC 0.0 <1.0 % LAB HEMETOLOGY METHOD 03/03/2025 [facility] NRBC Absolute 0.00 <0.10 K/mcL LAB HEMETOLOGY METHOD 03/03/2025 2[facility] Neutrophils Relative 61.9 % LAB HEMETOLOGY METHOD 03/03/2025 2:18 PM [facility] Lymphocytes Relative 20.6 % LAB HEMETOLOGY METHOD 03/03/2025 2:18 PM [facility] Monocytes Relative 10.0 % LAB HEMETOLOGY METHOD 03/03/2025 2:18 PM [facility] Eosinophils Relative 1.4 % LAB HEMETOLOGY METHOD 03/03/2025 2:18 PM [facility] Basophils Relative 4.2 % LAB HEMETOLOGY METHOD 03/03/2025 2:18 PM [facility] Immature Granulocytes Relative 1.9 % LAB HEMETOLOGY METHOD 03/03/2025 2:18 PM [facility] Neutrophils Absolute 2.23 1.50 - 7.00 K/mcL LAB HEMETOLOGY METHOD 03/03/2025 2:18 PM [facility] Lymphocytes Absolute 0.74(L) 1.00 - 5.00 K/mcL LAB HEMETOLOGY METHOD 03/03/2025 2:18 PM [facility] Monocytes Absolute 0.36 0.20 - 1.00 K/mcL LAB HEMETOLOGY METHOD 03/03/2025 2:18 PM [facility] Eosinophils Absolute 0.05 0.00 - 0.50 K/mcL LAB HEMETOLOGY METHOD 03/03/2025 2:18 PM [facility] Basophils Absolute 0.15 0.00 - 0.20 K/[facility] LAB HEMETOLOGY METHOD 03/03/2025 2:18 PM EDT [facility] Immature Granulocytes Absolute 0.07(H) 0.00 - 0.03 K/[facility] LAB HEMETOLOGY METHOD 03/03/2025 2:18 PM EDT [facility] Blood Venous blood specimen / Unknown Venipuncture / Unknown 03/03/2025 10:43 AM EDT 03/03/2025 10:43 AM EDT us Emanuel Moran MD LAB BLOOD ORDERABLES F inal Result Performing Organization Address [facility]/ZIP Co de Phone Number [facility] [address] [place] [address], [place] [phone] * (ABNORMAL) Magnesium (03/03/2025 10:43 AM EDT) Only the most recent of4 resultswithin the time period is included. Magnesium 1.8(L) 1.9 - 2.6 mg/dL LAB CHEMISTRY METHOD 03/03/2025 3:16 PM EDT [facility] Blood Venous blood specimen / Unknown Venipuncture / Unknown 03/03/2025 10:43 AM EDT 03/03/2025 10:43 AM EDT us Emanuel Moran MD LAB BLOOD ORDERABLES F inal Result Performing Organization Address City/[facility]/ZIP Co de Phone Number [facility] [address] [place] [address], [place] [phone] * (ABNORMAL) Basic metabolic panel (03/03/2025 10:43 AM EDT) Only the most recent of3 resultswithin the time period is included. Sodium 137 133 - 145 mmol/L LAB CHEMISTRY METHOD 03/03/2025 3:16 PM EDT [facility] Potassium 5.2 3.5 - 5.5 mmol/L LAB CHEMISTRY METHOD 03/03/2025 3:16 PM [facility] Chloride 104 96 - 110 mmol/L LAB CHEMISTRY METHOD 03/03/2025 3:16 PM [facility] CO2 24 21 - 32 mmol/L LAB CHEMISTRY METHOD 03/03/2025 3:16 PM [facility] Anion Gap 9 3 - 11 LAB CHEMISTRY METHOD 03/03/2025 3:16 PM T [facility] Glucose 89 70 - 100 mg/dL LAB CHEMISTRY METHOD 03/03/2025 3:16 PM [facility] BUN 84(H) 5 - 25 mg/dL LAB CHEMISTRY METHOD 03/03/2025 3:16 PM [facility] Creatinine 8.04(H) 0.70 - 1.30 mg/dL LAB CHEMISTRY METHOD 03/03/2025 3:16 PM [facility] eGFR 8(L) >=60 mL/min/1. 73m2 LAB CHEMISTRY METHOD 03/03/2025 3:16 PM [facility] Comment:Calculation based on the Chronic Kidney Disease Epidemiology Collaboration (CKD-EPI) equation refit without adjustment for race. BUN/Creatinine Ratio 10.4 LAB CHEMISTRY METHOD 03/03/2025 3:16 PM [facility] Calcium 8.0(L) 8.5 - 10.5 mg/dL LAB CHEMISTRY METHOD 03/03/2025 3:16 PM [facility] Blood Venous blood specimen / Unknown Venipuncture / Unknown 03/03/2025 10:43 AM EDT 03/03/2025 10:43 AM EDT us Emanuel Moran MD LAB BLOOD ORDERABLES F inal Result [facility] [address] [place] [address], * HIV-1 RNA quantitative molecular study (02/18/2025 1:24 PM EDT) [facility] HIV-1 RNA by PCR <20 copies/mL 03/22/20 [...] 03/22/2025 2:05 PM EDT Performed at: - [facility] [address] [place] [id number] Pneumatic Jacketer: Felicia Jean MD, Phone: [phone] us Ilda Breen MD LAB BLOOD ORDERABLES Edited Resu lt - Final [facility] * HIV 1 drug resistance, quantitative phenotype, genotype plus integrase (02/18/2025 1:24 PM EDT) [facility] PSGT+IN Net Assessment 03/22/2025 2:05 PM EDT [...] 03/22/2025 2:05 PM EDT [facility] Comment: visit [email or web address] or call [employer] at [phone] between the hours of 6:30am to 5:00pm PT Monday through Monday. REMINDER: To Ensure High-Quality Results on All Samples - Verify Viral Load > 500 copies/mL Before Ordering - Draw 2 EDTA lavender top or 2 PPT tubes - Spin Sample Immediately at [id number] x g - Don't Leave Samples in Centrifuge After Spinning - Transfer Plasma into 1 or more screw-cap polypropylene tube(s) - Freeze Sample Immediately at -20C - Give Nuisance Wildlife Trapper Only Fully Frozen Samples PhenoSense GT(R) plus [...] developed and its performance characteristics determined by [employer]. It has not been cleared or approved by the Food and Drug Administration. [employer]. is a subsidiary of [employer], using the brand [employer]. The results should not be used as the sole criteria for patient management. This document contains private and confidential health information protected by state and federal law. If you have received this document in error, please call [phone]. Blood Venous blood specimen / Unknown Venipuncture / Unknown 02/18/2025 1:24 PM EDT 02/18/2025 1:32 PM EDT Narrative [facility] - 03/22/2025 2:05 PM EDT Performed at: 01 - [facility] [address] [place] [address], [place] [id number] Pneumatic Jacketer: Felicia Jean MD, Phone: [phone] us Ilda Breen MD LAB BLOOD ORDERABLES Edited Resu lt - Final Performing Organization Address [facility]/ZIP Co de Phone Number [facility] * (ABNORMAL) Lymphocyte T-cell panel (02/18/2025 1:24 PM EDT) Pathologist [facility] CD8 Percent 43(H) 9 - 37 % 02/21/2025 10:16 AM EDT [facility] CD8 Absolute Count 138(L) 190 - 832 cell/ul 02/21/2025 10:16 AM EDT [facility] CD4 Percent 37 35 - 66 % 02/21/2025 10:16 AM EDT [facility] CD4 Absolute Count 116(L) 443 - 1471 cell/ul 02/21/2025 10:16 AM EDT [facility] T4/T8 Ratio (CD4:CD8) 0.9(L) 1.0 - 3.7 02/21/2025 10:16 AM EDT [facility] Comment: Test performed at [facility], [address] , [place] [address] Blood Venous blood specimen / Unknown Venipuncture / Unknown 02/18/2025 1:24 PM EDT 02/18/2025 1:32 PM EDT us Ilda Breen MD LAB MOLECULAR DIAGNOSTICS ORDERA BLES Final Result Performing Organization Address [facility] de Phone Number [facility] [address] [place] [address] * HIV 1 molecular study quantitative (02/18/2025 1:24 PM EDT) [facility] HIV-1 RNA Interpretation Not Detected Not Detected LAB MOLECULAR DIAGNOSTICS METHOD 02/18/2025 4:24 PM EDT [facility] Comment:HIV RNA not detected , unable to report quantitative results. Blood Venous blood specimen / Unknown Venipuncture / Unknown 02/18/2025 1:24 PM EDT 02/18/2025 1:32 PM EDT us Ilda Breen MD LAB BLOOD ORDERABLES Final Resul t Performing Organization Address City/[facility]/ZIP Co de Phone Number [facility] [address] [place] [address], [place] [phone] * (ABNORMAL) Manual differential (02/18/2025 6:57 AM [...] 8:15 AM EDT [facility] Metamyelocytes % 6.0(H) % LAB HEMETOLOGY METHOD 02/18/2025 8:15 AM EDT [facility] Neutrophils Absolute Manual 0.17(L) 1.50 - 7.00 K/mcL LAB HEMETOLOGY METHOD 02/18/2025 8:15 AM EDT [facility] Lymphocytes Absolute 0.47(L) 1.00 - 5.00 K/mcL LAB HEMETOLOGY METHOD 02/18/2025 8:15 AM EDT [facility] Monocytes Absolute Manual 0.30 0.20 - 1.00 K/mcL LAB HEMETOLOGY METHOD 02/18/2025 8:15 AM EDT [facility] Eosinophils Absolute Manual 0.13 0.00 - 0.50 K/mcL LAB HEMETOLOGY METHOD 02/18/2025 8:15 AM EDT [facility] Basophils Absolute Manual 0.07 0.00 - 0.20 K/mcL LAB HEMETOLOGY METHOD 02/18/2025 8:15 AM EDT [facility] Metamyelocytes Absolute Manual 0.07(H) 0.00 - 0.00 K/mcL LAB HEMETOLOGY METHOD 02/18/2025 8:15 AM EDT [facility] Rbc Morphology Present(A) Consistent with indices, Normal for LAB HEMETOLOGY METHOD 02/18/2025 8:15 AM EDT [facility] Comment:This is an appended report. These results have been appended to a previously final verified report. Platelet Morphology - WAM Large Platelets Seen(A) Normal [facility] 02/18/2025 8:15 AM EDT [facility] Comment:This is an appended report. These results have been appended to a previously final verified report. Polychromasia Present Present(A) (none) [facility] 02/18/2025 8:15 AM EDT [facility] Comment:This is an appended report. These results have been appended to a previously final verified report. Dohle Body Present Present(A) (none) [facility] 02/18/2025 8:15 AM EDT [facility] Comment:This is an appended report. These results have been appended to a previously final verified report. Blood Venous blood specimen / Unknown Venipuncture / Unknown 02/18/2025 6:57 AM EDT 02/18/2025 7:16 AM EDT us Emanuel Moran MD LAB BLOOD ORDERABLES E dited Result - Final [facility] [address] [place] [address], * Phosphorus (02/18/2025 6:57 AM EDT) Only [...] ORDERABLES F inal Result Performing Organization Address City/[facility]/ZIP Co de Phone Number [facility] [address] [place] [address], [place] [phone] * (ABNORMAL) Afshan hodge virus IgG, IgM, nuclear and early antibodies (02/17/2025 7:04 AM EDT) [facility] EBV VCA IgG Positive(A) Negative LAB CHEMISTRY [...] Resul t [facility] [address] [place] [address], [place] [phone] * Cytomegalovirus molecular study quantitative (02/17/2025 7:03 AM EDT) [facility] Cytomegalovirus (CMV) DNA Qualitative Not detected Not detected 02/19/2025 11:45 AM EDT [facility] Cytomegalovirus (CMV) DNA Quantitative <30 <30 IU/mL 02/19/2025 11:45 AM EDT [facility] Log Cytomegalovirus <1.48 <1.48 Log (10) IU/mL 02/19/2025 11:45 AM EDT [facility] CMV DNA (cp/mL) <76 <76 Copies/mL 02/19/2025 11:45 AM EDT [facility] Comment: This test uses a polymerase chain reaction (PCR) assay from [employer] to amplify and detected conserved regions [...] not rule out infection. Test performed at [facility], [facility] [address], [place] [address] Gema Peralta MD, PhD - Insurance Claim Representative Blood Venous blood specimen / Unknown Venipuncture / Unknown 02/17/2025 7:03 AM EDT 02/17/2025 7:08 AM EDT us Jung Dinero MD LAB MICROBIOLOGY - GENERAL ORDER JODEE Final Result [facility] [address] [place], [place] [id number] * Parvovirus B19 antibodies, IgM (02/17/2025 6:15 AM EDT) [facility] Parvovirus B19 Antibody IgM 0.73 <=0.90 INDEX 02/21/2025 6:27 AM EDT [facility] Comment: Negative: No antibody detected Test performed at [facility], [address], [place] [address] Gema Peralta MD, PhD - Insurance Claim Representative Blood Venous blood specimen / Unknown Venipuncture / Unknown 02/17/2025 6:15 AM EDT 02/17/2025 6:19 AM EDT us Jung Dinero MD LAB BLOOD ORDERABLES Final Resul t [facility] [address] [place] [address] * (ABNORMAL) Comprehensive metabolic panel (02/17/2025 6:14 AM EDT) Only the most recent of3 resultswithin the time period is included. Sodium 137 133 - 145 mmol/L LAB CHEMISTRY METHOD 02/17/2025 6:55 AM [facility] Potassium 3.8 3.5 - 5.5 mmol/L LAB CHEMISTRY METHOD 02/17/2025 6:55 AM [facility] Chloride 108 96 - 110 mmol/L LAB CHEMISTRY METHOD 02/17/2025 6:55 AM [facility] CO2 19(L) 21 - 32 mmol/L LAB CHEMISTRY METHOD 02/17/2025 6:55 AM [facility] Anion Gap 10 3 - 11 LAB CHEMISTRY METHOD 02/17/2025 6:55 AM [facility] Glucose 98 70 - 100 mg/dL LAB CHEMISTRY METHOD 02/17/2025 6:55 AM [facility] BUN 84(H) 5 - 25 mg/dL LAB CHEMISTRY METHOD 02/17/2025 6:55 AM [facility] Creatinine 7.34(H) 0.70 - 1.30 mg/dL LAB CHEMISTRY METHOD 02/17/2025 6:55 AM [facility] eGFR 8(L) >=60 mL/min/1. 73m2 LAB CHEMISTRY METHOD 02/17/2025 6:55 AM [facility] Comment:Calculation based on the Chronic Kidney Disease Epidemiology Collaboration (CKD-EPI) equation refit without adjustment for race. BUN/Creatinine Ratio 11.4 LAB CHEMISTRY METHOD 02/17/2025 6:55 AM [facility] Calcium 8.6 8.5 - 10.5 mg/dL LAB CHEMISTRY METHOD 02/17/2025 6:55 AM [facility] AST (SGOT) 15 10 - 42 unit/L LAB CHEMISTRY METHOD 02/17/2025 6:55 AM [facility] ALT (SGPT) 12 10 - 60 unit/L LAB CHEMISTRY METHOD 02/17/2025 6:55 AM [facility] Alkaline Phosphatase 101 42 - 121 unit/L LAB CHEMISTRY METHOD 02/17/2025 6:55 AM [facility] Total Protein 5.9(L) 6.0 - 8.0 g/dL LAB CHEMISTRY METHOD 02/17/2025 6:55 AM [facility] Albumin 2.9(L) 3.2 - 5.0 g/dL LAB CHEMISTRY METHOD 02/17/2025 6:55 AM [facility] Total Bilirubin 0.3 0.0 - 1.4 mg/dL LAB CHEMISTRY METHOD 02/17/2025 6:55 AM [facility] Blood Venous blood specimen / Unknown Venipuncture / Unknown 02/17/2025 6:14 AM EDT 02/17/2025 6:19 AM EDT us Jung Dinero MD LAB BLOOD ORDERABLES Final Resul t [facility] [address] [place] [address], * (ABNORMAL) Tacrolimus level (02/16/2025 7:28 AM EDT) Tacrolimus Level 2.9(L) 5.0 - 20.0 ng/mL 02/19/2025 12:16 PM EDT [facility] Comment: Additional Information: Toxic Level > [...] developed and the performance characteristics determined by [facility]. This confirmation testing has not been cleared or approved by the FDA. The laboratory is regulated under CLIA as qualified to perform high-complexity testing. This test is used for patient testing purposes. It should not be regarded as investigational or for research. Test performed at [facility], [address] , [place] [address] Gema Peralta MD, PhD - Insurance Claim Representative Blood Venous blood specimen / Unknown Venipuncture / Unknown 02/16/2025 7:28 AM EDT 02/16/2025 7:32 AM EDT us Jung Dinero MD LAB BLOOD ORDERABLES Final Resul t [facility] [address] [place] [address] * (ABNORMAL) AST, ALT, Bilirubin ELR state [...] ORDERABLES Final Re sult Performing Organization Address [facility]/ZIP Co de Phone Number [facility] [address] [place] [address], [place] [phone] * Pathology review, blood smear (02/15/2025 6:38 [...] ORDERABLES Final Res ult Performing Organization Address [facility]/ZIP Co de Phone Number [facility] [address] [place] [address], [place] [phone] * (ABNORMAL) Hepatitis B screening panel (02/15/2025 [...] ORDERABLES Final Re sult Performing Organization Address [facility] Co de Phone Number [facility] [address] [place] [address], [place] [phone] * Hepatitis B core antibody IgM (02/15/2025 [...] Re sult [facility] [address] [place] [address], [place] [phone] * (ABNORMAL) Parathyroid hormone intact (02/15/2025 6:38 AM EDT) PTH 658.3(H) 18.5 - 88.0 pcg/mL LAB CHEMISTRY METHOD 02/15/2025 5:44 PM EDT [facility] Blood Venous blood specimen / Unknown Venipuncture / Unknown 02/15/2025 6:38 AM EDT 02/15/2025 6:46 AM EDT us Curtis Manning MD LAB BLOOD ORDERABLES Final Re sult [facility] [address] [place] [address], * (ABNORMAL) Drug abuse screen 8a panel, urine (02/15/2025 5:30 AM EDT) Amphetamine Screen, Ur Negative Negative LAB CHEMISTRY METHOD 5 6:09 AM [facility] Comment:Certain OTC medicati ons containing ephedrine, phenylephrine, pseudoephedrine and phenylpropanolamine can cause false positive results. Barbiturate Screen, Ur Negative Negative LAB CHEMISTRY METHOD 5 6:09 AM [facility] Benzodiazepine Screen, Ur Negative Negative LAB CHEMISTRY METHOD 5 6:09 AM [facility] Cocaine Screen, Ur Negative Negative LAB CHEMISTRY METHOD 5 6:09 AM [facility] Opiate Screen, Ur Positive(A ) Negative LAB CHEMISTRY METHOD 5 6:09 AM [facility] Cannabinoid (THC) Screen, Ur Negative Negative LAB CHEMISTRY METHOD 5 6:09 AM T [facility] Comment:Specimens from patie nts taking pantoprazole sodium (Protonix) have been shown to produce false positive results. Oxycodone Screen, Ur Negative Negative LAB CHEMISTRY METHOD 5 6:09 AM [facility] Fentanyl, Ur Negative Negative LAB CHEMISTRY METHOD 5 6:09 AM [facility] Urine Urine specimen obtained by clean [...] ORDERABLES Final Res ult Performing Organization Address City/[facility]/ZIP Co de Phone Number [facility] [address] [place] [address], [place] [phone] * MRSA molecular study (02/15/2025 5:30 AM EDT) [facility] MRSA Screen PCR Not Detected Not Detected LAB MICROBIOLOGY METHOD 02/15/2025 8:45 AM EDT [facility] Swab Nasopharyngeal structure / Unknown Non-blood Collection / Unknown 02/15/2025 5:30 AM EDT 02/15/2025 5:35 AM EDT us Jason MODI LAB MICROBIOLOGY - GENERAL ORD ERABLES Final Result Performing Organization Address [facility]/ZIP Co de Phone Number [facility] [address] [place] [address], [place] [phone] * XR Foot 3+ Views Left (02/15/2025 [...] Signed Date: 02/15/2025 09:04 ET Workstation ID: [id number] Transcribed By: Self Edit Transcribed Date: 02/15/2025 [...] Signed Date: 02/15/2025 09:04 ET Workstation ID: [id number] Transcribed By: Self Edit Transcribed Date: 02/15/2025 09:01 ET us Saad Pimentel MD IMG XR PROCEDURES Final Resu lt * Blood Culture, Peripheral #1 (02/15/2025 1:15 AM EDT) Only the most recent of2 resultswithin the time period is included. [facility] Signature Culture, Blood No growth at 5 days 02/20/2025 5:01 AM EDT [facility] ([facility]) [facility] Blood Venous blood specimen / Unknown Venipuncture / Unknown 02/15/2025 1:15 AM EDT 02/15/2025 1:31 AM EDT Saad Pimentel MD LAB MICROBIOLOGY - GENERAL O RDERABLES Final Result Performing Organization Address [facility]/ZIP Co de Phone Number [facility] [address] [place] [address], [place] [phone] * Lactate, with reflex (02/15/2025 12:54 AM EDT) LACTIC ACID 1.2 0.4 - 2.0 mmol/L LAB CHEMISTRY METHOD 02/15/2025 1:46 AM EDT [facility] Blood Venous blood specimen / Unknown Venipuncture / Unknown 02/15/2025 12:54 AM EDT 02/15/2025 12:57 AM EDT Saad Pimentel MD LAB BLOOD ORDERABLES Final R esult Performing Organization Address [facility]/ZIP Co de Phone Number [facility] [address] [place] [address], * (ABNORMAL) C-reactive protein (02/15/2025 12:52 AM EDT) C-Reactive Protein 16.40(H) <=0.50 mg/dL LAB CHEMISTRY METHOD 02/15/2025 5:02 AM EDT [facility] Blood Venous blood specimen / Unknown Venipuncture / Unknown 02/15/2025 12:52 AM EDT 02/15/2025 12:58 AM EDT Jason MODI LAB BLOOD ORDERABLES Final Res ult Performing Organization Address City/[facility]/ZIP Co de Phone Number [facility] [address] [place] [address], * APTT (02/15/2025 12:51 AM EDT) aPTT 30.5 24.1 - 39.3 sec LAB COAGULATION METHOD 02/15/2025 1:11 AM EDT [facility] Blood Venous blood specimen / Unknown Venipuncture / Unknown 02/15/2025 12:51 AM EDT 02/15/2025 12:58 AM EDT Saad Pimentel MD LAB BLOOD ORDERABLES Final R esult Performing Organization Address [facility]/ZIP Co de Phone Number [facility] [address] [place] [address], [place] [phone] * (ABNORMAL) Protime-INR (02/15/2025 12:51 AM EDT) [...] ORDERABLES Final R esult Performing Organization Address City/[facility]/ZIP Co de Phone Number [facility] [address] [place] [address], [place] [phone] from Last 3 Months Insurance Advance Directives [...] currently active code status orders. Care Teams Digital Marketing Project Manager Relationship Specialty Start Date End Date Name, MD Horacio [address] [place] [address] PCP - General Internal Medicine 02/15/25
== END 2025-04-24 15:40 | disposition home or self-care (01) ==
LOC: HO.HKAS 15:19
PROVIDERS: PCP Internal Medicine Geriatric Medicine; Visit Provider Internal Medicine Nephrology
DX: I15.1 Hypertension secondary to other renal disorders (principal); N25.81 Secondary hyperparathyroidism of renal origin; Z94.0 Kidney transplant status; N18.5 Chronic kidney disease, stage 5; E87.20 Acidosis, unspecified; E87.5 Hyperkalemia
CPT/HCPCS: 99214

== ENCOUNTER → 2025-04-24 15:19 | Outpatient (BNVA) | payer MEDICAID, SELFPAY | PROVIDERS: PCP Internal Medicine Geriatric Medicine; Visit Provider Internal Medicine Nephrology | DX: I15.1 Hypertension secondary to other renal disorders (principal); N25.81 Secondary hyperparathyroidism of renal origin; E78.5 Hyperlipidemia, unspecified; E87.20 Acidosis, unspecified; Z94.0 Kidney transplant status | CPT/HCPCS: 99212 ==

== ENCOUNTER 2025-05-06 08:42 | Outpatient (REF) | payer MEDICAID, SELFPAY ==
--- OUTSIDE RECORDS SUMMARY | 2025-05-06 09:04 | XMS_ITS | Clinical Summary ---
Author Organization [facility], Address [address] [place] [address] Phone Care Team Providers Care Dental Laboratory Worker Name Role Phone Name, Horacio ARORA Primary [...] by mouth 4 Active ergocalciferol 1.25 MG (99350 UT) capsule TAKE 1 CAPSULE BY MOUTH [...] capsule, 0 Refills, Maintenance, 06/22/23 10:24:00 EST, [facility], Partial fill upon patient [...] Telephone [facility] [address] [place] [address] Madalyn Silverman 03/26/2025 3:30 PM EDT Office Visit [facility] [address] [place] [address] Nakul Pardo MD Stage 5 chronic kidney [...] Visit [facility] [address] [place] [address] [place] [phone] Health Maintenance Due Date Last Done Comments Hepatitis B Vaccine (1 of 3 - 19+ 3-dose series) 02/03 Pneumococcal Vaccine: Peds ( 0 to 5 Years) and At-Risk Patients (6 to 49 Years) (1 of 2 - PCV) 02/04/1996 Influenza Vaccine (#1) 2025 Insurance Medicaid [place] Care Teams Dental Laboratory Worker Relationship Specialty Start Date End Date Name, MD Horacio [address] [place] [address] PCP - General Internal Medicine 02/17/25
[2025-05-06 14:30] LABS: Anion Gap 19 (12-20); Blood Urea Nitrogen 84 mg/dL (9-16); Carbon Dioxide 19 mmol/L (22-29); Chloride 109 mmol/L (96-108); Estimated Glomerular Filt Rate 7; Potassium 5.1 mmol/L (3.3-5.1); Sodium 142 mmol/L (135-145)
== END 2025-05-06 08:43 | disposition home or self-care (01) ==
LOC: HO.HKASLDS 08:42
PROVIDERS: PCP Internal Medicine Geriatric Medicine; Visit Provider Internal Medicine Nephrology
DX: N18.5 Chronic kidney disease, stage 5 (principal); Z94.0 Kidney transplant status
CPT/HCPCS: 36415; 80051; 82565; 84520

== ENCOUNTER 2025-05-07 14:27 | Outpatient (REF) | payer MEDICAID, SELFPAY ==
--- OUTSIDE RECORDS SUMMARY | 2025-05-07 17:44 | XMS_ITS | Clinical Summary ---
Author Organization 175 [facility] Address [address] [place] [address] Phone Care Team Providers Care Tube Sizer And Cutter Operator Name Role Phone Name, Horacio ARORA Primary Care Provider [phone] Allergies Active Allergy Reactions Criticality Noted Date [...] Date Diagnosed Date EZEQUIEL (acute kidney injury) [place] [place] 02/19/20 25 Hypomagnesemia 02/18/2025 Severe neutropenia [place] [place] 02/18/2025 Cellulitis 02/15/2025 CKD (chronic kidney disease) stage 5, GFR less than 15 ml/min [place] [place] [facility] [place] 12/31/2024 Encounters Date Type Department Care Team Description 03/04/2025 2:45 PM EDT Office Visit [facility] Hematology Oncology [address] [place] [phone] Lonnie Lovett MD Severe neutropenia [place] [place] (Primary Dx); Cellulitis of toe, unspecified laterality 02/15/2025 9:28 AM EDT - 02/15/2025 10:58 AM EDT Surgery [facility] OR [address] [place] [phone] Lanec Elena DPM INCISION DRAINAGE BILATERAL HALLUX 02/15/2025 9:03 AM EDT Anesthesia Event [address] [phone] Andres Bonilla MD Claudio, Raymund, CRNA 02/14/2025 11:58 PM EDT - 02/18/2025 6:16 PM EDT Hospital Encounter [facility] Urology Unit [address] [place] [address] Saad Pimentel MD Kokkinos, Erika, MD Ishtiaq, Rizwan, MD Alam, Aroosa, MD Rasul, MD Crissy Little James T, MD Santoyo-Pacheco , Emanuel Eason MD Leukopenia, unspecified type (Primary Dx); Anemia, unspecified type; Chronic kidney disease, unspecified CKD stage; Cellulitis of great toe of left foot; Hypomagnesemia; Sepsis without acute organ dysfunction, due to unspecified organism [place] [place] [facility] [place] Neutropenic fever [place] [place] Cellulitis of lower extremity, unspecified laterality; CKD (chronic kidney disease) stage 5, GFR less than 15 ml/min ([facility] [place] [facility] [place] Severe neutropenia [place] [place] EZEQUIEL (acute kidney injury) [place] [place] Discharge Disposition: Home-Health Care c from Last 3 Months Surgical History Surgery Date Site/Laterality Comments TRANSPLANT, KIDNEY, ROBOT-ASSISTED Medical History Medical History Date Comments Chronic kidney disease Secondary hyperparathyroidism [place] [place]) ESRD (end stage renal disease) ([facility] [place], [facility] V28) HIV (human immunodeficiency virus infection) ([facility], [facility] [place] Hypertension Social History Tobacco Use Types [...] Routine 03/03/2025 10:43 AM EDT Severe neutropenia ([facility]24) BASIC METABOLIC PANEL Routine 03/03/2025 10:43 AM EDT Hypomagnesemia EZEQUIEL (acute kidney injury) ([facility] V24) ..HIV-1 RNA QUANTITATIVE MOLECULAR STUDY Routine [...] LAB HEMETOLOGY METHOD 03/03/2025 2:18 PM EDT [facility] RBC 3.30(L) 4.50 - 5.50 M/mcL [facility] Hemoglobin 9.4(L) 13.5 - 17.5 g/dL LAB HEMETOLOGY METHOD 03/03/2025 2:18 PM [facility] Hematocrit 30.6(L) 42.0 - 54.0 % LAB HEMETOLOGY METHOD [facility] MCV 91.6 79.0 - 98.0 FL LAB HEMETOLOGY METHOD 03/03[facility]2025 [facility] MCH 28.1 27.0 - 32.0 pcg LAB HEMETOLOGY METHOD 03/03/2025 2:18 PM [facility] MCHC 30.7(L) 32.0 - 37.0 g/dL LAB HEMETOLOGY METHOD 03/03/2025 2:18 PM [facility] RDW 13.8 11.0 - 15.0 % LAB HEMETOLOGY METHOD 03/03[facility]2025 [facility] Platelets 314 130 - 400 K/mcL LAB HEMETOLOGY METHOD 03/03[facility]2025 [facility] MPV 11.6(H) 7.0 - 11.0 FL LAB HEMETOLOGY METHOD 03/03/2025 2:18 PM EDT [facility] NRBC 0.0 <1.0 % LAB HEMETOLOGY METHOD [facility] NRBC Absolute 0.00 <0.10 K/mcL LAB HEMETOLOGY METHOD 03/03/2025 2[facility] Neutrophils Relative 61.9 % LAB HEMETOLOGY METHOD 03/03/2025 2:18 PM [facility] Lymphocytes Relative 20.6 % LAB HEMETOLOGY METHOD 03/03/2025 2:18 PM [facility] Monocytes Relative 10.0 % LAB HEMETOLOGY METHOD 03/03/2025 2:18 PM [facility] Eosinophils Relative 1.4 % LAB HEMETOLOGY METHOD 03/03/2025 2:18 PM [facility] Basophils Relative 4.2 % LAB HEMETOLOGY METHOD 03/03/2025 2:18 PM [facility] Immature Granulocytes Relative 1.9 % LAB HEMETOLOGY METHOD 03/03/2025 2:18 PM [facility] Neutrophils Absolute 2.23 1.50 - 7.00 K/mcL LAB HEMETOLOGY METHOD 03/03/2025 2:18 PM [facility] Lymphocytes Absolute 0.74(L) 1.00 - 5.00 K/mcL LAB HEMETOLOGY METHOD 03/03/2025 2:18 PM [facility] Monocytes Absolute 0.36 0.20 - 1.00 K/mcL LAB HEMETOLOGY METHOD 03/03/2025 2:18 PM [facility] Eosinophils Absolute 0.05 0.00 - 0.50 K/mcL LAB HEMETOLOGY METHOD 03/03/2025 2:18 PM [facility] Basophils Absolute 0.15 0.00 - 0.20 K/[facility] LAB HEMETOLOGY METHOD 03/03/2025 2:18 PM EDT [facility] Immature Granulocytes Absolute 0.07(H) 0.00 - 0.03 K/[facility] LAB HEMETOLOGY METHOD 03/03/2025 2:18 PM EDT [facility] Blood Venous blood specimen / Unknown Venipuncture / Unknown 03/03/2025 10:43 AM EDT 03/03/2025 10:43 AM EDT us Emanuel Moran MD LAB BLOOD ORDERABLES F inal Result Performing Organization Address [facility]/ZIP Co de Phone Number [facility] [address] [place] [address], [place] [phone] * (ABNORMAL) Magnesium (03/03/2025 10:43 AM EDT) Only the most recent of4 resultswithin the time period is included. Magnesium 1.8(L) 1.9 - 2.6 mg/dL LAB CHEMISTRY METHOD 03/03/2025 3:16 PM EDT [facility] Blood Venous blood specimen / Unknown Venipuncture / Unknown 03/03/2025 10:43 AM EDT 03/03/2025 10:43 AM EDT us Emanuel Moran MD LAB BLOOD ORDERABLES F inal Result Performing Organization Address City/[facility]/ZIP Co de Phone Number [facility] [address] [place] [address], [place] [phone] * (ABNORMAL) Basic metabolic panel (03/03/2025 10:43 AM EDT) Only the most recent of3 resultswithin the time period is included. Sodium 137 133 - 145 mmol/L LAB CHEMISTRY METHOD 03/03/2025 3:16 PM EDT [facility] Potassium 5.2 3.5 - 5.5 mmol/L LAB CHEMISTRY METHOD 03/03/2025 3:16 PM [facility] Chloride 104 96 - 110 mmol/L LAB CHEMISTRY METHOD 03/03/2025 3:16 PM [facility] CO2 24 21 - 32 mmol/L LAB CHEMISTRY METHOD 03/03/2025 3:16 PM [facility] Anion Gap 9 3 - 11 LAB CHEMISTRY METHOD 03/03/2025 3:16 PM T [facility] Glucose 89 70 - 100 mg/dL LAB CHEMISTRY METHOD 03/03/2025 3:16 PM [facility] BUN 84(H) 5 - 25 mg/dL LAB CHEMISTRY METHOD 03/03/2025 3:16 PM [facility] Creatinine 8.04(H) 0.70 - 1.30 mg/dL LAB CHEMISTRY METHOD 03/03/2025 3:16 PM [facility] eGFR 8(L) >=60 mL/min/1. 73m2 LAB CHEMISTRY METHOD 03/03/2025 3:16 PM [facility] Comment:Calculation based on the Chronic Kidney Disease Epidemiology Collaboration (CKD-EPI) equation refit without adjustment for race. BUN/Creatinine Ratio 10.4 LAB CHEMISTRY METHOD 03/03/2025 3:16 PM [facility] Calcium 8.0(L) 8.5 - 10.5 mg/dL LAB CHEMISTRY METHOD 03/03/2025 3:16 PM [facility] Blood Venous blood specimen / Unknown Venipuncture / Unknown 03/03/2025 10:43 AM EDT 03/03/2025 10:43 AM EDT us Emanuel Moran MD LAB BLOOD ORDERABLES F inal Result [facility] [address] [place] [address], * HIV-1 RNA quantitative molecular study (02/18/2025 1:24 PM EDT) [facility] HIV-1 RNA by PCR <20 copies/mL 03/22/20 [...] 03/22/2025 2:05 PM EDT Performed at: - [facility] [address] [place] [phone] Fur Blender: Felicia Jean MD, Phone: [phone] us Ilda Breen MD LAB BLOOD ORDERABLES Edited Resu lt - Final [facility] * HIV 1 drug resistance, quantitative phenotype, genotype plus integrase (02/18/2025 1:24 PM EDT) [facility] PSGT+IN Net Assessment 03/22/2025 2:05 PM EDT [...] 03/22/2025 2:05 PM EDT [facility] Comment: visit [email or web address] I/O or call Get-[employer]-Poster Service at [phone] between the hours of 6:30am to 5:00pm PT Monday through Monday. REMINDER: To Ensure High-Quality Results on All Samples - Verify Viral Load > 500 copies/mL Before Ordering - Draw 2 EDTA lavender top or 2 PPT tubes - Spin Sample Immediately at [id number] x g - Don't Leave Samples in Centrifuge After Spinning - Transfer Plasma into 1 or more screw-cap polypropylene tube(s) - Freeze Sample Immediately at -20C - Give Linker Up Only Fully Frozen Samples PhenoSense GT(R) plus [...] developed and its performance characteristics determined by [employer]. It has not been cleared or approved by the Food and Drug Administration. [employer] is a subsidiary of [employer], using the brand [employer]. The results should not be used as the sole criteria for patient management. This document contains private and confidential health information protected by state and federal law. If you have received this document in error, please call [phone]. Blood Venous blood specimen / Unknown Venipuncture / Unknown 02/18/2025 1:24 PM EDT 02/18/2025 1:32 PM EDT Narrative [facility] - 03/22/2025 2:05 PM EDT Performed at: 01 - [facility] [address] [place] [address], [place] [id number] Fur Blender: Felicia Jean MD, Phone: [phone] us Ilda Breen MD LAB BLOOD ORDERABLES Edited Resu lt - Final Performing Organization Address [facility]/ZIP Co de Phone Number [facility] * (ABNORMAL) Lymphocyte T-cell panel (02/18/2025 1:24 PM EDT) Pathologist [facility] CD8 Percent 43(H) 9 - 37 % 02/21/2025 10:16 AM EDT [facility] CD8 Absolute Count 138(L) 190 - 832 cell/ul 02/21/2025 10:16 AM EDT [facility] CD4 Percent 37 35 - 66 % 02/21/2025 10:16 AM EDT [facility] CD4 Absolute Count 116(L) 443 - 1471 cell/ul 02/21/2025 10:16 AM EDT [facility] T4/T8 Ratio (CD4:CD8) 0.9(L) 1.0 - 3.7 02/21/2025 10:16 AM EDT [facility] Comment: Test performed at [facility], [address] , [place] [address] Blood Venous blood specimen / Unknown Venipuncture / Unknown 02/18/2025 1:24 PM EDT 02/18/2025 1:32 PM EDT us Ilda Breen MD LAB MOLECULAR DIAGNOSTICS ORDERA BLES Final Result Performing Organization Address [facility] de Phone Number [facility] [address] [place] [address] * HIV 1 molecular study quantitative (02/18/2025 1:24 PM EDT) [facility] HIV-1 RNA Interpretation Not Detected Not Detected LAB MOLECULAR DIAGNOSTICS METHOD 02/18/2025 4:24 PM EDT [facility] Comment:HIV RNA not detected , unable to report quantitative results. Blood Venous blood specimen / Unknown Venipuncture / Unknown 02/18/2025 1:24 PM EDT 02/18/2025 1:32 PM EDT us Ilda Breen MD LAB BLOOD ORDERABLES Final Resul t Performing Organization Address City/[facility]/ZIP Co de Phone Number [facility] [address] [place] [address], [place] [phone] * (ABNORMAL) Manual differential (02/18/2025 6:57 AM EDT) Only the most recent of5 resultswithin the time period is included. Neutrophils % 14.0 % LAB HEMETOLOGY METHOD 02/18/2025 8:15 AM EDT [facility] Lymphocytes % 39.0 % LAB HEMETOLOGY METHOD 02/18/2025 8:15 AM EDT [facility] Monocytes % 25.0 % LAB HEMETOLOGY METHOD 02/18/2025 8:15 AM EDT [facility] Eosinophils % 11.0 % LAB HEMETOLOGY METHOD 02/18/2025 8:15 AM EDT [facility] Basophils % 6.0 % LAB HEMETOLOGY METHOD 02/18/2025 8:15 AM EDT [facility] Metamyelocytes % 6.0(H) % LAB HEMETOLOGY METHOD 02/18/2025 8:15 AM EDT [facility] Neutrophils Absolute Manual 0.17(L) 1.50 - 7.00 K/mcL LAB HEMETOLOGY METHOD 02/18/2025 8:15 AM EDT [facility] Lymphocytes Absolute 0.47(L) 1.00 - 5.00 K/mcL LAB HEMETOLOGY METHOD 02/18/2025 8:15 AM EDT [facility] Monocytes Absolute Manual 0.30 0.20 - 1.00 K/mcL LAB HEMETOLOGY METHOD 02/18/2025 8:15 AM EDT [facility] Eosinophils Absolute Manual 0.13 0.00 - 0.50 K/mcL LAB HEMETOLOGY METHOD 02/18/2025 8:15 AM EDT [facility] Basophils Absolute Manual 0.07 0.00 - 0.20 K/mcL LAB HEMETOLOGY METHOD 02/18/2025 8:15 AM EDT [facility] Metamyelocytes Absolute Manual 0.07(H) 0.00 - 0.00 K/mcL LAB HEMETOLOGY METHOD 02/18/2025 8:15 AM EDT [facility] Rbc Morphology Present(A) Consistent with indices, Normal for LAB HEMETOLOGY METHOD 02/18/2025 8:15 AM EDT [facility] Comment:This is an appended report. These results have been appended to a previously final verified report. Platelet Morphology - WAM Large Platelets Seen(A) Normal [facility] 02/18/2025 8:15 AM EDT [facility] Comment:This is an appended report. These results have been appended to a previously final verified report. Polychromasia Present Present(A) (none) [facility] 02/18/2025 8:15 AM EDT [facility] Comment:This is an appended report. These results have been appended to a previously final verified report. Dohle Body Present Present(A) (none) [facility] 02/18/2025 8:15 AM EDT [facility] Comment:This is an appended report. These results have been appended to a previously final verified report. Blood Venous blood specimen / Unknown Venipuncture / Unknown 02/18/2025 6:57 AM EDT 02/18/2025 7:16 AM EDT us Emanuel Moran MD LAB BLOOD ORDERABLES E dited Result - Final [facility] [address] [place] [address], * Phosphorus (02/18/2025 6:57 AM EDT) Only the most recent of3 resultswithin the time period is included. Phosphorus 4.2 2.5 - 4.5 mg/dL LAB CHEMISTRY METHOD 02/18/2025 7:58 AM EDT [facility] Blood Venous blood specimen / Unknown Venipuncture / Unknown 02/18/2025 6:57 AM EDT 02/18/2025 7:16 AM EDT us Emanuel Moran MD LAB BLOOD ORDERABLES F inal Result Performing Organization Address City/[facility]/ZIP Co de Phone Number [facility] [address] [place] [address], [place] [phone] * (ABNORMAL) Afshan hodge virus IgG, IgM, nuclear and early antibodies (02/17/2025 7:04 AM EDT) [facility] EBV VCA IgG Positive(A) Negative LAB CHEMISTRY METHOD 02/18/2025 8:55 AM EDT [facility] EBV VCA IgM Negative Negative LAB CHEMISTRY METHOD 02/18/2025 8:55 AM EDT [facility] EBV Nuclear Ag Ab Positive(A) Negative LAB CHEMISTRY METHOD 02/18/2025 8:55 AM EDT [facility] EBV Early Ag Ab Negative Negative LAB CHEMISTRY METHOD 02/18/2025 8:55 AM EDT [facility] Blood Venous blood specimen / Unknown Venipuncture / Unknown 02/17/2025 7:04 AM EDT 02/17/2025 7:08 AM EDT Narrative [facility] - 02/18/2025 8:55 AM EDT 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 us Jung Dinero MD LAB BLOOD ORDERABLES Final Resul t [facility] [address] [place] [address], [place] [phone] * Cytomegalovirus molecular study quantitative (02/17/2025 7:03 AM EDT) [facility] Cytomegalovirus (CMV) DNA Qualitative Not detected Not detected 02/19/2025 11:45 AM EDT [facility] Cytomegalovirus (CMV) DNA Quantitative <30 <30 IU/mL 02/19/2025 11:45 AM EDT [facility] Log Cytomegalovirus <1.48 <1.48 Log (10) IU/mL 02/19/2025 11:45 AM EDT [facility] CMV DNA (cp/mL) <76 <76 Copies/mL 02/19/2025 11:45 AM EDT [facility] Comment: This test uses a polymerase chain reaction (PCR) assay from [employer] to amplify and detected conserved regions [...] not rule out infection. Test performed at [facility] [address], [place] [address] Gema Peralta MD, PhD - Towboat Operator Blood Venous blood specimen / Unknown Venipuncture / Unknown 02/17/2025 7:03 AM EDT 02/17/2025 7:08 AM EDT us Jung Dinero MD LAB MICROBIOLOGY - GENERAL ORDER JODEE Final Result [facility] [address] [place], [place] [id number] * Parvovirus B19 antibodies, IgM (02/17/2025 6:15 AM EDT) [facility] Parvovirus B19 Antibody IgM 0.73 <=0.90 INDEX 02/21/2025 6:27 AM EDT [facility] Comment: Negative: No antibody detected Test performed at [facility], [address], [place] [address] Gema Peralta MD, PhD - Towboat Operator Blood Venous blood specimen / Unknown Venipuncture / Unknown 02/17/2025 6:15 AM EDT 02/17/2025 6:19 AM EDT us Jung Dinero MD LAB BLOOD ORDERABLES Final Resul t [facility] [address] [place] [address] * (ABNORMAL) Comprehensive metabolic panel (02/17/2025 6:14 AM EDT) Only the most recent of3 resultswithin the time period is included. Sodium 137 133 - 145 mmol/L LAB CHEMISTRY METHOD 02/17/2025 6:55 AM [facility] Potassium 3.8 3.5 - 5.5 mmol/L LAB CHEMISTRY METHOD 02/17/2025 6:55 AM [facility] Chloride 108 96 - 110 mmol/L LAB CHEMISTRY METHOD 02/17/2025 6:55 AM [facility] CO2 19(L) 21 - 32 mmol/L LAB CHEMISTRY METHOD 02/17/2025 6:55 AM [facility] Anion Gap 10 3 - 11 LAB CHEMISTRY METHOD 02/17/2025 6:55 AM [facility] Glucose 98 70 - 100 mg/dL LAB CHEMISTRY METHOD 02/17/2025 6:55 AM [facility] BUN 84(H) 5 - 25 mg/dL LAB CHEMISTRY METHOD 02/17/2025 6:55 AM [facility] Creatinine 7.34(H) 0.70 - 1.30 mg/dL LAB CHEMISTRY METHOD 02/17/2025 6:55 AM [facility] eGFR 8(L) >=60 mL/min/1. 73m2 LAB CHEMISTRY METHOD 02/17/2025 6:55 AM [facility] Comment:Calculation based on the Chronic Kidney Disease Epidemiology Collaboration (CKD-EPI) equation refit without adjustment for race. BUN/Creatinine Ratio 11.4 LAB CHEMISTRY METHOD 02/17/2025 6:55 AM [facility] Calcium 8.6 8.5 - 10.5 mg/dL LAB CHEMISTRY METHOD 02/17/2025 6:55 AM [facility] AST (SGOT) 15 10 - 42 unit/L LAB CHEMISTRY METHOD 02/17/2025 6:55 AM [facility] ALT (SGPT) 12 10 - 60 unit/L LAB CHEMISTRY METHOD 02/17/2025 6:55 AM [facility] Alkaline Phosphatase 101 42 - 121 unit/L LAB CHEMISTRY METHOD 02/17/2025 6:55 AM [facility] Total Protein 5.9(L) 6.0 - 8.0 g/dL LAB CHEMISTRY METHOD 02/17/2025 6:55 AM [facility] Albumin 2.9(L) 3.2 - 5.0 g/dL LAB CHEMISTRY METHOD 02/17/2025 6:55 AM [facility] Total Bilirubin 0.3 0.0 - 1.4 mg/dL LAB CHEMISTRY METHOD 02/17/2025 6:55 AM [facility] Blood Venous blood specimen / Unknown Venipuncture / Unknown 02/17/2025 6:14 AM EDT 02/17/2025 6:19 AM EDT us Jung Dinero MD LAB BLOOD ORDERABLES Final Resul t [facility] [address] [place] [address], * (ABNORMAL) Tacrolimus level (02/16/2025 7:28 AM EDT) Tacrolimus Level 2.9(L) 5.0 - 20.0 ng/mL 02/19/2025 12:16 PM EDT [facility] Comment: Additional Information: Toxic Level > [...] developed and the performance characteristics determined by [facility]. This confirmation testing has not been cleared or approved by the FDA. The laboratory is regulated under CLIA as qualified to perform high-complexity testing. This test is used for patient testing purposes. It should not be regarded as investigational or for research. Test performed at [facility], [address] , [place] [address] Gema Peralta MD, PhD - Towboat Operator Blood Venous blood specimen / Unknown Venipuncture / Unknown 02/16/2025 7:28 AM EDT 02/16/2025 7:32 AM EDT us Jung Dinero MD LAB BLOOD ORDERABLES Final Resul t [facility] [address] [place] [address] * (ABNORMAL) AST, ALT, Bilirubin ELR state reportables (02/15/2025 6:38 AM EDT) ALT (SGPT) 9(L) 10 - 60 unit/L LAB CHEMISTRY METHOD 02/15/2025 7:35 PM EDT [facility] AST (SGOT) 14 10 - 42 unit/L LAB CHEMISTRY METHOD 02/15/2025 7:35 PM EDT [facility] Total Bilirubin 0.3 0.0 - 1.4 mg/dL LAB CHEMISTRY METHOD 02/15/2025 7:35 PM EDT [facility] Blood Venous blood specimen / Unknown Venipuncture / Unknown 02/15/2025 6:38 AM EDT 02/15/2025 6:46 AM EDT Curtis Manning MD LAB BLOOD ORDERABLES Final Re sult Performing Organization Address [facility]/ZIP Co de Phone Number [facility] [address] [place] [address], [place] [phone] * Pathology review, blood smear (02/15/2025 6:38 [...] the patient's infection. 02/17/2025 8:36 AM EDT [facility] Blood Venous blood specimen / Unknown Venipuncture / Unknown 02/15/2025 6:38 AM EDT 02/15/2025 6:46 AM EDT Jason MODI LAB BLOOD ORDERABLES Final Res ult Performing Organization Address [facility]/ZIP Co de Phone Number [facility] [address] [place] [address], [place] [phone] * (ABNORMAL) Hepatitis B screening panel (02/15/2025 6:38 AM EDT) Hepatitis B Surface Ag Negative Negative LAB CHEMISTRY METHOD 02/15/2025 6:23 PM EDT [facility] Hep B Core Total Ab Positive(A) Negative LAB CHEMISTRY METHOD 02/15/2025 6:23 PM EDT [facility] Hepatitis B Surface Ab Negative Negative LAB CHEMISTRY METHOD 02/15/2025 6:23 PM EDT [facility] Blood Venous blood specimen / Unknown Venipuncture / Unknown 02/15/2025 6:38 AM EDT 02/15/2025 6:46 AM EDT Curtsi Manning MD LAB BLOOD ORDERABLES Final Re sult Performing Organization Address [facility] Co de Phone Number [facility] [address] [place] [address], [place] [phone] * Hepatitis B core antibody IgM (02/15/2025 6:38 AM EDT) Hep B Core IgM Negative Negative LAB CHEMISTRY METHOD 02/15/2025 7:33 PM EDT [facility] Blood Venous blood specimen / Unknown Venipuncture / Unknown 02/15/2025 6:38 AM EDT 02/15/2025 6:46 AM EDT Narrative [facility] - 02/15/2025 7:33 PM EDT Over the counter supplements containing high doses of biotin may interfere with this assay. If interference is suspected, patients shoud be retested after refraining from biotin supplements for 72 hours. us Curtis Manning MD LAB BLOOD ORDERABLES Final Re sult [facility] [address] [place] [address], [place] [phone] * (ABNORMAL) Parathyroid hormone intact (02/15/2025 6:38 AM EDT) PTH 658.3(H) 18.5 - 88.0 pcg/mL LAB CHEMISTRY METHOD 02/15/2025 5:44 PM EDT [facility] Blood Venous blood specimen / Unknown Venipuncture / Unknown 02/15/2025 6:38 AM EDT 02/15/2025 6:46 AM EDT us Curtis Manning MD LAB BLOOD ORDERABLES Final Re sult [facility] [address] [place] [address], * (ABNORMAL) Drug abuse screen 8a panel, urine (02/15/2025 5:30 AM EDT) Amphetamine Screen, Ur Negative Negative LAB CHEMISTRY METHOD 5 6:09 AM [facility] Comment:Certain OTC medicati ons containing ephedrine, phenylephrine, pseudoephedrine and phenylpropanolamine can cause false positive results. Barbiturate Screen, Ur Negative Negative LAB CHEMISTRY METHOD 5 6:09 AM [facility] Benzodiazepine Screen, Ur Negative Negative LAB CHEMISTRY METHOD 5 6:09 AM [facility] Cocaine Screen, Ur Negative Negative LAB CHEMISTRY METHOD 5 6:09 AM [facility] Opiate Screen, Ur Positive(A ) Negative LAB CHEMISTRY METHOD 5 6:09 AM [facility] Cannabinoid (THC) Screen, Ur Negative Negative LAB CHEMISTRY METHOD 5 6:09 AM T [facility] Comment:Specimens from patie nts taking pantoprazole sodium (Protonix) have been shown to produce false positive results. Oxycodone Screen, Ur Negative Negative LAB CHEMISTRY METHOD 5 6:09 AM [facility] Fentanyl, Ur Negative Negative LAB CHEMISTRY METHOD 5 6:09 AM [facility] Urine Urine specimen obtained by clean catch procedure / Unknown Non-blood Collection / Unknown 02/15/2025 5:30 AM EDT 02/15/2025 5:37 AM EDT Narrative [facility] - 02/15/2025 6:09 AM EDT [...] ORDERABLES Final Res ult Performing Organization Address City/[facility]/ZIP Co de Phone Number [facility] [address] [place] [address], [place] [phone] * MRSA molecular study (02/15/2025 5:30 AM EDT) [facility] MRSA Screen PCR Not Detected Not Detected LAB MICROBIOLOGY METHOD 02/15/2025 8:45 AM EDT [facility] Swab Nasopharyngeal structure / Unknown Non-blood Collection / Unknown 02/15/2025 5:30 AM EDT 02/15/2025 5:35 AM EDT us Jason MODI LAB MICROBIOLOGY - GENERAL ORD ERABLES Final Result Performing Organization Address [facility]/ZIP Co de Phone Number [facility] [address] [place] [address], [place] [phone] * XR Foot 3+ Views Left (02/15/2025 [...] Signed Date: 02/15/2025 09:04 ET Workstation ID: [id number] Transcribed By: Self Edit Transcribed Date: 02/15/2025 [...] Signed Date: 02/15/2025 09:04 ET Workstation ID: [id number] Transcribed By: Self Edit Transcribed Date: 02/15/2025 09:01 ET us Saad Pimentel MD IMG XR PROCEDURES Final Resu lt * Blood Culture, Peripheral #1 (02/15/2025 1:15 AM EDT) Only the most recent of2 resultswithin the time period is included. [facility] Signature Culture, Blood No growth at 5 days 02/20/2025 5:01 AM EDT [facility] Blood Venous blood specimen / Unknown Venipuncture / Unknown 02/15/2025 1:15 AM EDT 02/15/2025 1:31 AM EDT Saad Pimentel MD LAB MICROBIOLOGY - GENERAL O RDERABLES Final Result Performing Organization Address [facility]/ZIP Co de Phone Number [facility] [address] [place] [address], [place] [phone] * Lactate, with reflex (02/15/2025 12:54 AM EDT) LACTIC ACID 1.2 0.4 - 2.0 mmol/L LAB CHEMISTRY METHOD 02/15/2025 1:46 AM EDT [facility] Blood Venous blood specimen / Unknown Venipuncture / Unknown 02/15/2025 12:54 AM EDT 02/15/2025 12:57 AM EDT Saad Pimentel MD LAB BLOOD ORDERABLES Final R esult Performing Organization Address [facility]/ZIP Co de Phone Number [facility] [address] [place] [address], * (ABNORMAL) C-reactive protein (02/15/2025 12:52 AM EDT) C-Reactive Protein 16.40(H) <=0.50 mg/dL LAB CHEMISTRY METHOD 02/15/2025 5:02 AM EDT [facility] Blood Venous blood specimen / Unknown Venipuncture / Unknown 02/15/2025 12:52 AM EDT 02/15/2025 12:58 AM EDT Jason MODI LAB BLOOD ORDERABLES Final Res ult Performing Organization Address City/[facility]/ZIP Co de Phone Number [facility] [address] [place] [address], * APTT (02/15/2025 12:51 AM EDT) aPTT 30.5 24.1 - 39.3 sec LAB COAGULATION METHOD 02/15/2025 1:11 AM EDT [facility] Blood Venous blood specimen / Unknown Venipuncture / Unknown 02/15/2025 12:51 AM EDT 02/15/2025 12:58 AM EDT Saad Pimentel MD LAB BLOOD ORDERABLES Final R esult Performing Organization Address [facility]/ZIP Co de Phone Number [facility] [address] [place] [address], [place] [phone] * (ABNORMAL) Protime-INR (02/15/2025 12:51 AM EDT) Protime 14.3(H) 10.6 - 13.9 sec LAB COAGULATION METHOD 02/15/2025 1:11 AM EDT [facility] INR 1.1 LAB COAGULATION METHOD 02/15/2025 1:11 AM EDT [facility] Blood Venous blood specimen / Unknown Venipuncture / Unknown 02/15/2025 12:51 AM EDT 02/15/2025 12:58 AM EDT Saad Pimentel MD LAB BLOOD ORDERABLES Final R esult Performing Organization Address City/[facility]/ZIP Co de Phone Number [facility] [address] [place] [address], [place] [phone] from Last 3 Months Insurance Advance Directives [...] currently active code status orders. Care Teams Tube Sizer And Cutter Operator Relationship Specialty Start Date End Date Name, MD Horacio [address] [place] [address] PCP - General Internal Medicine 02/15/25
[2025-05-08 05:07] LABS: HBS Num1 4.45 mIU/mL (0-7.99); HBc Num1 9.27 S/CO (0.00-0.79); HBsAGNum1 0.31 S/CO (0.00-0.99); Hepatitis B Surface Antigen Negative (Negative); ~Hepatitis B Surface Antibody NONREACTIVE (Nonreactive)
[2025-05-08 06:39] LABS: HBc Num2 9.37 S/CO
[2025-05-08 07:34] LABS: HBc Num3 9.41 S/CO
[2025-05-09 16:24] LABS: Hepatitis B Core Antibody IgM NON-REACTIVE (NON-REACTIVE)
== END 2025-05-07 14:28 | disposition home or self-care (01) ==
LOC: HO.LAB 14:27
PROVIDERS: PCP Internal Medicine Geriatric Medicine; Visit Provider Internal Medicine Nephrology
DX: I12.9 Hypertensive chronic kidney disease with stage 1 through stage 4 chronic kidney disease, or unspecified chronic kidney disease (principal); N18.5 Chronic kidney disease, stage 5; N25.81 Secondary hyperparathyroidism of renal origin; E87.20 Acidosis, unspecified; Z11.59 Encounter for screening for other viral diseases; Z94.0 Kidney transplant status
CPT/HCPCS: 36415; 86704; 86705; 86706; 87340; 99212

== ENCOUNTER 2025-05-07 14:27 | Outpatient (AMB) | payer MEDICAID, SELFPAY ==
--- NOTE | 2025-05-07 14:28 | HO.NEPHOV ---
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 He is CMV positive, EBV positive with a PRA of 0. Donor ID is [id number] MAOB, KDPI 60% with hep C antibody positive, donor serology with CMV positive, EBV positive, toxoplasmosis positive. Patient underwent donor kidney transplant 06/19/2023. Angiogram did not find any renal artery stenosis so no intervention was performed. Went to OR 09/08 for LUE AV fistula ligation and resection. He has failed graft and is close to initiation of HD. He denies uremic symptoms, He wants to wait until AVF is made and matured before initiation of HD. [facility] Medical History Secondary hyperparathyroidism ESRD (end stage renal disease) on dialysis A-V fistula HIV (human immunodeficiency virus infection) Hypertension Kidney disease Surgical History Hx of cardiac catheterization Social History Are you a primary healthcare associate to a significant other at home: No Do you presently have visiting nurse or other home services: Yes ([employer] 3 hours daily) Alcohol intake: never Patient Tobacco Use Status: Former Tobacco user Tobacco use type: Cigarette Substance Use Type: Former Substance User Review of Systems Const All systems reviewed & are unremarkable except as noted in HPI and below Physical Exam Const General: comfortable and no acute distress Orientation/consciousness: patient oriented x3 HEENT Head: Yes normocephalic Mouth: Normal oral and palatal mucosa present Eyes EOM: EOMs intact bilaterally Neck Neck: Yes supple Resp Auscultation: clear to auscultation bilaterally Cardio Jugular venous distension: no JVD Rate: regular rate GI Palpation (GI): Soft to palpation Auscultation: normal bowel sounds General: Yes no CVA tenderness Back/Spine/Pelvis Back: no CVA tenderness Skin General skin exam: no rashes or lesions noted Neuro General: patient oriented x3 and moves all extremities Extrem General: Yes no pedal edema Results Reviewed Nephrology Results: Hgb, (14.0-18.0) 10.3 g/dl L 04/21/25 WBC, (4.8-10.8) 6.8 X10*3/uL 04/21/25 Plt Count, (160-400) 161 X10*3/uL 04/21/25 Sodium, (135-145) 142 mmol/L 05/06/25 Potassium, (3.3-5.1) 5.1 mmol/L 05/06/25 Chloride, (96-108) 109 mmol/L H 05/06/25 Carbon Dioxide, (22-29) 19 mmol/L L 05/06/25 BUN, (9-16) 84 mg/dL H 05/06/25 Creatinine, (0.5-1.4) 8.68 mg/dL H* 05/06/25 Calcium, (8.4-10.2) 7.5 mg/dL L 04/21/25 Phosphorus, (2.7-4.5) 6.2 mg/dL H 04/21/25 PTH Intact, (8.7-77.1) 300.1 pg/mL H 03/11/25 Renal US 12/01/23 Assessment & Plan Assessment & Plan (1) Hypertension: Code(s): I10 - Essential (primary) hypertension Category: Medical Qualifiers: Hypertension type: secondary to other renal disorders Qualified Code(s): I15.1 - Hypertension secondary to other renal disorders (2) Secondary hyperparathyroidism (of renal origin): Code(s): N25.81 - Secondary hyperparathyroidism of renal origin Category: Medical (3) Renal transplant recipient: Code(s): Z94.0 - Kidney transplant status Category: Surgical (4) CKD (chronic kidney disease) stage 5, GFR less than 15 ml/min: Code(s): N18.5 - Chronic kidney disease, stage 5 Category: Medical (5) Metabolic acidosis: Code(s): E87.20 - Acidosis, unspecified Category: Medical Plan Graft function worse but no uremic symptoms Currently taking prograf; Off MMF Blood pressure on target at home C/W current dose of NaHCO3 Needs to take calcium acetate with meals No indication for renal replacement today S/P AVF and referred for transplant eval Follow up next week Coding Level of Care Code Est Pt Level 4 (70685) Diagnoses Hypertension secondary to other renal disorders I15.1 Hypertension type: secondary to other renal disorders Secondary hyperparathyroidism (of renal origin) N25.81 Renal transplant recipient Z94.0 CKD (chronic kidney disease) stage 5, GFR less than 15 ml/min N18.5 Metabolic acidosis E87.20
[2025-05-07 14:34] VITALS: BP 122/70; PULSE 73; O2SAT 99; BMI 26.0
--- OUTSIDE RECORDS SUMMARY | 2025-05-07 17:17 | XMS_ITS | Clinical Summary ---
Author Organization [facility], Address [address] [place] [address] Phone Care Team Providers Care Rn Gyn Name Role Phone Name, Horacio ARORA Primary [...] by mouth 4 Active ergocalciferol 1.25 MG (15475 UT) capsule TAKE 1 CAPSULE BY MOUTH [...] Telephone [facility] [address] [place] [address] Madalyn Silverman 03/26/2025 3:30 PM EDT Office Visit [facility] [address] [place] [address] Nakul Pardo MD Stage 5 chronic kidney [...] Visit [facility] [address] [place] [address] [place] [phone] Health Maintenance Due Date Last Done Comments Hepatitis B Vaccine (1 of 3 - 19+ 3-dose series) 02/03 Pneumococcal Vaccine: Peds ( 0 to 5 Years) and At-Risk Patients (6 to 49 Years) (1 of 2 - PCV) 02/04/1996 Influenza Vaccine (#1) 2025 Insurance [place] Medicaid MD Care Teams Rn Gyn Relationship Specialty Start Date End Date Name, MD Horacio [address] [place] [address] PCP - General Internal Medicine 02/17/25
== END 2025-05-07 15:15 | disposition home or self-care (01) ==
LOC: HO.HKA 14:28
PROVIDERS: PCP Internal Medicine Geriatric Medicine; Visit Provider Internal Medicine Nephrology
DX: I15.1 Hypertension secondary to other renal disorders (principal); N25.81 Secondary hyperparathyroidism of renal origin; Z94.0 Kidney transplant status; N18.5 Chronic kidney disease, stage 5; E87.20 Acidosis, unspecified
CPT/HCPCS: 99214

== ENCOUNTER → 2025-05-12 23:59 | Outpatient (BNV) | payer MEDICAID, SELFPAY | PROVIDERS: PCP Internal Medicine Geriatric Medicine; Visit Provider Internal Medicine Nephrology | DX: N18.6 End stage renal disease (principal) | CPT/HCPCS: 90960 ==

== ENCOUNTER → 2025-06-11 14:59 | Outpatient (BNVA) | payer MEDICAID, SELFPAY | PROVIDERS: PCP Internal Medicine Geriatric Medicine; Visit Provider Internal Medicine | DX: Z01.818 Encounter for other preprocedural examination (principal); R76.89 Other specified abnormal immunological findings in serum; D84.9 Immunodeficiency, unspecified | CPT/HCPCS: 99212 ==

== ENCOUNTER → 2025-06-11 14:59 | Outpatient (AMB) | payer MEDICAID, SELFPAY ==
--- NOTE | 2025-06-11 15:01 | A.OFFVIS_ITS ---
Vital Signs 06/11/25 15:04 Height 5 ft 8 in Weight 169 lb 12.095 oz BMI 25.8 BP 138/89 Blood Pressure Location Rt brachial Position Sitting Pulse 89 Intake Visit Reasons: Discuss Colon - Kidney Transplant List Intake Note: Hamlet presents in the office as a follow up to discuss colonoscopy for his kidney transplant. CC: States that he is not having any concerns today - he is doing transplant and states that he is due now for the colonoscopy. 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 Pt was last seen in 2022 for pos cologuard. Colonoscopy 2022 (Dr Quintana) - fair to poor prep. HP rectal polyps. Recommendation was made for repeat colo in 1-2 years due to prep quality. He is being evaluated for a kidney transplant at [facility]. He requires colonoscopy for pre-transplant clearance. He does not report any abdominal pain, N,V, change in bowel habits. Has prev hx of HCV s/p SVR. Also has HB core Ab pos, most recent blood work from 04/2025 with NEG HbsAg. He has no history of heart or lung problems and has had no prior issues with anesthesia. Pt was informed and consented to the use of ambient scribe for this encounter. [facility] Medical History (Updated 06/11/25 @ 15:26 by Sneha Breen MD) Secondary hyperparathyroidism ESRD (end stage renal disease) on dialysis A-V fistula HIV (human immunodeficiency virus infection) Hypertension Kidney disease Surgical History (Updated 06/11/25 @ 15:04 by CALLUM Rosales) Hx of colonoscopy Hx of cardiac catheterization Social History Are you a primary intensive care nurse to a significant other at home: No Do you presently have visiting nurse or other home services: Yes (DIRECTOR OF INFORMATICS 3 hours daily) Alcohol intake: never Patient Tobacco Use Status: Former Tobacco user Tobacco use type: Cigarette Substance Use Type: Former Substance User Review of Systems Narrative Review of Systems - General: Denies problems with anesthesia. - Cardiovascular: Denies heart problems. - Respiratory: Denies lung problems. - Gastrointestinal: Reports no longer having to strain during bowel movements. - Hematologic/Lymphatic: Denies taking blood thinners. Physical Exam Exam Exam: Physical Exam No apparent distress Nonicteric Abdomen soft, nondistended Alert and oriented x3, normal gait Vital Signs: Last Vital Signs Pulse 89 06/11/25 15:04 BP 138/89 06/11/25 15:04 BMI result Body Mass Index 25.8 Assessment & Plan Assessment & Plan (1) Pre-transplant evaluation for ESRD (end stage renal disease): Code(s): Z01.818 - Encounter for other preprocedural examination Category: Medical (2) Hepatitis C antibody positive in blood: Code(s): R76.8 - Other specified abnormal immunological findings in serum Category: Medical (3) Hepatitis B core antibody positive: Code(s): R76.89 - Other specified abnormal immunological findings in serum Category: Medical (4) Immunosuppressed status: Code(s): D84.9 - Immunodeficiency, unspecified Category: Medical Plan 1. Screening Colonoscopy The patient is referred for a repeat colonoscopy as part of his pre-kidney transplant workup. His last procedure in October 2022 had inadequate bowel preparation. Plan: - [facility] to be booked - Miralax/gatorade prep with 2 days of dulcolax recommended - Instructions reviewed with the pt and handout in Malian provided. 2. History of Hepatitis B/ occult HBV Pt with Hb sAg neg, HbCore Ab + He is currently on prograf. At low risk for reactivation with solid organ immunosuppresion. Plan: - Cont HBV and LFT monitoring once a year Follow up after colo as needed. Orders: Referrals GI Procedure Notification Z01.818 - Encounter for other preprocedural examination Medications: New polyethylene glycol 3350 (Miralax) mix in 64 oz of gatorade for colonoscopy prep 238 grams PO ONCE 238 grams 0RF bisacodyl Start taking 2 days prior to the colonoscopy 10 mg (2 x 5 mg) PO BID 8 tabs 0RF 2 days Coding Level of Care Code Est Pt Level 4 (28469) Diagnoses Pre-transplant evaluation for ESRD (end stage renal disease) Z01.818 Hepatitis C antibody positive in blood R76.8 Hepatitis B core antibody positive R76.89 Immunosuppressed status D84.9
[2025-06-11 15:04] VITALS: BP 138/89; PULSE 89; BMI 25.8
--- OUTSIDE RECORDS SUMMARY | 2025-06-11 15:49 | XMS_ITS | Clinical Summary ---
Author Organization [address] [facility] Address [address] [place] [address] Phone Care Team Providers Care Alteration Workroom Supervisor Name Role Phone Name, Horacio ARORA Primary Care Provider [phone] Allergies Active Allergy Reactions Criticality Noted Date [...] Date Diagnosed Date EZEQUIEL (acute kidney injury) 02/18/2025 Hypomagnesemia 02/18/2025 Severe neutropenia 02/18/2025 Cellulitis 02/15/2025 CKD (chronic kidney disease) stage 5, GFR less than 15 ml/min 12/31/2024 Encounters Date Type Department Care Team Description 05/23/2025 Lab Requisition [facility] - Main Lab [address] [facility] [place] [address] Onesimo Ayers MD Hyperkalemia from Last 3 Months Surgical History Surgery Date Site/Laterality Comments TRANSPLANT, KIDNEY, ROBOT-ASSISTED Medical History Medical History Date Comments Chronic kidney disease Secondary hyperparathyroidism ([facility] V24) ESRD (end stage renal disease) ([facility]/HCC V24, [facility] /[facility] V28) HIV (human immunodeficiency virus infection) ([facility] V24, [facility] V28) Hypertension Social History Tobacco [...] Procedure Name Priority Date/Time Associated Diagnosis Comments POTASSIUM STAT 05/23/2025 9:45 AM EST Hyperkalemia from Last 3 Months Results * Potassium (05/23/2025 9:45 AM EST) Potassium 4.4 3.5 - 5.5 mmol/L 05/23/2025 12:18 PM EST [facility] Blood Venous blood specimen / Unknown 05/23/2025 9:45 AM EST 05/23/2025 11:40 AM EST us Onesimo Ayers MD LAB BLOOD ORDERABLES Final Resul t [facility] [address] [place] [address], [place] [phone] from Last 3 Months Insurance [address] [place] [address] [id number] MEDICAID - [place] [facility] MEDICAID Advance Directives * Full Code - Default [...] currently active code status orders. Care Teams Alteration Workroom Supervisor Relationship Specialty Start Date End Date Name, MD Horacio [address] [place] [address] PCP - General Internal Medicine 02/15/25
--- OUTSIDE RECORDS SUMMARY | 2025-06-11 15:49 | XMS_ITS | Clinical Summary ---
Author Organization [facility], Address [address] [place] [address] Phone Care Team Providers Care Environmental Quality Analyst Name Role Phone Name, Horacio ARORA Primary [...] by mouth 4 Active ergocalciferol 1.25 MG (89333 UT) capsule TAKE 1 CAPSULE BY MOUTH [...] capsule, 0 Refills, Maintenance, 06/22/23 10:24:00 EST, [facility], Partial fill upon patient [...] Telephone [facility] [address] [place] [address] Madalyn Silverman 03/26/2025 3:30 PM EDT Office Visit [facility] [address] [place] [address] Nakul Pardo MD Stage 5 chronic kidney [...] Visit [facility] [address] [place] [address] [place] [id number] Health Maintenance Due Date Last Done Comments Hepatitis B Vaccine (1 of 3 - 19+ 3-dose series) 02/03 Pneumococcal Vaccine: Peds ( 0 to 5 Years) and At-Risk Patients (6 to 49 Years) (1 of 2 - PCV) 02/04/1996 Influenza Vaccine (#1) 2025 Insurance Medicaid [place] Medicaid [place] Medicaid [place] Care Teams Environmental Quality Analyst Relationship Specialty Start Date End Date Name, MD Horacio [address] [place] [address] PCP - General Internal Medicine 02/17/25
--- OUTSIDE RECORDS SUMMARY | 2025-06-11 15:49 | XMS_ITS | Encounter Summary ---
Author Organization [facility] Address [address] [place] [address] Care Team Providers Care Clinical Athletic Instructor Name Role Phone Name, Horacio ARORA Primary Care Provider [phone] Encounter Details Date Type Department Care Team (Late st Contact Info) Description 05/23/2025 Lab Requisition [facility] - Main Lab [address] [facility] [place] [phone] Onesimo Ayers MD [address] [facility] [address] [place] [address] Hyperkalemia Social History Tobacco Use Types Packs/Day Years [...] on file documented as of this encounter Plan of Treatment Not on file documented as of this encounter Procedures Procedure Name Priority Date/Time Associated Diagnosis Comments POTASSIUM STAT 05/23/2025 9:45 AM EST Hyperkalemia documented in this encounter Results * Potassium (05/23/2025 9:45 AM EST) Potassium 4.4 3.5 - 5.5 mmol/L 05/23/2025 12:18 PM EST [facility] Blood Venous blood specimen / Unknown 05/23/2025 9:45 AM EST 05/23/2025 11:40 AM EST us Onesimo Ayers MD LAB BLOOD ORDERABLES Final Resul t [facility] [address] [place] [address], documented in this encounter Visit Diagnoses Diagnosis Hyperkalemia Hyperpotassemia documented in this encounter Care Teams Clinical Athletic Instructor Relationship Specialty Start Date End Date Name, MD Horacio [address] [place] [address] PCP - General Internal Medicine 02/15/25 documented as of this encounter
== END ==
LOC: HO.HGI 14:59
PROVIDERS: PCP Internal Medicine Geriatric Medicine; Visit Provider Internal Medicine
DX: Z01.818 Encounter for other preprocedural examination (principal); Z12.11 Encounter for screening for malignant neoplasm of colon; R76.89 Other specified abnormal immunological findings in serum; D84.9 Immunodeficiency, unspecified
CPT/HCPCS: 99212